=== PATIENT | female | born 1955 | race Caucasian/White ===

== ENCOUNTER 2022-07-29 20:27 | Emergency (ER) | payer MEDICARE, SELFPAY ==
[2022-07-29 20:42] VITALS: BP 226/90; PULSE 100; RESP 16; TEMP 36.7; O2SAT 100
--- NOTE | 2022-07-29 23:39 | PC.NURSE ---
Patient approached the intake desk and informed, SRINIVASA Shay that she did not want to wait any longer and was leaving. Patient was alert and ambulatory upon leaving the ED.
== END 2022-07-29 23:39 | disposition left against medical advice (07) ==
PROVIDERS: PCP Internal Medicine Geriatric Medicine
DX: Z53.21 Procedure and treatment not carried out due to patient leaving prior to being seen by health care provider (principal)
CPT/HCPCS: 99199

== ENCOUNTER 2023-01-23 12:52 | Outpatient (CLI) | payer MEDICARE, SELFPAY ==
--- NOTE | 2023-01-23 15:00 | NEURO_ITS ---
Impression: # Complains of numbness of left hand. # No Carpal Tunnel Syndrome. # Left ulnar neuropathy across the elbow. # Needle/EMG exam decreased motor unit potentials in left 1st DI. Nerve Conduction Studies Anti Sensory Summary Table Stim Site NR Peak (ms) P-T Amp (?V) Site1 Site2 Delta-P (ms) Dist (cm) Kb (m/s) Left Median Anti Sensory (2-3nd Digit) Wrist 3.6 32.9 Wrist 2-3nd Digit 3.6 14.0 39 Wrist 3.9 33.6 Wrist 2-3nd Digit 3.6 14.0 39 Left Radial Anti Sensory (Base 1st Digit) Wrist 1.9 18.3 Wrist Base 1st Digit 1.9 0.0 Left Ulnar Anti Sensory (5th Digit) Wrist 3.3 17.8 Wrist 5th Digit 3.3 14.0 42 Motor Summary Table Stim Site NR Onset (ms) O-P Amp (mV) Site1 Site2 Delta-0 (ms) Dist (cm) Kb (m/s) Left Median Motor (Abd Poll Brev) Wrist 3.4 3.2 Elbow Wrist 5.2 28.0 54 Elbow 8.6 3.0 Left Ulnar Motor (Abd Dig Minimi) Wrist 2.0 4.4 A Elbow Wrist 5.9 30.0 51 A Elbow 7.9 2.2 B Elbow Wrist 3.7 22.0 59 B Elbow 5.7 4.0 F Wave Studies NR F-Lat (ms) L-R F-Lat (ms) Left Median (Mrkrs) (Abd Poll Brev) 29.67 Left Ulnar (Mrkrs) (Abd Dig Min) 29.92 EMG Side Muscle Nerve Root Ins Act Fibs Amp Dur Recrt Comment Left 1stDorInt Ulnar C8-T1 Nml Nml Nml >12ms Reduced Left Ext Indicis Radial (Post Int) C7-8 Nml Nml Nml Nml Nml Left Ext Digitorum Radial (Post Int) C7-8 Nml Nml Nml Nml Nml Left BrachioRad Radial C5-6 Nml Nml Nml Nml Nml Left PronatorTeres Median C6-7 Nml Nml Nml Nml Nml Left Abd Poll Brev Median C8-T1 Nml Nml Nml Nml Nml Left ABD Dig Min Ulnar C8-T1 Nml Nml Nml Nml Nml MTDD
== END 2023-01-23 12:53 | disposition home or self-care (01) ==
LOC: ANHNEURO 12:52
PROVIDERS: Visit Provider Orthopaedic Surgery
DX: G56.22 Lesion of ulnar nerve, left upper limb (principal)
CPT/HCPCS: 95886; 95909

== ENCOUNTER 2023-03-22 13:10 | Outpatient (CLI) | payer MEDICARE, SELFPAY ==
[2023-03-22 16:04] LABS: Anion Gap 4 mmol/L (8-16); Blood Urea Nitrogen 30 mg/dL (7-17); Calcium 9.3 mg/dL (8.4-10.2); Carbon Dioxide 29 mmol/L (22-30); Chloride 106 mmol/L (98-107); Estimated Glomerular Filt Rate 55; Glucose 108 mg/dL (65-110); Potassium 3.9 mmol/L (3.4-5.0); Sodium 139 mmol/L (137-145)
== END 2023-03-22 13:11 | disposition home or self-care (01) ==
PROVIDERS: Anesthesiology; Visit Provider Orthopaedic Surgery
DX: Z51.81 Encounter for therapeutic drug level monitoring (principal); Z79.899 Other long term (current) drug therapy
CPT/HCPCS: 36415; 80048

== ENCOUNTER 2023-03-27 03:03 | Day surgery (SDC) | payer MEDICARE, SELFPAY ==
[2023-03-19 14:02] VITALS: BMI 30.7
--- NOTE | 2023-03-19 14:15 | PC.NURSE ---
PRE-OP INSTRUCTIONS, PLEASE READ CAREFULLY Report to the Outpatient Waiting Room, entrance under the green pavilion located off [facility], at time _1130_ on date _03/27/23_. Planned Procedure Time: __1:30__. Time changes happen often and if your time is changed the preop area will call you the afternoon before. - You and your visitor will be asked to self-screen and do not enter if you have any COVID symptoms. - A mask is optional within the hospital at this time. Patients may have clear liquids (water, carbonated beverages, clear teas, apple juice) until 3 hours prior to surgery (1030 AM) with a maximum of 20 ounces. - No food from midnight until time of surgery Take the following medications with a SIP of water the morning of surgery: _NIFEDIPINE, INHALER, NASAL SPRAY_ DO NOT STOP ANY OF YOUR OTHER PRESCRIPTION MEDICATIONS PRIOR TO SURGERY ?EXCEPT THE FOLLOWING Medications to discontinue - _LEFLUNOMIDE PER DR. LINARES'S INSTRUCTIONS_ Please no make-up, nail [place], hairspray, perfume, deodorant, or body powder the day of surgery. No jewelry (including any body piercings) or valuables the day of surgery, leave them at home. Please take a shower or bath the night before, or the morning of, surgery with an antibacterial soap. Wear comfortable, loose fitting clothing. Children are encouraged to wear pajamas. - Jewelry must be removed prior to entering the operating room. Rings and piercings that are not removed may be cut off. - The hospital will not accept responsibility for valuables. - Please leave all valuables, including medications, at home the day of surgery. If you are going home after surgery, a licensed otr flatbed driver must drive you home. - NO public transportation without another adult if you receive anesthesia. - We recommend that an adult stay with you for 24 hours following discharge. - We also recommend that you do not drive, make important decision, drink alcoholic beverages, or take any drugs that were not prescribed by your health care provider for at least 24 hours after your discharge time. Follow any additional instructions given to you from your surgeon. If you or anyone in your household have experienced Covid symptoms in the past week, please notify your surgeon or the nurse liaison at the phone number below for possible testing. Telephone instructions given to _PATIENT_and asked if any additional questions and then verbalized understanding. Patient advised to call surgeon office or pre surgery nurse liaison [phone] if any additional questions.
[2023-03-27] VITALS (8 sets, daily range): BP systolic 120–168; BP diastolic 60–76; PULSE 63–87; RESP 12–20; TEMP 36.2–36.7; O2SAT 96–100
--- NOTE | 2023-03-27 07:28 | WPDHPUPDATE1 ---
History and Physical Update Update Date/Time: 03/27/23 07:28 History and Physical has been reviewed, including an updated exam of the patient. There are NO changes in the patient's condition. Risks, benefits, and alternatives have been discussed and questions answered. Patient agrees to proceed with procedure.
--- NOTE | 2023-03-27 12:32 | WPDANESEPPF ---
Anes - Initial Pre Proc Eval Procedure: Operation Date: 03/27/23 13:30 Proposed Procedures p Left Cubital Tunnel Release, - Nathaniel De Leon MD s Left Middle Trigger Finger Release - Nathaniel De Leon MD Date/Time: 03/27/23 12:32 Surgeon: Nathaniel De Leon MD Pre Op Diagnosis: Lft Cubital Tunnel synd,Lft Middle Trigger Finger Patient Data Age: 68 Gender: F Height: 1.68 m Weight: 85.8 kg Last Vital Signs Temp 36.7 C 03/27/23 12:22 Pulse 79 03/27/23 12:22 Resp 14 03/27/23 12:22 BP 149/76 H 03/27/23 12:22 Pulse Ox 100 03/27/23 12:22 O2 Del Method Room Air 03/27/23 12:22 Allergies Allergy/AdvReac Type Severity Reaction Status Date / Time Iodinated Contrast Media Allergy Severe ALTERED Verified 03/22/23 15:09 MENTAL STATUS adalimumab Allergy Unknown FACIAL Verified 03/22/23 15:09 SWELLING ibuprofen Allergy Unknown FACIAL Verified 03/22/23 15:09 SWELLING naproxen Allergy Unknown FACIAL Verified 03/22/23 15:09 SWELLING methotrexate AdvReac LUNG Verified 03/22/23 15:09 NODULES Home Medications Medication Instructions Recorded Confirmed Type fluticasone furoate 100 1 inhalation inhalation DAILY 04/07/20 03/22/23 History mcg-vilanterol 25 mcg/dose inhalation powder (Breo Ellipta) leflunomide 20 mg tablet 20 mg PO DAILY 04/07/20 03/22/23 History fluticasone propionate 50 1 spray intranasal DAILY 03/03/22 03/22/23 History mcg/actuation nasal spray,suspension lisinopril 10 mg tablet 40 mg PO DAILY 10/31/22 03/22/23 History spironolactone 25 mg tablet 25 mg PO BID 10/31/22 03/22/23 History (Aldactone) nifedipine 30 mg tablet,extended 30 mg PO DAILY 12/18/22 03/22/23 History release Xyzal 1 tab-cap DAILY PRN SEASONAL 03/19/23 03/22/23 History ALLERGIES oxycodone-acetaminophen 5 mg-325 1 - 2 tablet PO Q4-6H PRN pain #30 03/27/23 Rx mg tablet tabs Patient hx anesthesia problems: none Family hx anesthesia problems: none Results Review: All pre-operative results and documents have been reviewed as part of the pre-operative evaluation. [facility] Past Medical History Medical History Fibromyalgia History of right heart catheterization by ventricular puncture Hypertension Rheumatoid arthritis Surgical History Surgical History H/O hand surgery left hand 4th finger ra nodule removed H/O right knee surgery (~1988) clean up of floating bone fragments H/O: hysterectomy (~1997) Family History Family History Mother Acute myocardial infarction Cerebrovascular accident Father Family history of malignant melanoma Other Family history of arthritis Social History Social History Smoking status: Never smoker Second hand tobacco smoke exposure: No Alcohol intake: never Substance use: never Substance use type: does not use Lack of Transportation: No Lack of Food: Never True Current Housing: I Have Housing Concerned About Future Housing: No Difficulty Paying Gas/Electric Bills: No Difficulty Paying for Meds: No Currently Unemployed: No Education: High School Diploma/GED Difficulty w/ Childcare or Family Care: No Living arrangements: with family Spiritual care concerns: No Anes - Eval Final PreProcedure Day of Procedure 03/27/23 12:32 Patient weight: obese Heart: regular rate and rhythm Lungs: clear to auscultation Airway: Mallampati scale class II Neurological: alert and oriented Last oral intake: >/= 8 hours ASA classification: III Emergent: no Anesthetic plan: proceed Anesthesia type and monitoring: general GIVS and standard monitoring Results Review: All pre-operative results and documents have been reviewed as part of the pre-operative evaluation. Informed
[2023-03-27] MEDS: LACTATED RINGERS 1,000 ML 30 ML IV CONT ×2 (12:46→14:15)
[2023-03-27] MEDS: ceFAZolin 2 GM/D5W 50 ML 2 GM/50 ML BAG IVPB (13:06)
[2023-03-27] MEDS: BUPIVACAINE/EPINEPHRINE 0.5% 50 ML VIAL 10 ML INFILTRATE (13:38)
[2023-03-27] MEDS: oxyCODONE HCL (*CRX) 5 MG TAB IR PO (15:29)
--- NOTE | 2023-03-27 16:53 | P.OP_ITS ---
Procedure Note - Detailed Date of Procedure 03/27/23 Pre-op Diagnosis Lft Cubital Tunnel synd,Lft Middle Trigger Finger Post-op Diagnosis Same Procedure Performed Left 1. Cubital tunnel decompression 2. 3rd trigger finger release Surgeon Nahtaniel De Leon MD Chief Hospital Administrator Lisbet Lezama PA-C Anesthesia General Description of Procedure A tourniquet was placed on the arm. A general anesthetic was administered and the arm was prepped and draped in the usual sterile fashion. The proposed incision was marked using typical anatomic landmarks. 4ML 0.5% Marcaine with epinephrine was injected along the incision lines. The limb was exsanguinated and the tourniquet inflated to 250 millimeters of mercury. A transverse incision was created over the A1 jose ramon subcutaneous dissection was carried out bluntly. The A1 jose ramon was identified and visualized. It was released with the dissection scissors longitudinally. The tourniquet was released. The wound was closed with horizontal mattress Prolene suture 3-0. Attention was turned to the elbow. A longitudinal incision was created posterior to the medial epicondyle. Careful dissection was brought down to the ulnar nerve. It was identified proximally and dissected to the cubital tunnel retinaculum. Careful dissection released the cubital tunnel retinaculum. The dissection was carried out to the flexor carpi the ulnaris. The 1st motor branch was carefully identified and protected. Attention was turned proximally and the nerve was released proximal to the [place]. The arm was flexed and the nerve was assessed. The nerve was stable. The course of the nerve was very nice without evidence of compression or instability. The tourniquet was released and meticulous hemostasis was maintained. The subcutaneous tissues were closed with 3-0 Monocryl suture followed by running 4- 0 Monocryl suture and Steri-Strips. A sterile bulky dressing was applied. The patient was brought to the recovery room in stable condition. There were no complications. Physician physician's assistant, Lisbet Lezama PA-C, required for surgery; including patient positioning, draping, tissue retraction, maintaining instrument position, wound closure, and dressing placement. Estimated Blood Loss -2.0 Pathology None sent Complications No immediate complications Condition Stable Disposition PACU [facility] Billing Surgery - Charge Forward: Surgery Billing
== END 2023-03-27 16:10 | disposition home or self-care (01) ==
PROVIDERS: PCP Internal Medicine Geriatric Medicine; Visit Provider Orthopaedic Surgery
PROC: (CPT 64721; principal; 2023-03-27 13:30)
PROC: (CPT 26055; 2023-03-27 13:30)
DX: G56.22 Lesion of ulnar nerve, left upper limb (principal); M65.332 Trigger finger, left middle finger; I10 Essential (primary) hypertension; M06.9 Rheumatoid arthritis, unspecified; M79.7 Fibromyalgia; E66.9 Obesity, unspecified; Z68.30 Body mass index [BMI] 30.0-30.9, adult
CPT/HCPCS: 26055; 64718; A4565; A9270; J0690; J2250; J2371; J2405; J2704; J3010; J7120

== ENCOUNTER 2023-10-20 13:36 | Emergency (ER) | payer MEDICARE, SELFPAY ==
[2023-10-20 13:45] VITALS: BP 165/67; PULSE 77; RESP 16; TEMP 36.6; O2SAT 98
--- NOTE | 2023-10-20 14:50 | ED.GENADULT ---
HPI - General Adult General Chief complaint: Skin/Abscess/Foreign Body Stated complaint: Finger/Skin Sore Time Seen by Provider: 10/20/23 14:35 Source: patient, RN notes reviewed and old records reviewed Mode of arrival: ambulatory Limitations: no limitations History of Present Illness HPI narrative: 68-year-old female to [facility] for complaint lesion parallel to fingernail digit on left hand for One week. Patient endorses she has been attempting to treat at home with warm compresses and Salve. patient endorses increased pain, swelling and tingling to distal digit. Patient denies numbness, fever, Decreased range of motion. Related Data Home Medications Medication Instructions Recorded Confirmed fluticasone furoate 100 1 inhalation inhalation DAILY 04/07/20 05/09/23 mcg-vilanterol 25 mcg/dose inhalation powder (Breo Ellipta) leflunomide 20 mg tablet 20 mg PO DAILY 04/07/20 05/09/23 fluticasone propionate 50 1 spray intranasal DAILY 03/03/22 05/09/23 mcg/actuation nasal spray,suspension spironolactone 25 mg tablet 25 mg PO BID 10/31/22 05/09/23 (Aldactone) nifedipine 30 mg tablet,extended 30 mg PO DAILY 12/18/22 05/09/23 release Xyzal 1 tab-cap DAILY PRN SEASONAL 03/19/23 05/09/23 ALLERGIES lisinopril 40 mg tablet 40 mg PO DAILY 05/09/23 05/09/23 Allergies Allergy/AdvReac Type Severity Reaction Status Date / Time Iodinated Contrast Media Allergy Severe ALTERED Verified 05/09/23 10:42 MENTAL STATUS adalimumab Allergy Unknown FACIAL Verified 05/09/23 10:42 SWELLING ibuprofen Allergy Unknown FACIAL Verified 05/09/23 10:42 SWELLING naproxen Allergy Unknown FACIAL Verified 05/09/23 10:42 SWELLING methotrexate AdvReac LUNG Verified 05/09/23 10:42 NODULES Review of Systems Review of Systems: All systems reviewed & are unremarkable except as noted in HPI and below Constitutional: Constitutional: Reports no additional constitutional complaints Eyes: Eyes: Reports no additional eye complaints ENT: Reports system reviewed and no additional complaints, except as documented Cardiovascular: Cardiovascular: Reports no additional cardiovascular complaints, Denies chest pain and Denies dyspnea Respiratory: Respiratory: Reports no additional respiratory complaints, Denies cough and Denies dyspnea Musculoskeletal: Musculoskeletal: Reports no additional musculoskeletal complaints Integumentary/Breasts: Skin/Breast: Reports wounds ( Fifth digit left hand parallel to fingernail) Neurologic: Reports system reviewed and no additional complaints, except as documented Psychiatric: Psychiatric: Reports no additional psychiatric complaints [facility] Past Medical History Medical History Fibromyalgia History of right heart catheterization by ventricular puncture Hypertension Rheumatoid arthritis Surgical History Surgical History H/O hand surgery left hand 4th finger ra nodule removed H/O right knee surgery (~1988) clean up of floating bone fragments H/O: hysterectomy (~1997) History of surgery (~03/27/23) Lt Cubital Tunnel Decompression; Lt Middle Trigger Finger Release Family History Family History Mother Acute myocardial infarction Cerebrovascular accident Father Family history of malignant melanoma Other Family history of arthritis Social History Social History Smoking status: Never smoker Second hand tobacco smoke exposure: No Alcohol intake: never Substance use: never Substance use type: does not use Lack of Transportation: No Lack of Food: Never True Current Housing: I Have Housing Concerned About Future Housing: No Difficulty Paying Gas/Electric Bills: No Difficulty Paying for Meds: N
== END 2023-10-20 15:07 | disposition home or self-care (01) ==
PROVIDERS: Emergency Provider Nurse Practitioner Family
DX: L03.012 Cellulitis of left finger (principal); M79.7 Fibromyalgia; I10 Essential (primary) hypertension; M06.9 Rheumatoid arthritis, unspecified
CPT/HCPCS: 99213; G0463

== ENCOUNTER 2023-11-26 14:46 | Outpatient (CLI) | payer MEDICARE, SELFPAY ==
--- NOTE | ~2023-11-26 | XR_ITS ---
XR ankle RT 2V DATE: 11/26/2023 15:22 INDICATION: Rheumatoid arthritis TECHNIQUE: 2 views COMPARISON: None FINDINGS: There is calcification along the distal Achilles tendon and mild posterior and inferior joaquín caneal at the cytopathy. No associated periostitis or erosive change is noted. No fracture or dislocation of the ankle with disruption of the ankle mortise. No periosteal reaction or bone destruction. IMPRESSION: Distal Achilles tendon calcification Mild plantar and posterior calcaneal enthesopathy Reviewed, dictated and finalized at location B.
--- NOTE | ~2023-11-26 | XR_ITS ---
XR ankle LT 2V DATE: 11/26/2023 15:22 INDICATION: Rheumatoid arthritis TECHNIQUE: AP and lateral views COMPARISON: None FINDINGS: Mild plantar and posterior calcaneal enthesopathy without associated erosive change or marla ostitis. No fracture or dislocation of the ankle or disruption of the ankle mortise. No periosteal reaction or bone destruction. IMPRESSION: Mild plantar and posterior calcaneal enthesopathy Reviewed, dictated and finalized at location B.
--- NOTE | ~2023-11-26 | XR_ITS ---
XR sacroiliac joints min 3V DATE: 11/26/2023 15:22 INDICATION: Rheumatoid arthritis TECHNIQUE: AP and bilateral oblique views COMPARISON: None FINDINGS: Normal alignment at the sacroiliac joints. No erosive change or ankylosis is detected. IMPRESSION: No significant abnormality Reviewed, dictated and finalized at Location A. Reviewed, dictated and finalized at location B. IMPRESSION: No significant abnormality
--- NOTE | ~2023-11-26 | XR_ITS ---
EXAMINATION: XR foot RT 2V, XR foot LT 2V DATE: 11/26/2023 15:22 INDICATION: Rheumatoid arthritis at multiple sites TECHNIQUE: 1. Dorsoplantar and lateral views of the left foot were obtained. 2. Dorsoplantar and lateral views of the right foot were obtained. COMPARISON: None. FINDINGS: Normal alignment at the bilateral feet. No fractures. Mild osteoarthritis at the bilateral first meta tarsophalangeal and a few tarsometatarsal and interphalangeal joints. No erosions to suggest inflamma tory arthritis such as rheumatoid. Small bilateral Achilles and plantar calcaneal spurs with enthesop athic ossification bilateral distal Achilles tendons. Soft tissues are unremarkable. IMPRESSION: 1. 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 No erosions to suggest inflam matory arthritis such as rheumatoid. 2. 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 Reviewed, dictated and finalized at location A. IMPRESSION: 1. 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 No eros ions to suggest inflammatory arthritis such as rheumatoid. 2. 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
--- NOTE | ~2023-11-26 | XR_ITS ---
XR wrist LT 2V DATE: 11/26/2023 15:22 INDICATION: Rheumatoid arthritis TECHNIQUE: AP and lateral views COMPARISON: None FINDINGS: No fracture, dislocation, periosteal reaction or bone destruction, erosive change or chondr ocalcinosis. Joint spaces appear relatively well preserved. IMPRESSION: No significant abnormality Reviewed, dictated and finalized at location B. IMPRESSION: No significant abnormality
--- NOTE | ~2023-11-26 | XR_ITS ---
XR wrist RT 2V DATE: 11/26/2023 15:22 INDICATION: History of rheumatoid arthritis TECHNIQUE: AP and lateral views COMPARISON: None FINDINGS: No fracture, dislocation, periosteal reaction or bone destruction, chondrocalcinosis. Joint spaces appear well preserved. IMPRESSION: No significant abnormality Reviewed, dictated and finalized at location B. IMPRESSION: No significant abnormality
--- NOTE | ~2023-11-26 | XR_ITS ---
EXAMINATION: XR hand RT 2V, XR hand LT 2V DATE: 11/26/2023 15:22 INDICATION: Rheumatoid arthritis of multiple sites TECHNIQUE: 1. Posteroanterior and lateral views of the left hand were obtained. 2. Posteroanterior and lateral views of the right hand were obtained. COMPARISON: None. FINDINGS: 2-3 mm ulnar minus variance on the left and 4 mm ulnar minus variance on the right. Bone alignment is otherwise normal at the bilateral hands. No fractures. Polyarticular osteoarthritis characterized by nonuniform joint space narrowing and/or small marginal osteophytes, moderate severity at the right t hird-fifth and left fourth and fifth distal interphalangeal joints and minimal to mild at the remaini ng interphalangeal joints and multiple metacarpophalangeal joints of both hands. No erosions to sugge st inflammatory arthritis such as rheumatoid. Soft tissues are unremarkable. IMPRESSION: 1. Polyarticular osteoarthritis at the bilateral hands, moderate severity at a few of the distal inte rphalangeal joints. No erosions to suggest an inflammatory arthritis such as rheumatoid. Reviewed, dictated and finalized at location A. IMPRESSION: 1. Polyarticular osteoarthritis at the bilateral hands, moderate severity at a few of the distal interphalangeal joints. No erosions to suggest an inflammator y arthritis such as rheumatoid.
== END 2023-11-26 14:47 | disposition home or self-care (01) ==
PROVIDERS: Visit Provider Nurse Practitioner
DX: M06.09 Rheumatoid arthritis without rheumatoid factor, multiple sites (principal); M77.32 Calcaneal spur, left foot; M77.31 Calcaneal spur, right foot
CPT/HCPCS: 72202; 73100; 73120; 73600; 73620

== ENCOUNTER 2023-12-24 13:01 | Outpatient (CLI) | payer MEDICARE, SELFPAY ==
[2023-12-24 13:55] LABS: Anion Gap 5 mmol/L (4-12); Blood Urea Nitrogen 19 mg/dL (7-17); Calcium 9.7 mg/dL (8.4-10.2); Carbon Dioxide 29 mmol/L (22-30); Chloride 107 mmol/L (98-107); Estimated Glomerular Filt Rate > 60; Glucose 81 mg/dL (65-110); Potassium 4.3 mmol/L (3.4-5.0); Sodium 141 mmol/L (137-145)
== END 2023-12-24 13:02 | disposition home or self-care (01) ==
LOC: ANHSURGERY 13:05
PROVIDERS: Anesthesiology; PCP Internal Medicine Geriatric Medicine; Visit Provider Orthopaedic Surgery
DX: I10 Essential (primary) hypertension (principal)
CPT/HCPCS: 36415; 80048

== ENCOUNTER 2023-12-28 00:18 | Day surgery (SDC) | payer MEDICARE, SELFPAY ==
--- NOTE | 2023-12-19 14:50 | PC.NURSE ---
Report to the Outpatient Waiting Room, entrance under the green pavilion located off [facility], at time __12:30 PM on date __12/28/23 . Planned Procedure Time: _2:30 PM . Time changes happen often and if your time is changed the preop area will call you the afternoon before. - You and your visitor will be asked to self-screen and do not enter if you have any COVID symptoms. - A mask is optional within the hospital at this time. Patients may have clear liquids (water, carbonated beverages, clear teas, apple juice) until 3 hours prior to surgery( 11:30 AM) with a maximum of 20 ounces. - No food from midnight until time of surgery - Infants may have breast milk until 4 hours before surgery, formula 6 hours prior to surgery. - Children will be allowed to drink immediately following surgery. If applicable, please bring a bottle or sippy cup to assist with drinking. Juice, water, soda, and popsicles are readily available. For infants on formula, please bring formula the day of surgery. Pacifiers are allowed. Take the following medications with a SIP of water the morning of surgery: _BREO INHALER DO NOT STOP ANY OF YOUR OTHER PRESCRIPTION MEDICATIONS PRIOR TO SURGERY ?EXCEPT THE FOLLOWING Medications to discontinue per physician _HOLD ALL VITAMINS AND SUPPLEMENTS 3 DAYS PRE OP .LAST DOSE 12/24/23 Please no make-up, nail [place], hairspray, perfume, deodorant, or body powder the day of surgery. No jewelry (including any body piercings) or valuables the day of surgery, leave them at home. Please take a shower or bath the night before, or the morning of, surgery with an antibacterial soap. Wear comfortable, loose fitting clothing. Children are encouraged to wear pajamas. - Jewelry must be removed prior to entering the operating room. Rings and piercings that are not removed may be cut off. - The hospital will not accept responsibility for valuables. - Please leave all valuables, including medications, at home the day of surgery. If you are going home after surgery, a licensed power screwdriver operator must drive you home. - NO public transportation without another adult if you receive anesthesia. - We recommend that an adult stay with you for 24 hours following discharge. - We also recommend that you do not drive, make important decision, drink alcoholic beverages, or take any drugs that were not prescribed by your health care provider for at least 24 hours after your discharge time. Follow any additional instructions given to you from your surgeon. If you or anyone in your household have experienced Covid symptoms in the past week, please notify your surgeon or the nurse liaison at the phone number below for possible testing. Telephone instructions given to ____PATIENT and asked if any additional questions and then verbalized understanding. Patient advised to call surgeon office or pre surgery nurse liaison [phone] if any additional questions.
[2023-12-19 14:58] VITALS: BMI 31.1
[2023-12-28] VITALS (8 sets, daily range): BP systolic 104–156; BP diastolic 56–81; PULSE 62–84; RESP 12–16; TEMP 36.1–36.9; O2SAT 93–100
--- NOTE | 2023-12-28 12:42 | WPDANESEPPF ---
Anes - Initial Pre Proc Eval Procedure: Operation Date: 12/28/23 14:30 Proposed Procedures p Excision of Cyst Left Hand - Nathaniel De Leon MD Date/Time: 12/28/23 12:42 Surgeon: Nathaniel De Leon MD Pre Op Diagnosis: left hand cyst Patient Data Age: 68 Gender: F Height: 1.65 m Weight: 84.85 kg Allergies Allergy/AdvReac Type Severity Reaction Status Date / Time Iodinated Contrast Media Allergy Severe ALTERED Verified 12/19/23 14:37 MENTAL STATUS adalimumab Allergy Unknown FACIAL Verified 12/19/23 14:37 SWELLING ibuprofen Allergy Unknown FACIAL Verified 12/19/23 14:37 SWELLING naproxen Allergy Unknown FACIAL Verified 12/19/23 14:37 SWELLING methotrexate AdvReac LUNG Verified 12/19/23 14:37 NODULES lisinopril Allergy Unknown Swelling Uncoded 12/19/23 14:37 of Lip/Tongue/Throat Home Medications Medication Instructions Recorded Confirmed Type fluticasone furoate 100 1 inhalation inhalation DAILY 04/07/20 12/19/23 History mcg-vilanterol 25 mcg/dose inhalation powder (Breo Ellipta) fluticasone propionate 50 2 spray intranasal DAILY 03/03/22 12/19/23 History mcg/actuation nasal spray,suspension spironolactone 25 mg tablet 25 mg PO BID 10/31/22 12/19/23 History (Aldactone) nifedipine 30 mg tablet,extended 30 mg PO HS 12/18/22 12/19/23 History release Xyzal 1 tab-cap PO DAILY PRN SEASONAL 03/19/23 12/19/23 History ALLERGIES losartan 50 mg tablet 50 mg PO DAILY 12/17/23 12/19/23 History cholecalciferol (vitamin D3) 125 125 mcg PO DAILY 12/19/23 12/19/23 History mcg (5,000 unit) tablet etyoaxcnozt-sdg-cjbeaizqg-vitC 2 cap PO DAILY 12/19/23 12/19/23 History capsule (Glucosamine Complex-MSM capsule) leflunomide 20 mg tablet 20 mg PO DAILY RA 12/19/23 12/19/23 History malic acid 800 mg tablet 800 mg PO DAILY 12/19/23 12/19/23 History omega 3,6,9 combination no.7 92 mg 92 mg PO DAILY 12/19/23 12/19/23 History (43 mg-22 [id number]) chew tablet turmeric root extract 500 mg 500 mg PO DAILY 12/19/23 12/19/23 History capsule hydrocodone 5 mg-acetaminophen 325 1 - 2 tablet PO Q4-6H PRN pain #15 12/28/23 Rx mg tablet tabs Patient hx anesthesia problems: none Family hx anesthesia problems: none Results Review: All pre-operative results and documents have been reviewed as part of the pre-operative evaluation. PMFSH Past Medical History Medical History Fibromyalgia History of right heart catheterization by ventricular puncture Hypertension Rheumatoid arthritis Surgical History Surgical History H/O hand surgery left hand 4th finger ra nodule removed H/O right knee surgery (~1988) clean up of floating bone fragments H/O: hysterectomy (~1997) History of surgery (~03/27/23) Lt Cubital Tunnel Decompression; Lt Middle Trigger Finger Release Family History Family History Mother Acute myocardial infarction Cerebrovascular accident Father Family history of malignant melanoma Other Family history of arthritis Social History Social History Smoking status: Never smoker Second hand tobacco smoke exposure: No Alcohol intake: never Substance use: never Substance use type: does not use Lack of Transportation: No Lack of Food: Never True Current Housing: I Have Housing Concerned About Future Housing: No Difficulty Paying Gas/Electric Bills: No Difficulty Paying for Meds: No Currently Unemployed: No Education: High School Diploma/GED Difficulty w/ Childcare or Family Care: No Living arrangements: with family Spiritual care concerns: No Anes - Eval Final PreProcedure Day of Procedure 12/28/23 12:42 Patient weight: normal Heart: regul
[2023-12-28] MEDS: LACTATED RINGERS 1,000 ML 30 ML IV CONT (13:20)
[2023-12-28] MEDS: ACETAMINOPHEN 500 MG TABLET 1000 MG PO (13:20)
--- NOTE | 2023-12-28 13:27 | WPDHPUPDATE1 ---
History and Physical Update Update Date/Time: 12/28/23 13:27 History and Physical has been reviewed, including an updated exam of the patient. There are NO changes in the patient's condition. Risks, benefits, and alternatives have been discussed and questions answered. Patient agrees to proceed with procedure.
[2023-12-28] MEDS: ceFAZolin 2 GM/D5W 50 ML 2 GM/50 ML BAG IVPB (13:36)
[2023-12-28] MEDS: BUPIVACAINE/EPINEPHRINE 0.5% 50 ML VIAL 10 ML INFILTRATE (13:58)
--- NOTE | 2023-12-28 14:16 | W.PM.PROC2 ---
Procedure Note - Detailed Date of Procedure 12/28/23 Pre-op Diagnosis Left hand cyst Post-op Diagnosis Same Procedure Performed Cyst excision left palm Surgeon Nathaniel De Leon MD Anesthesia General Indications Tender cystic mass at the palm site of the previous trigger finger release incision. Findings Benign cyst. Approximately 4 mm in diameter. Granulomatous reaction. Encapsulated tissue excised. No foreign body or suture material identified. Description of Procedure Preoperative antibiotics given. General anesthetics were administered. Tourniquet was placed on the forearm with the Esmarch. She had a laceration on her upper arm precluding a standard tourniquet. A small ellipse of skin tissue was excised. A granulomatous reaction and the subcutaneous tissues was excised with careful blunt dissection. There did not appear to be any infection. There was granulomatous tissue in the cyst. No definite foreign body identified. Cyst was less than 4 mm in diameter. The wound was irrigated. The tourniquet released. Closure with interrupted simple Prolene suture. 6 mL of 0.5% Marcaine was injected for additional local pain control. Estimated Blood Loss 1 Drains No Packing No Pathology None sent Complications No immediate complications Condition Stable Disposition PACU [facility] Billing Surgery - Charge Forward: Surgery Billing
== END 2023-12-28 15:54 | disposition home or self-care (01) ==
PROVIDERS: PCP Internal Medicine Geriatric Medicine; Visit Provider Orthopaedic Surgery
PROC: (CPT 26055; principal; 2023-12-28 14:30)
DX: L72.8 Other follicular cysts of the skin and subcutaneous tissue (principal); I10 Essential (primary) hypertension; Z79.51 Long term (current) use of inhaled steroids; Z79.891 Long term (current) use of opiate analgesic; Z98.890 Other specified postprocedural states; Z98.61 Coronary angioplasty status; Z80.8 Family history of malignant neoplasm of other organs or systems; Z82.49 Family history of ischemic heart disease and other diseases of the circulatory system
CPT/HCPCS: 11420; A9270; J0690; J2250; J2704; J3010; J7120

== ENCOUNTER 2024-03-13 15:56 | Outpatient (CLI) | payer MEDICARE, SELFPAY ==
--- NOTE | ~2024-03-13 | XR_ITS ---
EXAMINATION: XR knee LT min 4V, XR knee RT min 4V DATE: 03/13/2024 16:59 INDICATION: Bilateral primary osteoarthritis of the knees. Rheumatoid arthritis. TECHNIQUE: 1. Weight bearing anteroposterior and Solorzano, sunrise, and flexed lateral views of the left knee w ere obtained. 2. Weight bearing anteroposterior and Solorzano, sunrise, and flexed lateral views of the right knee were obtained. COMPARISON: None. FINDINGS: Right knee: Alignment is normal. No fracture. Chondrocalcinosis at the medial lateral compartments. There is mod erate patellofemoral and mild medial and lateral compartment osteoarthritis. No erosions to suggest i nflammatory arthritis. Minimal right knee joint effusion. Mild infrapatellar soft tissue along with s mall region of increased density anterior to the patellar tendon suggesting possible infrapatellar bu rsitis. Left knee: Alignment is normal. No fracture. Minimal chondrocalcinosis at the medial and lateral compartments. M ild osteoarthritis in all 3 compartments of the knee. No knee joint effusion. Mild soft tissue swelli ng with mild subcutaneous edema anterior to the patellar tendon. IMPRESSION: 1. 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 2. Mild infrapatellar soft tissue swelling with increased density anterior to the right patellar tend on suggesting possible infrapatellar bursitis. 3. Minimal right knee joint effusion. Reviewed, dictated and finalized at location A. IMPRESSION: 1. Chronic calcinosis and tricompartmental osteoarthritis of both knees, modera te at the right patellofemoral compartment and mild in the remaining compartmen ts of both knees. 2. Mild infrapatellar soft tissue swelling with increased density anterior to t he right patellar tendon suggesting possible infrapatellar bursitis. 3. Minimal right knee joint effusion.
--- NOTE | ~2024-03-13 | XR_ITS ---
EXAMINATION: XR cervical spine 4-5V DATE: 03/13/2024 16:59 INDICATION: Primary osteoarthritis. Rheumatoid arthritis. TECHNIQUE: 6 views of cervical spine including flexion and extension views. were obtained. COMPARISON: None. FINDINGS: There is 2 mm retrolisthesis of C4 on C5 and C5 on C6. There is no abnormal motion with fle xion or extension. Vertebral body heights are normal. There is moderately decreased disc height at C4 -C5 and severely decreased disc height at C5-C6 and C6-C7. There is multilevel facet joint osteoarthr itis, severe on the left at C3-C4. There is mild central canal stenosis at C4-C5, C5-C6, and C6-C7. N o prevertebral soft tissue swelling. IMPRESSION: 1. Severe cervical spondylosis. Reviewed, dictated and finalized at location A.
== END 2024-03-13 15:57 | disposition home or self-care (01) ==
PROVIDERS: PCP Internal Medicine Geriatric Medicine
DX: M43.02 Spondylolysis, cervical region (principal); M17.0 Bilateral primary osteoarthritis of knee; M11.262 Other chondrocalcinosis, left knee; M25.462 Effusion, left knee; R91.1 Solitary pulmonary nodule; Z87.39 Personal history of other diseases of the musculoskeletal system and connective tissue
CPT/HCPCS: 72050; 73564

== ENCOUNTER 2024-08-18 11:10 | Outpatient (CLI) | payer MEDICARE, SELFPAY ==
--- NOTE | ~2024-08-18 | XR_ITS ---
EXAMINATION: XR knee LT min 4V, XR knee RT min 4V DATE: 08/18/2024 11:51 INDICATION: Bilateral primary osteoarthritis of the knees TECHNIQUE: 1. Weight bearing anteroposterior and Solorzano, sunrise, and flexed lateral views of the right knee were obtained. 2. Weight bearing anteroposterior and Solorzano, sunrise, and flexed lateral views of the left knee w ere obtained. COMPARISON: None. FINDINGS: Right knee: Alignment is normal. No fracture. Chondrocalcinosis and small marginal osteophytes without significa nt joint space narrowing at the medial lateral compartments of the right knee. There is moderate to s evere joint space narrowing at the lateral side of the patellofemoral compartment with moderate-sized marginal osteophytes. Small left knee joint effusion. Small amount of enthesopathic ossification priya ng the distal quadriceps tendon. Left knee: Alignment is normal. No fracture. More subtle minimal chondrocalcinosis and additional small margina l osteophytes with preserved joint at the medial lateral compartments of the left knee. Mild joint sp montserrat narrowing at the lateral aspect of the patellofemoral articulation with moderate size marginal os teophyte. Soft tissues are unremarkable. IMPRESSION: 1. Chondrocalcinosis and patella femoral compartment predominant tricompartmental osteoarthritis at b oth knees, moderate to severe at the right patellofemoral compartment and mild at the remaining shonda rtments of both knees. Reviewed, dictated and finalized at location A. GN SPECIALIST IMPRESSION: 1. Chondrocalcinosis and patella femoral compartment predominant tricompartment al osteoarthritis at both knees, moderate to severe at the right patellofemoral compartment and mild at the remaining compartments of both knees.
--- OUTSIDE RECORDS SUMMARY | 2024-08-18 12:07 | XMS_ITS | Encounter Summary ---
Author Organization [facility] Address [address] [place] [address] Care Team Providers Care Management Information Systems Director Name Role Phone Chad Pickering MD Primary Care Provider [phone] Encounter Details Date Type Department Care Team (Late Contact Info) Description 12/20/2023 Lab Requisition [facility] - DermPath Lab [address] [place] [id number] Miguel A Del Cid Jr., MD [address] [place] [address] Social History Tobacco Use Types Packs/Day Years Used Date Smoking Tobacco: Never Assessed Sex and Gender Information Value Date Recorded Sex Assigned at Not on file Gender Identity Not on file Sexual Orientation Not on file documented as of this encounter Plan of Treatment Upcoming Encounters Date Type Department Care Team (Late Contact Info) Description 08/19/2024 2:45 PM 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 Office Visit [facility] Medical [facility] - Rheumatology [id number] [address] [place] [address] [address] [facility] [address] [place] [address] documented as of this encounter Procedures Procedure Name Priority Date/Time Associated Diagnosis Comments DERMATOPATHOLOGY Routine 12/19/2023 12:0 0 AM CDT documented in this encounter Results * DERMATOPATHOLOGY (12/19/2023 12:00 AM CDT) Case Report Dermatopathology Report Case: [id number] Authorizing Provider: Miguel A Del Cid Jr., MD Collected: 12/19/2023 12:00 AM Ordering Location: [facility] - Received: 12/20/2023 01:35 PM DermPath Lab Pathologist: Diamante Serrato MD Specimen: Skin, left proximal posterior upper arm 3:39 PM CDT DERMATOPATHOLOGY LABORATORY Final Diagnosis Specimen A. 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 Check margins 3:39 PM CDT DERMATOPATHOLOGY LABORATORY Gross Description Specimen A: Received is one formalin filled container labeled with the patient's name and designated left proximal posterior upper arm.The specimen consists of an ellipse measuring [id number] mm and is oriented with the suture/notch at the 12 o'clock position labeled on the requisition as suture. The 12 to 6 o'clock margin is inked green. The 6 o'clock to 12 o'clock margin is inked red. The 12 o'clock tip is submitted in cassette 1. The 6 o'clock tip is submitted in cassette 2. The remainder of the ellipse is serially sectioned and submitted in cassettes 3-4. Jar 0. 3:39 PM CDT DERMATOPATHOLOGY LABORATORY Microscopic Description Specimen A. SKIN, left proximal posterior upper arm: There are fibroblasts and collagen bundles oriented parallel to the skin surface. There are elongated blood vessels, some of which are oriented perpendicular to the skin surface. No residual squamous cell carcinoma is identified. 3:39 PM CDT DERMATOPATHOLOGY LABORATORY Disclaimer An external and internal positive and negative controls are appropriate for the histochemical, immunohistochemical and immunofluorescence stain(s) in this case (if any), except where stated explicitly. The performance characteristics of the stain(s) cited in this report were developed and its performance characteristic determined by the Dermatopathology Laboratory at [facility], directed by Dr. Ahmet Harkins. These tests need not be, and therefore are not, approved by the [place] Food and Drug Administration. The tests are used for clinical purposes. Billing Codes Specimen Charges Stain Charges 93103 1 4 3:39 PM CDT DERMATOPATHOLOGY LABORATORY Embedded Images 4 3:39 PM CDT DERMATOPATHOLOGY LABORATORY Pathology/Cytolog y TISSUE SPECIMEN FROM SKIN / Unknown 12/19/2023 12/20/2023 1:35 PM CDT Miguel A Del Cid Jr., MD LAB - PATHOLOGY /CYTOLOGY ORDERABLES DERMATOPATHOLOGY LABORATORY [facility] - Department of Dermatology [facility] Medicine [address] [place] [address], [address] [phone] documented in this encounter Visit Diagnoses Not on filedocumented in this encounter Care Teams Management Information Systems Director Relationship Specialty [place] [address] [place] [address] PCP - General Internal Medicine 03/06/24 documented as of this encounter
--- OUTSIDE RECORDS SUMMARY | 2024-08-18 12:07 | XMS_ITS | Referral Summary ---
Author Organization [facility] Address [address] [place] [phone] Care Team Providers Care Fabric Awning Repairer Name Role Phone Chad Mayer MD Primary Care Provider + Monserrat Florentino MD Unavailable Encounters Date Type Department Care Team Description 07/28/2024 2:30 PM TECHNOLOGY ARCHITECT Infusion [address] [phone] Rheumatoid arthritis involving both hands with negative rheumatoid factor (CMS/HCC) (HCC) (Primary Dx) 06/30/2024 2:30 PM TECHNOLOGY ARCHITECT Infusion [address] [place] [phone] Rheumatoid arthritis involving both hands with negative rheumatoid factor (CMS/HCC) (HCC) (Primary Dx) 06/02/2024 3:00 PM TECHNOLOGY ARCHITECT Infusion [address] [place] [phone] Rheumatoid arthritis involving both hands with negative rheumatoid factor (CMS/HCC) (HCC) (Primary Dx) from Last 3 Months Allergies Active Allergy Reactions Criticality Noted Date Comments Adalimumab Anaphylaxis High 07/14/2019 Lisinopril Cough Low 07/28/2024 Nsaids (Non-Steroidal Anti-Inflammatory Drug) Angioedema Reaction: facial swelling, , Medications leflunomide (ARAVA) 20 mg tablet Take 1 tablet (20 mg total) by mouth daily. 90 tablet 8 Active fluticasone furoate-vilante rol (BREO ELLIPTA) 100-25 mcg/dose diskus inhaler Inhale 1 puff daily Rinse mouth with water after use. Do not swallow. Active spironolactone (ALDACTONE) 25 mg tablet Take 1 tablet (25 mg total) by mouth 2 (two) times a day Active NIFEdipine (NIFEdipine CC) 30 mg 24 hr tablet Take 1 tablet (30 mg total) by mouth nightly Active losartan (COZAAR) 100 mg tablet Take 1 tablet (100 mg total) by mouth daily Active fluticasone propionate (FLOVENT DISKUS) 50 mcg/actuation diskus inhaler Inhale 2 puffs daily Rinse mouth with water after use. Do not swallow. Active lisinopril (PRINIVIL,ZESTR IL) 10 mg tablet take 1 tablet by oral route every day 0 0 4 07/28/19 25 Discontinu ed(Therapy completed) valACYclovir (VALTREX) 500 mg tablet take 1 tablet by oral route every day 0 0 7 07/28/19 25 Discontinu ed(Therapy completed) valACYclovir (VALTREX) 1 gram tablet take 1 tablet by oral route every day 0 0 5 07/28/19 25 Discontinu ed(Therapy completed) cetirizine (ZyrTEC) 10 mg tablet take 1 tablet by oral route every day 0 0 5 07/28/19 25 Discontinu ed(Therapy completed) predniSONE (DELTASONE) 5 mg tabletIndicatio ns:Anti-inflamm atory,autoimmun e disease Take 10 mg (2 tablets) x 5 days, then 5 mg (1 tablet) x 5 days, then 2.5 mg (1/2 tablet) x 5 days, then stop. 30 tablet 8 07/28/19 25 Discontinu ed(Therapy completed) traMADol (ULTRAM) 50 mg tablet Take 1 tablet (50 mg total) by mouth 2 (two) times a day as needed for pain. 60 tablet 3 8 07/28/19 25 Discontinu ed(Therapy completed) diclofenac sodium 20 mg/gram /actuation(2 %) solution in metered-dose pump Apply 40 mg topically 2 (two) times a day. 112 g 3 8 07/28/19 Discontinu ed(Therapy completed) losartan (COZAAR) 100 mg tablet Take 1 tablet (100 mg total) by mouth daily 07/28/19 Discontinu ed(Therapy completed) Active Problems Problem Noted Date Diagnosed Date Screen for colon cancer 06/12/2019 Overview (06/12/2019): Added automatically from request for surgery [id number] Fibromyalgia 04/02/2017 Assessment & Plan (01/14/2018 2:14 PM CDT): Also likely source of pain. Discussed proper self-care, such as exercise and getting enough sleep to help manage symptoms. Assessment & Plan (10/18/2017 8:26 AM CDT): Also likely source of pain. Discussed proper self-care, such as exercise and getting enough sleep to help manage symptoms. Avoiding medicines d/t potential se of weight gain Assessment & Plan (04/02/2017 3:25 PM CDT): Avoiding medicines due to potential se of weight gain. Discussed doing Nitin Chi for relief. Encounter for long-term (current) use of medicat ions 04/02/2017 Assessment & Plan (01/14/2018 2:14 PM CDT): Will continue to monitor w/ routine labs Assessment & Plan (10/18/2017 3:11 PM CDT): Will continue to monitor w/ routine labs Assessment & Plan (04/02/2017 3:26 PM CDT): Will check labs and vectra test today. Chest ct with pulm. Lung nodules 04/02/2017 Assessment & Plan (01/14/2018 2:05 PM CDT): Follows w/ pulmonology at [facility] Assessment & Plan (10/18/2017 8:27 AM CDT): A stable left lower lobe nodule without change since 08/19/2015. 11 mm residual nodule or scarring in the left upper lobe. A follow-up CT chest is suggested in 12 months. MTX stopped and put on ARAVA Assessment & Plan (04/02/2017 3:24 PM CDT): Seeing pulm and getting routine chest Ct. Questioning if these could be rheumatoid nodules, but would have to get a biopsy of nodules to determine cause. Obesity with body mass index 30 or greater 04/21 Overview (10/12/2016): BMI 30+ - obesity Rheumatoid arthritis involvi ng both hands with negative rheumatoid factor ([facility]) 04/21/2015 Overview (10/12/2016): Rheumatoid arthritis Assessment & Plan (01/14/2018 4:57 PM CDT): Patient disease activity is moderate on arava 20 mg/d. She reports loose stools and gas since starting the arava. She was on MTX but this was stopped d/t lung nodules on CT scan. She reports her fibromyalgia has been flaring which is likely contributing to her overall pain. She will be vacationing at the [place] next month and states she always feels better when she is on the [facility]. Patient is to continue current regimen. Will refill voltaren gel We will give her a prednisone taper to take w/ her while she is on vacation in case she flares. Will check routine labs today. Follow up in 3 mo, sooner if needed Assessment & Plan (10/18/2017 3:10 PM CDT): Patient disease activity is moderate on ARAVA 20 mg. She states she is doing well. She states her joints feel better since her previous visit in 08/2017. Patient is to continue current regimen. Will check routine labs today. Follow up in 3 mo, sooner if needed. Pt seen w/ Taylor Joyce PA-C Assessment & Plan (04/02/2017 3:23 PM CDT): Moderate disease activity with mtx 20mg weekly. Has min synovitis but more tender joints. Will check vectra test and hand u/s to look for disease staging. Could have pain component from her fibromyalgia and osteoarthritis. Lab today. F/u 3 mos, sooner if needed. Fibrositis 04/21/2015 Overview (10/12/2016): Fibromyalgia Arthritis 04/14/2014 Overview (10/12/2016): Arthritis Hypertension 04/14/2014 Overview (01/14/2018): Hypertension Injury of finger 03/27/2012 Drug indicated 02/28/2012 Overview (10/12/2016): LONG-TERM USE MEDS NEC Osteoarthritis 11/14/2011 Overview (10/12/2016): ARTHROPATHY NOS-UNSPEC Immunizations Name Administration Dates Next Due Influenza, Trivalent, IM (MDV) 04/23/2008 Social History Tobacco Use Types Packs/Day Years Used Date Smoking Tobacco: Never Smokeless Tobacco: Never Alcohol Use Standard Drinks/Week Comments Yes 0 (1 standard drink = 0.6 oz pur e alcohol) Comments No Sex and Gender Information Value Date Recorded Sex Assigned at Not on file Legal Sex Female 10:25 AM TECHNOLOGY ARCHITECT Gender Identity Not on file Sexual Orientation Not on file Last Filed Vital Signs Vital Sign Reading Time Taken Comments Blood Pressure 151/82 07/28/2024 2:35 PM TECHNOLOGY ARCHITECT Pulse 87 07/28/2024 2:35 PM TECHNOLOGY ARCHITECT Temperature 36.3 C (97.3 F) 07/28/2024 2:35 PM TECHNOLOGY ARCHITECT Respiratory Rate 18 07/28/2024 2:35 PM TECHNOLOGY ARCHITECT Oxygen Saturation 97% 07/28/2024 2:35 PM TECHNOLOGY ARCHITECT Inhaled Oxygen Concentration - - Weight 86.5 kg (190 lb 9.6 oz) 06/30/2024 2:25 P M TECHNOLOGY ARCHITECT Height 167.6 cm (5' 6 ) 12/29/2022 2:16 PM CDT Body Mass Index 30.76 12/29/2022 2:16 PM CDT Plan of Treatment Not on file Medical Devices Implanted Type Area Credit Control Assistant Device Identifier Shelf Expiration Date Model / Serial / Lot [employer] Ifo2023 Mammomark 8ga Bowtie Identifier Biopsy Site - [id number] - [id number] Implanted:Qty: 1 on 02/05/2018 by Reilly Vega Jr., MD at [facility] Breast Right: Breast Devicor dooub 02/25/2019 [id number] / [id number] / Procedures Procedure Name Priority Date/Time Associated Diagnosis Comments SCREENING MAMMOGRAM BILATERAL W MORGAN Schedule Routine, Read Routine (OP Routine) 03/26/2024 3:36 PM CDT Screening mammogram, encounter for COLONOSCOPY 07/15/2019 10:28 AM TECHNOLOGY ARCHITECT DEXA AXIAL SKELETON BONE DENSITY 1 OR MORE SITES Routine 11/25/2013 9:58 AM CDT from Last 3 Months or Most Recently Relevant to Health Maintenance Results * Screening Mammogram Bilateral W Morgan (03/26/2024 3:36 PM CDT) Anatomical Region Laterality Modality Breast Bilateral Mammography 03/26/2024 3:47 PM CDT Impressions 03/26/2024 3:47 PM CDT There is no mammographic evidence of malignancy. A 1 year screening mammogram is recommended. BI-RADS: 2 - Benign. The patient has been or will be contacted. The patient will be entered into a reminder system with a target due date of 1 year for her next mammogram. Electronically signed by: CRISTHIAN Saucedo 03/26/2024 3:47 PM CDT EXAMINATION: SCREENING MAMMOGRAM BILATERAL W MORGAN ORDERING HEALTHCARE PROVIDER: SELF SCREENING MAMMOGRAM HISTORY: Routine screening mammography. COMPARISON: 12/29/2022, 11/11/2021, 09/11/2020, 07/10/2019. TECHNIQUE: CC and MLO views of both breasts were obtained with digital technique using digital breast tomosynthesis with C view. Computer aided detection was utilized. FINDINGS: DENSITY: The breasts are almost entirely fatty. BREASTS: A biopsy marker clip is again seen in the right breast. A few benign calcifications are redemonstrated bilaterally without suspicious interval change. There is no new suspicious finding in either breast on mammogram. us Self Screening Mammogram IMG MAMMO PROCEDURES Fi nal Result * COLONOSCOPY (07/15/2019 10:28 AM TECHNOLOGY ARCHITECT) Anatomical Region Laterality Modality Other Narrative Procedure Note Mitch Green MD - 07/15/2019 10:28 AM CST [facility] Patient Name: Ally Bethea Procedure Date: 07/15/2019 10:28 AM Date of : 1955 Admit Type: Outpatient Age: 64 Gender: Female Attending MD: Mitch Green M.D. Room: [facility] ENDOSCOPY ROOM 2 Note Status: Finalized Patient Profile: Refer to note in patient chart for documentation of history and physical. Procedure: Colonoscopy Indications: Screening for colorectal malignant neoplasm, Last colonoscopy: April 2007 Referring MD: Chad Mayer M.D. Providers: Mitch Green M.D. Impression: - Internal hemorrhoids that do not return to theanal canal, thus continuously prolapsed (Grade IV) foundon digital rectal exam. - One 4 mm polyp in the ascending colon, removedwith a hot biopsy forceps. Resected and retrieved. - Diverticulosis in the sigmoid colon. - The examination was otherwise normal. Recommendation: - Discharge patient to home. - Resume previous diet. - Continue present medications. - Await pathology results. - Repeat colonoscopy in 5 years for surveillance. - Return to primary care physician as previously scheduled. Medicines: Propofol per Anesthesia Complications: No immediate complications. Estimated Blood Loss: Estimated blood loss: none. Procedure: Pre-Anesthesia Assessment: - This assessment was completed [Time of Assessment] prior to the administration of sedation. The benefits, risks and alternatives of theprocedure and sedation were discussed and informed consent was obtained. All questions were answered. Please referto the signed informed consent document in the medical record. The scope was passed under direct vision.The Colonoscope [id number] was introducedthrough the anus and advanced to the the cecum, identifiedby appendiceal orifice and ileocecal valve. The bowel preparation used was Miralax. Bowel prep was administered using a single dose. The colonoscopywas performed without difficulty. The patient toleratedthe procedure well. The quality of the bowel preparation was good. Findings: The digital rectal exam findings include internal hemorrhoids that do not return to the anal canal, thus continuously prolapsed (GradeIV). A 4 mm polyp was found in the ascending colon. The polyp was sessile. The polyp was removed with a hot biopsy forceps. Resection andretrieval were complete. Verification of patient identification for thespecimen was done by the physician and nurse using the patient's name andbirth date. Estimated blood loss was minimal. Multiple small and large-mouthed diverticula were found in thesigmoid colon. The exam was otherwise without abnormality. Electronically signed by Mitch Green M.D. Mitch Green M.D. 07/15/2019 11:57:53 AM Number of Addenda: 0 Note Initiated On: 07/15/2019 10:28 AM Procedure Code(s): --- Professional --- 25303, Colonoscopy, flexible; with removal of tumor(s), polyp(s), or other lesion(s) by hot biopsy forceps Diagnosis Code(s): --- Professional --- K57.30, Diverticulosis of large intestine without perforation orabscess without bleeding D12.2, Benign neoplasm of ascending colon K64.3, Fourth degree hemorrhoids Z12.11, Encounter for screening for malignant neoplasm of colon CPT copyright 2017 [employer]. All rights reserved. The codes documented in this report are preliminary and upon public relations coordinator reviewmay be revised to meet current compliance requirements. Recognized by the [employer] for promoting quality in endoscopy us Mitch Green MD ENDOSCOPY PROCEDURES Final Re sult * Dexa Axial Skeleton Bone Density 1 or 2 Site (11/25/2013 9:58 AM CDT) Anatomical Region Laterality Modality Body N/A Radiographic Farhana ging 11/25/2013 9:58 AM CDT Narrative 11/25/2013 5:02 PM CDT DEXA Bone Density Axial Acc#: [id number] DATE OF EXAM: Nov 25 2013 CLINICAL HISTORY: 58 year old post menopausal female who is status post hysterectomy. Prior history of rheumatoid arthritis. RESULT: DXA LEFT HIP RESULTS SUMMARY: BMD (g/cm'b2) T-score Z-score Neck 0.766 -0.7 0.4 Total 0.973 0.3 1.0 DXA L-SPINE RESULTS SUMMARY: BMD (g/cm'b2) T-score Z-score L1 0.938 -0.5 0.6 L2 0.977 -0.5 0.7 L3 0.982 -0.9 0.3 L4 0.910 -1.4 -0.1 Total 0.948 -0.9 0.3 IMPRESSION: 1. BONE MINERAL DENSITY OF THE LUMBAR SPINE IS WITHIN NORMAL LIMITS. 2. BONE MINERAL DENSITY OF THE LEFT FEMORAL NECK IS WITHIN NORMAL LIMITS. COMMENT: W.H.O. defines the T-score of between -1 and -2.5 as osteopenia, the level at which there may be an increased risk of developing osteoporosis and fractures in the future. Osteoporosis is defined as T-score lower than -2.5 (significantly increased risk of fracture due to osteoporosis). T-score is a comparison to peak bone mineral density of young adult reference population. Z-score is a comparison to bone mineral density of sex and age group population. Interpreting Physician: DR NELLY SIMS M.D. Read on: Nov 25 2013 12:35P Transcribed by: [email or web address] On: Nov 25 2013 3:00P Approved Electronically by: BETHANY Whitley, DR VILLEGAS on: Nov 25 2013 5:02P Ordering DR: DR CHAD MAYER Attending DR: CHAD ALBA Procedure Note Provider, MD Cherelle - 11/01/2016 DEXA Bone Density Axial Acc#: [id number] DATE OF EXAM: Nov 25 2013 CLINICAL HISTORY: 58 year old post menopausal female who is status post hysterectomy. Priorhistory of rheumatoid arthritis. RESULT: DXA LEFT HIP RESULTS SUMMARY: BMD (g/cm'b2) T-score Z-score Neck 0.766 -0.7 0.4 Total 0.973 0.31.0 DXA L-SPINE RESULTS SUMMARY: BMD (g/cm'b2) T-score Z-score L1 0.938 -0.5 0.6 L2 0.977 -0.5 0.7 L30.982 -0.9 0.3 L4 0.910 -1.4 -0.1 Total 0.948 -0.9 0.3 IMPRESSION: 1. BONE MINERAL DENSITY OF THE LUMBAR SPINE IS WITHIN NORMAL LIMITS. 2. BONE MINERAL DENSITY OF THE LEFT FEMORAL NECK IS WITHIN NORMALLIMITS. COMMENT: W.H.O. defines the T-score of between -1 and -2.5 as osteopenia, thelevel at which there may be an increased risk of developing osteoporosisand fractures in the future. Osteoporosis is defined as T-score lowerthan -2.5 (significantly increased risk of fracture due to osteoporosis).T-score is a comparison to peak bone mineral density of young adultreference population. Z-score is a comparison to bone mineral density ofsex and age group population. Interpreting Physician: DR NELLY SIMS M.D. Read on: Nov 25 201312:35P Transcribed by: [email or web address] On: Nov 25 2013 3:00P Approved Electronically by: BETHANY Whitley, DR VILLEGAS on: Nov 25 20135:02P Ordering DR: DR CHAD MAYER Attending DR: CHAD ALBA us Historical Provider MD BOLIVAR DXA PROCEDURES Final Result from Last 3 Months or Most Recently Relevant to Health Maintenance Insurance [facility] COMMERCIAL GENERIC CORE [facility] HMO/PPO Address: [facility] [address] [place] [address] COMMERCIAL GENERIC [facility] CORE [facility] MEDICARE SUPP MEDICARE Advance Directives For more information, please contact: [phone] * Full Code (Latest Code Status on File) Date Activated Date Inactivated Comments 07/15/2019 10:32 AM 07/15/2019 5:36 PM * Full Code Date Activated Date Inactivated Comments 07/15/2019 10:32 AM 07/15/2019 10:32 AM Care Teams Fabric Awning Repairer Relationship Specialty [place] [id number] [place] [address] PCP - General 10/06/16 [place] [address] [place] [address] Rheumatology 03/02/17
--- OUTSIDE RECORDS SUMMARY | 2024-08-18 12:07 | XMS_ITS ---
Author Organization [facility] Address [address] [place] [address] Care Team Providers Care Grounds Foreman Name Role Phone Chad Sherman Primary Care Provider UnavailSantiago Javeir Unavailable [phone] Allergies Allergen (clinical drug ingredient) Drug/Non Drug Allergy documented on EMR Reaction Allergy Type Onset Date Status Contrast Dye (uncoded) confusion, trouble breathing Allergy Active Humira (uncoded) swelling-face lips throat -skin test Allergy Active Methotrexate (uncoded) nodules in lungs Allergy Active Non-steroidal anti-inflammatory agent (FN) NSAIDS (uncoded) swelling-face, lips, throat Allergy Active Results Component Value Reference Range Notes C1 INHIBITOR, FUNCTIONAL Reviewed date:10/29/2023 09:55:40 AM Interpretation:Normal Performing Lab:[facility], [facility], [address], [place], [address] Doug Wagner M.D.,PhD Notes/Report: FASTING: NO FASTING:NO NON-FASTING; NON-FASTING; NON-FASTING; NON-FASTING C1 ESTERASE INHIBITOR, FUNCTIONAL >100 >=68 % Reference Range: > or = 68%: Normal 41-67%: Equivocal < or = 40%: Abnormal Less than 40% of the reference functional activity indicates a likely diagnosis of hereditary angioedema or acquired C1 Inhibitor deficiency. For additional information, please refer to: http://education.[employer]/faq/FAQ54 (This link is being provided for informational/ educational purposes only.) COMPLEMENT COMPONENT C4C Reviewed date:10/29/2023 09:55:51 AM Interpretation:Normal Performing Lab:[facility], [address], [place], [address] Deidra Fu MD Notes/Report: NON-FASTING; NON-FASTING; NON-FASTING; NON-FASTING FASTING:NO FASTING: NO COMPLEMENT COMPONENT C4C 27 15-57 mg/dL ALLERGEN SPECIFIC IGE MARTINO JEROME Reviewed date:10/29/2023 09:54:48 AM Interpretation:Normal Performing Lab:[facility], [facility], [address], [address] Ryan Quiroz PhD BCLD (ABB) Notes/Report: NON-FASTING; NON-FASTING; NON-FASTING; NON-FASTING FASTING:NO FASTING: NO GUNNER CANO IGE* <0.35 <0.35 kU/L CLASS 0 CLASS INTERPRETATION: <0.35 kU/L=0, Below Detection; 0.35-0.69 kU/L= 1, Low Positive; 0.70-3.49 kU/L= 2, Moderate Positive; 3.50-17.49 kU/L= 3, Positive; 17.50-49.99 kU/L= 4, Strong Positive; >49.99 kU/L= 5, Very Strong Positive *This test was developed and its performance characteristics determined by [facility]. It has not been cleared or approved by the U.S. Food and Drug Administration. FLAG Interpretation: A = Abnormal, H = High, L = Low MACADAMIA NUT (RF345) IGE Reviewed date:10/29/2023 09:54:55 AM Interpretation:Normal Performing Lab:[facility], [address], [place], [address] Deidra Fu MD Notes/Report: NON-FASTING; NON-FASTING; NON-FASTING; NON-FASTING FASTING:NO FASTING: NO MACADAMIA NUT (RF345) IGE <0.10 CLASS 0 IMMUNOGLOBULIN E Reviewed date:10/29/2023 09:55:58 AM Interpretation:Normal Performing Lab:[facility], [address], [place], [address] Deidra Fu MD Notes/Report: NON-FASTING; NON-FASTING; NON-FASTING; NON-FASTING FASTING:NO FASTING: NO IMMUNOGLOBULIN E 44 <EC=048 kU/L COMPLEMENT, TOTAL (CH50) Reviewed date:10/29/2023 09:55:32 AM Interpretation:Normal Performing Lab:[facility], [address] [place], [address] Deidra Fu MD Notes/Report: NON-FASTING; NON-FASTING; NON-FASTING; NON-FASTING FASTING:NO FASTING: NO COMPLEMENT, TOTAL (CH50) 60 31-60 U/mL INTERPRETATION Reviewed date:10/29/2023 09:54:30 AM Interpretation:Interpretation Performing Lab:[facility], [address] [place], [address] Deidra Fu MD Notes/Report: NON-FASTING; NON-FASTING; NON-FASTING; NON-FASTING FASTING:NO FASTING: NO INTERPRETATION Specific Level of Allergen IGE Class kU/L Specific IGE Antibody ----- --------- 0 <0.10 Absent/Undetectable 0/1 0.10-0.34 Very Low Level 1 0.35-0.69 Low Level 2 0.70-3.49 Moderate Level 3 3.50-17.4 High Level 4 17.5-49.9 Very High Level 5 50-100 Very High Level 6 >100 Very High Level The clinical relevance of allergen results of 0.10-0.34 kU/L are undetermined and intended for specialist use. Allergens denoted with a include results using one or more analyte specific reagents. In those cases, the test was developed and its analytical performance characteristics have been determined by [facility]. It has not been cleared or approved by the U.S. Food and Drug Administration. This assay has been validated pursuant to the CLIA regulations and is used for clinical purposes. Spirometry Reviewed date:10/23/2023 03:02:10 PM Interpretation:Normal Performing Lab: Notes/Report: Normal SpiroPreBronchodilator_FVC 2.99 SpiroPostBronchodilator_FEF2 5_7 5 0 SpiroPreBronchodilator_FEF25_75 -0.21 SpiroPreBronchodilator_FEV1 2.54 SpiroPrecentPredictionPost_F EF2 5_75 0 SpiroPrecentPredictionPost_FEV1 0 SpiroPrecentPredictionPost_F EV1 _OVER_FVC 0 SpiroPrecentPredictionPost_FVC 0 SpiroPrecentPredictionPre_FE F25 _75 -9.6 SpiroPrecentPredictionPre_FEV1 106.3 SpiroPrecentPredictionPre_FE V1_ OVER_FVC 110.9 SpiroPrecentPredictionPre_FVC 96.8 SpiroPredicted_FEF25_75 2.19 SpiroPreBronchodilator_FEV1_ OVE R_FVC 84.97 SpiroPreBronchodilator_PEF 7.06 SpiroPostBronchodilator_FVC 0 SpiroPostBronchodilator_FEV1 0 SpiroPostBronchodilator_FEV1 _OV ER_FVC 0 SpiroPostBronchodilator_PEF 0 SpiroPredicted_FVC 3.09 SpiroPredicted_FEV1 2.39 SpiroPredicted_FEV1_OVER_FVC 76.6 SpiroPredicted_PEF 5.7 REASON FOR VISIT Recurrent episodes of swelling occurring with two different foods as well as with NSAIDS. Now otherhives or rashes. Currently on lisinopril, Chronic upper airway symptoms concerning for uncontrolledatopic disease, Chronic lower airways symptoms concerning for possible asthma; Currently on Breo for PM wheezing. Not needing [place] while using Medications Medication SIG (Take, Route, Frequency, Duration) Notes Start Date End Date Status LEVOCETIRIZINE 5 mg 1 tab(s) orally once a day (in the evening) for 30 day(s) 10/23/2023 Active EPIPEN 2-RIO 0.3 mg as directed intramuscularly once for 30 days 10/23/2023 Active NASAL WASHES N/A as directed intranas ally as needed for 30 10/23/2023 Active FLUTICASONE NASAL 50 mcg/inh 2 spray(s) in each nostril BID for 30 day(s) 10/23/2023 Active ALBUTEROL (EQV-PROVENTIL HFA) 90 mcg/inh 2 puff(s) inhaled every 6 hours 10/23/2023 Active FLUTICASONE NASAL 50 mcg/inh 1 spray(s) in each nostril once a day Active BREO ELLIPTA 100 mcg-25 mcg/inh 1 puff(s) inhaled once a day Active LISINOPRIL 40 mg 1 tab(s) orally once a day Active SPIRONOLACTONE 25 mg 1 tab(s) orally once a day Active NIFEDIPINE 30 mg 1 tab(s) orally once a day Active XYZAL 5 mg 1 tab(s) orally once a day (in the evening) Active Social History Tobacco Use: Social History Observation Description Date Details (start date - stop date) Never Smoker NA - NA Tobacco Control (Standard) Question Answer Notes Tobacco use: Nonsmoker Problems Problem Type SNOMED Code ICD Code Onset Dates Problem Status W/U Status Risk Notes Problem Swelling of head (798034498) Localized swelling, mass and lump, head (R22.0) Active confirmed Problem Allergic rhinitis caused by pollen (disorder) (53012293) Allergic rhinitis due to pollen (J30.1) Active confirmed Problem Allergic rhinitis caused by animal hair and dander (650859856518240) Allergic rhinitis due to animal (cat) (dog) hair and dander (J30.81) Active confirmed Problem Allergic rhinitis (51255445) Other allergic rhinitis (J30.89) Active confirmed Problem Chronic allergic conjunctivitis (36728313) Other chronic allergic conjunctivitis (H10.45) Active confirmed Problem Wheezing (82151182) Wheezing (R06.2) Active confirmed Problem Food allergy (403770225) Allergy to other foods (Z91.018) Active confirmed Vital Signs Blood pressure systolic 122 mm Hg 10/23/19 24 Blood pressure diastolic 83 mm Hg 024 Oximetry 99 % 10/23/2023 Weight 142.2 lbs 10/23/2023 Encounters Encounter Location Date Provider Diagnosis [facility] [address] [facility] [address] [place] [address] 10/23/2023 Santiago Toribio Localized swelling, mass and lump, head R22.0 ; Adverse effect of other nonsteroidal anti-inflammatory drugs [NSAID], initial encounter T39.395A ; Allergy to other foods Z91.018 ; Allergic rhinitis due to pollen J30.1 ; Allergic rhinitis due to animal (cat) (dog) hair and dander J30.81 ; Other allergic rhinitis J30.89 ; Other chronic allergic conjunctivitis H10.45 and Wheezing R06.2 Assessments Encounter Date Diagnosis (ICD Code) Assessment Notes Treatment Notes Treatment Clinical Notes Section Notes 10/23/2023 Localized swelling, mass and lump, head (ICD-10 - R22.0) Recurrent episodes of swelling in the setting of macadamia encrusted sea martino and Easter candy. Additional history of swelling with NSAID use though currently using Aleve without issue. Noted vomiting occurring after ingestion of the sea martino, but otherwise without history of SOB, rash, or other systemic symptoms. Current ddx include IgE-mediated reaction to tree nuts or sea martino, direct mast cell degranulation due to NSAID use though is unsure if she took in these episodes. CEM-I induced angioedema, or acquired angioedema. We underwent SPT today to hazelnut, almond, and [place] but; all of which were negative. WIll plan on obtaining ImmunoCAPs to macadamia and martino. Will also obtain angioedema work-up to rule out acquired angioedema. I suspect her lisinopril is the primary culprit of her swelling. Advised to talk to pressure vessel inspector RE switching medication class. I would also advise avoidance of NSAIDs moving forward, preferring Tylenol, Ultram, or Celebrex. Given lack of hives, an IgE-mediated process is less likely. AIE education given. Keep AIE on hand at all times. Return in one month for E&M 10/23/2023 Adverse effect of other nonsteroidal anti-inflammatory drugs [NSAID], initial encounter (ICD-10 - T39.395A) as above, prefer Tylenol, Ultram, or Celebrex 10/23/2023 Allergy to other foods (ICD-10 - Z91.018) SPT negative. As above. Await ImmunoCAPs 10/23/2023 Allergic rhinitis due to pollen (ICD-10 - J30.1) Given the history and symptoms, skin testing was performed to common aeroallergens to determine atopic status. Maged clearly suffers from atopic disease based upon our skin testing and clinical history. Accordingly, we have introduced a new, aggressive medication regimen, discussed nasal washes and allergy-specific avoidance measures. We also discussed adjunctive therapies including subcutaneous, specific allergen immunotherapy as relates to the treatment and prevention of atopic disease. She is currently considering the risks, benefits and alternatives to this care. Risks: bleeding, infection, allergic reaction, anaphylaxis; Benefits: reduced need for medications, improved symptoms, disease modification. Alternatives: watch/wait, change medication regimen, improve allergy avoidance measures. Follow-up in 1 month for interval evaluation and management 10/23/2023 Allergic rhinitis due to animal (cat) (dog) hair and dander (ICD-10 - J30.81) Follow allergen avoidance, meds and consider SCIT as an adjunctive treatment to current regimen 10/23/2023 Other allergic rhinitis (ICD-10 - J30.89) Follow allergen avoidance, meds and consider SCIT as an adjunctive treatment to current regimen 10/23/2023 Other chronic allergic conjunctivitis (ICD-10 - H10.45) Given ocular signs and symptoms I encouraged allergy avoidance measures and meds as above. If symptoms persist, consider adding additional medications including intraocular antihistamine/mas t cell stabilizer, PRN and consider SCIT as an adjunctive measure 10/23/2023 Wheezing (ICD-10 - R06.2) Noted history of lung nodules; previously managed by honing job setter. She will have recurrent wheezing when she goes to sleep. Started Breo by her PCP with clear benefit. She does not need [place] as long as she is c/w Breo use. No smoking history. No recurrent lower airway infections or hospitalizations. Given history and presentation, spiromtery was performed which was essentaily normal. Plan to continue Breo. Keep INDIANA on hand. Return for further management if INDIANA use increases to more than twice a week Plan Of Treatment Medication Medication Name Sig Start Date Stop Date Notes LEVOCETIRIZINE 5 mg 1 tab(s) orally once a day (in the evening) for 30 day(s) 10/23/2023 EPIPEN 2-RIO 0.3 mg as directed intramus cularly once for 30 days 10/23/2023 NASAL WASHES N/A as directed intranas ally as needed for 30 10/23/2023 FLUTICASONE NASAL 50 mcg/inh 2 spray(s) in each nostril BID for 30 day(s) 10/23/2023 ALBUTEROL (EQV-PROVENTIL HFA ) 90 mcg/inh 2 puff(s) inhaled every 6 hours 10/23/2023 BREO ELLIPTA 100 mcg-25 mcg/inh 1 puff(s) inhaled once a day Treatment Notes Assessment Notes Localized swelling, mass and lump, head Recurrent episodes of swelling in the setting of macadamia encrusted sea martino and Easter candy. Additional history of swelling with NSAID use though currently using Aleve without issue. Noted vomiting occurring after ingestion of the sea martino, but otherwise without history of SOB, rash, or other systemic symptoms. Current ddx include IgE-mediated reaction to tree nuts or sea martino, direct mast cell degranulation due to NSAID use though is unsure if she took in these episodes. CEM-I induced angioedema, or acquired angioedema. We underwent SPT today to hazelnut, almond, and [place] but; all of which were negative. WIll plan on obtaining ImmunoCAPs to macadamia and martino. Will also obtain angioedema work-up to rule out acquired angioedema. I suspect her lisinopril is the primary culprit of her swelling. Advised to talk to pressure vessel inspector RE switching medication class. I would also advise avoidance of NSAIDs moving forward, preferring Tylenol, Ultram, or Celebrex. Given lack of hives, an IgE-mediated process is less likely. AIE education given. Keep AIE on hand at all times. Return in one month for E&M Adverse effect of other nons teroidal anti-inflammatory drugs [NSAID], initial encounter as above, prefer Tylenol, Ultram, or Celebrex Allergy to other foods SPT negative. As above. Await ImmunoCAPs Allergic rhinitis due to pollen Given th e history and symptoms, skin testing was performed to common aeroallergens to determine atopic status. aMged clearly suffers from atopic disease based upon our skin testing and clinical history. Accordingly, we have introduced a new, aggressive medication regimen, discussed nasal washes and allergy-specific avoidance measures. We also discussed adjunctive therapies including subcutaneous, specific allergen immunotherapy as relates to the treatment and prevention of atopic disease. She is currently considering the risks, benefits and alternatives to this care. Risks: bleeding, infection, allergic reaction, anaphylaxis; Benefits: reduced need for medications, improved symptoms, disease modification. Alternatives: watch/wait, change medication regimen, improve allergy avoidance measures. Follow-up in 1 month for interval evaluation and management Allergic rhinitis due to ani mal (cat) (dog) hair and dander Follow allergen avoidance, meds and consider SCIT as an adjunctive treatment to current regimen Other allergic rhinitis Follow allergen avoidance, meds and consider SCIT as an adjunctive treatment to current regimen Other chronic allergic conjunctivitis Gi amara ocular signs and symptoms I encouraged allergy avoidance measures and meds as above. If symptoms persist, consider adding additional medications including intraocular antihistamine/mast cell stabilizer, PRN and consider SCIT as an adjunctive measure Wheezing Noted history of erik g nodules; previously managed by honing job setter. She will have recurrent wheezing when she goes to sleep. Started Breo by her PCP with clear benefit. She does not need [place] as long as she is c/w Breo use. No smoking history. No recurrent lower airway infections or hospitalizations. Given history and presentation, spiromtery was performed which was essentaily normal. Plan to continue Breo. Keep IND[place]NA on hand. Return for further management if INDIANA use increases to more than twice a week Pending Test Test Name Order Date C1 INHIBITOR, PROTEIN 10/23/2023 Next Appt Details Follow Up: 4 Weeks, Reason: Evaluation and Management Procedure Notes * Category Sub-Category Detail Notes Skin Testing Epicutaneous skin testing was performed to common aeroallergens, diana (white), box elder, cedar, cottonwood, hickory (shagbark), maple, oak (white), pine (yellow), walnut (black), hemp (western water), cat hair, dog, Sarocladium strictum, positive and negative controls responded appropriatelyPatient had testing done to [place], [place] and Hazelnut showing Neg results Intradermal skin testing was per formed to the indicated aeroallergens, revealing positive reactions to, birch, oak (mix), fescue (red/meadow), rye, cocklebur, dock (red/sheep), dock (yellow/curly), kochia,lambs quarter, pigweed, plantain, emirati thistle, dust mite f, dust mite p, Aspergillus fumigates, Aspergillus niger, Bipolaris (Helmintho), Botrytis cinera, Cladosporium, Curvularia spicifera, Epicoccum nigrum, Gibbrella (Fusarium), Mucor plumbeus, Phoma betae, Saccharomyces cerevisiae, negative control responded appropriately Number of Skin Tests Perform ed (including controls): Aeroallergen: Yes Epicutaneous: 72 Intradermal: 39 Drug: Yes Epicutaneous: 3 Flow-Volume Loop/Spirometry/ Spirometry Challenge Interpretation Normal spirometry marked by normal FEV1%, FEV1, and FVC. FVL shows scalloping near the end of exhalation c/w small airway disease. Normal lung age Progress Notes * Olegario BETHEA:1954 (68 yo F)Acc No.[id number]:10/23/2023 Progress Notes Patient: Ally TARIQ Provider: Antonette Toribio PA-C :1955 A ge:68 Y S ex:Female Date:10/23/2023 Address:[address] [place] [address] , [id number] Pcp:Chad Sherman Subjective: * Chief Complaints: * R ecurrent episodes of swelling occurring with two different foods as well as with NSAIDS. Now other hives or rashes. Currently on lisinoprilChronic upper airway symptoms concerning for uncontrolled atopic diseaseChronic lower airways symptoms concerning for possible asthma; Currently on Breo for PM wheezing. Not needing [place] while using * HPI: * Introduction: I had the pleasure of seeing Chantell Bethea, a 68 y/o female presenting for food allergy evaluation and management. She is alone for today's visit. On 11/19/2022, she ate at a [employer] restaurant consisting of Macadamia encrusted sea martino with lissette rice, mari chili sauce and passion fruit dressing at around 5-6 PM. She went to bed at PM resulting in vomiting at the time. She fell asleep awaking a couple of hours later with tongue swelling occurring. This continued to progress when she went to ED. She was given a steroids shot and sent home with some pills. This past , she hast Lind[employer] chocolate with resulting tongue swelling occurring 2 hours later. No noted rashes or hives occurring these episodes. No noted SOB or wheezing. After reviewing ingredient list, she has since not consumed hazelnut, macadamia or sea martino. That said she has eaten other fin fish since then.She does reporthistory of swelling when taking NSAIDs but has been avoidant, including episodes.Will take Aleve seldomly. She has been on Lisinopril for a long time. No current AIE on hand. Otherwise without family history of swelling.She will continue to consume cashews, pecans. Has not recently ingested [place] nut, Hazelnut, or [place]. Descriptors of her upper airways symptoms are outlined below. She will have recurrent PND, sinus congestion, and itchy, watery eyes. She will treat with Xyzal and Flonase with some benefit.She has 3 cats at home with some noted symptoms. He sisters have a history of allergies. She does have a history of nodules in her lungs; previously managed by honing job setter. She will have recurrent wheezing when she goes to sleep. Started Breo by her PCP with clear benefit. She does not need [place] as long as she is c/w Breo use. No smoking history. No recurrent lower airway infections or hospitalizations.She denies a history of physician-diagnosed allergic rhinitis, recurrent sinusitis or otitis media, recurrent pneumonia, asthma/RAD, eczema, food allergies, urticaria/angioedema, medication allergies, contact dermatitis, latex allergy, eosinophilic esophagitis or stinging insect hypersensitivity. She has never undergone allergy skin testing or received allergy immunotherapy. Today, she reports no fevers, chills, night sweats or other constitutional symptoms. * Allergic Rhinoconjunctivitis: Allergic rhinitis D o you have or suspect you have allergic rhinitis (itchy eyes, sneezing, congestion or runny nose triggered by allergies)? Y es W hich areas and what symptoms are involved? Please fill out each section below as needed. e yes,nose,sore throat,headache,sinuses W hich of the following trigger your allergic rhinitis symptoms? h ouse cleaning (dusting or vacuuming),spring (season),fall (season),cats D o you have any of the following other symptoms associated with your allergic rhinitis? r estless sleep Eyes S pecific affected area: b oth (bilateral) O ccurence? i ntermittent W hen does this mostly occur? a nytime S ymptoms: i tching,watering,sensitive to light E ffective treatments: o ral antihistamines (Zyrtec or Flakita or Claritin),other prescription medication Nose S pecific area affected: b oth (bilateral) O ccurence? i ntermittent H ow frequent? i nfrequent W hen does this mostly occur? p .m. S ymptoms? c ongestion,postnasal drainage E ffective treatments? n buffy steroid sprays (Flonase or Nasonex or Veramyst) Sinuses D o you have sinus pain? Y es H ave you lost sense of taste? N o W here? o gabbi nasal bridge between the eyes (ethmoid),deep inside the head (sphenoid) H ave any of the following treatments improved your sinus symptoms? n buffy steroid sprays (Flonase or Nasonex or Veramyst),oral antihistamines (Zyrtec or Flakita) H ave you ever had a CT scan or xray? Y es W here? O ther hospital W hen? 0 09/2022 H ave you ever undergone sinus surgery? N o Sore Throat O ccurence? c ontinuous W hen does this usually occur? a nytime Headache S pecific area(s) affected? o gabbi nose between eyes (ethmoid),base of neck,left side of head (islam),right side of head (islam) O ccurence? i ntermittent H ow frequent? w eekly W hat time of day does this mostly occur? a nytime * Asthma: Wheezing D o you have recurrent wheezing or a history of wheezing sometime in your life? Y es D id you have symptoms of asthma as a child??No D id you have frequent respiratory infections as a child? N o W ere you ever hospitalized in the first 12 months of life for a respiratory infection in childhood? N o D o you still have wheezing? Y es I s your wheezing changing? b phuong H ave you taken oral steroids (Prednisone or Medrol) in the past? Y es H ow many times in the last year? 3 Physical Performance H ow many blocks can you walk? (Enter 99 for unlimited) 8 H ow many flights of stairs can you climb without stopping? (Enter 99 for unlimited) 2 I f there are limitations, what symptoms limit further activity? s hortness of breath,fatigue Effective treatments for cough and or wheezing R escue inhaler or nebulizer treatment: A lbuterol I nhaled steroid/LABA combinations: B reo * Infections: Vaccination History H ave you ever had a flu shot? N o H ave you ever had a pneumococcal vaccine ([id number]-Empuyxlvp)? N o H ave you ever had a tetanus vaccine (USaj-Nsui-Vw)? Y es Ear Infections D o you have frequent ear infections? N o Sinusitis (Sinus infections) D o you have frequent episodes of sinusitis??Yes H ow many episodes over the past 12 months??3 H ave you been treated with antibiotics for sinusitis? N o H ave you been seen by an deicer tester or manager law to evaluate your immune system function for recurrent sinus infections? N o Sinus Symptoms and Surgery D o you have chronic or recurrent sinus symptoms? Y es D o you have a history of nasal polyps? N o D o you have sinus pain? Y es D o you have a loss of sense of taste? N o H ave you used any of the following treatments for your sinuses? n buffy steroid sprays,oral antihistamines H ave you ever had a sinus CT or X-Ray? N o H ave your ever undergone sinus surgery? N o Bronchitis History D o you get frequent bronchitis? N o Pneumonia History H ave you ever had pneumonia or recurrent pneumonia? N o Skin and Other Infections D o you get frequent skin infections (cellulitis)? N o D o you get any other frequent infections??No * Other Rash and Contact Dermatitis: Other rashes and contact dermatitis H ave you ever had any other form of rash or contact dermatitis? N o * Atopic dermatitis: Atopic dermatitis - Eczema D o you have chronic or recurrent atopic dermatitis or eczema? N o * Urticaria: Urticaria (hives) D o you have recurrent hives? N o * Medication allergy: Medication Allergy D o you feel you are allergic to any medications? Y es W hat type of medication? a nalgesic (NSAID or Ibuprofen or Codeine or Morphine or other analgesic),other (class not listed above) H ow was the medication administered? o ral,injection W hat was the medication administered for??pain,other diagnosis W hat symptom(s) did the medication cause??angioedema (swelling) I f analgesic, what type: N SAID W hat symptom(s) did the medication cause??angioedema H ave you been evaluated by an deicer tester previously for possible drug allergy? Y es D ate of evaluation: 0 11/06/2018 W as any test performed? Y es W hat type of testing? s kin testing T est results were: a bnormal * Stinging Insects: Insect Reaction(s) H ave you ever experienced a stinging insect reaction? N o * Prior Evaluations and Treatments: Prior evaluations and treatments H ave you been evaluated by another physician for allergic rhinitis, cough, wheezing, asthma, urticaria, angioedema, atopic dermatitis or eczema??Yes W hat type(s) of of provider(s)? P [facility] care physician H ave you undergone testing for any aforementioned conditions or symptoms? N o H ave you ever been on allergy immunotherapy??No H ave you ever passed out during a blood draw, shot or vaccination? Y es Last dose of antihistamine: d iphenhydramine (Benadryl) 0 10/04/2023 l evocetirizine (Xyzal) 0 10/15/2023 H as your antihistamine been effective in controlling any of your symptoms? Y es S ymptoms related to what condition(s)? a llergic rhinitis * Food allergy: Food Allergy D o you currently have or have you ever had any proven or suspected food allergies? Y es A pproximately, when did symptoms start? 0 11/19/2022 W hen was your last reaction? 0 10/04/2023 W hat food(s)? h azelnut,other tree nut(s),macadamia nut W hat symptoms do you experience when foods are ingested? t ingling mouth or tongue or lips,nausea,vomiting,angioedema H ow quickly do symptoms come on after food ingestion? 2 -3 hours H ave you ever been hospitalized or treated urgently for symptoms of a severe allergic reaction (anaphylaxis)? Y es W as epinephrine administered? N o D o you carry self-injectable epinephrine for your prior reaction(s)? N o H ave you previously seen an deicer tester for evaluation of possible food allergy? N o * Eosinophilic GI: Eosinophilic Gastrointestinal Disease D o you have difficulty swallowing foods or have you previously needed to have your esophagus dilated for food impaction or have you been diagnosed with eosinophilic gastrointestinal disease? N o * Angioedema: Angioedema (swelling) D o you have recurrent swelling (angioedema)??No * ROS: A LLERGY: scratchy throat Y es. P ositive p er the HPI and history, otherwise unremarkable. S PECIAL SENSES: Positve for n one. r inging in ears Y es. d ry eyes Y es. i tching eyes Y es. C ONSTITUTIONAL: weight gain Y es. w eakness Y es. f atigue Y es. P ositive for n one. E NT: change in voice Y es. s ore throat Y es. r inging in ears Y es. P ositive p er the HPI and history, otherwise unremarkable. ? R ESPIRATORY: Positive p er the HPI and history, otherwise unremakable.? O PHTHALMOLOGY: Positive for p er the HPI and history, otherwise unremarkable. E NDOCRINOLOGY: sleep disturbance Y es. P ositive for n one. ? C ARDIOLOGY: Positive for n one. G ASTROENTEROLOGY: hemorrhoids Y es. P ositive for n one. ? U ROLOGY: Positive for n one. D ERMATOLOGY: Positive for p er the HPI and history, otherwise unremakable. N EUROLOGY: Positive for n one. H EMATOLOGY/LYMPH: Positive for n one. M USCULOSKELETAL: joint swelling Y es. j oint pain Y es. l eg cramps Y es. j oint stiffness Y es. P ositive for n one. P SYCHOLOGY: Positive for n one. F EMALE REPRODUCTIVE: Are you ? N o. A re you planning on a future pregancy? N o. A ll other review of systems per the HPI and history, otherwise unremarkable. * Medical History: * Surgical History: r epair/reattach spleen 11/06/1988knee repair 11/20/1988hystorectomy 11/06/1997growth on finger - RA nodule 09/07/2003cubital tunnel decompression/trigger finger release 03/27/2023right cataract removal 08/30/2023left catacract removal 09/06/2023 * Hospitalization/Major Diagno stic Procedure: c hild 02/08/1982child 06/29/1987 * Family History: F ather: , Yes, diagnosed with Cancer. M other: , Yes. P aternal Grand Father: Yes. P aternal Grand Mother: Yes. M aternal Grand Father: Yes. M aternal Grand Mother: Yes. S iblings: Yes. Juan damon: Yes. * Social History: M arital Status What is your marital status? m arried A lcohol Screening Do you ever drink alcoholic beverages? N o S moking Have you ever smoked tobacco: n ever smoked Additional Findings: Tobacco Non-User N ever used moist powdered tobacco Are you a : n ever smoker R ecreational drug use Have you ever used recreational drugs? N o D etails on consumption of certain products? Do you regularly consume products with aspartame; Equal or NutraSweet? Y es Have you ever noticed worsening of your rash with these food items? N o E xercise What kind(s) of exercise do you perform regularly? a ge-appropriate participation in physical activites How often do you perform this exercise? d aily A re any of the following personal care products containing fragrance, dye or preservatives used regularly? Shampoo: Y es Conditioner: Y es Soap: Y es Laundry Detergent: Y es Fabric Softener: Y es Deodorant: Y es Perfume, cologne, after shave: Y es Air freshners or other scented products: Y es Hair coloring dyes or rinses: Y es Other: Y es O ccupation Are you currenly employed? Y es Employment status? 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 number of years?34 Do you believe that your current or previous occupation has any bearing on your illness? N o Do you have any pending or planned legal action against your current or former employer which pertains to your medical illness? N o Do you anticipate that your evaluation will be used in any legal action against your current employer or former employer? N o Have you had any job with high exposure to fumes, chemicals, dust or other noxious substances? N o Are you currently a student? N o E nvironmental History Living environment: p rivate home Where is the home located? r ural Age of home: 9 5 How long have you lived there? 5 years or more How many people live in the home? 2 H ome description Basement: N o Any water damage in basement? N o Smokers in the home? N o Smokers outside the home? N o Air Conditioning? Y es Forced air heating? Y es Gas or electric? o ther Fireplace? N o Wood burning stove? N o Do you vacuum the home? Y es Air purification systems? N o Pillow and mattress dust-proof encasings? Y es Do you use a humidifier? Y es Whole house or room? r oom humidifier Does it have a humidistat? N o Is it used year-round, seasonal, or as needed? s easonal Is the humidifier cleaned regularly? Y es Do you own any pets? Y es What kind(s)? (click all that apply) c ats Where do your pets sleep? o ther room in home Fabric softeners used? Y es Plants in the home? Y es How many? 1 2 Where are they kept? k itchen,other room in home Is there carpeting in your bedroom? Y es Age of carpet? 9 Do you have [id number]-pgje carpeting? Y es What is the age of your carpeting? 8 What is the age of your mattress (years)? 9 What material(s) are used to manufacture your bedding and pillow? s ynthetic What is the age of your pillow (years)? 9 What material are your bedding items made of? s ynthetic Do you sleep with quilts or blankets or a duvet? Y es What material? n atural fiber (e.g. cotton) How many cats? 3 T obacco Control (Standard) Tobacco use: N onsmoker * Medications: T akingXyzal 5 mg tablet 1 tab(s) orally once a day (in the evening) fluticasone nasal 50 mcg/inh spray 1 spray(s) in each nostril once a day Breo Ellipta 100 mcg-25 mcg/inh powder 1 puff(s) inhaled once a day NIFEdipine 30 mg tablet, extended release 1 tab(s) orally once a day spironolactone 25 mg tablet 1 tab(s) orally once a day lisinopril 40 mg tablet 1 tab(s) orally once a day Medication List reviewed and reconciled with the patientTaking Xyzal 5 mg tablet 1 tab(s) orally once a day (in the evening) Taking fluticasone nasal 50 mcg/inh spray 1 spray(s) in each nostril once a day Taking Breo Ellipta 100 mcg-25 mcg/inh powder 1 puff(s) inhaled once a day Taking NIFEdipine 30 mg tablet, extended release 1 tab(s) orally once a day Taking spironolactone 25 mg tablet 1 tab(s) orally once a day Taking lisinopril 40 mg tablet 1 tab(s) orally once a day Medication List reviewed and reconciled with the patient * Allergies: H umira: swelling-face lips throat -skin testMethotrexate: nodules in lungsNSAIDS: swelling-face, lips, throatContrast Dye: confusion, trouble breathingno[Allergies Verified] Objective: * Vitals: B P:122/83mm Hg, HR:85/min, Pulse Oximetry:99%, Wt: 142.2 lbs. * Examination: G eneral examination: General appearance: p leasant, well-developed, well-nourished. HEENT: p upils equal, round, and reactive to light and accommodation, conjunctiva are injected bilaterally, no tenderness to palpation of the sinuses, TM's without evidence of acute infection, turbinates 2+ swollen and pale inferiorly bilaterally, clear rhinorrhea is present, no polyps noted, no septal perforation, posterior oropharynx is erythematous and cobblestoning is present, erythema on pharyngeal wall, no exudates, no tongue swelling, and uvula is midline. Oral cavity: n ormal, no lesions. Neck, thyroid : s upple, non-tender, no anterior cervical lymphadenopathy. Breasts : n ot performed. Heart: R RR, S1-S2, no murmurs, no rubs, no gallops. Lungs: c lear to auscultation and percussion in all lung gray, no wheezes or crackles. Abdomen: s oft, NT/ND, normal active bowel sounds. Neurologic exam: u nremarkable. Skin: n ormal, no rash, dermatographism, urticaria, angioedema. Peripheral pulses: n ormal (2+) bilaterally. Back: n ormal. Extremities: n ormal ROM, no clubbing, no cyanosis, no edema. Genitalia: n ot performed. Assessment: * Assessment: 1. L ocalized swelling, mass and lump, head - R22.0 (Primary) 2 . A dverse effect of other nonsteroidal anti-inflammatory drugs [NSAID], initial encounter - T39.395A 3 . A llergy to other foods - Z91.018 4 . A llergic rhinitis due to pollen - J30.1 5 . A llergic rhinitis due to animal (cat) (dog) hair and dander - J30.81 6 . O ther allergic rhinitis - J30.89 7 . O ther chronic allergic conjunctivitis - H10.45 8 . W heezing - R06.2 Plan: * Treatment: 2. A dverse effect of other nonsteroidal anti-inflammatory drugs [NSAID], initial encounter Notes: as above, prefer Tylenol, Ultram, or Celebrex 3. A llergy to other foods L AB: ALLERGEN SPECIFIC IGE JEROME MARTINO L AB: MACADAMIA NUT ([id number]) IGE L AB: IMMUNOGLOBULIN E Notes: SPT negative. As above. Await ImmunoCAPs 4. A llergic rhinitis due to pollen Start levocetirizine tablet, 5 mg, 1 tab(s), orally, once a day (in the evening), 30 day(s), 30, Refills 0; S tart fluticasone nasal spray, 50 mcg/inh, 2 spray(s), in each nostril, BID, 30 day(s), 1, Refills 0; S tart Nasal Washes 1 quart of sterilized tap water or distilled water, 1 tsp NaCl, 1 pinch of baking soda, N/A, as directed, intranasally, as needed, 30, QS, Refills PRN. ? Notes: Given the history and symptoms, skin testing was performed to common aeroallergens to determine atopic status. Maged clearly suffers from atopic disease based upon our skin testing and clinical history. Accordingly, we have introduced a new, aggressive medication regimen, discussed nasal washes and allergy-specific avoidance measures. We also discussed adjunctive therapies including subcutaneous, specific allergen immunotherapy as relates to the treatment and prevention of atopic disease. She is currently considering the risks, benefits and alternatives to this care. Risks: bleeding, infection, allergic reaction, anaphylaxis; Benefits: reduced need for medications, improved symptoms, disease modification. Alternatives: watch/wait, change medication regimen, improve allergy avoidance measures. Follow-up in 1 month for interval evaluation and management 5. A llergic rhinitis due to animal (cat) (dog) hair and dander Notes: Follow allergen avoidance, meds and consider SCIT as an adjunctive treatment to current regimen 6. O ther allergic rhinitis Notes: Follow allergen avoidance, meds and consider SCIT as an adjunctive treatment to current regimen 7. O ther chronic allergic conjunctivitis Notes: Given ocular signs and symptoms I encouraged allergy avoidance measures and meds as above. If symptoms persist, consider adding additional medications including intraocular antihistamine/mast cell stabilizer, PRN and consider SCIT as an adjunctive measure 8. W heezing Continue Breo Ellipta powder, 100 mcg-25 mcg/inh, 1 puff(s), inhaled, once a day; C ontinue Albuterol (Eqv-Proventil HFA) aerosol, 90 mcg/inh, 2 puff(s), inhaled, every 6 hours. I maging: Spirometry (Performed Date - 10/23/2023) N ormal Value Reference Range S piroPreBronchodilator_FVC 2.99 * S piroPreBronchodilator_FEF25_75 -0.21 * S piroPreBronchodilator_FEV1 2.54 * S piroPrecentPredictionPre_FEF25_75 -9.6 * S piroPrecentPredictionPre_FEV1 106.3 * S piroPrecentPredictionPre_FEV1_OVER_FVC 110.9 * S piroPrecentPredictionPre_FVC 96.8 * S piroPredicted_FEF25_75 2.19 * S piroPreBronchodilator_FEV1_OVER_FVC 84.97 * S piroPreBronchodilator_PEF 7.06 * S piroPredicted_FVC 3.09 * S piroPredicted_FEV1 2.39 * S piroPredicted_FEV1_OVER_FVC 76.6 * S piroPredicted_PEF 5.7 * Normal spirometry marked by normal FEV1%, FEV1, and FVC. FVL shows scalloping near the end of exhalation c/w small airway disease. Normal lung age Notes: Noted history of lung nodules; previously managed by honing job setter. She will have recurrent wheezing when she goes to sleep. Started Breo by her PCP with clear benefit. She does not need [place] as long as she is c/w Breo use. No smoking history. No recurrent lower airway infections or hospitalizations. Given history and presentation, spiromtery was performed which was essentaily normal. Planto continue Breo. Keep [place] on hand. Return for further management if [place] use increases to more than twice a week?? * Procedures: S kin Testing: Epicutaneous s kin testing was performed to common aeroallergens, diana (white), box elder, cedar, cottonwood, hickory (shagbark), maple, oak (white), pine (yellow), walnut (black), hemp (western water), cat hair, dog, Sarocladium strictum, positive and negative controls responded appropriately Patient had testing done to [place], [place] and Hazelnut showing Neg results . Intradermal s kin testing was performed to the indicated aeroallergens, revealing positive reactions to, birch, oak (mix), fescue (red/meadow), rye, cocklebur, dock (red/sheep), dock (yellow/curly), kochia,lambs quarter, pigweed, plantain, emirati thistle, dust mite f, dust mite p, Aspergillus fumigates, Aspergillus niger, Bipolaris (Helmintho), Botrytis cinera, Cladosporium, Curvularia spicifera, Epicoccum nigrum, Gibbrella (Fusarium), Mucor plumbeus, Phoma betae, Saccharomyces cerevisiae, negative control responded appropriately. Number of Skin Tests Performed (including controls): A eroallergen Y es E picutaneous 7 2 I ntradermal 3 9 D rug Y es E picutaneous 3 F low-Volume Loop/Spirometry/Spirometry Challenge: Interpretation N ormal spirometry marked by normal FEV1%, FEV1, and FVC. FVL shows scalloping near the end of exhalation c/w small airway disease. Normal lung age. * Procedure Codes: 9 5004 PRICK TESTS, Units: 75.00 80556 INTRADERMAL TESTS, Units: 39.00 35209 SELF- MGMT EDUC & TRAIN, 1 [id number] DOC MEDS VERIFIED W/PT OR [id number] RESPIRATORY FLOW VOLUME LOOP * Preventive Medicine: Counseling: M edication instruction: W atch for side effects of prescribed medications, Nasal steroid/antihistamine instruction: avoid septum. E ducation: G ENERAL EDUCATION: Our staff spent an additional 30 minutes in direct contact with the patient educating them on their current diagnoses and proper treatment and prevention of symptoms and the proper use of medications. E ducation 2: A RC EDUCATION: Our staff discussed the appropriate allergen avoidance measures and medication utilization including upper airway hygiene with daily nasal washes given the patient's clinical status and diagnoses. SCIT EDUCATION: Discussed allergy immunotherapy including the relative risks, benefits and alternatives to this treatment as an adjunctive measure to current therapy, Allergy Immunotherapy: Risks: bleeding, infection, allergic reaction, anaphylaxis = severe allergic reaction that can cause ; Benefits: reduced need for medications, improved symptoms, disease modification. Alternatives: watch/wait, change medication regimen, improve allergy avoidance measures, Our staff discussed the warning signs of anaphylaxis and the indications to use self-injectable epinephrine and seek urgent or emergent care. P atient education material sent to portal? Y es * Follow Up: 4 Weeks (Reason: Evaluation and Management) * Billing Information: * Visit Code: 93420 Office Visit, New Pt., Level 5. Modifiers: 25 * Procedure Codes: 33277 PRICK TESTS. Units: 75.00. 30679 INTRADERMAL TESTS. Units: 39.00. 70171 SELF-MGMT EDUC & TRAIN, 1 PT. G8427 DOC MEDS VERIFIED W/PT OR RE. A4617 Mouthpiece. 97308 RESPIRATORY FLOW VOLUME LOOP. 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 She is alone for today's visit. On 11/19/2022, she ate at a [employer] restaurant consisting of Macadamia encrusted sea martino with lissette rice, mari chili sauce and passion fruit dressing at around 5-6 PM. She went to bed at PM resulting in vomiting at the time. She fell asleep awaking a couple of hours later with tongue swelling occurring. This continued to progress when she went to ED. She was given a steroids shot and sent home with some pills. This past , she hast Lindt Hugs and Bees chocolate with resulting tongue swelling occurring 2 hours later. No noted rashes or hives occurring these episodes. No noted SOB or wheezing. After reviewing ingredient list, she has since not consumed hazelnut, macadamia or sea martino. That said she has eaten other fin fish since then. She does reporthistory of swelling when taking NSAIDs but has been avoidant, including episodes.Will take Aleve seldomly. She has been on Lisinopril for a long time. No current AIE on hand. Otherwise without family history of swelling. She will continue to consume cashews, pecans. Has not recently ingested [place] nut, Hazelnut, or [place]. Descriptors of her upper airways symptoms are outlined below. She will have recurrent PND, sinus congestion, and itchy, watery eyes. She will treat with Xyzal and Flonase with some benefit. She has 3 cats at home with some noted symptoms. He sisters have a history of allergies. She does have a history of nodules in her lungs; previously managed by honing job setter. She will have recurrent wheezing when she goes to sleep. Started Breo by her PCP with clear benefit. She does not need [place] as long as she is c/w Breo use. No smoking history. No recurrent lower airway infections or hospitalizations. She denies a history of physician-diagnosed allergic rhinitis, recurrent sinusitis or otitis media, recurrent pneumonia, asthma/RAD, eczema, food allergies, urticaria/angioedema, medication allergies, contact dermatitis, latex allergy, eosinophilic esophagitis or stinging insect hypersensitivity. She has never undergone allergy skin testing or received allergy immunotherapy. Today, she reports no fevers, chills, night sweats or other constitutional symptoms *Allergic Rhinoconjunctivitis Eyes Specific affected area:: both (bilateral) Occurence?: intermittent When does this mostly occur?: anytime Symptoms:: itching,watering,sensitive to light Effective treatments:: oral antihistamines (Zyrtec or Flakita or Claritin),other prescription medication Nose Specific area affected:: both (b ilateral) Occurence?: intermittent How frequent?: infrequent When does this mostly occur?: p.m. Symptoms?: congestion,postnasal drainage Effective treatments?: nasal steroid spr ays (Flonase or Nasonex or Veramyst) Sore Throat Occurence?: continuous When does this usually occur?: anytime Headache Specific area(s) aff ected?: over nose between eyes (ethmoid),base of neck,left side of head (islam),right side of head (islam) Occurence?: intermittent How frequent?: weekly What time of day does this mostly occur? : anytime Sinuses Do you have sinus pain?: Yes Have you lost sense of taste?: No Where?: over nasal bridge between the eyes (ethmoid),deep inside the head (sphenoid) Have any of the following tr eatments improved your sinus symptoms?: nasal steroid sprays (Flonase or Nasonex or Veramyst),oral antihistamines (Zyrtec or Flakita) Have you ever had a CT scan or xray?: Ye s Where?: Other hospital When?: 09/2022 Have you ever undergone sinus surgery?: No Allergic rhinitis Do you have or suspe ct you have allergic rhinitis (itchy eyes, sneezing, congestion or runny nose triggered by allergies)?: Yes Which areas and what symptoms are involved? Please fill out each section below as needed.: eyes,nose,sore throat,headache,sinuses Which of the following trigger your allergic rhinitis symptoms?: house cleaning (dusting or vacuuming),spring (season),fall (season),cats Do you have any of the following other symptoms associated with your allergic rhinitis?: restless sleep *Asthma Effective treatments for cough and or wheezing Rescue inhaler or nebulizer treatment:: Albuterol Inhaled steroid/LABA combinations:: Breo Wheezing Do you have recurren t wheezing or a history of wheezing sometime in your life?: Yes Did you have symptoms of asthma as a chi ld?: No Did you have frequent respiratory infect ions as a child?: No Were you ever hospitalized i n the first 12 months of life for a respiratory infection in childhood?: No Do you still have wheezing?: Yes Is your wheezing changing?: better Have you taken oral steroids (Prednisone or Medrol) in the past?: Yes How many times in the last year?: 3 Physical Performance How many blocks can you wal k? (Enter 99 for unlimited): 8 How many flights of stairs c an you climb without stopping? (Enter 99 for unlimited): 2 If there are limitations, wh at symptoms limit further activity?: shortness of breath,fatigue *Infections Vaccination History Have you ever had a flu sh ot?: No Have you ever had a pneumococcal vaccine (DDW-Bddfexr-Xhznmvfgs)?: No Have you ever had a tetanus vaccine (DTa p-Tdap-Td)?: Yes Ear Infections Do you have frequent ear infecti ons?: No Sinusitis (Sinus infections) Do you have frequen t episodes of sinusitis?: Yes How many episodes over the past 12 months?: 3 Have you been treated with antibiotics for sinusitis?: No Have you been seen by an deicer tester or manager law to evaluate your immune system function for recurrent sinus infections?: No Sinus Symptoms and Surgery Do you have c hronic or recurrent sinus symptoms?: Yes Do you have a history of nasal polyps?: No Do you have sinus pain?: Yes Do you have a loss of sense of taste?: N o Have you used any of the fol lowing treatments for your sinuses?: nasal steroid sprays,oral antihistamines Have you ever had a sinus CT or X-Ray?: No Have your ever undergone sinus surgery?: No Bronchitis History Do you get frequent bronchiti s?: No Pneumonia History Have you ever had pneumonia or recurrent pneumonia?: No Skin and Other Infections Do you get frequent sk in infections (cellulitis)?: No Do you get any other frequent infections ?: No *Other Rash and Contact Dermatitis Other rashes and contact dermatitis Have you ever had any other form of rash or contact dermatitis?: No *Atopic dermatitis Atopic dermatitis - Eczema Do you have chronic or recurrent atopic dermatitis or eczema?: No *Urticaria Urticaria (hives) Do you have re current hives?: No *Medication allergy Medication Allergy Do you fe el you are allergic to any medications? : Yes What type of medication?: analgesic (NSAID or Ibuprofen or Codeine or Morphine or other analgesic),other (class not listed above) How was the medication administered?: oral,injection What was the medication administered for?: pain,other diagnosis What symptom(s) did the medication cause?: angioedema (swelling) If analgesic, what type:: NSAID What symptom(s) did the medication cause ?: angioedema Have you been evaluated by a n deicer tester previously for possible drug allergy?: Yes Date of evaluation:: 11/06/2018 Was any test performed?: Yes What type of testing?: skin testing Test results were:: abnormal *Stinging Insects Insect Reaction(s) Have you ev er experienced a stinging insect reaction? : No *Prior Evaluations and Treatments Prior evaluations and treatments Have you been evaluated by another physician for allergic rhinitis, cough, wheezing, asthma, urticaria, angioedema, atopic dermatitis or eczema?: Yes What type(s) of of provider(s)?: Primary care physician Have you undergone testing for any afore mentioned conditions or symptoms?: No Have you ever been on allergy immunother apy?: No Have you ever passed out during a blood draw, shot or vaccination?: Yes Last dose of antihistamine: diphenhydramine (Skyler adryl): 10/04/2023 levocetirizine (Xyzal): 10/15/2023 Has your antihistamine been effective in controlling any of your symptoms?: Yes Symptoms related to what condition(s)?: allergic rhinitis *Food allergy Food Allergy Do you currently have or have you ever had any proven or suspected food allergies?: Yes Approximately, when did symptoms start?: 11/19/2022 When was your last reaction?: 10/04/2023 What food(s)?: hazelnut,other tree nut(s),macadamia nut What symptoms do you experience when foods are ingested?: tingling mouth or tongue or lips,nausea,vomiting,angioedema How quickly do symptoms come on after food ingestion?: 2-3 hours Have you ever been hospitalized or treated urgently for symptoms of a severe allergic reaction (anaphylaxis)?: Yes Was epinephrine administered?: No Do you carry self-injectable epinephrine for your prior reaction(s)?: No Have you previously seen an deicer tester for evaluation of possible food allergy?: No *Eosinophilic GI Eosinophilic Gastroi ntestinal Disease Do you have difficulty swallowing foods or have you previously needed to have your esophagus dilated for food impaction or have you been diagnosed with eosinophilic gastrointestinal disease?: No *Angioedema Angioedema (swelling) Do you hav e recurrent swelling (angioedema)?: No Examination Category Sub-Category Detail Notes Category Not es General examination HEENT: pupils equal , round, and reactive to light and accommodation, conjunctiva are injected bilaterally, no tenderness to palpation of the sinuses, TM's without evidence of acute infection, turbinates 2+ swollen and pale inferiorly bilaterally, clear rhinorrhea is present, no polyps noted, no septal perforation, posterior oropharynx is erythematous and cobblestoning is present, erythema on pharyngeal wall, no exudates, no tongue swelling, and uvula is midline Neck, thyroid : supple, non-tender, no anterior cervical lymphadenopathy Heart: RRR, S1-S2, no murmu rs, no rubs, no gallops Lungs: clear to auscultatio n and percussion in all lung gray, no wheezes or crackles Abdomen: soft, NT/ND, normal active bowel sounds Extremities: normal ROM, no clubb ing, no cyanosis, no edema General appearance: pleasant, well-devel oped, well-nourished Skin: normal, no rash, brianna matographism, urticaria, angioedema Neurologic exam: unremarkable Oral cavity: normal, no lesions Breasts : not performed Peripheral pulses: normal (2+) bilatera lly Back: normal Genitalia: not performed
--- OUTSIDE RECORDS SUMMARY | 2024-08-18 12:07 | XMS_ITS ---
Author Organization 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 Hand Name Role Phone Chad Sherman Primary Care Provider UnavailSantiago Javier Unavailable [phone] Allergies Allergen (clinical drug ingredient) Drug/Non Drug Allergy documented on EMR Reaction Allergy Type Onset Date Status Contrast Dye (uncoded) confusion, trouble breathing Allergy Active Humira (uncoded) swelling-face lips throat -skin test Allergy Active Methotrexate (uncoded) nodules in lungs Allergy Active Non-steroidal anti-inflammatory agent (FN) NSAIDS (uncoded) swelling-face, lips, throat Allergy Active REASON FOR VISIT Recurrent episodes of swelling occurring with two different foods as well as with NSAIDS. Now otherhives or rashes. Now off lisinopril. Noted normal angioedema work-up with negative IgE to chapman and macademia, ARC follow-up; continues allergy avoidance, on meds, and considering SCIT, Chronic lower a irways symptoms concerning for possible asthma; Currently on Breo for PM wheezing. Not needing SABAwhile using Medications Medication SIG (Take, Route, Frequency, Duration) Notes Start Date End Date Status SPIRONOLACTONE 25 mg 1 tab(s) orally once a day Active LEVOCETIRIZINE 5 mg 1 tab(s) orally once a day (in the evening) for 30 day(s) 10/23/2023 Active EPIPEN 2-RIO 0.3 mg as directed intramuscularly once for 30 days 10/23/2023 Active FLUTICASONE NASAL 50 mcg/inh 2 spray(s) in each nostril BID for 30 day(s) 10/23/2023 Active NIFEDIPINE 30 mg 1 tab(s) orally once a day Active LOSARTAN 50 mg 1 tab(s) orally once a day Active FLUTICASONE NASAL 50 mcg/inh 1 spray(s) in each nostril once a day Active XYZAL 5 mg 1 tab(s) orally once a day (in the evening) Active ALBUTEROL (EQV-PROVENTIL HFA) 90 mcg/inh 2 puff(s) inhaled every 6 hours Active EPIPEN 2-RIO 0.3 mg as directed intramuscularly once for 30 days Active LEVOCETIRIZINE 5 mg 1 tab(s) orally once a day (in the evening) for 30 days Active FLUTICASONE NASAL 50 mcg/inh 2 spray(s) in each nostril twice a day for 30 days Active NASAL WASHES N/A as directed intranas ally as needed for 30 days Active BREO ELLIPTA 100 mcg-25 mcg/inh 1 puff(s) inhaled once a day Active Social History Tobacco Use: Social History Observation Description Date Details (start date - stop date) Never Smoker NA - NA Tobacco Control (Standard) Question Answer Notes Tobacco use: Nonsmoker Problems Problem Type SNOMED Code ICD Code Onset Dates Problem Status W/U Status Risk Notes Problem Non-steroidal anti-inflamma tory drug adverse reaction (649528445) Adverse effect of other nonsteroidal anti-inflammatory drugs [NSAID], subsequent encounter (T39.395D) Active confirmed Vital Signs Blood pressure systolic 157 mm Hg 11/26/19 24 Blood pressure diastolic 80 mm Hg 024 Respiratory Rate 16 /min 11/26/2023 Oximetry 96 % 11/26/2023 Height 66 in 11/26/2023 Weight 186.0 lbs 11/26/2023 BMI 30.02 kg/m2 11/26/2023 Encounters Encounter Location Date Provider Diagnosis [facility] [address] [address] 11/26/2023 Santiago Toribio Localized swelling, mass and lump, head R22.0 ; Adverse effect of other nonsteroidal anti-inflammatory drugs [NSAID], subsequent encounter T39.395D ; Allergy to other foods Z91.018 ; Allergic rhinitis due to pollen J30.1 ; Allergic rhinitis due to animal (cat) (dog) hair and dander J30.81 ; Other allergic rhinitis J30.89 ; Other chronic allergic conjunctivitis H10.45 and Wheezing R06.2 Assessments Encounter Date Diagnosis (ICD Code) Assessment Notes Treatment Notes Treatment Clinical Notes Section Notes 11/26/2023 Localized swelling, mass and lump, head (ICD-10 - R22.0) Recurrent episodes of swelling in the setting of macadamia encrusted sea chapman and Easter candy. Additional history of swelling with NSAID use though currently using Aleve without issue. Noted vomiting occurring after ingestion of the sea chapman, but otherwise without history of SOB, rash, or other systemic symptoms. We underwent SPT to hazelnut, almond, and [place] but; all of which were negative. ImmunoCAPs to macadamia and chapman returned negative along with normal angioedema work-up. Current ddx include direct mast cell degranulation due to NSAID use though is unsure if she took in these episodes or CEM-I induced angioedema. I suspect her lisinopril is the primary culprit of her swelling. She has since been switched off Lisinopril.Now avoiding NSAIDs moving forward, preferring Tylenol, Ultram, or Celebrex. Keep AIE on hand for the time being. Return in one year for E&M or sooner if swelling returns 11/26/2023 Adverse effect of other nonsteroidal anti-inflammatory drugs [NSAID], subsequent encounter (ICD-10 - T39.395D) as above, prefer Tylenol, Ultram, or Celebrex 11/26/2023 Allergy to other foods (ICD-10 - Z91.018) SPT and ImmunoCAPs negative 11/26/2023 Allergic rhinitis due to pollen (ICD-10 - J30.1) Maged clearly suffers from atopic disease based upon our skin testing and clinical history. Accordingly, we have introduced a new, aggressive medication regimen, discussed nasal washes and allergy-specific avoidance measures. Not currently interested in SCT. Will continue to monitor 11/26/2023 Allergic rhinitis due to animal (cat) (dog) hair and dander (ICD-10 - J30.81) Follow allergen avoidance, meds and consider SCIT as an adjunctive treatment to current regimen 11/26/2023 Other allergic rhinitis (ICD-10 - J30.89) Follow allergen avoidance, meds and consider SCIT as an adjunctive treatment to current regimen 11/26/2023 Other chronic allergic conjunctivitis (ICD-10 - H10.45) Given ocular signs and symptoms I encouraged allergy avoidance measures and meds as above. 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 She will have recurrent wheezing when she goes to sleep. Started Breo by her PCP with clear benefit. She does not need [place] as long as she is c/w Breo use. No smoking history. No recurrent lower airway infections or hospitalizations. Spiromtery at intial visit was essentaily normal. Plan to continue Breo. Keep [place] on hand. Return for further management if [place] use increases to more than twice a week 11/26/2023 Other Plan Of Treatment Medication Medication Name Sig Start Date Stop Date Notes ALBUTEROL (EQV-PROVENTIL HFA ) 90 mcg/inh 2 puff(s) inhaled every 6 hours EPIPEN 2-RIO 0.3 mg as directed intramus cularly once for 30 days LEVOCETIRIZINE 5 mg 1 tab(s) orally once a day (in the evening) for 30 days FLUTICASONE NASAL 50 mcg/inh 2 spray(s) in each nostril twice a day for 30 days NASAL WASHES N/A as directed intranas ally as needed for 30 days BREO ELLIPTA 100 mcg-25 mcg/inh 1 puff(s) inhaled once a day Treatment Notes Assessment Notes Localized swelling, mass and lump, head Recurrent episodes of swelling in the setting of macadamia encrusted sea chapman and Easter candy. Additional history of swelling with NSAID use though currently using Aleve without issue. Noted vomiting occurring after ingestion of the sea chapman, but otherwise without history of SOB, rash, or other systemic symptoms. We underwent SPT to hazelnut, almond, and [place] but; all of which were negative. ImmunoCAPs to macadamia and chapman returned negative along with normal angioedema work-up. Current ddx include direct mast cell degranulation due to NSAID use though is unsure if she took in these episodes or CEM-I induced angioedema. I suspect her lisinopril is the primary culprit of her swelling. She has since been switched off Lisinopril.Now avoiding NSAIDs moving forward, preferring Tylenol, Ultram, or Celebrex. Keep AIE on hand for the time being. Return in one year for E&M or sooner if swelling returns Adverse effect of other nons teroidal anti-inflammatory drugs [NSAID], subsequent encounter as above, prefer Tylenol, Ultram, or Celebrex Allergy to other foods SPT and ImmunoCAP s negative Allergic rhinitis due to pollen Mortezacha clearly suffers from atopic disease based upon our skin testing and clinical history. Accordingly, we have introduced a new, aggressive medication regimen, discussed nasal washes and allergy-specific avoidance measures. Not currently interested in SCT. Will continue to monitor Allergic rhinitis due to ani mal (cat) [...] of erik g nodules; previously managed by gas station clerk. She will have recurrent wheezing when she goes to sleep. Started Breo by her PCP with clear benefit. She does not need [place] as long as she is c/w Breo use. No smoking history. No recurrent lower airway infections or hospitalizations. Spiromtery at intial visit was essentaily normal. Plan to continue Breo. Keep [place] on hand. Return for further management if [place] use increases to more than twice a week Next Appt Details Follow Up: 1 Year, Reason: E valuation and Management Procedure Notes * Category Sub-Category Detail Notes Time (Provider Encounter) Time Attestation This follow-up encounter took more than:: more than 30 minutes (22669) Tasks performed during this encounter include:: taking a history, reviewing the patient's review of systems, performing the physical examnation, reviewing laboratory results, counseling the patient on their diagnoses and chronic management, counseling on chronic precription medication management, discussed risks, benefits and alternatives to care, discussed risks, benefits and alternatives to medications, documenting in the EHR, This time calculation excludes any time associated with the separately identifiable medical procedures performed/described within this note (e.g. spirometry/flow volume loop, injections, skin testing, etc...) Progress Notes * Olegario BETHEA:1954 (68 yo F)Acc No.[id number]:11/26/2023 Progress Notes Patient: Ally TARIQ Provider: Antonette Toribio PA-C :1955 A ge:68 Y S ex:Female Date:11/26/2023 Address:[address] [place] [address] , [id number] Pcp:Chad Sehrman Subjective: * Chief Complaints: * R ecurrent episodes of swelling occurring with two different foods as well as with NSAIDS. Now other hives or rashes. Now off lisinopril. Noted normal angioedema work-up with negative IgE to chapman and macademiaARC follow-up; continues allergy avoidance, on meds, and considering SCITChronic lower airways symptoms concerning for possible asthma; Currently on Breo for PM wheezing. Not needing [place] while using * HPI: * Introduction: I had the pleasure of seeing Chantell Bethea, a 68 y/o female with history of ARC and angioedema returning for interval evaluation and management. She is alone for today's visit. On 11/19/2022, she ate at a [place] restaurant consisting of Macadamia encrusted sea chapman with lissette rice, mari chili sauce and passion fruit dressing at around 5-6 PM. She went to bed at PM resulting in vomiting at the time. She fell asleep awaking a couple of hours later with tongue swelling occurring. This continued to progress when she went to ED. She was given a steroids shot and sent home with some pills. This past Easter, she hast Lindt Hugs and Bees chocolate with resulting tongue swelling occurring 2 hours later. No noted rashes or hives occurring these episodes. No noted SOB or wheezing. After reviewing ingredient list, she has since not consumed hazelnut, macadamia or sea chapman. That said she has eaten other fin fish since then. She does report history of swelling when taking NSAIDs but has been avoidant, including episodes.Will take Aleve seldomly. She has been on Lisinopril for a long time. No current AIE on hand. Otherwise without family history of swelling. S he will continue to consume cashews, pecans. Has not recently ingested [place] nut, Hazelnut, or [place]. SPT at inital visit was negative to TNs. ImmunoCAPs obtained since nagative to mira and chapman. Angioedema work-up also returned WNL. She has since been swtiched off CEM-i wihtout interval episodes. A eroallergen skin testing was completed at first visit, and was positive to multiple seasonal and perennial allergens S he will have recurrent PND, sinus congestion, and itchy, watery eyes. S he has 3 cats at home with some noted symptoms. He sisters have a history of allergies. 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 She will have recurrent wheezing when she goes to sleep. Started Breo by her PCP with clear benefit. She does not need [place] as long as she is c/w Breo use. No smoking history. No recurrent lower airway infections or hospitalizations. Spirometry at intial visit was normal. T aruna, she reports no fevers, chills, night sweats or other constitutional symptoms. * ROS: A LLERGY: scratchy throat Y [...] Age of carpet? 11 Do you have [id number] carpeting? Y es What is the age [...] Tobacco use: N onsmoker * Medications: T akinglosartan 50 mg tablet 1 tab(s) orally once a day Xyzal 5 mg tablet 1 tab(s) orally once a day (in the evening) fluticasone nasal 50 mcg/inh spray 1 spray(s) in each nostril once a day NIFEdipine 30 mg tablet, extended release 1 tab(s) orally once a day spironolactone 25 mg tablet 1 tab(s) orally once a day EpiPen 2-Rio 0.3 mg kit as directed intramuscularly once levocetirizine 5 mg tablet 1 tab(s) orally once a day (in the evening) fluticasone nasal 50 mcg/inh spray 2 spray(s) in each nostril BID Nasal Washes N/A 1 quart of sterilized tap water or distilled water, 1 tsp NaCl, 1 pinch of baking soda as directed intranasally as needed Breo Ellipta 100 mcg- 25 mcg/inh powder 1 puff(s) inhaled once a day Albuterol (Eqv-Proventil HFA) 90 mcg/inh aerosol 2 puff(s) inhaled every 6 hours Taking losartan 50 mg tablet 1 tab(s) orally once a day Taking Xyzal 5 mg tablet 1 tab(s) orally once a day (in the evening) Taking fluticasone nasal 50 mcg/inh spray 1 spray(s) in each nostril once a day Taking NIFEdipine 30 mg tablet, extended release 1 tab(s) orally once a day Taking spironolactone 25 mg tablet 1 tab(s) orally once a day Taking EpiPen 2-Rio 0.3 mg kit as directed intramuscularly once Taking levocetirizine 5 mg tablet 1 tab(s) orally once a day (in the evening) Taking fluticasone nasal 50 mcg/inh spray 2 spray(s) in each nostril BID Taking Nasal Washes N/A 1 quart of sterilized tap water or distilled water, 1 tsp NaCl, 1 pinch of baking soda as directed intranasally as needed Taking Breo Ellipta 100 mcg-25 mcg/inh powder 1 puff(s) inhaled once a day Taking Albuterol (Eqv-Proventil HFA) 90 mcg/inh aerosol 2 puff(s) inhaled every 6 hours Discontinuedlisinopril 40 mg tablet 1 tab(s) orally once a day Medication List reviewed and reconciled with the patientDiscontinued lisinopril 40 mg tablet 1 tab(s) orally once a day Medication List reviewed and reconciled with the patient * Allergies: H umira: swelling-face lips throat -skin testMethotrexate: nodules in lungsNSAIDS: swelling-face, lips, throatContrast Dye: confusion, trouble breathingno[Allergies Verified] Objective: * Vitals: B P:157/80mm Hg, HR:72/min, RR:16/min, Pulse Oximetry:96%, Ht: 66 in, Wt: 186.0 lbs, BMI:30.02Index. * Examination: G eneral examination: General appearance: [...] effect of other nonsteroidal anti-inflammatory drugs [NSAID], subsequent encounter - T39.395D 3 . A llergy to other foods [...] effect of other nonsteroidal anti-inflammatory drugs [NSAID], subsequent encounter Notes: as above, prefer Tylenol, Ultram, or Celebrex 3. A llergy to other foods Notes: SPT and ImmunoCAPs negative 4. A llergic rhinitis due to pollen Continue levocetirizine tablet, 5 mg, 1 tab(s), orally, once a day (in the evening), 30 days, 30, Refills 0; C ontinue fluticasone nasal spray, 50 mcg/inh, 2 spray(s), in each nostril, twice a day, 30 days, Refills 0; C ontinue Nasal Washes 1 quart of sterilized tap water or distilled water, 1 tsp NaCl, 1 pinch of baking soda, N/A, as directed, intranasally, as needed, 30 days, Refills 0.? Notes: Maged clearly suffers from atopic disease based upon our skin testing and clinical history. Accordingly, we have introduced a new, aggressive medication regimen, discussed nasal washes and allergy-specific avoidance measures. Not currently interested in SCT. Will continue to monitor 5. A llergic rhinitis due to animal [...] mcg/inh, 2 puff(s), inhaled, every 6 hours. 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 She will have recurrent wheezing when she goes to sleep. Started Breo by her PCP with clear benefit. She does not need [place] as long as she is c/w Breo use. No smoking history. No recurrent lower airway infections or hospitalizations. Spiromtery at intial visit was essentaily normal. Plan to continue Breo. Keep [place] on hand. Return for further management if [place] use increases to more than twice a week * Procedures: T terell (Provider Encounter): Time Attestation T his follow-up encounter took more than: m ore than 30 minutes ([id number]) T asks performed during this encounter include: t aking a history, reviewing the patient's review of systems, performing the physical examnation, reviewing laboratory results, counseling the patient on their diagnoses and chronic management, counseling on chronic precription medication management, discussed risks, benefits and alternatives to care, discussed risks, benefits and alternatives to medications, documenting in the EHR, This time calculation excludes any time associated with the separately identifiable medical procedures performed/described within this note (e.g. spirometry/flow volume loop, injections, skin testing, etc...) * Procedure Codes: G 8427 DOC MEDS VERIFIED W/PT OR RE * Preventive Medicine: Counseling: M edication instruction: [...] education material sent to portal? Y es C are goal follow up plan BMI management provided Y es Above Normal BMI Follow-up D ietary management education, guidance, and counseling B P Management: FIRST HYPERTENSIVE BP READING FOLLOW-UP PLAN: F ollow-up 1 month * Follow Up: 1 Year (Reason: Evaluation and Management) * Billing Information: * Visit Code: 87131 Office Visit, Est Pt., Level 4. Modifiers: 25 * Procedure Codes: G8427 DOC MEDS VERIFIED W/PT OR RE. 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 She is alone for today's visit. On 11/19/2022, she ate at a [place] restaurant consisting of Macadamia encrusted sea chapman with lissette rice, mari chili sauce and passion fruit dressing at around 5-6 PM. She went to bed at PM resulting in vomiting at the time. She fell asleep awaking a couple of hours later with tongue swelling occurring. This continued to progress when she went to ED. She was given a steroids shot and sent home with some pills. This past Easter, she hast Lindt Hugs and Bees chocolate with resulting tongue swelling occurring 2 hours later. No noted rashes or hives occurring these episodes. No noted SOB or wheezing. After reviewing ingredient list, she has since not consumed hazelnut, macadamia or sea chapman. That said she has eaten other fin fish since then. She does report history of swelling when taking NSAIDs but has been avoidant, including episodes.Will take Aleve seldomly. She has been on Lisinopril for a long time. No current AIE on hand. Otherwise without family history of swelling. She will continue to consume cashews, pecans. Has not recently ingested [place] nut, Hazelnut, or [place]. SPT at inital visit was negative to TNs. ImmunoCAPs obtained since nagative to macademia and chapman. Angioedema work-up also returned WNL. She has since been swtiched off CEM-i wihtout interval episodes. Aeroallergen skin testing was completed at first visit, and was positive to multiple seasonal and perennial allergens She will have recurrent PND, sinus congestion, and itchy, watery eyes. She has 3 cats at home with some noted symptoms. He sisters have a history of allergies. 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 She will have recurrent wheezing when she goes to sleep. Started Breo by her PCP with clear benefit. She does not need [place] as long as she is c/w Breo use. No smoking history. No recurrent lower airway infections or hospitalizations. Spirometry at intial visit was normal. Today, she reports no fevers, chills, night sweats or other constitutional symptoms Examination Category Sub-Category Detail Notes Category Not [...]
--- OUTSIDE RECORDS SUMMARY | 2024-08-18 12:07 | XMS_ITS ---
Author Organization [facility] Address [address] [place] [address] Care Team Providers Care Lean Sensei Name Role Phone Chad Sherman Primary Care Provider Unavailab Santiago Franz Unavailable [phone] ZZ-Migration, Provider Unavailable Unavailab le Allergies Allergen (clinical drug ingredient) Drug/Non Drug Allergy documented on EMR Reaction Allergy Type Onset Date Status CONTRAST DYE (uncoded) confusion, trouble breathing Allergy Active Humira swelling-face lips throat -skin test Drug Allergy Active Methotrexate nodules in lungs Drug Allergy Active Non-steroidal anti-inflammatory agent (FN) NSAIDs swelling-face, lips, throat Drug Allergy Active [facility] Encounter Medications Medication SIG (Take, Route, Frequency, Duration) Notes Start Date End Date Status ALBUTEROL (EQV-PROVENTIL HFA) 90 MCG/INH 2 PUFF(S) INHALED EVERY 6 HOURS *Please review for potential replacement for e-prescription and drug interaction check* Active Breo Ellipta 100 MCG-25 MCG/INH 1 PUFF(S) INHALED ONCE A DAY *Please review and pick correct strength-formulat ion [facility]. If intended option is not shown, discontinue and re-order from Quick Search* Active NIFEdipine ER 30 MG 1 tab(s) orally once a day Active Spironolactone 25 MG 1 tab(s) orally onc e a day Active Fluticasone Propionate 50 MCG/ACT 1 spray(s) in each nostril once a day Active Fluticasone Propionate 50 MCG/ACT 2 spray(s) in each nostril twice a day for 30 days Active Levocetirizine Dihydrochloride 5 MG 1 tab(s) orally once a day (in the evening) for 30 days Active NASAL WASHES N/A DIRECTED INTRANASALLY NEEDED for 30 DAYS *Please review for potential replacement for e-prescription and drug interaction check* Active Losartan Potassium 50 MG 1 tab(s) orally once a day Active Xyzal Allergy 24HR 5 MG 1 tab(s) orally once a day (in the evening) Active EpiPen 2-Moreno 0.3 MG/0.3ML as directed intramuscularly once for 30 days Active Encounters Encounter Location Date Provider Diagnosis [address] [address] 12/22/2023 Provider Deangelo Localized swelling, mass and lump, head R22.0 ; Allergic rhinitis due to pollen J30.1 and Wheezing R06.2 Assessments Encounter Date Diagnosis (ICD Code) Assessment Notes Treatment Notes Treatment Clinical Notes Section Notes 12/22/2023 Localized swelling, mass and lump, head (ICD-10 - R22.0) 12/22/2023 Allergic rhinitis due to pollen (ICD-10 - J30.1) 12/22/2023 Wheezing (ICD-10 - R06.2) Plan Of Treatment Medication Medication Name Sig Start Date Stop Date Notes ALBUTEROL (EQV-PROVENTIL HFA) 90 MCG/INH 2 PUFF(S) INHALED EVERY 6 HOURS *Please review for potential replacement for e-prescription and drug interaction check* Breo Ellipta 100 MCG-25 MCG/INH 1 PUFF(S) INHALED ONCE A DAY *Please review and pick correct strength-formulati on from [facility] options. If intended option is not shown, discontinue and re-order from Quick Search* Fluticasone Propionate 50 MCG/ACT 2 spray(s) in each nostril twice a day for 30 days Levocetirizine Dihydrochloride 5 MG 1 tab(s) orally once a day (in the evening) for 30 days NASAL WASHES N/A DIRECTED INTRANASALLY NEEDED for 30 DAYS *Please review for potential replacement for e-prescription and drug interaction check* EpiPen 2-Moreno 0.3 MG/0.3ML as directed intramuscularly once for 30 days Progress Notes * Olegario BETHEA:1954 (69 yo F)Acc No.[id number]:12/22/2023 Patient: Ally TARIQ Provider: Eduin Richardson :1955 A ge:68 Y S ex:Female Date:12/22/2023 Address:[address] [place] [address] [id number] Pcp:Chad Sherman Subjective: * Chief Complaints: * 1 . [facility] En[facility]. * Medical History: * Medications: T aking Losartan Potassium 50 MG Tablet 1 tab(s) orally once a day , Taking Xyzal Allergy 24HR 5 MG Tablet 1 tab(s) orally once a day (in the evening) , Taking Fluticasone Propionate 50 MCG/ACT Suspension 1 spray(s) in each nostril once a day , Taking NIFEdipine ER 30 MG Tablet Extended Release 24 Hour 1 tab(s) orally once a day , Taking Spironolactone 25 MG Tablet 1 tab(s) orally once a day , Taking EpiPen 2-Moreno 0.3 MG/0.3ML Solution Auto-injector as directed intramuscularly once , Taking Levocetirizine Dihydrochloride 5 MG Tablet 1 tab(s) orally once a day (in the evening) , Taking Fluticasone Propionate 50 MCG/ACT Suspension 2 spray(s) in each nostril BID * Allergies: H umira: swelling-face lips throat -skin test, Methotrexate: nodules in lungs, NSAIDs: swelling-face, lips, throat, CONTRAST DYE: confusion, trouble breathing. Objective: * Vitals: Assessment: * Assessment: 1. L ocalized swelling, mass and lump, head - R22.0 (Primary) 2 . A llergic rhinitis due to pollen - J30.1 3 . W heezing - R06.2 Plan: * Treatment: 2. A llergic rhinitis due to pollen Continue Levocetirizine Dihydrochloride Tablet, 5 MG, 1 tab(s), orally, once a day (in the evening), 30 days, 30, Refills 0; C ontinue Fluticasone Propionate Suspension, 50 MCG/ACT, 2 spray(s), in each nostril, twice a day, 30 days, Refills 0; C ontinue NASAL WASHES 1 QUART OF STERILIZED TAP WATER OR DISTILLED WATER, 1 TSP NACL, 1 PINCH OF BAKING SODA, N/A, DIRECTED, INTRANASALLY, NEEDED, 30 DAYS, Refills 0, Notes to Pharmacist: *Please review for potential replacement for e-prescription and drug interaction check*. 3. W heezing Continue Breo Ellipta POWDER, 100 MCG-25 MCG/INH, 1 PUFF(S), INHALED, ONCE A DAY, Notes to Pharmacist: *Please review and pick correct strength-formulation from adQ options. If intended option is not shown, discontinue and re-order from Quick Search*; C ontinue ALBUTEROL (EQV-PROVENTIL HFA) AEROSOL, 90 MCG/INH, 2 PUFF(S), INHALED, EVERY 6 HOURS, Notes to Pharmacist: *Please review for potential replacement for e-prescription and drug interaction check*. * Billing Information: * Visit Code: * Procedure Codes: * Electronic signature of David RODRIGUEZ-Migration on 08/18/2024 at 12:07 PM CATERING SALES MANAGER Sign off status: Pending * Provider: Eduin lloyd Migration Date: 0 12/22/2023 Generated for Debra tucker/Deo/Yeseniaitting on: 0 08/18/2024 12:07 PM CATERING SALES MANAGER
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
--- OUTSIDE RECORDS SUMMARY | 2024-08-18 12:08 | XMS_ITS | Encounter Summary ---
Author Organization [facility] Address [address] [place] [address] Phone Care Team Providers Care Director Work Name Role Phone Chad Sherman MD Primary Care Provider + Monserrat Florentino MD Unavailable Encounter Details Date Type Department Care Team (Late st Contact Info) Description 08/29/2017 Orders Only [facility] ProviderCherelle MD [address] [place] [id number] Social History Tobacco Use Types Packs/Day Years Used Date Smoking Tobacco: Never Alcohol Use Standard Drinks/Week Comments Yes 0 (1 standard drink = 0.6 oz pur e alcohol) Comments Unknown Sex and Gender Information Value Date Recorded Sex Assigned at Not on file Legal Sex Female 10:25 AM DRY CLEANER HAND Gender Identity Not on file Sexual Orientation Not on file documented as of this encounter Plan of Treatment Not on file documented as of this encounter Procedures Procedure Name Priority Date/Time Associated Diagnosis Comments DISCHARGE LABORATORY CUMULATIVE REPORT 08/29/2017 12:00 AM DRY CLEANER HAND documented in this encounter Results * DISCHARGE LABORATORY CUMULATIVE REPORT (08/29/2017 12:00 AM DRY CLEANER HAND) Narrative 08/29/2017 12:00 AM DRY CLEANER HAND Ordered by an unspecified provider. Historical Provider LAB BLOOD ORDERABLES Viviane l Result documented in this encounter Visit Diagnoses Not on filedocumented in this encounter Care Teams Director Work Relationship Specialty [place] [address] [facility] [address] [place] [address] PCP - General 10/06/16 [place] [address] [facility] [address] [place] [address] Rheumatology 03/02/17 documented as of this encounter
--- OUTSIDE RECORDS SUMMARY | 2024-08-18 12:08 | XMS_ITS | CONTINUITY OF CARE DOCUMENT ---
Author Name krystyna jonathanharpal Address Unknown Organization [facility] Address [address] [address] [place] [address] Phone [phone] Care Team Providers Care Quality Assurance Monitor Chassis Name Role Phone Sterling BLUNT, Luke Unavailable NIMESH LEUNG MD Unavailable NIMESH LEUNG MD Unavailable PROBLEMS Condition Status Date Provider Notes Hyperkalemia active Cassia Nickerson Cardiology examination active Luke crook MD HTN active Luke Katz MD Rheumatoid arthritis active Luke Katz MD Family History of CVA or Stroke: active Víctor Katz MD Shortness of breath active Luke Sellers Right renal artery stenosis active Luke Katz MD Fatigue active Luke Katz MD Abnormal EKG active Luke Katz MD Preoperative cardiovascular examination active Luke Katz MD ENCOUNTERS Date Type Provider Location Encounter Diag nosis - In-person encounter Office Visit Luke Katz MD [facility] Abnormal EKG - In-person encounter Office Visit Luke Katz MD [facility] Preoperative cardiovascular examination - In-person encounter Office Visit Luke Katz MD [facility] - In-person encounter Office Visit Luke Katz MD [facility] - In-person encounter Office Visit Luke Katz MD [facility] - In-person encounter Office Visit Luke Katz MD [facility] Shortness of breathRight renal artery stenosisFatigue - In-person encounter Office Visit Luke Katz MD [facility] Cardiology examinationHTNRheumatoid arthritisFamily History of CVA or Stroke: VITAL SIGNS Date Observation Value Provider Body Mass Index (Ratio) 30.82 kg/m2 Christy Katz MD blood pressure, cuff size regular Ke rri Gruenenfelder blood pressure, diastolic 80 mm[Hg] Ke rri Gruenenfelder blood pressure, systolic 136 mm[Hg] Precious ri Gruenenfelder oxygen saturation, oximetry 96 % Fawn Gruenenfruter respiratory rate E&M 12 /min Fawn G ruenenfeldmark pulse rate 86 /min Fawn Kellene er weight E&M 191 [lb_av] Fawn Gramrynenfe er height E&M 66 [in_i] Fawn Kandcienenfe er Body Mass Index (Ratio) 30.50 kg/m2 Christy Katz MD blood pressure, cuff size regular Ke rri Gruenenfelder blood pressure, diastolic 82 mm[Hg] Ke rri Gruenenfelder blood pressure, systolic 130 mm[Hg] Ker ri Gruenenfelder oxygen saturation, oximetry 88 % Fawn Gruenenfelder respiratory rate E&M 12 /min Fawn G ruenenfelder pulse rate 99 /min Fawn Gruenenfe er weight E&M 189 [lb_av] Fawn Gruenenfe er height E&M 66 [in_i] Fawn Gruenenfe [facility] Body Mass Index (Ratio) 30.66 kg/m2 Christy Katz MD blood pressure, diastolic 87 mm[Hg] Lillian ascencioLogqian blood pressure, systolic 160 mm[Hg] Elyssa Barfieldogqian oxygen saturation, oximetry 98 % Karishmadiego Henry blood pressure, diastolic 87 mm[Hg] St emeteriofazal Henry blood pressure, systolic 160 mm[Hg] [place] Henry pulse rate 75 /min Karishmadiego Henry respiratory rate E&M 18 /min Karishma nielsen weight E&M 190 [lb_av] Karishma Carl height E&M 66 [in_i] Karishma Carl Body Mass Index (Ratio) 30.50 kg/m2 Christy Katz MD blood pressure, cuff size large Ke rri Claudyuenejake blood pressure, diastolic 80 mm[Hg] Ke rri Claudyuenenfzia blood pressure, systolic 130 mm[Hg] Precious ri Gage oxygen saturation, oximetry 97 % Fawn Kandicenejake respiratory rate E&M 14 /min Fawn G ruenenfeldmark pulse rate 90 /min Fawn Gruenenfe [facility] weight E&M 189 [lb_av] Fawn Gruenenfe [facility] height E&M 66 [in_i] Fawn Gruenenfe [facility] Body Mass Index (Ratio) 30.18 kg/m2 Christy Katz MD blood pressure, diastolic 82 mm[Hg] Lillian ascencioLogqian blood pressure, systolic 146 mm[Hg] Elyssa kLogic blood pressure, cuff size large Ke rri Kandicenenfelder blood pressure, diastolic 82 mm[Hg] Darinel rri Kandicenenfelder blood pressure, systolic 146 mm[Hg] Precious Foremanelder oxygen saturation, oximetry 98 % Fawn Foremanelder respiratory rate E&M 14 /min Fawn Lizet de pazenesixtoelder pulse rate 88 /min Fawn Jaspreet [facility] weight E&M 187 [lb_av] Fawn Jaspreet [facility] height E&M 66 [in_i] Fawn Vogel [facility] Body Mass Index (Ratio) 30.66 kg/m2 Kimberly Gaitan blood pressure, cuff size regular oksana Angel blood pressure, diastolic 82 mm[Hg] oksana Angel pulse rate 67 /min Silvina Angel respiratory rate E&M 18 /min Silvina Angel oxygen saturation, oximetry 97 % Silvina Angel height E&M 66 [in_i] Silvina Angel weight E&M 190 [lb_av] Silvina Angel Body Mass Index (Ratio) 29.53 kg/m2 Christy Katz MD blood pressure, diastolic 87 mm[Hg] Lillian nkLogic blood pressure, systolic 189 mm[Hg] Elyssa kLog blood pressure, diastolic 87 mm[Hg] Carie Adame blood pressure, systolic 189 mm[Hg] Los levin Adame oxygen saturation, oximetry 95 % Brittaney Adame pulse rate 90 /min Brittaney sellers height E&M 66 [in_i] Brittaney sellers weight E&M 183 [lb_av] Brittaney Alexis sellers respiratory rate E&M 16 /min Ai dari Deep blood pressure, cuff size large Carie Adame ALLERGIES Allergy Name Onset Date Reaction Criticality Status IVP DYE High Criticality active HUMARIA High Criticality active IBUPROFEN High Criticality active RESULTS Date Observation Value Provider Reference Range Interpretation Location alanine aminotransferase (SGPT), serum 18 1/L [facility] 6-29 Normal aspartate aminotransferase (SGOT), serum 18 1/L [facility] 10-35 Normal alkaline phosphatase, serum 65 1/L [facility] 37-153 Normal bilirubin, serum, total 0.4 mg/dL [facility] 0.2-1.2 Normal albumin/globulin ratio, serum 1.6 (calc) [facility] 1.0-2.5 Normal globulins, serum, total 2.6 G/DL (CALC) [facility] 1.9-3.7 Normal albumin, serum 4.1 g/dL [facility] 3.6-5.1 Normal protein, total, serum 6.7 g/dL [facility] 6.1-8.1 Normal calcium, serum 9.6 mg/dL [facility] 8.6-10.4 Normal carbon dioxide, venous blood 28 mmol/L [facility] 20-32 Normal chloride, serum 106 mmol/L [facility] 98-110 Normal potassium, serum 4.6 mmol/L [facility] 3.5-5.3 Normal sodium, serum 139 mmol/L [facility] 135-146 Normal urea nitrogen/creatinine ratio, serum 26 (calc) [facility] 6-22 High creatinine, serum 1.01 mg/dL [facility] 0.50-1.05 Normal urea nitrogen, blood 26 mg/dL [facility] 7-25 High blood glucose, random 102 mg/dL [facility] 65-99 High alanine aminotransferase (SGPT), serum 17 1/L [facility] 6-29 Normal aspartate aminotransferase (SGOT), serum 15 1/L [facility] 10-35 Normal alkaline phosphatase, serum 80 1/L [facility] 37-153 Normal bilirubin, serum, total 0.3 mg/dL [facility] 0.2-1.2 Normal albumin/globulin ratio, serum 1.8 (calc) [facility] 1.0-2.5 Normal globulins, serum, total 2.5 G/DL (CALC) [facility] 1.9-3.7 Normal albumin, serum 4.5 g/dL [facility] 3.6-5.1 Normal protein, total, serum 7.0 g/dL [facility] 6.1-8.1 Normal calcium, serum 10.1 mg/dL [facility] 8.6-10.4 Normal carbon dioxide, venous blood 28 mmol/L [facility] 20-32 Normal chloride, serum 108 mmol/L [facility] 98-110 Normal potassium, serum 4.6 mmol/L [facility] 3.5-5.3 Normal sodium, serum 141 mmol/L [facility] 135-146 Normal urea nitrogen/creatinine ratio, serum NOT APPLICABLE (calc) [facility] 6-22 creatinine, serum 0.82 mg/dL [facility] 0.50-1.05 Normal urea nitrogen, blood 22 mg/dL [facility] 7-25 Normal blood glucose, random 97 mg/dL [facility] 65-99 Normal international normalized ratio (INR) 1.0 [facility] 0.9-1.2 Normal [place] [address] prothrombin time (patient) 11.3 s [facility] 9.2-13.5 Normal C, [place] [address] Absolute Basophils 0.1 K/CUMM [facility] 0.0-0.1 Normal C, [place] [address] Absolute Monocytes 0.9 K/CUMM [facility] 0.2-0.8 High C, [place] [address] Absolute Lymphocytes 2.6 K/CUMM [facility] 0.8-3.3 Normal C, [place] [address] Absolute Neutrophils 4.4 K/CUMM [facility] 1.7-6.5 Normal C, [place] [address] nucleated red blood cells as percent of blood leukocytes 0.00 K/CUMM [facility] 0.00-0.01 Normal red blood cell distribution width, size density 45.1 fL [facility] 35.7-48.1 Normal mean corpuscular hemoglobin concentration, RBC 30.8 G/DL [facility] 32.3-35.7 Low mean corpuscular hemoglobin, RBC 29.2 pg [facility] 27.1-33.3 Normal mean corpuscular volume, RBC 94.7 fL [facility] 81.3-96.4 Normal erythrocyte count, whole blood 5.14 M/CUMM [facility] 3.90-5.20 Normal mean platelet volume 11.3 fL [facility] 9.1-12.3 Normal platelet count 322 10*3/uL [facility] 150-400 Normal hematocrit, blood 48.7 % [facility] 35.6-45.5 High hemoglobin, blood 15.0 g/dL [facility] 11.9-15.5 Normal Estimated Glomerular Filtration Rate (calc) 74 mL/min/{1.73 _m2} [facility] C, [place] [address] cholesterol, non-HDL, total 195 mg/dL [facility] C, [place] [address] HDL CHOLESTEROL 44 mg/dL [facility] >=40 Normal C, [place] [address] triglyceride, serum, fasting 195 mg/dL [facility] <=149 High C, [place] [address] cholesterol, serum 239 mg/dL [facility] 30-199 High C, [place] [address] calcium, serum 10.1 mg/dL [facility] 8.5-10.3 Normal C, [place] [address] blood glucose, random 87 mg/dL [facility] 70-199 Normal C, [place] [address] creatine, serum 0.87 mg/dL [facility] 0.60-1.10 Normal C, [place] [address] urea nitrogen, blood 21 mg/dL [facility] 8-25 Normal C, [place] [address] anion gap, serum 11 mmol/L [facility] 2-15 Normal C, [place] [address] carbon dioxide, venous blood 26 mmol/L [facility] 22-32 Normal C, [place] [address] chloride, serum 101 mmol/L [facility] 97-110 Normal C, [place] [address] potassium, serum 5.6 MMOL/L [facility] 3.3-4.9 High C, [place] [address] sodium, serum 138 mmol/L [facility] 135-145 Normal C, [place] [address] HISTORY OF MEDICATION USE Medication Status Instructions Dates Provider Indications Com ments spironolactone 25 mg tablet active Take 1 tablet by mouth twice a day Fawn Almonte spironolactone 25 mg tablet completed TAKE 1 TABLET BY MOUTH TWICE DAILY - Fawn Almonte losartan 100 mg tablet active Take 1 tablet by mouth once a day Fawn Almonte Breo Ellipta 100-25 mcg/dose blister with device active Fawn Gage felodipine 5 mg tablet extended release 24 hr completed Take 1 tablet by mouth once a day - Luke Katz MD nifedipine 30 mg tablet extended release active TAKE 1 TABLET BY MOUTH DAILY Brandt Johnson Aldactone 25 mg tablet completed Take 1 tablet by mouth twice a [facility] 0.1 mg tablet completed - Luke Katz MD fluticasone propionate 50 mcg/actuation spray,suspension active Brittaney Adame lisinopril 40 mg tablet completed TAKE 1 TABLET BY MOUTH ONCE DAILY - Luke Katz MD leflunomide 20 mg tablet completed - Fawn Almonte amlodipine 10 mg tablet completed - Luke Katz MD SOCIAL HISTORY Date Observation Value Provider smoking status Never smoker Luke crook MD smoking status Never smoker Luke crook MD social history E&M S moking History: Eduin sheikh has never smoked. Luke Katz MD social history reviewed E&M revi ewed - no changes required Luke Katz MD Exercise counseling yes Karishma Mckinley smoking status Never smoker Karishma Henry social history E&M S moking History: Eduin sheikh has never smoked. Luke Katz MD social history reviewed E&M revi ewed - no changes required Luke Katz MD Exercise counseling yes Fawn matias smoking status Never smoker Fawn zeng social history E&M Smoking Histo ry: P aguilar has never smoked. Luke Katz MD social history reviewed E&M revi ewed - no changes required Luke Katz MD social history reviewed E&M revi ewed - no changes required Luke Katz MD Exercise counseling yes Kacey Turner sarah BERNABE number of grandchildren Luke Katz MD smoking status Never smoker Luke crook MD social history E&M S moking History: P aguilar has never smoked. Luke Katz MD social history reviewed E&M revi ewed - no changes required Luke Katz MD FAMILY HISTORY Family Member Condition Mother Family History of CV A or Stroke: INSURANCE PROVIDERS Payer name Policy type / Coverage type [place] [employer] MEDICARE SUPPLEMENT INSURANCE Commercial in [place] Self Representation Document Preparation [id number] [place] B Medicare [id number] ADVANCE DIRECTIVES Name Date DISCUSSED - NO DECISION MADE TREATMENT PLAN Date Name Performer [id number],C, P er PCP. Continue medical therapy on Leflunomide 20mg. Luke Katz MD [id number],S, R enal angio was normal, no stenosis. Luke Katz MD [id number],C,B P elevated today at 160/87. Reports BP at home is better at 145/70. Advised reduced sodium intake and routine monitoring of the blood pressure. We aim for less than 130/80. Luke Katz MD [id number],C, No recurrence of SOB or fatigue. Cath was done on 09/12/22. Luke Katz MD [id number],C,S he did undergo selective renal angio, as her previous renal arterial doppler was sugestive of stenosis, and it was normal. Blood pressure control is satisfactory. Continues on her present antihypertensive medications. She will continue to monitor her BP. Luke Katz MD [id number],C,C ardiac cath on 09/12/22 showed mild nonobstructive CAD. No recurrence of SOB or fatigue since cath. Luke Katz MD [id number],C,B lood pressure control is satisfactory. Continues on nifedipine ER. Luke Katz MD [id number],C,R enal angio was normal, no stenosis. Luke Katz MD [id number],C, P er PCP. Continue medical therapy on Leflunomide 20mg. Luke Katz MD [id number],S, P er PCP. Continue medical therapy on Leflunomide 20mg. Luke Katz MD [id number],C,W e will also do a selective renal angiography to assess the stenosis of the renal arteries. Luke Katz MD [id number],C,R emains extremely fatigued and SOB in spite of the fact that the BP has improved. The last Stress test was normal. I feel that she would benefit from a L/R heart cath to rule out significant stenosis of the coronary arteries. Luke Katz MD [id number],B,H er BP has improved since starting nifidepine ER 30mg daily. Luke Katz MD [id number],C, Her carotid u/s was normal. Her stress test showed normal myocardial perfusion imaging. However, she remains symptomatic with SOB and she is markedly hypertensive. Will stop her amlodipine today and increase aldactone. Start her on nifedipine 30 mg.If she continues to be symptomatic and her blood pressure remains high, we will plan for cardiac cath to rule out ischemia. Lluvia Gaitan [id number],C, C omplaining of fatigue with her SOB. Will plan for cardiac cath if symptoms persist or worsen and BP does not lower. Lluvia Gaitan [id number],C, Her carotid u/s was normal. Her stress test showed normal myocardial perfusion imaging. However, she remains symptomatic with SOB and markedly hypertensive. Will stop her amlodipine today and increase aldactone. Start her on nifedipine 30 mg.If she continues to be symptomatic and her blood pressure remains high, we will plan for cardiac cath to rule out ischemia. Lluvia Gaitan [id number],C, B P elevated today at 189/82. Advised reduced sodium intake and routine monitoring of the blood pressure. We aim for less than 130/80. Will stop her amlodipine, increased aldactoone to 25 mg bid, and start nifedipine 30 mg one tablet at night. Her renal artery duplex showed right renal artery stenosis. If BP remains elevated and she continues to have symptoms, we will plan for cardiac cath to rule out ischemia and renal angiography. Lluvia Gaitan [id number],C, B P elevated today at 189/82. Advised reduced sodium intake and routine monitoring of the blood pressure. We aim for less than 130/80. Will stop her amlodipine, increased aldactoone to 25 mg bid, and start nifedipine 30 mg one tablet at night. Luke Katz MD [id number],C, r ight renal artery stenosis on renal u/s.will plan for renal angio Luke Katz MD [id number],C, P t complains of increased SOB. Will stop her amlodipine today and increase aldactone. Start her on nifedipine 30 mg.If she continues to be symptomatic, we will plan for cardiac cath to rule out ischemia. Luke Katz MD [id number],S, P er PCP. Continue medical therapy on Leflunomide 20mg. Luke Katz MD [id number],C,S tart Aldactone 25mg once daily. It will take 48-72hrs to show any change in BP. Till then, continue taking clonidine as directed for an elevated BP. BP today: 189/87 & #13; H er updated medication list for this problem includes: Aldactone 25 Mg Tablet (Spironolactone) ..... Take 1 tablet by mouth once a day take 1 tablet by mouth every day Amlodipine 10 Mg Tablet (Amlodipine) Lisinopril 40 Mg Tablet (Lisinopril) Luke Katz MD [id number],C,P er PCP. Continue medical therapy on Leflunomide 20mg. Luke Katz MD [id number],C,W ill order Renal US , Carotid US and Stress Regadenson for further assessment. Luke Katz MD [id number],C,W ill hold Clonidine 0.1mg and start Aldactone 25mg once daily. B P today: 189/87 The following medications were removed from the medication list: Clonidine Hcl 0.1 Mg Tablet (Clonidine hcl) Her updated medication list for this problem includes: Aldactone 25 Mg Tablet (Spironolactone) ..... Take 1 tablet by mouth once a day take 1 tablet by mouth every day Amlodipine 10 Mg Tablet (Amlodipine) Lisinopril 40 Mg Tablet (Lisinopril) Luke Katz MD Cardiology:EKG indicative of RBB B Luke Katz MD Cardiology:Will get infusion the rapy Luke Katz MD Cardiology: B P today: 136/80 P rior BP: 130/82 (08/27/2023) Her updated medication list for this problem includes: Spironolactone 25 Mg Tablet (Spironolactone) ..... Take 1 tablet by mouth twice daily Losartan 50 Mg Tablet (Losartan) ..... Take 1 tablet by mouth once a day Nifedipine 30 Mg Tablet Extended Release (Nifedipine) ..... Take 1 tablet by mouth daily Luke Katz MD Cardiology:She is foy ving cataract surgery soon. Her EKG is unremarkable and shows normal SR and RBBB. She is cleared for surgery. Luke Katz MD Cardiology: B P today: 130/82 P rior BP: 160/87 (12/26/2022) Labs Reviewed: C reat: 1.01 (09/11/2022) C hol: 239 (09/01/2022) T (09/01/2022) Her updated medication list for this problem includes: Lisinopril 40 Mg Tablet (Lisinopril) ..... Take 1 tablet by mouth once daily Nifedipine 30 Mg Tablet Extended Release (Nifedipine) ..... Take 1 tablet by mouth daily Aldactone 25 Mg Tablet (Spironolactone) ..... Take 1 tablet by mouth twice a day Felodipine 5 Mg Tablet Extended Release 24 Hr (Felodipine) ..... Take 1 tablet by mouth once a day Luke Katz MD Cardiology: P er PCP. Continue medical therapy on Leflunomide 20mg. Luke Katz MD Cardiology: R enal angio was normal, no stenosis. Luke Katz MD Cardiology:BP elevat ed today at 160/87. Reports BP at home is better at 145/70. Advised reduced sodium intake and routine monitoring of the blood pressure. We aim for less than 130/80. Luke Katz MD Cardiology: No recurrence of SOB or fatigue. Cath was done on 09/12/22. Luke Katz MD Cardiology:She did u ndergo selective renal angio, as her previous renal arterial doppler was sugestive of stenosis, and it was normal. Blood pressure control is satisfactory. Continues on her present antihypertensive medications. She will continue to monitor her BP. Luke Katz MD Cardiology:Cardiac c ath on 09/12/22 showed mild nonobstructive CAD. No recurrence of SOB or fatigue since cath. Luke Katz MD Cardiology:Blood pre ssure control is satisfactory. Continues on nifedipine ER. Luke Katz MD Cardiology:Renal angio was celso l, no stenosis. Luke Katz MD Cardiology: P er PCP. Continue medical therapy on Leflunomide 20mg. Luke Katz MD Cardiology: P er PCP. Continue medical therapy on Leflunomide 20mg. Luke Katz MD Cardiology:We will a lso do a selective renal angiography to assess the stenosis of the renal arteries. Luke Katz MD Cardiology:Remains e xtremely fatigued and SOB in spite of the fact that the BP has improved. The last Stress test was normal. I feel that she would benefit from a L/R heart cath to rule out significant stenosis of the coronary arteries. Luke Katz MD Cardiology:Her BP foy s improved since starting nifidepine ER 30mg daily. Luke Katz MD Cardiology : Her carotid u/s was normal. Her stress test showed normal myocardial perfusion imaging. However, she remains symptomatic with SOB and she is markedly hypertensive. Will stop her amlodipine today and increase aldactone. Start her on nifedipine 30 mg.If she continues to be symptomatic and her blood pressure remains high, we will plan for cardiac cath to rule out ischemia. Lluvia Gaitan Cardiology : C omplaining of fatigue with her SOB. Will plan for cardiac cath if symptoms persist or worsen and BP does not lower. Lluvia Gaitan Cardiology : Her carotid u/s was normal. Her stress test showed normal myocardial perfusion imaging. However, she remains symptomatic with SOB and markedly hypertensive. Will stop her amlodipine today and increase aldactone. Start her on nifedipine 30 mg.If she continues to be symptomatic and her blood pressure remains high, we will plan for cardiac cath to rule out ischemia. Lluvia Gaitan Cardiology : B P elevated today at 189/82. Advised reduced sodium intake and routine monitoring of the blood pressure. We aim for less than 130/80. Will stop her amlodipine, increased aldactoone to 25 mg bid, and start nifedipine 30 mg one tablet at night. Her renal artery duplex showed right renal artery stenosis. If BP remains elevated and she continues to have symptoms, we will plan for cardiac cath to rule out ischemia and renal angiography. Lluvia Gaitan Cardiology : B P elevated today at 189/82. Advised reduced sodium intake and routine monitoring of the blood pressure. We aim for less than 130/80. Will stop her amlodipine, increased aldactoone to 25 mg bid, and start nifedipine 30 mg one tablet at night. Luke Katz MD Cardiology : r ight renal artery stenosis on renal u/s.will plan for renal angio Luke Katz MD Cardiology : P t complains of increased SOB. Will stop her amlodipine today and increase aldactone. Start her on nifedipine 30 mg.If she continues to be symptomatic, we will plan for cardiac cath to rule out ischemia. Luke Katz MD Cardiology : P er PCP. Continue medical therapy on Leflunomide 20mg. Luke Katz MD Cardiology:Start Ald actone 25mg once daily. It will take 48-72hrs to show any change in BP. Till then, continue taking clonidine as directed for an elevated BP. BP today: 189/87 Her updated medication list for this problem includes: Aldactone 25 Mg Tablet (Spironolactone) ..... Take 1 tablet by mouth once a day take 1 tablet by mouth every day Amlodipine 10 Mg Tablet (Amlodipine) Lisinopril 40 Mg Tablet (Lisinopril) Luke Katz MD Cardiology:Per PCP. Continue medical therapy on Leflunomide 20mg. Luke Katz MD Cardiology:Will orde r Renal US , Carotid US and Stress Regadenson for further assessment. Luke Katz MD Cardiology:Will hold Clonidine 0.1mg and start Aldactone 25mg once daily. B P today: 189/87 The following medications were removed from the medication list: Clonidine Hcl 0.1 Mg Tablet (Clonidine hcl) Her updated medication list for this problem includes: Aldactone 25 Mg Tablet (Spironolactone) ..... Take 1 tablet by mouth once a day take 1 tablet by mouth every day Amlodipine 10 Mg Tablet (Amlodipine) Lisinopril 40 Mg Tablet (Lisinopril) Luke Katz MD Date Name COMPREHENSIVE METABO LIC PANEL, W/EGFR COMPREHENSIVE METABO LIC PANEL, W/EGFR Renal Angio - [facility] Cardiac Cath - L/R- [facility] Carotid Duplex Bilat eral Renal Artery Duplex Stress Regadenoson HISTORY OF PROCEDURES Procedure Date Procedure Name Provider Procedure Notes S tatus Complex e/m visit add on Luke Katz MD completed EKG Luke Katz MD complet ed EKG Luke Katz MD complet ed EKG Luke Katz MD complet ed EKG Luke Katz MD complet ed EKG Luke Katz MD complet ed EKG Luke Katz MD complet ed EKG Luke Katz MD complet ed
--- OUTSIDE RECORDS SUMMARY | 2024-08-18 12:08 | XMS_ITS | Encounter Summary ---
Author Organization [facility] Address [address] [place] [address] Care Team Providers Care Stone Gluer Name Role Phone Chad Pickering MD Primary Care Provider [phone] Encounter Details Date Type Department Care Team (Late Contact Info) Description 11/15/2023 Lab Requisition [facility] - DermPath Lab [address] [facility] [place] [id number] Miguel A Del Cid Jr., MD [address] [facility] [facility] [address] [place] [address] Social History Tobacco Use Types Packs/Day Years Used Date Smoking Tobacco: Never Assessed Sex and Gender Information Value Date Recorded Sex Assigned at Not on file Gender Identity Not on file Sexual Orientation Not on file documented as of this encounter Plan of Treatment Upcoming Encounters Date Type Department Care Team (Late Contact Info) Description 08/19/2024 2:45 PM 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 Office Visit [facility] - Rheumatology [address] [address] [place] [address] [facility] [address] [place] [address] documented as of this encounter Procedures Procedure Name Priority Date/Time Associated Diagnosis Comments DERMATOPATHOLOGY Routine 11/14/2023 12:0 0 AM CDT documented in this encounter Results * DERMATOPATHOLOGY (11/14/2023 12:00 AM CDT) Case Report Dermatopathology Report Case: [id number] Authorizing Provider: Miguel A Del Cid Jr., MD Collected: 11/14/2023 12:00 AM Ordering Location: [facility] - Received: 11/15/2023 09:34 AM DermPath Lab Pathologist: Diamante Serrato MD Specimen: Skin, left anterior proximal upper arm 5:39 PM CDT DERMATOPATHOLOGY LABORATORY Final Diagnosis Specimen A. SKIN, left anterior proximal upper arm: SQUAMOUS CELL CARCINOMA, KERATOACANTHOMA TYPE; SUPERFICIAL PORTIONS OF (C44.629) (see microscopic description) 5:39 PM CDT DERMATOPATHOLOGY LABORATORY Clinical History Inflamed seborrheic keratosis vs squamous cell carcinoma vs verruca vulgaris. 5:39 PM CDT DERMATOPATHOLOGY LABORATORY Gross Description Specimen A: Received is one formalin filled container labeled with the patient's name and designated left anterior proximal upper arm. The specimen consists of a shave biopsy measuring 8x7x3 mm. Jar 0. 5:39 PM CDT DERMATOPATHOLOGY LABORATORY Microscopic Description Specimen A. SKIN, left anterior proximal upper arm: Sections show superficial portions of an endo exophytic crateriform lesion with a keratotic plug, formed by confluent follicle-like structures with relatively large keratinocytes. Additional deeper sections were obtained and reviewed. 5:39 PM CDT DERMATOPATHOLOGY LABORATORY Disclaimer An external and internal positive and negative controls are appropriate for the histochemical, immunohistochemical and immunofluorescence stain(s) in this case (if any), except where stated explicitly. The performance characteristics of the stain(s) cited in this report were developed and its performance characteristic determined by the Dermatopathology Laboratory at [facility], directed by Dr. Ahmet Harkins. These tests need not be, and therefore are not, approved by the [place] Food and Drug Administration. The tests are used for clinical purposes. Billing Codes Specimen Charges Stain Charges 44657 1 5:39 PM CDT DERMATOPATHOLOGY LABORATORY Embedded Images 5:39 PM CDT DERMATOPATHOLOGY LABORATORY Pathology/Cytolog y TISSUE SPECIMEN FROM SKIN / Unknown 11/14/2023 11/15/2023 9:34 AM CDT Miguel A Del Cid Jr., MD LAB - PATHOLOGY /CYTOLOGY ORDERABLES DERMATOPATHOLOGY LABORATORY [facility] - Department of Dermatology [facility] [address] [place] [address], [address] [phone] documented in this encounter Visit Diagnoses Not on filedocumented in this encounter Care Teams Stone Gluer Relationship Specialty [place] [address] [facility] [place] [address] PCP - General Internal Medicine 03/06/24 documented as of this encounter
--- OUTSIDE RECORDS SUMMARY | 2024-08-18 12:08 | XMS_ITS | Encounter Summary ---
Author Organization [facility] Address [address] [place] [address] Care Team Providers Care Systems Technician Name Role Phone Chad Pickering MD Primary Care Provider [phone] Encounter Details Date Type Department Care Team (Late st Contact Info) Description 06/30/2021 Lab Requisition [facility] Care DermPath Lab [address] [facility] [place] [address] Miguel A Del Cid Jr., MD [address] [facility] [address] [place] [address] Social History Tobacco Use Types Packs/Day Years Used Date Smoking Tobacco: Never Assessed Sex and Gender Information Value Date Recorded Sex Assigned at Not on file Gender Identity Not on file Sexual Orientation Not on file documented as of this encounter Plan of Treatment Upcoming Encounters Date Type Department Care Team (Late Contact Info) Description 08/19/2024 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 Office Visit [facility] - Rheumatology [id number] [place] [address] [place] [address] [facility] [address] [place] [address] documented as of this encounter Procedures Procedure Name Priority Date/Time Associated Diagnosis Comments DERMATOPATHOLOGY Routine 06/29/2021 12:0 0 AM LOG TRUCK DRIVER documented in this encounter Results * DERMATOPATHOLOGY (06/29/2021 12:00 AM LOG TRUCK DRIVER) Case Report Dermatopathology Report Case: [id number] Authorizing Provider: Miguel A Del Cid Jr., MD Collected: 06/29/2021 12:00 AM Ordering Location: [facility] DermPath Lab Received: 06/30/2021 01:15 PM Pathologist: Laurita Quinones MD Specimens: A) - Skin, right anterior proximal upper arm B) - Skin, right anterior proximal upper arm C) - Skin, right superior upper back 11:20 AM [facility] DERMATOPATHOLOGY LABORATORY Final Diagnosis Specimen A. SKIN, right anterior proximal upper arm: LICHEN PLANUS-LIKE KERATOSIS (BENIGN LICHENOID KERATOSIS) (L82.1) Specimen B. SKIN, right anterior proximal upper arm: ACTINIC KERATOSIS, LICHENOID (L57.0) Specimen C. SKIN, right superior upper back: LICHEN PLANUS-LIKE KERATOSIS (BENIGN LICHENOID KERATOSIS) (L82.1) 11:20 AM [facility] DERMATOPATHOLOGY LABORATORY Clinical History A-C: Inflamed seborrheic keratosis vs squamous cell carcinoma. . 11:20 AM [facility] DERMATOPATHOLOGY LABORATORY Gross Description Specimen A: Received is one formalin filled container labeled with the patient's name and designated right anterior proximal upper arm. The specimen consists of a shave biopsy measuring 4q8x0ac. Jar 0. Specimen B: Received is one formalin filled container labeled with the patient's name and designated right anterior proximal upper arm. The specimen consists of a shave biopsy measuring [id number]. Jar 0. Specimen C: Received is one formalin filled container labeled with the patient's name and designated right superior upper back. The specimen consists of a shave biopsy measuring [id number]. Jar 0. 11:20 AM [facility] DERMATOPATHOLOGY LABORATORY Microscopic Description Specimen A. SKIN, right anterior proximal upper arm: The epidermis is mildly acanthotic. There is a lichenoid infiltrate with vacuolar changes of basilar keratinocytes and scattered necrotic keratinocytes. Specimen B. SKIN, right anterior proximal upper arm: There is focal parakeratosis. The lower half of the epidermis shows disorderly maturation of keratinocytes with nuclear pleomorphism. The dermis shows a band-like, chronic inflammatory infiltrate with occasional apoptotic keratinocytes and some basal vacuolar alteration. Specimen C. SKIN, right superior upper back: The epidermis is mildly acanthotic. There is a lichenoid infiltrate with vacuolar changes of basilar keratinocytes and scattered necrotic keratinocytes. 11:20 AM [facility] DERMATOPATHOLOGY LABORATORY Disclaimer An external and internal positive and negative controls are appropriate for the histochemical, immunohistochemical and immunofluorescence stain(s) in this case (if any), except where stated explicitly. The performance characteristics of the stain(s) cited in this report were developed and its performance characteristic determined by the Dermatopathology Laboratory at [facility], directed by Dr. Ahmet Harkins. These tests need not be, and therefore are not, approved by the [place] Food and Drug Administration. The tests are used for clinical purposes. Billing Codes Specimen Charges Stain Charges 91137 68020 630[address] 1 1 1 11:20 AM LOG TRUCK DRIVER DERMATOPATHOLOGY LABORATORY Embedded Images 11:20 AM LOG TRUCK DRIVER DERMATOPATHOLOGY LABORATORY Pathology/Cytology TISSUE SPECIMEN FROM SKIN / Unknown 06/29/2021 06/30/2021 1:15 PM LOG TRUCK DRIVER Miscellaneous samples (specimen) TISSUE SPECIMEN FROM SKIN / Unknown 06/29/2021 06/30/2021 1:15 PM LOG TRUCK DRIVER Miscellaneous samples (specimen) TISSUE SPECIMEN FROM SKIN / Unknown 06/29/2021 06/30/2021 1:15 PM LOG TRUCK DRIVER Miguel A Del Cid Jr., MD LAB - PATHOLOGY /CYTOLOGY ORDERABLES DERMATOPATHOLOGY LABORATORY [facility] - Department of Dermatology [facility] [address] [place] [address], [address] [phone] documented in this encounter Visit Diagnoses Not on filedocumented in this encounter Care Teams Systems Technician Relationship Specialty [place] [address] [place] [address] PCP - General Internal Medicine 03/06/24 documented as of this encounter
--- OUTSIDE RECORDS SUMMARY | 2024-08-18 12:08 | XMS_ITS | Patient Health Summary ---
Author Organization [facility] Address [address] [facility] [place] [address] Care Team Providers Care Job Press Feeder Name Role Phone Chad Pickering MD Primary Care Provider [phone] Note from [facility],non-owned Affiliates and Associated Physician Practices is amultiple site organization consisting of ambulatory clinics and hospital sitesin [place], [place], [place] and [place]. This disclosure is being madepursuant to the Care Everywhere program and may not contain all information available regarding this patient. Last updated 18.[facility] Allergies * Adalimumab(Anaphylaxis) -High Criticality * Nsaids(Angioedema) -High Criticality Medications * Be aware that medications may not be up to date on this document. Alwaysverify current medications with the patient. * albuterol HFA (Proventil; Ventolin; Proair) 108 (90 Base) MCG/ACT inhaler 2 PUFF(S) INHALED EVERY 6 HOURS * cloNIDine (Catapres) 0.1 MG tablet(Started 08/03/2022) TAKE 1 TABLET BY MOUTH TWICE DAILY NEEDED FOR EPISODES OF SEVERE HYPERTENSION * EPIPEN 0.3 MG/0.3ML auto-injector pen as directed intramuscularly once for 30 days * Breo Ellipta 100-25 MCG/ACT inhaler 1 PUFF(S) INHALED ONCE A DAY * fluticasone propionate (Flonase) 50 MCG/ACT nasal spray 1 spray(s) in each nostril once a day * levocetirizine (Xyzal Allergy 24HR) 5 MG tablet 1 tab(s) orally once a day (in the evening) * losartan (Cozaar) 50 MG tablet(Started 09/07/2023) 1 tab(s) orally once a day * NIFEdipine CR 24hr (Adalat CC) 30 MG tablet(Started 08/21/2022) 1 tab(s) orally once a day * spironolactone (Aldactone) 25 MG tablet(Started 08/14/2022) 1 tab(s) orally once a day * leflunomide (Arava) 20 MG tablet(Started 08/08/2024) 1 tablet daily Ended Medications* leflunomide (Arava) 20 MG tablet(Started 04/08/2024) (Discontinued) 1 tablet daily 1 refill by 04/08/2025 Active Problems Problem Noted Date Diagnosed Date Rheumatoid arthritis involvi ng right wrist, unspecified whether rheumatoid factor present 03/06/2024 Social History Tobacco Use Types Packs/Day Years Used Date Smoking Tobacco: Never Assessed PHQ-2 Answer Date Recorded Patient Health Questionnaire-2 Score 0 03/06/2024 Sex and Gender Information Value Date Recorded Sex Assigned at Not on file Gender Identity Not on file Sexual Orientation Not on file Last Filed Vital Signs Vital Sign Reading Time Taken Comments Blood Pressure 148/84 04/08/2024 2:50 PM CDT Pulse 76 04/08/2024 2:50 PM CDT Temperature 36.9 C (98.4 F) 09/12/2022 8:47 AM MEDICAL OFFICE TECHNOLOGIST Respiratory Rate 18 03/06/2024 1:37 PM CDT Oxygen Saturation 96% 03/06/2024 1:37 PM CDT Inhaled Oxygen Concentration - - Weight 85.3 kg (188 lb) 04/08/2024 2:50 PM CDT Height 167.6 cm (5' 5.98 ) 04/08/2024 2:50 PM CD T Body Mass Index 30.36 04/08/2024 2:50 PM CDT Procedures * COMPREHENSIVE METABOLIC PANEL(Performed 04/30/2024) Performed for Seronegative rheumatoid arthritis (HCC), Immunosuppressed status (HCC), High risk medication use, Polyarthralgia * CBC W AUTO DIFFERENTIAL(Performed 04/30/2024) Performed for Seronegative rheumatoid arthritis (HCC), Immunosuppressed status (HCC), High risk medication use, Polyarthralgia * ERYTHROCYTE SEDIMENTATION RATE(Performed 04/30/2024) Performed for Seronegative rheumatoid arthritis (HCC), Immunosuppressed status (HCC), High risk medication use, Polyarthralgia * C-REACTIVE PROTEIN(Performed 04/30/2024) Performed for Seronegative rheumatoid arthritis (HCC), Immunosuppressed status (HCC), High risk medication use, Polyarthralgia * QUANTIFERON-TB GOLD PLUS 1-TUBE(Performed 03/26/2024) * IMAGING/RADIOLOGY/XRAY RESULTS ORDER(Performed 03/13/2024) * XR CERVICAL SPINE 4 OR 5VW(Performed 03/13/2024) Performed for History of rheumatoid arthritis, Polyarthralgia, Myofascial pain, Lung nodule * HEPATITIS PANEL(Performed 03/06/2024) Performed for History of rheumatoid arthritis, Polyarthralgia, Myofascial pain, Lung nodule, Encounter for screening for other viral diseases * MARKET ANALYST ANTIBODY(Performed 03/06/2024) Performed for History of rheumatoid arthritis, Polyarthralgia, Myofascial pain, Lung nodule * SS-B (SJOGREN'S) ANTIBODY(Performed 03/06/2024) Performed for History of rheumatoid arthritis, Polyarthralgia, Myofascial pain, Lung nodule * SS-A (SJOGREN'S) ANTIBODY(Performed 03/06/2024) Performed for History of rheumatoid arthritis, Polyarthralgia, Myofascial pain, Lung nodule * RHEUMATOID FACTOR BLOOD QUANTITATIVE(Performed 03/06/2024) Performed for History of rheumatoid arthritis, Polyarthralgia, Myofascial pain, Lung nodule * MARY BLOOD SCREEN W/REFLEX TITER(Performed 03/06/2024) Performed for History of rheumatoid arthritis, Polyarthralgia, Myofascial pain, Lung nodule * URIC ACID BLOOD(Performed 03/06/2024) Performed for History of rheumatoid arthritis, Polyarthralgia, Myofascial pain, Lung nodule * ERYTHROCYTE SEDIMENTATION RATE(Performed 03/06/2024) Performed for History of rheumatoid arthritis, Polyarthralgia, Myofascial pain, Lung nodule * C-REACTIVE PROTEIN(Performed 03/06/2024) Performed for History of rheumatoid arthritis, Polyarthralgia, Myofascial pain, Lung nodule * CK BLOOD(Performed 03/06/2024) Performed for History of rheumatoid arthritis, Polyarthralgia, Myofascial pain, Lung nodule * DERMATOPATHOLOGY(Performed 12/19/2023) * DERMATOPATHOLOGY(Performed 11/14/2023) * CARDIAC EKG ORDER(Performed 09/13/2022) * URINE MICROSCOPIC ONLY(Performed 09/12/2022) * URINALYSIS REFLEX TO MICROSCOPIC NO CULTURE(Performed 09/12/2022) * TROPONIN I(Performed 09/12/2022) * XR CHEST 1VW PORTABLE(Performed 09/12/2022) Performed for Confusion * CT ANGIO BRAIN NECK STROKE(Performed 09/12/2022) Performed for Confusion * B-TYPE NATRIURETIC PEPTIDE(Performed 09/12/2022) * TROPONIN I(Performed 09/12/2022) * PTT(Performed 09/12/2022) * PT-INR(Performed 09/12/2022) * COMPREHENSIVE METABOLIC PANEL(Performed 09/12/2022) * CBC W AUTO DIFFERENTIAL(Performed 09/12/2022) * EKG 12-LEAD(Performed 09/12/2022) Performed for Confusion * CREATININE - POCT INTERFACED(Performed 09/12/2022) * TYPE + SCREEN PANEL(Performed 09/12/2022) * CT BRAIN STROKE(Performed 09/12/2022) Performed for Confusion * DERMATOPATHOLOGY(Performed 06/29/2021) * XR CHEST 2VW(Performed 02/24/2016) Performed for Rheumatoid arthritis of multiple sites with negative rheumatoid factor (HCC) * XR CHEST 2VW(Performed 10/06/2014) Performed for Rheumatoid arthritis(714.0) (HCC) Results * CBC WITH DIFFERENTIAL (04/30/2024 3:27 PM CDT) Only the most recent of2 resultswithin the time period is included. White Blood Cell Count 7.5 3.8 - 10.8 Thousand/u L [facility] RBC 4.57 3.80 - 5.10 Million/uL [facility] Hemoglobin 13.7 11.7 - 15.5 g/dL [facility] Hematocrit 42.3 35.0 - 45.0 % [facility] MCV 92.6 80.0 - 100.0 fL [facility] MCH 30.0 27.0 - 33.0 pg [facility] MCHC 32.4 32.0 - 36.0 g/dL [facility] Comment: For adults, a slight decrease in the calculated MCHC value (in the range of 30 to 32 g/dL) is most likely not clinically significant; however, it should be interpreted with caution in correlation with other red cell parameters and the patient's clinical condition. RDW 12.7 11.0 - 15.0 % [facility] Platelet Count 318 140 - 400 Thousand/u L [facility] MPV 11.3 7.5 - 12.5 fL [facility] Neutrophil Absolute 3863 1500 - 7800 cells/uL [facility] Lymphocytes Absolute 2610 850 - 3900 cells/uL [facility] Absolute Monocytes 788 200 - 950 cells/uL [facility] Eosinophils Absolute 150 15 - 500 cells/uL [facility] Basophils Absolute 90 0 - 200 cells/uL [facility] Granulocytes % 51.5 % [facility] Lymphocytes % 34.8 % [facility] Monocytes % 10.5 % [facility] Eosinophils % 2.0 % [facility] Basophils % 1.2 % [facility] Comment: Test Performed at: [facility] [id number] [place] [address] CAMILLE DECKER MD Blood BLOOD SPECIMEN / Unknown 04/30/2024 3:27 PM CDT 04/30/2024 3:27 PM CDT Ramos Emery MD LAB - HEMATOLOGY ORD ERABLES [facility] [address] [place] [address] * COMPREHENSIVE METABOLIC PANEL (04/30/2024 3:27 PM CDT) Only the most recent of2 resultswithin the time period is included. Glucose 73 65 - 99 mg/dL [facility] Comment: Fasting reference interval BUN 22 7 - 25 mg/dL [facility] Creatinine 1.00 0.50 - 1.05 mg/dL [facility] eGFR by Cystatin C 62 > OR = 60 mL/min/1. 73m2 [facility] BUN/Creatinine Ratio SEE NOTE: 6 - 22 (calc) [facility] Comment: Not Reported: BUN and Creatinine are within reference range. Sodium 139 135 - 146 mmol/L [facility] Potassium 4.9 3.5 - 5.3 mmol/L [facility] Chloride 104 98 - 110 mmol/L [facility] CO2 30 20 - 32 mmol/L [facility] Calcium 10.1 8.6 - 10.4 mg/dL [facility] Protein Total 6.9 6.1 - 8.1 g/dL [facility] Albumin 4.3 3.6 - 5.1 g/dL [facility] Globulin Total 2.6 1.9 - 3.7 g/dL (calc) [facility] Albumin/Globulin Ratio 1.7 1.0 - 2.5 (calc) [facility] Bilirubin Total 0.4 0.2 - 1.2 mg/dL [facility] Alkaline Phosphatase 80 37 - 153 U/L [facility] AST 19 10 - 35 U/L [facility] ALT 28 6 - 29 U/L [facility] Comment: Test Performed at: [place] [address] CAMILLE DECKER MD Blood BLOOD SPECIMEN / Unknown 04/30/2024 3:27 PM CDT 04/30/2024 3:27 PM CDT Ramos Emery MD LAB - CHEMISTRY TY WARD Performing Organization Address [facility] de Phone Number [facility] [phone] [place] [address] * C-REACTIVE PROTEIN (04/30/2024 3:26 PM CDT) Only the most recent of2 resultswithin the time period is included. Pathologist [facility] C-Reactive Protein 4.9 <8.0 mg/L [facility] Comment: REPORT COMMENT: FASTING:NO Test Performed at: [facility] [address] CAMILLE DECKER MD Blood BLOOD SPECIMEN / Unknown 04/30/2024 3:26 PM CDT 04/30/2024 3:26 PM CDT Ramos Emery MD LAB - CHEMISTRY TY WARD Performing Organization Address City/[facility] Co de Phone Number [facility] [phone] [place] [address] * ERYTHROCYTE SEDIMENTATION RATE (04/30/2024 3:26 PM CDT) Only the most recent of2 resultswithin the time period is included. Pathologist [facility] Erythrocyte Sedimentation Rate Westergren 2 < OR = 30 mm/h [facility] Comment: Test Performed at: [facility] [place] [address] CAMILLE DECKER MD Blood BLOOD SPECIMEN / Unknown 04/30/2024 3:26 PM CDT 04/30/2024 3:26 PM CDT Ramos Emery MD LAB - HEMATOLOGY KAMLESH DORMAN Performing Organization Address [facility]/ZIP Co de Phone Number [facility] [address] [place] [address] * QUANTIFERON-TB GOLD PLUS 1-TUBE (03/26/2024 3:01 PM CDT) [facility] QuantiFERON TB Gold Plus NEGATIVE NEGATIVE [facility] Comment: Negative test result. M. tuberculosis complex infection unlikely. NIL 0.01 IU/mL [facility] MITOGEN MINUS NIL RESULT >10.00 IU/mL [facility] TB1-NIL 0.00 IU/mL [facility] TB2-NIL 0.01 IU/mL [facility] Comment: The Nil tube value reflects the background interferon gamma immune response of the patient's blood sample. This value has been subtracted from the patient's displayed TB and Mitogen results. Lower than expected results with the Mitogen tube prevent false-negative Quantiferon readings by detecting a patient with a potential immune suppressive condition and/or suboptimal pre-analytical specimen handling. The TB1 Antigen tube is coated with the M. tuberculosis-specific antigens designed to elicit responses from TB antigen primed CD4+ helper T-lymphocytes. The TB2 Antigen tube is coated with the M. tuberculosis-specific antigens designed to elicit responses from TB antigen primed CD4+ helper and CD8+ cytotoxic T-lymphocytes. For additional information, please refer to https://education.[employer].Trading Block/faq/CQP496 (This link is being provided for informational/ educational purposes only.) REPORT COMMENT: FASTING:NO Test Performed at: [facility] [address] [place] [address] CAMILLE DECKER MD 03/26/2024 3:01 PM CDT 03/26/2024 3:01 PM CDT Ramos Emery MD LAB - CHEMISTRY TY WARD Performing Organization Address [facility]/ZIP Co de Phone Number [facility] [address] [place] [phone] * IMAGING RADIOLOGY XRAY RESULTS ORDER (03/13/2024) Anatomical Region Laterality Modality Other 03/13/2024 Narrative 03/13/2024 Ordered by an unspecified provider. Scanned Document IMAGING * XR Cervical Spine 4 or 5Vw (03/13/2024) Anatomical Region Laterality Modality Spine Other 03/13/2024 Ramos Emery MD DIAGNOSTIC IMAGING O RDERABLES * URIC ACID BLOOD (03/06/2024 2:52 PM CDT) Pathologist [facility] Uric Acid 4.4 2.5 - 7.0 mg/dL [facility] Comment: Therapeutic target for gout patients: <6.0 mg/dL Test Performed at: [facility] [address] [place] [address] CAMILLE DECKER MD Blood BLOOD SPECIMEN / Unknown 03/06/2024 2:52 PM CDT 03/06/2024 2:53 PM CDT Ramos Emery MD LAB - CHEMISTRY [facility] Organization Address City/State/ZIP Co de Phone Number [facility] [address] [place] [address] * HEPATITIS PANEL (03/06/2024 2:52 PM CDT) Pathologist [facility] Hepatitis A Virus Antibody Total NON-REACTI VE NON-REACT BRADLEY [facility] Comment: For additional information, please refer to http://Acopio.HuStream/faq/MMJ401 (This link is being provided for informational/ educational purposes only.) Hepatitis B Virus Surface Antibody NON-REACTI VE NON-REACT BRADLEY [facility] Hepatitis B Virus Surface Antigen NON-REACTI VE NON-REACT BRADLEY [facility] Comment: For additional information, please refer to http://Acopio.HuStream/faq/SIU406 (This link is being provided for informational/ educational purposes only.) Hepatitis B Core Virus Antibody Total NON-REACTI VE NON-REACT BRADLEY [facility] Comment: For additional information, please refer to http://Acopio.HuStream/faq/BAM713 (This link is being provided for informational/ educational purposes only.) Hepatitis C Antibody NON-REACTI VE NON-REACT BRADLEY [facility] Comment: HCV antibody was non-reactive. There is no laboratory evidence of HCV infection. In most cases, no further action is required. However, if recent HCV exposure is suspected, a test for HCV RNA (test code 15247) is suggested. For additional information please refer to http://education.HuStream/faq/DRZ49i2 (This link is being provided for informational/ educational purposes only.) Test Performed at: [facility] [address] CAMILLE DECKER MD Blood BLOOD SPECIMEN / Unknown 03/06/2024 2:52 PM CDT 03/06/2024 2:53 PM CDT Ramos Emery MD LAB - CHEMISTRY TY WARD Performing Organization Address [facility] Co de Phone Number [facility] [phone] [place] [address] * (ABNORMAL) MARKET ANALYST ANTIBODY (03/06/2024 2:52 PM CDT) MARKET ANALYST Antibody 1.0 POS(A) <1.0 NEG AI [facility] Comment: Test Performed at: [facility] [employer] [place] [address] CAMILLE DECKER MD Blood BLOOD SPECIMEN / Unknown 03/06/2024 2:52 PM CDT 03/06/2024 2:53 PM CDT Ramos Emery MD LAB - CHEMISTRY TY WARD Performing Organization Address [facility] Co de Phone Number [facility] [phone] [place] [address] * RHEUMATOID FACTOR BLOOD QUANTITATIVE (03/06/2024 2:52 PM CDT) Rheumatoid Factor <10 <14 IU/mL [facility] Comment: Test Performed at: [place] [address] CAMILLE DECKER MD Blood BLOOD SPECIMEN / Unknown 03/06/2024 2:52 PM CDT 03/06/2024 2:53 PM CDT Ramos Emery MD LAB - CHEMISTRY TY MITTALKATIE Performing Organization Address [facility] de Phone Number [address] [address] * MARY BLOOD SCREEN W/REFLEX TITER (03/06/2024 2:52 PM CDT) MARY Screen NEGATIVE NEGATIVE [facility] Comment: MARY IFA is a first line screen for detecting the presence of up to approximately 150 autoantibodies in various autoimmune diseases. A negative MARY IFA result suggests an MARY-associated autoimmune disease is not present at this time, but is not definitive. If there is high clinical suspicion for Sjogren's syndrome, testing for anti-SS-A/Ro antibody should be considered. Anti-Ellen-1 antibody should be considered for clinically suspected inflammatory myopathies. AC-0: Negative International Consensus on MARY Patterns (https://doi.org/10.1515/ifzq-4711-7988) For additional information, please refer to http://education.[employer] (GeckoCap)/faq/HXF669 (This link is being provided for informational/ educational purposes only.) Test Performed at: [facility] [employer] [place] [address] CAMILLE DECKER MD Blood BLOOD SPECIMEN / Unknown 03/06/2024 2:52 PM CDT 03/06/2024 2:53 PM CDT Ramos Emery MD LAB - CHEMISTRY TY WARD Performing Organization Address [facility] de Phone Number [facility] [address] [place] [address] * SS-B (SJOGREN'S) ANTIBODY (03/06/2024 2:52 PM CDT) Pathologist [facility] Sjogren's Antibodies (SSB) <1.0 NEG <1.0 NEG AI [facility] Comment: REPORT COMMENT: FASTING:NO Test Performed at: [facility] [address] [place] [address] CAMILLE DECKER MD Blood BLOOD SPECIMEN / Unknown 03/06/2024 2:52 PM CDT 03/06/2024 2:53 PM CDT Ramos Emery MD LAB - CHEMISTRY TY WARD Performing Organization Address [facility] de Phone Number [facility] [phone] [place] [address] * SS-A (SJOGREN'S) ANTIBODY (03/06/2024 2:52 PM CDT) Pathologist [facility] Sjogren's Antibodies (SSA) <1.0 NEG <1.0 NEG AI [facility] Comment: Test Performed at: [facility] [address] CAMILLE DECKER MD Blood BLOOD SPECIMEN / Unknown 03/06/2024 2:52 PM CDT 03/06/2024 2:53 PM CDT Ramos Emery MD LAB - CHEMISTRY TY WARD Performing Organization Address [facility] Co de Phone Number [facility] [address] [place] [address] * CK BLOOD (03/06/2024 2:52 PM CDT) Pathologist [facility] CK 69 29 - 143 U/L [facility] Comment: Test Performed at: [facility] [address] CAMILLE DECKER MD Blood BLOOD SPECIMEN / Unknown 03/06/2024 2:52 PM CDT 03/06/2024 2:53 PM CDT Rmaos Emery MD LAB - CHEMISTRY TY WARD Performing Organization Address [facility] Co de Phone Number [facility] [address] [place] [address] * DERMATOPATHOLOGY (12/19/2023 12:00 AM CDT) Only the most recent of3 resultswithin the time period is included. Pathologist [facility] Case Report Dermatopathology Report Case: [id number] Authorizing Provider: Miguel A Del Cid Jr., MD Collected: 12/19/2023 12:00 AM Ordering Location: [facility] - Received: 12/20/2023 01:35 PM DermPath Lab Pathologist: Diamante Serrato MD Specimen: Skin, left proximal posterior upper arm 3:39 PM T DERMATOPATHOLOGY LABORATORY Final Diagnosis Specimen A. SKIN, left proximal posterior upper arm: DERMAL SCAR RESIDUAL SQUAMOUS CELL CARCINOMA NOT IDENTIFIED (L90.5) 3:39 PM T DERMATOPATHOLOGY LABORATORY Clinical History SCC. Check margins 3:39 PM T DERMATOPATHOLOGY LABORATORY Gross Description Specimen A: Received is one formalin filled container labeled with the patient's name and designated left proximal posterior upper arm.The specimen consists of an ellipse measuring 41u52n7 mm and is oriented with the suture/notch [...] in cassettes 3-4. Jar 0. 3:[address] [facility] DERMATOPATHOLOGY LABORATORY Microscopic Description Specimen A. SKIN, left proximal posterior upper arm: There are fibroblasts and collagen bundles oriented parallel to the skin surface. There are elongated blood vessels, some of which are oriented perpendicular to the skin surface. No residual squamous cell carcinoma is identified. 3:[address] [facility] DERMATOPATHOLOGY LABORATORY Disclaimer An external and internal positive and negative controls are appropriate for the histochemical, immunohistochemical and immunofluorescence stain(s) in this case (if any), except where stated explicitly. The performance characteristics of the stain(s) cited in this report were developed and its performance characteristic determined by the Dermatopathology Laboratory at [facility], directed by Dr. Ahmet Harkins. These tests need not be, and therefore are not, approved by the [place] Food and Drug Administration. The tests are used for clinical purposes. Billing Codes Specimen Charges Stain Charges 85555 1 3:39 PM CDT DERMATOPATHOLOGY LABORATORY Embedded Images 3:39 PM T DERMATOPATHOLOGY LABORATORY Pathology/Cytolog y TISSUE SPECIMEN FROM SKIN / Unknown 12/19/2023 12/20/2023 1:35 PM CDT Miguel A Del Cid Jr., MD LAB - PATHOLOGY /CYTOLOGY ORDERABLES DERMATOPATHOLOGY LABORATORY [facility] - Department of Dermatology [address] [phone] * CARDIAC EKG ORDER (09/13/2022 11:05 PM MEDICAL OFFICE TECHNOLOGIST) Narrative 09/13/2022 11:05 PM MEDICAL OFFICE TECHNOLOGIST Ordered by an unspecified provider. Scanned Document CARDIAC SERVICES ORD ERABLES * (ABNORMAL) URINALYSIS REFLEX TO MICROSCOPIC NO CULTURE (09/12/2022 11:36 AM MEDICAL OFFICE TECHNOLOGIST) Color UA Straw Straw, Yellow 09/12/2022 11:53 AM MEDICAL OFFICE TECHNOLOGIST [facility] Clarity UA Clear Clear 09/12/2022 11:53 AM MEDICAL OFFICE TECHNOLOGIST [facility] Glucose UA Negative Negative 09/12/2022 11:53 AM MEDICAL OFFICE TECHNOLOGIST [facility] Bilirubin UA Negative Negative 09/12/2022 11:53 AM MEDICAL OFFICE TECHNOLOGIST [facility] Ketone UA Negative Negative 09/12/2022 11:53 AM MEDICAL OFFICE TECHNOLOGIST [facility] Specific [place] UA 1.034(H) 1.005 - 1.030 09/12/2022 11:53 AM MEDICAL OFFICE TECHNOLOGIST [facility] Blood UA 3+(A) Negative 09/12/2022 11:53 AM MEDICAL OFFICE TECHNOLOGIST [facility] pH UA 9.0(H) 5.0 - 8.0 pH 09/12/2022 11:53 AM MEDICAL OFFICE TECHNOLOGIST [facility] Protein UA Negative Negative 09/12/2022 11:53 AM MEDICAL OFFICE TECHNOLOGIST [facility] Urobilinogen UA Negative Negative mg/dL 09/12/2022 11:53 AM MEDICAL OFFICE TECHNOLOGIST [facility] Nitrite UA Negative Negative 09/12/2022 11:53 AM MEDICAL OFFICE TECHNOLOGIST [facility] Leukocyte UA Negative Negative 09/12/2022 11:53 AM MEDICAL OFFICE TECHNOLOGIST [facility] Urine Microscopy Urine microscopy to follow 09/12/2022 11:53 AM MEDICAL OFFICE TECHNOLOGIST [facility] Urine URINE SPECIMEN OBTAINED BY CLEAN CATCH PROCEDURE / Unknown Collection / Unknown 09/12/2022 11:36 AM MEDICAL OFFICE TECHNOLOGIST 09/12/2022 11:39 AM MEDICAL OFFICE TECHNOLOGIST Narrative [facility] - 09/12/2022 11:53 AM MEDICAL OFFICE TECHNOLOGIST Ramón Dean MD LAB - URINALYSIS ORD ERABLES Performing Organization Address [facility] Co de Phone Number [facility] [address] [place] [address] * URINE MICROSCOPIC ONLY (09/12/2022 11:36 AM MEDICAL OFFICE TECHNOLOGIST) RBC UA 3-5 0 - 5 # /hpf 09/12/2022 11:46 AM MEDICAL OFFICE TECHNOLOGIST [facility] WBC UA 0-5 0 - 5 # /hpf 09/12/2022 11:46 AM MEDICAL OFFICE TECHNOLOGIST [facility] Bacteria UA None Seen None Seen 09/12/2022 11:46 AM MEDICAL OFFICE TECHNOLOGIST [facility] Squamous Epithelial Cells 0-2 0 - 5 /hpf 09/12/2022 11:46 AM MEDICAL OFFICE TECHNOLOGIST [facility] Urine URINE SPECIMEN OBTAINED BY CLEAN CATCH PROCEDURE / Unknown Collection / Unknown 09/12/2022 11:36 AM MEDICAL OFFICE TECHNOLOGIST 09/12/2022 11:39 AM MEDICAL OFFICE TECHNOLOGIST Narrative [facility] - 09/12/2022 11:46 AM MEDICAL OFFICE TECHNOLOGIST Ramón Dean MD LAB - URINALYSIS ORD ERABLES Performing Organization Address [facility] [facility] Co de Phone Number [facility] [address] [place] [id number] * TROPONIN I (09/12/2022 11:01 AM MEDICAL OFFICE TECHNOLOGIST) Only the most recent of2 resultswithin the time period is included. Troponin I 0.011 <0.038 ng/mL 09/12/2022 11:30 AM MEDICAL OFFICE TECHNOLOGIST [facility] Blood BLOOD SPECIMEN / Unknown Venipuncture / Unknown 09/12/2022 11:01 AM MEDICAL OFFICE TECHNOLOGIST 09/12/2022 11:07 AM MEDICAL OFFICE TECHNOLOGIST Ramón Dean MD LAB - CHEMISTRY ORDE SYLVIA Performing Organization Address City/[facility]/ZIP Co de Phone Number [facility] [address] [place] [address] * XR CHEST 1VW PORTABLE (09/12/2022 9:44 AM MEDICAL OFFICE TECHNOLOGIST) Anatomical Region Laterality Modality Chest Radiographic Farhana ging 09/12/2022 9:47 AM MEDICAL OFFICE TECHNOLOGIST Impressions 09/12/2022 9:49 AM MEDICAL OFFICE TECHNOLOGIST IMPRESSION: No acute cardiopulmonary abnormalities. > Interpreting Provider: Miladys Ho MD on 09/12/2022 9:49 AM Narrative 09/12/2022 9:49 AM MEDICAL OFFICE TECHNOLOGIST PROCEDURE: XR CHEST 1VW PORTABLE, DATE/TIME OF EXAM: 09/12/2022 9:45 AM, LOCATION [facility] INDICATION: R41.0: Disorientation, unspecified ADDITIONAL CLINICAL INFORMATION: Ordering Provider Reason For Exam: Technologist Note: Additional: Dizziness COMPARISON: None. FINDINGS: The heart size is normal. The pulmonary vascularity is within normal limits. The lungs are well expanded and clear. No pleural effusion is seen. Procedure Note Miladys Ho MD - 09/12/2022 PROCEDURE: XR CHEST 1VW PORTABLE, DATE/TIME OF EXAM: 09/12/2022 9:45 AM, LOCATION [facility] INDICATION: R41.0: Disorientation, unspecified ADDITIONAL CLINICAL INFORMATION: Ordering Provider Reason For Exam: Technologist Note: Additional: Dizziness COMPARISON: None. FINDINGS: The heart size is normal. The pulmonary vascularity is within normal limits. The lungs are well expanded and clear. No pleural effusion isseen. IMPRESSION: No acute cardiopulmonary abnormalities. > Interpreting Provider: Miladys Ho MD on 09/12/2022 9:49 AM Ramón Dean MD DIAGNOSTIC IMAGING O RDERABLES * CT ANGIO BRAIN NECK STROKE (09/12/2022 8:47 AM MEDICAL OFFICE TECHNOLOGIST) Anatomical Region Laterality Modality Head Computed Tomogra phy 09/12/2022 9:29 AM MEDICAL OFFICE TECHNOLOGIST Impressions 09/12/2022 9:40 AM MEDICAL OFFICE TECHNOLOGIST IMPRESSION: 1. No large vessel occlusion around the douglas of [place]. 2. No significant vascular stenosis in the neck > Interpreting Provider: Therese Cunha MD on 09/12/2022 9:40 AM Narrative 09/12/2022 9:40 AM MEDICAL OFFICE TECHNOLOGIST PROCEDURE: CT ANGIO BRAIN NECK STROKE, DATE/TIME OF EXAM: 09/12/2022 8:48 AM, LOCATION [facility] INDICATION: R41.0: Disorientation, unspecified ADDITIONAL CLINICAL INFORMATION: Ordering Provider Reason For Exam: Technologist Note: Additional: COMPARISON: None. TECHNIQUE: CT angiography of the brain and neck was performed without IV contrast followed by IV contrast, including 3D post processing CTA image reconstruction. Stenosis measurements are based on NASCET criteria. CT dose reduction technique was used, including Automated Exposure Control. CONTRAST: IOPAMIDOL 76 % IV SOLN:80 mL FINDINGS: CTA of head: The distal internal carotid arteries are normal in appearance. The anterior and middle cerebral arteries are normal in appearance without high-grade stenosis, aneurysmal dilatation, or branch occlusion about the douglas of [place]. The region of the anterior communicating artery is unremarkable. The distal vertebral arteries, vertebrobasilar junction, and basilar artery are normal in appearance. The posterior cerebral arteries are normal in appearance without high-grade stenosis, aneurysmal dilatation, or branch occlusion about the d[place]las of [place]. The posterior communicating arteries are normal in appearance. CTA of the neck: The origins of the great vessels are widely patent. The cervical portions of the internal carotid are patent without focal narrowing according to NASCET criteria. The common carotids and the cervical vertebral arteries are patent without focal narrowing. The vertebral arteries are codominant. Procedure Note Therese Cunha MD - 09/12/2022 PROCEDURE: CT ANGIO BRAIN NECK STROKE, DATE/TIME OF EXAM: 38:48 AM, LOCATION [facility] INDICATION: R41.0: Disorientation, unspecified ADDITIONAL CLINICAL INFORMATION: Ordering Provider Reason For Exam: Technologist Note: Additional: COMPARISON: None. TECHNIQUE: CT angiography of the brain and neck was performed without IV contrast followed by IV contrast, including 3D post processing CTA image reconstruction. Stenosis measurements are based on NASCET criteria. CT dose reduction technique was used, including Automated ExposureControl. CONTRAST: IOPAMIDOL 76 % IV SOLN:80 mL FINDINGS: CTA of head: The distal internal carotid arteries are normal in appearance. Theanterior and middle cerebral arteries are normal in appearance without high-grade stenosis, aneurysmal dilatation, or branch occlusion about the douglas of [place]. The region of the anterior communicating artery is unremarkable. The distal vertebral arteries, vertebrobasilar junction, and basilarartery are normal in appearance. The posterior cerebral arteries are normal in appearance without high-grade stenosis, aneurysmal dilatation, or branch occlusion about the d[place]las of [place]. The posterior communicating arteries are normal in appearance. CTA of the neck: The origins of the great vessels are widely patent. The cervicalportions of the internal carotid are patent without focal narrowing according to NASCET criteria. The common carotids and the cervical vertebralarteries are patent without focal narrowing. The vertebral arteries are codominant. IMPRESSION: 1. No large vessel occlusion around the douglas of [place]. 2. No significant vascular stenosis in the neck > Interpreting Provider: Therese Cunha MD on 09/12/2022 9:40 AM Sathish Hunter MD CT ORDERABLES * PTT (09/12/2022 8:43 AM MEDICAL OFFICE TECHNOLOGIST) PTT 31.8 23.0 - 38.4 sec 09/12/2022 9:02 AM MEDICAL OFFICE TECHNOLOGIST [facility] Blood BLOOD SPECIMEN / Unknown Venipuncture / Unknown 09/12/2022 8:43 AM MEDICAL OFFICE TECHNOLOGIST 09/12/2022 8:47 AM MEDICAL OFFICE TECHNOLOGIST Narrative [facility] - 09/12/2022 9:02 AM MEDICAL OFFICE TECHNOLOGIST Heparin Therapeutic Range for PTT: 69.0 - 110.0 seconds. Ramón Dean MD LAB - COAGULATION OR DERABLES [facility] [address] [place] [address] * PT-INR (09/12/2022 8:43 AM MEDICAL OFFICE TECHNOLOGIST) PT 13.0 12.1 - 14.8 sec 09/12/2022 9:02 AM MEDICAL OFFICE TECHNOLOGIST [facility] INR 1.0 0.9 - 1.1 09/12/2022 9:02 AM MEDICAL OFFICE TECHNOLOGIST [facility] Blood BLOOD SPECIMEN / Unknown Venipuncture / Unknown 09/12/2022 8:43 AM MEDICAL OFFICE TECHNOLOGIST 09/12/2022 8:47 AM MEDICAL OFFICE TECHNOLOGIST Narrative [facility] - 09/12/2022 9:02 AM MEDICAL OFFICE TECHNOLOGIST Conventional Warfarin Anticoagulant Therapy: INR Reference Range: 2.0-3.0 Intensive Warfarin Anticoagulant Therapy: INR Reference Range: 2.5-3.5 Ramón Dean MD LAB - COAGULATION OR DERABLES Performing Organization Address [facility] Co de Phone Number [facility] [id number] [place] [address] * B-TYPE NATRIURETIC PEPTIDE (09/12/2022 8:43 AM MEDICAL OFFICE TECHNOLOGIST) Pathologist [facility] BNP 12 <=100 pg/mL 09/12/2022 9:12 AM MEDICAL OFFICE TECHNOLOGIST [facility] Blood BLOOD SPECIMEN / Unknown Venipuncture / Unknown 09/12/2022 8:43 AM MEDICAL OFFICE TECHNOLOGIST 09/12/2022 8:48 AM MEDICAL OFFICE TECHNOLOGIST Ramón Dean MD LAB - CHEMISTRY ORDE RABLES Performing Organization Address [facility] de Phone Number [facility] [id number] [place] [address] * EKG 12-LEAD (09/12/2022 8:34 AM MEDICAL OFFICE TECHNOLOGIST) Ventricular Rate 82 BPM [facility] Atrial Rate 82 BPM [facility] P-R Interval 140 ms [facility] QRS Duration ms 126 ms [facility] Q-T Interval ms 402 ms [facility] QTC Calculation (Bezet) 469 ms [facility] Calculated P [place] 67 degrees [facility] Calculated R [place] 70 degrees [facility] Calculated T [place] 54 degrees [facility] Interpretation EKG Normal sinus rhythm Right bundle branch block Abnormal ECG No previous ECGs available Confirmed by GISSEL CARRASCO MD ([id number]) on 09/13/2022 8:50:53 AM [facility] MUSE 09/12/2022 8:34 AM MEDICAL OFFICE TECHNOLOGIST 09/13/2022 8:50 AM MEDICAL OFFICE TECHNOLOGIST Ramón Dean MD ECG ORDERABLES Performing Organization Address [facility] Co de Phone Number [facility] * CREATININE - POCT INTERFACED (09/12/2022 8:30 AM MEDICAL OFFICE TECHNOLOGIST) Creatinine POCT 0.70 0.70 - 1.20 mg/dL 09/12/2022 8:57 AM MEDICAL OFFICE TECHNOLOGIST [facility] Blood BLOOD SPECIMEN / Unknown 09/12/2022 8:30 AM MEDICAL OFFICE TECHNOLOGIST 09/12/2022 8:56 AM MEDICAL OFFICE TECHNOLOGIST Ramón Dean MD LAB - POINT OF CARE ORDERABLES Performing Organization Address [facility] Co de Phone Number [facility] [address] [place] [address] * TYPE + SCREEN PANEL (09/12/2022 8:30 AM MEDICAL OFFICE TECHNOLOGIST) ABO Rh O POS 09/12/2022 9:35 AM MEDICAL OFFICE TECHNOLOGIST [facility] Comment:No history; collect retype. Antibody Screen NEG 9:35 AM MEDICAL OFFICE TECHNOLOGIST [facility] Blood Bank BLOOD SPECIMEN / Unknown Venipuncture / Unknown 09/12/2022 8:30 AM MEDICAL OFFICE TECHNOLOGIST 09/12/2022 8:51 AM MEDICAL OFFICE TECHNOLOGIST Ramón Dean MD LAB - BLOOD BANK ORD ERABLES Performing Organization Address [facility] Co de Phone Number [facility] [address] [place], [place] [address] [phone] * CT BRAIN - Stroke (09/12/2022 8:26 AM MEDICAL OFFICE TECHNOLOGIST) Anatomical Region Laterality Modality Head Computed Tomogra phy 09/12/2022 8:30 AM MEDICAL OFFICE TECHNOLOGIST Impressions 09/12/2022 8:33 AM MEDICAL OFFICE TECHNOLOGIST IMPRESSION: No intracranial hemorrhage or other acute abnormality by CT. > Interpreting Provider: Therese Cunha MD on 09/12/2022 8:33 AM Narrative 09/12/2022 8:33 AM MEDICAL OFFICE TECHNOLOGIST PROCEDURE: CT BRAIN STROKE, DATE/TIME OF EXAM: 09/12/2022 8:27 AM, LOCATION [facility] INDICATION: R41.0: Disorientation, unspecified ADDITIONAL CLINICAL INFORMATION: Ordering Provider Reason For Exam: Technologist Note: Additional: COMPARISON: None. TECHNIQUE: Noncontrast CT brain was performed utilizing standard protocol. CT dose reduction technique was used, including Automated Exposure Control. FINDINGS: The ventricular system is within normal limits. There is no evidence of midline shift, focal area of abnormal attenuation, acute intracranial hemorrhage. The mastoid air cells and paranasal sinuses are unremarkable. The orbits are grossly unremarkable. Procedure Note Therese Cunha MD - 09/12/2022 PROCEDURE: CT BRAIN STROKE, DATE/TIME OF EXAM: 09/12/2022 8:27 AM,LOCATION [facility] INDICATION: R41.0: Disorientation, unspecified ADDITIONAL CLINICAL INFORMATION: Ordering Provider Reason For Exam: Technologist Note: Additional: COMPARISON: None. TECHNIQUE: Noncontrast CT brain was performed utilizing standard protocol. CT dose reduction technique was used, including Automated ExposureControl. FINDINGS: The ventricular system is within normal limits. There is no evidence of midline shift, focal area of abnormal attenuation, acute intracranial hemorrhage. The mastoid air cells and paranasal sinuses areunremarkable. The orbits are grossly unremarkable. IMPRESSION: No intracranial hemorrhage or other acute abnormality by CT. > Interpreting Provider: Therese Cunha MD on 09/12/2022 8:33 AM Ramón Dean MD CT ORDERABLES * XR CHEST PA AND LATERAL (02/24/2016 3:20 PM CDT) Only the most recent of2 resultswithin the time period is included. Anatomical Region Laterality Modality Chest Radiographic Farhana ging 02/24/2016 4:33 PM CDT Impressions 02/24/2016 4:33 PM CDT Clear lungs. Narrative 02/24/2016 4:33 PM CDT Chest x-ray 2 views. HISTORY: Rheumatoid arthritis. 2 views of the chest are compared to a prior exam of 10/06/2014. Heart size is normal. Lungs are clear. Procedure Note Hebert Shukla MD - 02/24/2016 Chest x-ray 2 views. HISTORY: Rheumatoid arthritis. 2 views of the chest are compared to a prior exam of 10/06/2014. Heart size is normal. Lungs are clear. IMPRESSION Clear lungs. Monserrat Florentino MD DIAGNOSTIC IMAGING [facility] Care Teams Job Press Feeder Relationship Specialty [place] [id number] [address] [facility] [address] [place] [id number] PCP - General Internal Medicine 03/06/24
--- OUTSIDE RECORDS SUMMARY | 2024-08-18 12:08 | XMS_ITS | Clinical Summary ---
Author Organization [facility] Address [address] [place] [address] Phone Care Team Providers Care Music Composition Teacher Name Role Phone Chad Pickering MD Primary Care Provider [phone] Allergies Active Allergy Reactions Criticality Noted Date Comments Adalimumab Anaphylaxis High 07/14/2019 Nsaids Anaphylaxis 07/30/2022 Medications amLODIPine (NORVASC) 5 MG Tablet Take 5 mg by mouth daily. 07/31/2022 Active lisinopril (PRINIVIL, ZESTRIL) 40 MG Tablet Take 40 mg by mouth daily. 07/31/2022 Active cloNIDine (CATAPRES) 0.1 MG Tablet Take 1 Tablet by mouth 2 times daily as needed for Other (Occasional episodes of severe hypertension) . 60 Tablet 08/03/2022 Active Social History Tobacco Use Types Packs/Day Years Used Date Smoking Tobacco: Never Smokeless Tobacco: Never Tobacco Cessation:Counseling Given: Not Answered Alcohol Use Standard Drinks/Week Comments Never 0 (1 standard drink = 0.6 oz pur e alcohol) Comments No Sex and Gender Information Value Date Recorded Sex Assigned at Not on file Legal Sex Female 8:09 PM CDT Gender Identity Not on file Sexual Orientation Not on file Last Filed Vital Signs Vital Sign Reading Time Taken Comments Blood Pressure 108/55 08/03/2022 12:00 AM STUDIO OPERATIONS ENGINEER IN CHARGE Pulse 64 08/03/2022 12:00 AM STUDIO OPERATIONS ENGINEER IN CHARGE Temperature 36.1 C (96.9 F) 08/02/2022 9:02 PM STUDIO OPERATIONS ENGINEER IN CHARGE Respiratory Rate 14 08/03/2022 12:00 AM STUDIO OPERATIONS ENGINEER IN CHARGE Oxygen Saturation 93% 08/03/2022 12:00 AM STUDIO OPERATIONS ENGINEER IN CHARGE Inhaled Oxygen Concentration - - Weight 84.8 kg (187 lb) 08/02/2022 9:02 PM STUDIO OPERATIONS ENGINEER IN CHARGE Height 167.6 cm (5' 6 ) 08/02/2022 9:02 PM STUDIO OPERATIONS ENGINEER IN CHARGE Body Mass Index 30.18 08/02/2022 9:02 PM STUDIO OPERATIONS ENGINEER IN CHARGE Plan of Treatment Health Maintenance Due Date Last Done Comments DEXA Bone Density 1955 Hepatitis C Virus (HCV) Screening 1955 TdaP Immunization 1955 Colonoscopy 2002 Colorectal Cancer Screening 2002 Cologuard 2007 Immunochemical Fecal Occult Blood 2007 Mammogram 2007 Pneumococcal Immunization (5 0+ years) (1 of 1 - PCV) 2007 Zoster Immunization (1 of 2) 2007 Influenza Immunization (#1) 2024 SARS-COV-2 Immunization ( season) 2024 02/28/2021, 02/07/2021 Respiratory Syncytial Virus (RSV) Immunization (Adult) (1 - 1-dose 75+ series) 01/22/2032 Hepatitis B Immunization Aged Out No longer eligible based on patient's age to complete this topic Meningococcal Immunization (ACWY) Aged Out No longer eligible b ased on patient's age to complete this topic Rotavirus Immunization Aged Out No lo nger eligible based on patient's age to complete this topic Insurance MEDICARE COMMERCIAL GENERIC Care Teams Music Composition Teacher Relationship Specialty [place] [id number] [place] [address] PCP - General Internal Medicine 07/30/22
--- OUTSIDE RECORDS SUMMARY | 2024-08-18 12:08 | XMS_ITS | Referral Summary ---
Author Organization [facility] Address [address] [place] [address] Care Team Providers Care Body Builder Name Role Phone Chad Pickering MD Primary Care Provider [phone] Source Comments [facility],non-owned Affiliates and Associated Physician Practices is amultiple site organization consisting of ambulatory clinics and hospital sitesin [place], [place], [place] and [place]. This disclosure is being madepursuant to the Care Everywhere program and may not contain all information available regarding this patient. Last updated 18.[facility] Allergies Active Allergy Reactions Criticality Noted Date Comments Adalimumab Anaphylaxis High 07/14/2019 Nsaids Angioedema High 09/12/2022 Reaction: facial swelling, , Medications * Be aware that medications may not be up to date on this document. Alwaysverify current medications with the patient. Medication Sig Dispensed Refills Start Date End Date Status albuterol HFA (Proventil; Ventolin; Proair) 108 (90 Base) MCG/ACT inhaler 2 PUFF(S) INHALED EVERY 6 HOURS Active cloNIDine (Catapres) 0.1 MG tablet TAKE 1 TABLET BY MOUTH TWICE DAILY NEEDED FOR EPISODES OF SEVERE HYPERTENSION 08/03/2022 Active EPIPEN 0.3 MG/0.3ML auto-injector pen as directed intramuscularly once for 30 days Active Breo Ellipta 100-25 MCG/ACT inhaler 1 PUFF(S) INHALED ONCE A DAY Active fluticasone propionate (Flonase) 50 MCG/ACT nasal spray 1 spray(s) in each nostril once a day Active levocetirizine (Xyzal Allergy 24HR) 5 MG tablet 1 tab(s) orally once a day (in the evening) Active losartan (Cozaar) 50 MG tablet 1 tab(s) orally once a day 09/07/2023 Active NIFEdipine CR 24hr (Adalat CC) 30 MG tablet 1 tab(s) orally once a day 08/21/2022 Active spironolactone (Aldactone) 25 MG tablet 1 tab(s) orally once a day 08/14/2022 Active leflunomide (Arava) 20 MG tablet 1 tablet daily 90 tablet 08/08/2024 Active leflunomide (Arava) 20 MG tablet 1 tablet daily 90 tablet 1 04/08/2024 Discontinue d(Reorder) Active Problems Problem Noted Date Diagnosed Date [...] 36.9 C (98.4 F) 09/12/2022 8:47 AM FLAGSETTER Respiratory Rate 18 03/06/2024 1:37 PM CDT Oxygen Saturation 96% 03/06/2024 1:37 PM CDT Inhaled Oxygen Concentration - - Weight 85.3 kg (188 lb) 04/08/2024 2:50 PM CDT Height 167.6 cm (5' 5.98 ) 04/08/2024 2:50 PM CD T Body Mass Index 30.36 04/08/2024 2:50 PM CDT Plan of Treatment Upcoming Encounters Date Type Department Care Team (Late st Contact Info) Description 08/19/2024 2:45 PM FLAGSETTER Office Visit [facility] Medical [facility] - Rheumatology [address] [facility] [facility] [place] [address] [place] [address] [facility] [address] [place] [address] Procedures Procedure Name Priority Date/Time Associated Diagnosis Comments COMPREHENSIVE METABOLIC PANEL Routine 04/30/2024 3:27 PM CDT Seronegative rheumatoid arthritis (HCC) Immunosuppressed status (HCC) High risk medication use Polyarthralgia HEPATITIS PANEL Routine 03/06/2024 2:52 PM CDT History of rheumatoid arthritis Polyarthralgia Myofascial pain Lung nodule Encounter for screening for other viral diseases from Last 3 Months or Most Recently Relevant to Health Maintenance Results * COMPREHENSIVE METABOLIC PANEL (04/30/2024 3:27 PM CDT) Glucose 73 65 - 99 mg/dL [facility] [...] 29 U/L [facility] Comment: Test Performed at: [facility] [address] [facility] [place] [address] CAMILLE DECKER MD Blood BLOOD SPECIMEN / Unknown 04/30/2024 3:27 PM CDT 04/30/2024 3:27 PM CDT Ramos Emery MD LAB - CHEMISTRY TY WARD Performing Organization Address [facility] Co de Phone Number [facility] [address] [place], [place] * HEPATITIS PANEL (03/06/2024 2:52 PM CDT) Hepatitis A Virus Antibody Total NON-REACTI VE NON-REACT [facility] Comment: For additional information, please refer to http://Suo Yi.GoPlaceIt/faq/UTY249 (This link is being provided for informational/ educational purposes only.) Hepatitis B Virus Surface Antibody NON-REACTI VE NON-REACT [facility] Hepatitis B Virus Surface Antigen NON-REACTI VE NON-REACT [facility] Comment: For additional information, please refer to http://Infusionsoft/faq/SPZ531 (This link is being provided for informational/ educational purposes only.) Hepatitis B Core Virus Antibody Total NON-REACTI VE NON-REACT [facility] Comment: For additional information, please refer to http://Infusionsoft/faq/VWU420 (This link is being provided for informational/ educational purposes only.) Hepatitis C Antibody NON-REACTI VE NON-REACT [facility] Comment: HCV antibody was non-reactive. There is no laboratory evidence of HCV infection. In most cases, no further action is required. However, if recent HCV exposure is suspected, a test for HCV RNA (test code 46085) is suggested. For additional information please refer to http://Infusionsoft/faq/HRD17s3 (This link is being provided for informational/ educational purposes only.) Test Performed at: [facility] [address] [place] [address] CAMILLE DECKER MD Blood BLOOD SPECIMEN / Unknown 03/06/2024 2:52 PM CDT 03/06/2024 2:53 PM CDT Ramos Emery MD LAB - CHEMISTRY TY WARD Performing Organization Address City/[facility]/ZIP Co de Phone Number [facility] [address] [place] [address] from Last 3 Months or Most Recently Relevant to Health Maintenance Care Teams Body Builder Relationship Specialty [place] [address] [address] [facility] [place] [address] PCP - General Internal Medicine 03/06/24
--- OUTSIDE RECORDS SUMMARY | 2024-08-18 12:08 | XMS_ITS | Patient Health Record ---
Author Organization [facility] Address [address] [place] [address] Care Team Providers Care Service Station Operator Name Role Phone Chad Sherman Primary Care Provider Unavailab le Santiago Toribio Unavailable [phone] [employer], Provider Unavailable Unavailab le Allergies Allergen (clinical drug ingredient) Drug/Non Drug Allergy documented on EMR Reaction Allergy Type Onset Date Status CONTRAST DYE (uncoded) confusion, trouble breathing Allergy Active Humira swelling-face lips throat -skin test Drug Allergy Active Methotrexate nodules in lungs Drug Allergy Active Non-steroidal anti-inflammatory agent (FN) NSAIDs swelling-face, lips, throat Drug Allergy Active Results Component Value Reference Range Notes C1 INHIBITOR, FUNCTIONAL Reviewed date:10/29/2023 09:55:40 AM Interpretation:Normal Performing Lab:[facility], [address], [place], [address] Doug Wagner M.D.,PhD Notes/Report: NON-FASTING; NON-FASTING; NON-FASTING; NON-FASTING FASTING:NO FASTING: NO C1 ESTERASE INHIBITOR, FUNCTIONAL >100 >=68 % Reference Range: > or = 68%: Normal 41-67%: Equivocal < or = 40%: Abnormal Less than 40% of the reference functional activity indicates a likely diagnosis of hereditary angioedema or acquired C1 Inhibitor deficiency. For additional information, please refer to: http://education.MeeWee/faq/FAQ54 (This link is being provided for informational/ educational purposes only.) COMPLEMENT COMPONENT C4C Reviewed date:10/29/2023 09:55:51 AM Interpretation:Normal Performing Lab:[facility], [facility], [address] [place], [address] Deidra Fu MD Notes/Report: NON-FASTING; NON-FASTING; NON-FASTING; NON-FASTING FASTING:NO FASTING: NO COMPLEMENT COMPONENT C4C 27 15-57 mg/dL ALLERGEN SPECIFIC IGE GUNNER JEROME Reviewed date:10/29/2023 09:54:48 AM Interpretation:Normal Performing Lab:[facility], [facility], [address], [place], [address] Ryan Quiroz PhD BCLD (ABB) Notes/Report: NON-FASTING; NON-FASTING; NON-FASTING; NON-FASTING FASTING:NO FASTING: NO GUNNER CANO IGE* <0.35 <0.35 kU/L CLASS 0 CLASS INTERPRETATION: <0.35 kU/L=0, Below Detection; 0.35-0.69 kU/L= 1, Low Positive; 0.70-3.49 kU/L= 2, Moderate Positive; 3.50-17.49 kU/L= 3, Positive; 17.50-49.99 kU/L= 4, Strong Positive; >49.99 kU/L= 5, Very Strong Positive *This test was developed and its performance characteristics determined by [employer]. It has not been cleared or approved by the U.S. Food and Drug Administration. FLAG Interpretation: A = Abnormal, H = High, L = Low MACADAMIA NUT (RF345) IGE Reviewed date:10/29/2023 09:54:55 AM Interpretation:Normal Performing Lab:[facility], [address] [place], [address] Deidra Fu MD Notes/Report: NON-FASTING; NON-FASTING; NON-FASTING; NON-FASTING FASTING:NO FASTING: NO MACADAMIA NUT (RF345) IGE <0.10 CLASS 0 IMMUNOGLOBULIN E Reviewed date:10/29/2023 09:55:58 AM Interpretation:Normal Performing Lab:[facility], [address], [place], [address] Deidra Fu MD Notes/Report: NON-FASTING; NON-FASTING; NON-FASTING; NON-FASTING FASTING:NO FASTING: NO IMMUNOGLOBULIN E 44 <QF=883 kU/L COMPLEMENT, TOTAL (CH50) Reviewed date:10/29/2023 09:55:32 AM Interpretation:Normal Performing Lab:[facility], [facility], [address] [place], [address] Deidra Fu MD Notes/Report: NON-FASTING; NON-FASTING; NON-FASTING; NON-FASTING FASTING:NO FASTING: NO COMPLEMENT, TOTAL (CH50) 60 31-60 U/mL INTERPRETATION Reviewed date:10/29/2023 09:54:30 AM Interpretation:Interpretation Performing Lab:[facility], [address] [place], [address] Deidra Fu MD Notes/Report: NON-FASTING; NON-FASTING; NON-FASTING; [...] analytical performance characteristics have been determined by [facility]. It has not been cleared or approved [...] 3.09 SpiroPredicted_FEV1 2.39 SpiroPredicted_FEV1_OVER_FVC 76.6 SpiroPredicted_PEF 5.7 Reason For Referral No Information Medications Medication SIG (Take, Route, Frequency, Duration) Notes Start Date End Date Status ALBUTEROL (EQV-PROVENTIL HFA) 90 MCG/INH 2 PUFF(S) INHALED EVERY 6 HOURS *Please review for potential replacement for e-prescription and drug interaction check* Active Breo Ellipta 100 MCG-25 MCG/INH 1 PUFF(S) INHALED ONCE A DAY *Please review and pick correct strength-formulat ion from [employer] options. If intended option is not shown, [...] for e-prescription and drug interaction check* Active BREO ELLIPTA 100 mcg-25 mcg/inh 1 puff(s) inhaled once a day Active Losartan Potassium 50 MG 1 tab(s) orally once a day Active EpiPen 2-Rio 0.3 MG/0.3ML as directed intramuscularly once for 30 days Active Fluticasone Propionate 50 MCG/ACT 1 spray(s) in each nostril once a day Active Xyzal Allergy 24HR 5 MG 1 tab(s) orally once a day (in the evening) Active EPIPEN 2-RIO 0.3 mg as directed intramuscularly once for 30 days Active SPIRONOLACTONE 25 mg 1 tab(s) orally onc e a day Active LEVOCETIRIZINE 5 mg 1 tab(s) orally once a day (in the evening) for 30 days Active NIFEDIPINE 30 mg 1 tab(s) orally once a day Active FLUTICASONE NASAL 50 mcg/inh 2 spray(s) in each nostril twice a day for 30 days Active LOSARTAN 50 mg 1 tab(s) orally once a day Active FLUTICASONE NASAL 50 mcg/inh 1 spray(s) in each nostril once a day Active XYZAL 5 mg 1 tab(s) orally once a day (in the evening) Active LEVOCETIRIZINE 5 mg 1 tab(s) orally once a day (in the evening) for 30 day(s) 10/23/2023 Active EPIPEN 2-RIO 0.3 mg as directed intramuscularly once for 30 days 10/23/2023 Active FLUTICASONE NASAL 50 mcg/inh 2 spray(s) in each nostril BID for 30 day(s) 10/23/2023 Active Social History Tobacco Use: Social History Observation Description Date Details (start date - stop date) Never Smoker NA - NA Tobacco Control (Standard) Question Answer Notes Tobacco use: Nonsmoker Problems Problem Type SNOMED Code ICD Code Onset Dates Problem Status W/U Status Risk Notes Problem Wheezing (21777746) Wheezing (R06.2) Active confirmed Problem Chronic allergic conjunctivitis (99121360) Other chronic allergic conjunctivitis (H10.45) Active confirmed Problem Allergic rhinitis caused by pollen (disorder) (14857584) Allergic rhinitis due to pollen (J30.1) Active confirmed Problem Allergic rhinitis (15183149) Other allergic rhinitis (J30.89) Active confirmed Problem Non-steroidal anti-inflammatory drug adverse reaction (759332146) Adverse effect of other nonsteroidal anti-inflammatory drugs [NSAID], subsequent encounter (T39.395D) Active confirmed Problem Food allergy (110417766) Allergy to other foods (Z91.018) Active confirmed Problem Allergic rhinitis caused by animal hair and dander (378922827451266) Allergic rhinitis due to animal (cat) (dog) hair and dander (J30.81) Active confirmed Problem Swelling of head (412202162) Localized swelling, mass and lump, head (R22.0) Active confirmed Vital Signs Respiratory Rate 16 /min 11/26/2023 Oximetry 96 % 11/26/2023 Blood pressure diastolic 80 mm Hg 11/26/2023 Height 66 in 11/26/2023 Blood pressure systolic 157 mm Hg 11/26/2023 Weight 186.0 lbs 11/26/2023 BMI 30.02 kg/m2 11/26/2023 Encounters Encounter Location Date Provider Diagnosis [address] [address] 12/22/2023 Provider Deangelo Localized swelling, mass and lump, head R22.0 ; Allergic rhinitis due to pollen J30.1 and Wheezing R06.2 [facility] [address] [address] 10/23/2023 Santiago Toribio Localized swelling, mass and lump, head R22.0 ; Adverse effect of other nonsteroidal anti-inflammatory drugs [NSAID], initial encounter T39.395A ; Allergy to other foods Z91.018 ; Allergic rhinitis due to pollen J30.1 ; Allergic rhinitis due to animal (cat) (dog) hair and dander J30.81 ; Other allergic rhinitis J30.89 ; Other chronic allergic conjunctivitis H10.45 and Wheezing R06.2 [facility] [address] [place] [address] 11/26/2023 Santiago Toribio Localized swelling, mass and lump, head R22.0 ; Adverse effect of other nonsteroidal anti-inflammatory drugs [NSAID], subsequent encounter T39.395D ; Allergy to other foods Z91.018 ; Allergic rhinitis due to pollen J30.1 ; Allergic rhinitis due to animal (cat) (dog) hair and dander J30.81 ; Other allergic rhinitis J30.89 ; Other chronic allergic conjunctivitis H10.45 and Wheezing R06.2 [facility] [address] [facility] [address] [place] [address] 10/10/2023 Santiago Toribio Assessments Encounter Date Diagnosis (ICD Code) Assessment Notes Treatment Notes Treatment Clinical Notes Section Notes 10/23/2023 Adverse effect of other nonsteroidal anti-inflammatory drugs [NSAID], initial encounter (ICD-10 - T39.395A) as above, prefer Tylenol, Ultram, or Celebrex 10/23/2023 Localized swelling, mass and lump, head [...] IgE-mediated reaction to tree nuts or sea chapman, direct mast cell degranulation due to NSAID use though is unsure if she took in these episodes. CEM-I induced angioedema, or acquired angioedema. We underwent SPT today to hazelnut, almond, and [place] but; all of which were negative. WIll plan on obtaining ImmunoCAPs to macadamia and chapman. Will also obtain angioedema work-up to rule out acquired angioedema. I suspect her lisinopril is the primary culprit of her swelling. Advised to talk to commercial kitchen service technician RE switching medication class. I would also advise avoidance of NSAIDs moving forward, preferring Tylenol, Ultram, or Celebrex. Given lack of hives, an IgE-mediated process is less likely. AIE education given. Keep AIE on hand at all times. Return in one month for E&M 11/26/2023 Adverse effect of other nonsteroidal anti-inflammatory drugs [NSAID], subsequent encounter (ICD-10 - T39.395D) as above, prefer Tylenol, Ultram, or Celebrex 11/26/2023 Localized swelling, mass and lump, head [...] We underwent SPT to hazelnut, almond, and [place] but; all of which were negative. ImmunoCAPs [...] for E&M or sooner if swelling returns 12/22/2023 Localized swelling, mass and lump, head (ICD-10 - R22.0) 10/23/2023 Allergy to other foods (ICD-10 - [...] 1 month for interval evaluation and management 11/26/2023 Allergy to other foods (ICD-10 - Z91.018) SPT and ImmunoCAPs negative 11/26/2023 Allergic rhinitis due to pollen (ICD-10 - J30.1) Maged clearly suffers from atopic disease based upon our skin testing and clinical history. Accordingly, we have introduced a new, aggressive medication regimen, discussed nasal washes and allergy-specific avoidance measures. Not currently interested in SCT. Will continue to monitor 12/22/2023 Allergic rhinitis due to pollen (ICD-10 - J30.1) 10/23/2023 Allergic rhinitis due to animal (cat) (dog) hair and dander (ICD-10 - J30.81) Follow allergen avoidance, meds and consider SCIT as an adjunctive treatment to current regimen 10/23/2023 Other allergic rhinitis (ICD-10 - J30.89) Follow allergen avoidance, meds and consider SCIT as an adjunctive treatment to current regimen 11/26/2023 Allergic rhinitis due to animal (cat) [...] history of lung nodules; previously managed by senior cyber security analyst. She will have recurrent wheezing when she [...] more than twice a week 11/26/2023 Other chronic allergic conjunctivitis (ICD-10 - H10.45) Given ocular signs and symptoms I encouraged allergy avoidance measures and meds as above. If symptoms persist, consider adding additional medications including intraocular antihistamine/mas t cell stabilizer, PRN and consider SCIT as an adjunctive measure 12/22/2023 Wheezing (ICD-10 - R06.2) 11/26/2023 Wheezing (ICD-10 - R06.2) Noted history of lung nodules; previously managed by senior cyber security analyst. She will have recurrent wheezing when she [...] a week 11/26/2023 Other Plan Of Treatment Pending Test Test Name Order Date C1 INHIBITOR, PROTEIN 10/23/2023 Insurance Providers Payer Name Payer Address Payer Phone Subscriber Number Group Number Insured Name Patient Relationship to Insured Coverage Start Date Coverage End Date [employer] (Medicare) Attention Claims [address] [place] [address] [id number] Coreen floresAlly Self - patient is the insured [employer] [address] [address] [place] [address] [id number] [facility] markAlly Self - patient is the insured Medical (General) History Medical History History ICD Code Localized swelling, mass and lump, head R22.0 Allergic rhinitis due to animal (cat) (d og) hair and dander J30.81 Adverse effect of other nons teroidal anti-inflammatory drugs [NSAID], initial encounter T39.395A Other allergic rhinitis J30.89 Allergic rhinitis due to pollen J30.1 Other chronic allergic conjunctivitis H1 0.45 Wheezing R06.2 Surgical History Surgery Date(Month/Year) repair/reattach spleen 11/06/1988 knee repair 11/20/1988 hystorectomy 11/06/1997 growth on finger - RA nodule 09/07/2003 cubital tunnel decompression/trigger fin eben release 03/27/2023 right cataract removal 08/30/2023 left catacract removal 09/06/2023 Hospitalization History Reason Date(Month/Year) child 06/29/1987 child 02/08/1982
--- OUTSIDE RECORDS SUMMARY | 2024-08-18 12:08 | XMS_ITS | Clinical Summary ---
Author Organization [facility] [facility] Address [address] [place] [place] [address] Care Team Providers Care Sales Strategy Manager Name Role Phone Chad Pickering MD Primary Care Provider [phone] Source Comments [facility],non-owned Affiliates and Associated Physician Practices is amultiple site organization consisting of ambulatory clinics and hospital sitesin [place], [place], [place] and [place]. This disclosure is being madepursuant to the Care Everywhere program and may not contain all information available regarding this patient. Last updated 18.[facility] Allergies Active Allergy Reactions Criticality Noted Date [...] 36.9 C (98.4 F) 09/12/2022 8:47 AM ASBESTOS ABATEMENT WORKER Respiratory Rate 18 03/06/2024 1:37 PM CDT [...] st Contact Info) Description 08/19/2024 2:45 PM ASBESTOS ABATEMENT WORKER Office Visit [facility] - Rheumatology [address] [place] [address] [place] [address] [address] [place] [address] Health Maintenance Due Date Last Done Comments COLOGUARD (AGES 45-75) - COLON CA SCREENING [address] COLONOGRAPHY - COLON CA SCREENING 1955 FIT - COLON CA SCREENING 1957 FLEX SIG - COLON CA SCREENING 1957 LIPID TESTING 1957 MEDICARE AWV 12 MONTHS 1957 DTAP/TDAP/TD VACCINES (1 - Tdap) 01/22/1976 PNEUMOCOCCAL VACCINE 50+ (1 of 2 - PCV) 01/22/1976 ZOSTER VACCINE (1 of 2) 01/22/1976 Respiratory Syncytial Virus (RSV) Vaccine Pt: or over 60 yrs (1 - Risk 60-74 years 1-dose series) 2017 COVID-19 VACCINE (3 - Pfizer risk series) 03/28/2021 02/28/2021, 02/07/2021 INFLUENZA VACCINE (#1) 2024 04/23/2008 DEPRESSION SCREENING 07/09/2024 03/06/2024 MAMMOGRAM 03/26/2026 03/26/2024, 03/09, 12/29/2022, Additional history exists SCREENING FOR DIABETES 04/30/2027 04/30/2024, 2022 COLONOSCOPY - COLON CA SCREENING 07/15/2029 07/15/2019 Colorectal Cancer Screening 07/15/2029 BONE DENSITY TESTING Completed 11/25/2013 HEPATITIS C SCREENING Completed 03/06/2024 HEPATITIS B VACCINE Aged Out No longe r eligible based on patient's age to complete this topic HIB VACCINE Aged Out No longer eligi ble based on patient's age to complete this topic HPV VACCINE Aged Out No longer eligi ble based on patient's age to complete this topic MENINGOCOCCAL (Group B) VACCINE Aged Out No longer eligible based on patient's age to complete this topic MENINGOCOCCAL VACCINE Aged Out No abby eben eligible based on patient's age to complete this topic Procedures Procedure Name Priority Date/Time Associated Diagnosis [...] 29 U/L [facility] Comment: Test Performed at: [facility] [address] CAMILLE DECKER MD Blood BLOOD SPECIMEN / Unknown 04/30/2024 3:27 PM CDT 04/30/2024 3:27 PM CDT Ramos Emery MD LAB - CHEMISTRY [facility] [address] [place] [address] * HEPATITIS PANEL (03/06/2024 2:52 PM CDT) Hepatitis A Virus Antibody Total NON-REACTI VE NON-REACT [facility] Comment: For additional information, please refer to http://[employer].CommScope/faq/JLS368 (This link is being provided for informational/ educational purposes only.) Hepatitis B Virus Surface Antibody NON-REACTI VE NON-REACT [facility] Hepatitis B Virus Surface Antigen NON-REACTI VE NON-REACT [facility] Comment: For additional information, please refer to http://[employer]CommScope/faq/KZQ944 (This link is being provided for informational/ educational purposes only.) Hepatitis B Core Virus Antibody Total NON-REACTI VE NON-REACT [facility] Comment: For additional information, please refer to http://[employer].CommScope/faq/WRV949 (This link is being provided for informational/ educational purposes only.) Hepatitis C Antibody NON-REACTI VE NON-REACT [facility] Comment: HCV antibody was non-reactive. There is no laboratory evidence of HCV infection. In most cases, no further action is required. However, if recent HCV exposure is suspected, a test for HCV RNA (test code 11497) is suggested. For additional information please refer to http://[employer]/faq/PEJ41e2 (This link is being provided for informational/ educational purposes only.) Test Performed at: [facility] [employer] [address] [place] [address] CAMILLE DECKER MD Blood BLOOD SPECIMEN / Unknown 03/06/2024 2:52 PM CDT 03/06/2024 2:53 PM CDT Ramos Emery MD LAB - CHEMISTRY [facility] [address] [place] [address] from Last 3 Months or Most Recently Relevant to Health Maintenance Care Teams Sales Strategy Manager Relationship Specialty [place] [address] [facility] [place] [address] PCP - General Internal Medicine 03/06/24
== END 2024-08-18 11:11 | disposition home or self-care (01) ==
PROVIDERS: PCP Internal Medicine Geriatric Medicine; Visit Provider Orthopaedic Surgery
DX: M11.261 Other chondrocalcinosis, right knee (principal); M11.262 Other chondrocalcinosis, left knee; M17.0 Bilateral primary osteoarthritis of knee
CPT/HCPCS: 73564

== ENCOUNTER 2024-09-10 14:00 | Outpatient (CLI) | payer MEDICARE, SELFPAY ==
--- NOTE | 2024-09-10 14:21 | ECG_ITS ---
Test Date: 2024-09-10 14:27:58 Measurements Intervals [place] Rate: 65 P: 48 PA: 141 QRS: 44 QRSD: 144 T: 26 QT: 385 QTc: 401 Interpretive Statements SINUS RHYTHM POSSIBLE LEFT ATRIAL ENLARGEMENT [-0.1mV P-WAVE IN V1/V2] RIGHT BUNDLE BRANCH BLOCK [120+ ms QRS DURATION, UPRIGHT V1, 40+ ms S IN I/aVL/V4/V5/V6] No previous ECG available for comparison Electronically Signed On 09-10-2024 15:51:45 ROLL TENDER by Gómez Kulkarni M.D.
[2024-09-10 14:34] LABS: Hematocrit 45.6 % (37.0-47.0); Hemoglobin 14.8 g/dL (12.0-15.0)
[2024-09-10 14:49] LABS: Albumin Level 4.5 g/dL (3.5-5.1); Estimated Glomerular Filt Rate 51
--- OUTSIDE RECORDS SUMMARY | 2024-09-10 15:38 | XMS_ITS | Referral Summary ---
Author Organization [facility] Address [id number] [place] [phone] Care Team Providers Care Gyn Name Role Phone Chad Mayer MD Primary Care Provider + Monserrat Florentino MD Unavailable Encounters Date Type Department Care Team Description 09/09/2024 Plan of Care Documentation [facility] Physical Therapy [address] [place] [phone] 09/09/2024 1:45 PM RN TRIAGE Therapy [facility] Physical Therapy [address] [place] [phone] Salima Bergeron, PT Unilateral primary osteoarthritis, right knee (Primary Dx) 08/25/2024 2:30 PM RN TRIAGE Infusion [address] [place] [phone] Rheumatoid arthritis involving both hands with negative rheumatoid factor (HCC) (Primary Dx) 07/28/2024 2:30 PM RN TRIAGE Infusion [address] [place] [phone] Rheumatoid arthritis involving both hands with negative rheumatoid factor (HCC) (Primary Dx) 06/30/2024 2:30 PM RN TRIAGE Infusion [address] [place] [phone] Rheumatoid arthritis involving both hands with negative rheumatoid factor (HCC) (Primary Dx) from Last 3 Months Allergies Active Allergy Reactions Criticality Noted Date Comments Adalimumab Anaphylaxis High 07/14/2019 Lisinopril Cough Low 07/28/2024 Nsaids (Non-Steroidal Anti-Inflammatory Drug) Angioedema Reaction: facial swelling, , Medications leflunomide (ARAVA) 20 mg tablet Take 1 tablet (20 mg total) by mouth daily. 90 tablet 01/10/2018 Active fluticasone furoate-vilante rol (BREO ELLIPTA) 100-25 [...] water after use. Do not swallow. Active Active Problems Problem Noted Date Diagnosed Date Screen for colon cancer 06/12/2019 Overview (06/12/2019): Added automatically from request for surgery [id number] Fibromyalgia 04/02/2017 Assessment & Plan (01/14/2018 2:14 [...] 2:05 PM CDT): Follows w/ pulmonology at [facility] Assessment & Plan (10/18/2017 8:27 AM [...] ng both hands with negative rheumatoid factor 04/21/2015 Overview (10/12/2016): Rheumatoid arthritis Assessment & [...] [place] Patient is to continue current regimen. Will [...] Osteoarthritis 11/14/2011 Overview (10/12/2016): ARTHROPATHY NOS-UNSPEC Immunizations Immunization Administration Dates Next Due Influenza, Trivalent, IM (MDV) 04/23/2008 Social History Tobacco Use Types Packs/Day Years Used Date Smoking Tobacco: Never Smokeless Tobacco: Never Alcohol Use Standard Drinks/Week Comments Yes 0 (1 standard drink = 0.6 oz pur e alcohol) Comments No Sex and Gender Information Value Date Recorded Sex Assigned at Not on file Legal Sex Female 10:25 AM RN TRIAGE Gender Identity Not on file Sexual Orientation Not on file Last Filed Vital Signs Vital Sign Reading Time Taken Comments Blood Pressure 169/91 08/25/2024 2:29 PM RN TRIAGE Pulse 87 08/25/2024 2:29 PM RN TRIAGE Temperature 36.3 C (97.3 F) 08/25/2024 2:29 PM RN TRIAGE Respiratory Rate 18 08/25/2024 2:29 PM RN TRIAGE Oxygen Saturation 97% 07/28/2024 2:35 PM RN TRIAGE Inhaled Oxygen Concentration - - Weight 83.7 kg (184 lb 9.6 oz) 08/25/2024 2:29 P M RN TRIAGE Height 167.6 cm (5' 6 ) 12/29/2022 2:16 PM CDT Body Mass Index 29.8 12/29/2022 2:16 PM CDT Plan of Treatment Not on file Medical Devices Implanted Type Area Senior Biostatistician/Group Leader Device Identifier Shelf Expiration Date Model / Serial / Lot [employer] [id number] Mammomark 8ga Bowtie Identifier Biopsy Site - [id number] - [id number] Implanted:Qty: 1 on 02/05/2018 by Reilly Vega Jr., MD at [facility] Breast Right: Breast [employer] 02/25/2019 [id number] / [id number] / Procedures Procedure Name Priority Date/Time Associated Diagnosis Comments SCREENING MAMMOGRAM BILATERAL W MORGAN Schedule Routine, Read Routine (OP Routine) 03/26/2024 3:36 PM CDT Screening mammogram, encounter for COLONOSCOPY 07/15/2019 10:28 AM RN TRIAGE DEXA AXIAL SKELETON BONE DENSITY 1 OR [...] her next mammogram. Electronically signed by: CRISTHIAN WYATT BROOKE MITTAL Narrative 03/26/2024 3:47 PM CDT EXAMINATION: [...] nal Result * COLONOSCOPY (07/15/2019 10:28 AM RN TRIAGE) Anatomical Region Laterality Modality Other Narrative Procedure Note Mitch Green MD - 07/15/2019 10:28 AM CST [facility] Patient Name: Ally Bethea Procedure Date: 07/15/2019 10:28 AM Date of : 1955 Admit Type: Outpatient Age: 64 Gender: Female Attending MD: Mitch Green M.D. Room: [facility] ROOM 2 Note Status: Finalized Patient Profile: [...] scope was passed under direct vision.The Colonoscope [id number] was introducedthrough the anus and advanced to [...] 10:28 AM Procedure Code(s): --- Professional --- 46107, Colonoscopy, flexible; with removal of tumor(s), polyp(s), or other lesion(s) by hot biopsy forceps Diagnosis Code(s): --- Professional --- K57.30, Diverticulosis of large intestine without perforation orabscess without bleeding D12.2, Benign neoplasm of ascending colon K64.3, Fourth degree hemorrhoids Z12.11, Encounter for screening for malignant neoplasm of colon CPT copyright 2017 [employer]. All rights reserved. The codes documented in this report are preliminary and upon stretcher operator reviewmay be revised to meet current compliance requirements. Recognized by the [employer] for promoting quality in endoscopy Mitch Green MD ENDOSCOPY PROCEDURES Final Re sult * Dexa Axial Skeleton Bone Density 1 or 2 Site (11/25/2013 9:58 AM CDT) Anatomical Region Laterality Modality Body N/A Radiographic Farhana ging 11/25/2013 9:58 AM CDT Narrative 11/25/2013 5:02 PM CDT DEXA Bone Density Axial Acc#: [id number] DATE OF EXAM: Nov 25 2013 CLINICAL [...] - 11/01/2016 DEXA Bone Density Axial Acc#: [id number] DATE OF EXAM: Nov 25 2013 CLINICAL [...] Insurance [facility] COMMERCIAL [facility]IC [facility] CORE [facility] COMM[facility]CIAL GENERIC [facility] CORE IBEW MEDICARE SUPP MEDICARE Advance Directives For more information, please contact: [phone] * Full Code (Latest Code Status on File) Date Activated Date Inactivated Comments 07/15/2019 10:32 AM 07/15/2019 5:36 PM * Full Code Date Activated Date Inactivated Comments 07/15/2019 10:32 AM 07/15/2019 10:32 AM Care Teams Gyn Relationship Specialty [place] [address] [facility] [address] [place] [address] PCP - General 10/06/16 [place] [address] [facility] [address] [place] [address] Rheumatology 03/02/17
--- OUTSIDE RECORDS SUMMARY | 2024-09-10 15:38 | XMS_ITS | Clinical Summary ---
Author Organization [facility] Address [address] [place] [address] Care Team Providers Care Restaurant Assistant Manager Name Role Phone Chad Mayer MD Primary [...] (06/12/2019): Added automatically from request for surgery [id number] Fibromyalgia 04/02/2017 Assessment & Plan (01/14/2018 2:14 [...] 2:05 PM CDT): Follows w/ pulmonology at [facility] Assessment & Plan (10/18/2017 8:27 AM CDT): [...] better [place] [facility]. Patient is to continue current regimen. Will [...] Date Type Department Care Team Description 09/09/2024 1:45 PM DIRECTOR AGRICULTURAL SERVICES Therapy [facility] Physical Therapy [address] [place] [phone] Salima Bergeron, PT Unilateral primary osteoarthritis, right knee (Primary Dx) 09/09/2024 Plan of Care Documentation [facility] Physical Therapy [address] [place] [phone] 08/25/2024 2:30 PM DIRECTOR AGRICULTURAL SERVICES Infusion [facility] Infusion [address] [place] [phone] Rheumatoid arthritis involving both hands with negative rheumatoid factor (HCC) (Primary Dx) 07/28/2024 2:30 PM DIRECTOR AGRICULTURAL SERVICES Infusion [facility] Infusion [place] [address] [facility] [address] [place] [phone] Rheumatoid arthritis involving both hands with negative rheumatoid factor (HCC) (Primary Dx) 06/30/2024 2:30 PM DIRECTOR AGRICULTURAL SERVICES Infusion [address] [place] [phone] Rheumatoid arthritis involving both hands with negative rheumatoid factor (HCC) (Primary Dx) from Last 3 Months Immunizations Immunization Administration Dates Next Due Influenza, Trivalent, IM (MDV) 04/23/2008 Surgical History Surgery Date Site/Laterality Comments [...] - Secondary to clot with treatment for ID Rheum arthritis Sister 2 RA; Heart attack [...] on file Legal Sex Female 10:25 AM DIRECTOR AGRICULTURAL SERVICES Gender Identity Not on file Sexual Orientation Not on file Obstetrics History Para Term AB IAB SAB Ectopic Multiple Livin g Live Births 2 2 2 Date Outcome GA Total Labor Labor/2nd/3rd Weight Sex Type Anes PTL Neha A1 A5 Name Clin Term Term Last Filed Vital Signs Vital Sign Reading Time Taken Comments Blood Pressure 169/91 08/25/2024 2:29 PM DIRECTOR AGRICULTURAL SERVICES Pulse 87 08/25/2024 2:29 PM DIRECTOR AGRICULTURAL SERVICES Temperature 36.3 C (97.3 F) 08/25/2024 2:29 PM DIRECTOR AGRICULTURAL SERVICES Respiratory Rate 18 08/25/2024 2:29 PM DIRECTOR AGRICULTURAL SERVICES Oxygen Saturation 97% 07/28/2024 2:35 PM DIRECTOR AGRICULTURAL SERVICES Inhaled Oxygen Concentration - - Weight 83.7 kg (184 lb 9.6 oz) 08/25/2024 2:29 P M DIRECTOR AGRICULTURAL SERVICES Height 167.6 cm (5' 6 ) 12/29/2022 2:16 PM CDT Body Mass Index 29.8 12/29/2022 2:16 PM CDT Plan of Treatment Health Maintenance Due Date Last Done Comments Depression Screening 1955 Fall Risk Assessment 1955 Hepatitis C Screening 1955 DTaP/Tdap/Td Vaccine (1 - Tdap) 01/22/1968 Hepatitis B Screening 1975 Pneumococcal vaccine 65+ (1 of 2 - PCV) 01/22/1976 Zoster Vaccine (1 of 2) 01/22/1976 Osteoporosis [...] Discontinued 07/15/2019 Medical Devices Implanted Type Area Managing Manager Device Identifier Shelf Expiration Date Model / Serial / Lot [employer] [id number] Mammomark 8ga Bowtie Identifier Biopsy Site - [id number] - [id number] Implanted:Qty: 1 on 02/05/2018 by Reilly Vega Jr., MD at [facility] Breast Right: Breast [employer] 02/25/2019 [id number] / [id number] / Procedures Procedure Name Priority Date/Time Associated Diagnosis Comments SCREENING MAMMOGRAM BILATERAL W MORGAN Schedule Routine, Read Routine (OP Routine) 03/26/2024 3:36 PM CDT Screening mammogram, encounter for COLONOSCOPY 07/15/2019 10:28 AM DIRECTOR AGRICULTURAL SERVICES DEXA AXIAL SKELETON BONE DENSITY 1 OR [...] nal Result * COLONOSCOPY (07/15/2019 10:28 AM DIRECTOR AGRICULTURAL SERVICES) Anatomical Region Laterality Modality Other Narrative Procedure Note Mitch Green MD - 07/15/2019 10:28 AM CST [facility] Patient Name: Ally Bethea Procedure Date: 07/15/2019 10:28 AM Date of : 1955 Admit Type: Outpatient Age: 64 Gender: Female Attending MD: Mitch Green M.D. Room: [facility] ENDOSCOPY ROOM 2 Note Status: Finalized Patient [...] scope was passed under direct vision.The Colonoscope [id number] was introducedthrough the anus and advanced to [...] 10:28 AM Procedure Code(s): --- Professional --- 12686, Colonoscopy, flexible; with removal of tumor(s), polyp(s), or other lesion(s) by hot biopsy forceps Diagnosis Code(s): --- Professional --- K57.30, Diverticulosis of large intestine without perforation orabscess without bleeding D12.2, Benign neoplasm of ascending colon K64.3, Fourth degree hemorrhoids Z12.11, Encounter for screening for malignant neoplasm of colon CPT copyright 2017 [employer]. All rights reserved. The codes documented in this report are preliminary and upon road cutter reviewmay be revised to meet current compliance requirements. Recognized by the [place] [employer] for promoting quality in endoscopy us Mitch Green MD ENDOSCOPY PROCEDURES Final Re sult * Dexa Axial Skeleton Bone Density 1 or 2 Site (11/25/2013 9:58 AM CDT) Anatomical Region Laterality Modality Body N/A Radiographic Farhana ging 11/25/2013 9:58 AM CDT Narrative 11/25/2013 5:02 PM CDT DEXA Bone Density Axial Acc#: [id number] DATE OF EXAM: Nov 25 2013 CLINICAL [...] - 11/01/2016 DEXA Bone Density Axial Acc#: [id number] DATE OF EXAM: Nov 25 2013 CLINICAL [...] DR CHAD MAYER Attending DR: CHAD ALBA Historical Provider MD [place] DXA PROCEDURES Final Result from Last 3 Months or Most Recently Relevant to Health Maintenance Insurance [facility] COMMERCIAL [facility] [place] [address] [facility] COMMERCIAL [facility] IBEW MEDICARE SUPP MEDICARE Advance Directives For more information, please contact: [phone] * Full Code (Latest Code Status on File) Date Activated Date Inactivated Comments 07/15/2019 10:32 AM 07/15/2019 5:36 PM * Full Code Date Activated Date Inactivated Comments 07/15/2019 10:32 AM 07/15/2019 10:32 AM Care Teams Restaurant Assistant Manager Relationship Specialty [place] [address] [facility] [address] [place] [address] PCP - General 10/06/16 [place] [address] [facility] [address] [place] [address] Rheumatology 03/02/17
--- OUTSIDE RECORDS SUMMARY | 2024-09-10 15:39 | XMS_ITS | Patient Health Summary ---
Author Organization [facility] Address [address] [place] [address] Care Team Providers Care Contact Center Rep Name Role Phone Chad Pickering MD Primary Care Provider [phone] Note from [facility],non-owned Affiliates and Associated Physician Practices is amultiple site organization consisting of ambulatory clinics and hospital sitesin [place], [place], [place] and [place]. This disclosure is being madepursuant to the Care Everywhere program and may not contain all information available regarding this patient. Last updated 18.[facility] Allergies * Adalimumab(Anaphylaxis) -High Criticality * Contrast-Iodinated Agents For Ct/Other(Headache,Vision Changes) * Methotrexate(Other) * Methotrexate (Anti-Rheumatic)(Other) * Nsaids(Angioedema,Unknown,Anaphylaxis) -High Criticality Medications * Be aware that [...] 20 MG tablet(Started 08/08/2024) 1 tablet daily * fluorouracil (Efudex) 5 % cream(Started 05/28/2024) * fluticasone diskus (Flovent Diskus) 50 MCG/ACT inhaler Inhale 2 (two) puffs by mouth once daily * lisinopril (Prinivil; Zestril) 40 MG tablet 1 tab(s) orally once a day Active Problems Problem Noted Date Diagnosed Date Rheumatoid arthritis involvi ng right wrist, unspecified whether rheumatoid factor present 03/06/2024 Immunizations * INFLUENZA VACCINE, TRIV. (AFLURIA, FLUZONE TRIVALENT; 6MO+) (IIV3)(Given 04/23/2008) Social History Tobacco Use Types Packs/Day Years Used Date Smoking Tobacco: Never Assessed PHQ-2 Answer Date Recorded Patient Health Questionnaire-2 Score 0 03/06/2024 Sex and Gender Information Value Date Recorded Sex Assigned at Not on file Gender Identity Not on file Sexual Orientation Not on file Last Filed Vital Signs Vital Sign Reading Time Taken Comments Blood Pressure 160/77 08/19/2024 3:02 PM LENS BLOCK GAUGER Pulse 67 08/19/2024 3:02 PM LENS BLOCK GAUGER Temperature 36.9 C (98.4 F) 09/12/2022 8:47 AM LENS BLOCK GAUGER Respiratory Rate 18 03/06/2024 1:37 PM CDT Oxygen Saturation 96% 03/06/2024 1:37 PM CDT Inhaled Oxygen Concentration - - Weight 84.3 kg (185 lb 12.8 oz) 08/19/2024 3:02 PM LENS BLOCK GAUGER Height 167.6 cm (5' 5.98 ) 08/19/2024 3:02 PM CS T Body Mass Index 30.01 08/19/2024 3:02 PM LENS BLOCK GAUGER Procedures * URIC ACID BLOOD(Performed 08/22/2024) Performed for Seronegative rheumatoid arthritis (HCC), Immunosuppressed status (HCC), High risk medication use, Polyarthralgia * ERYTHROCYTE SEDIMENTATION RATE(Performed 08/22/2024) Performed for Seronegative rheumatoid arthritis (HCC), Immunosuppressed status (HCC), High risk medication use, Polyarthralgia * C-REACTIVE PROTEIN(Performed 08/22/2024) Performed for Seronegative rheumatoid arthritis (HCC), Immunosuppressed status (HCC), High risk medication use, Polyarthralgia * COMPREHENSIVE METABOLIC PANEL(Performed 08/22/2024) Performed for Seronegative rheumatoid arthritis (HCC), Immunosuppressed status (HCC), High risk medication use, Polyarthralgia * CBC W AUTO DIFFERENTIAL(Performed 08/22/2024) Performed for Seronegative rheumatoid arthritis (HCC), Immunosuppressed status (HCC), High risk medication use, Polyarthralgia * COMPREHENSIVE METABOLIC PANEL(Performed 04/30/2024) Performed for [...] for screening for other viral diseases * PRINTING GRAY CLOTH TENDER ANTIBODY(Performed 03/06/2024) Performed for History of rheumatoid [...] Performed for Rheumatoid arthritis(714.0) (HCC) Results * URIC ACID BLOOD (08/22/2024 1:10 PM LENS BLOCK GAUGER) Only the most recent of2 resultswithin the time period is included. [facility] Uric Acid 4.4 2.5 - 7.0 mg/dL [facility] Comment: Therapeutic target for gout patients: <6.0 mg/dL Test Performed at: [facility] [address] [employer] [address] CAMILLE DECKER MD Blood BLOOD SPECIMEN / Unknown 08/22/2024 1:10 PM LENS BLOCK GAUGER 08/22/2024 1:10 PM LENS BLOCK GAUGER Ramos Emery MD LAB - CHEMISTRY TY WARD Performing Organization Address [facility] Co de Phone Number [facility] [address] [place] [address] * C-REACTIVE PROTEIN (08/22/2024 1:10 PM LENS BLOCK GAUGER) Only the most recent of3 resultswithin the time period is included. [facility] C-Reactive Protein 3.9 <8.0 mg/L [facility] Comment: REPORT COMMENT: FASTING:YES Test Performed at: [facility] [address] [employer] [address] CAMILLE DECKER MD Blood BLOOD SPECIMEN / Unknown 08/22/2024 1:10 PM LENS BLOCK GAUGER 08/22/2024 1:10 PM LENS BLOCK GAUGER Ramos Emrey MD LAB - CHEMISTRY TY WARD Performing Organization Address [facility] Co de Phone Number [facility] [address] [place] [address] * ERYTHROCYTE SEDIMENTATION RATE (08/22/2024 1:10 PM LENS BLOCK GAUGER) Only the most recent of3 resultswithin the time period is included. Pathologist [facility] Erythrocyte Sedimentation Rate Westergren 2 < OR = 30 mm/h [facility] Comment: Test Performed at: [facility] [address] [address] CAMILLE DECKER MD Blood BLOOD SPECIMEN / Unknown 08/22/2024 1:10 PM LENS BLOCK GAUGER 08/22/2024 1:10 PM LENS BLOCK GAUGER Ramos Emery MD LAB - HEMATOLOGY ORD ERABLES [facility] [address] [place] [address] * (ABNORMAL) CBC WITH DIFFERENTIAL (08/22/2024 1:10 PM LENS BLOCK GAUGER) Only the most recent of3 resultswithin the time period is included. [facility] White Blood Cell Count 6.9 3.8 - 10.8 Thousand/u L [facility] RBC 5.06 3.80 - 5.10 Million/uL [facility] Hemoglobin 15.0 11.7 - 15.5 g/dL [facility] Hematocrit 45.5(H) 35.0 - 45.0 % [facility] MCV 89.9 80.0 - 100.0 fL [facility] MCH 29.6 27.0 - 33.0 pg [facility] MCHC 33.0 32.0 - 36.0 g/dL [facility] Comment: For adults, a slight decrease in the calculated MCHC value (in the range of 30 to 32 g/dL) is most likely not clinically significant; however, it should be interpreted with caution in correlation with other red cell parameters and the patient's clinical condition. RDW 12.7 11.0 - 15.0 % [facility] Platelet Count 324 140 - 400 Thousand/u L [facility] MPV 11.4 7.5 - 12.5 fL [facility] Neutrophil Absolute 3995 1500 - 7800 cells/uL [facility] Lymphocytes Absolute 1973 850 - 3900 cells/uL [facility] Absolute Monocytes 711 200 - 950 cells/uL [facility] Eosinophils Absolute 152 15 - 500 cells/uL [facility] Basophils Absolute 69 0 - 200 cells/uL [facility] Granulocytes % 57.9 % [facility] Lymphocytes % 28.6 % [facility] Monocytes % 10.3 % [facility] Eosinophils % 2.2 % [facility] Basophils % 1.0 % [facility] Comment: Test Performed at: [facility] [address] [place] [address] CAMILLE DECKER MD Blood BLOOD SPECIMEN / Unknown 08/22/2024 1:10 PM LENS BLOCK GAUGER 08/22/2024 1:10 PM LENS BLOCK GAUGER Ramos Emery MD LAB - HEMATOLOGY ORD ERABLES [facility] [address] [place] [address] * (ABNORMAL) COMPREHENSIVE METABOLIC PANEL (08/22/2024 1:10 PM LENS BLOCK GAUGER) Only the most recent of3 resultswithin the time period is included. Glucose 111(H) 65 - 99 mg/dL [facility] Comment: Fasting reference interval For someone without known diabetes, a glucose value between 100 and 125 mg/dL is consistent with prediabetes and should be confirmed with a follow-up test. BUN 23 7 - 25 mg/dL [facility] Creatinine 0.89 0.50 - 1.05 mg/dL [facility] eGFR by Cystatin C 71 > OR = 60 mL/min/1. 73m2 [facility] BUN/Creatinine Ratio SEE NOTE: 6 - 22 (calc) [facility] Comment: Not Reported: BUN and Creatinine are within reference range. Sodium 140 135 - 146 mmol/L [facility] Potassium 5.0 3.5 - 5.3 mmol/L [facility] Chloride 105 98 - 110 mmol/L [facility] CO2 27 20 - 32 mmol/L [facility] Calcium 10.3 8.6 - 10.4 mg/dL [facility] Protein Total 7.4 6.1 - 8.1 g/dL [facility] Albumin 4.8 3.6 - 5.1 g/dL [facility] Globulin Total 2.6 1.9 - 3.7 g/dL (calc) [facility] Albumin/Globulin Ratio 1.8 1.0 - 2.5 (calc) [facility] Bilirubin Total 0.4 0.2 - 1.2 mg/dL [facility] Alkaline Phosphatase 84 37 - 153 U/L [facility] AST 28 10 - 35 U/L [facility] ALT 39(H) 6 - 29 U/L [facility] Comment: Test Performed at: [facility] [address] [place] [address] CAMILLE DECKER MD Blood BLOOD SPECIMEN / Unknown 08/22/2024 1:10 PM LENS BLOCK GAUGER 08/22/2024 1:10 PM LENS BLOCK GAUGER Ramos Emery MD LAB - CHEMISTRY TY WARD Performing Organization Address [facility] Co de Phone Number [facility] [address] [place] [address] * QUANTIFERON-TB GOLD PLUS 1-TUBE (03/26/2024 3:01 PM CDT) [facility] QuantiFERON TB Gold Plus NEGATIVE NEGATIVE [...] T-lymphocytes. For additional information, please refer to https://education.Super[employer].Neo[employer] Networks/faq/XAR538 (This link is being provided for informational/ educational purposes only.) REPORT COMMENT: FASTING:NO Test Performed at: [facility] [address] [place] [address] CAMILLE DECKER MD 03/26/2024 3:01 PM CDT 03/26/2024 3:01 PM CDT Ramos Emery MD LAB - CHEMISTRY TY WARD Performing Organization Address [facility]/ZIP Co de Phone Number [facility] [address] [place] [address] * IMAGING RADIOLOGY XRAY RESULTS ORDER (03/13/2024) Anatomical Region Laterality Modality Other 03/13/2024 Narrative 03/13/2024 Ordered by an unspecified provider. Scanned Document IMAGING * XR Cervical Spine 4 or 5Vw (03/13/2024) Anatomical Region Laterality Modality Spine Other 03/13/2024 Ramos Emery MD DIAGNOSTIC IMAGING O RDERABLES * HEPATITIS PANEL (03/06/2024 2:52 PM CDT) Hepatitis A Virus Antibody Total NON-REACTI VE NON-REACT [place] [facility] Comment: For additional information, please refer to http://Trendr.[employer]/faq/NJH154 (This link is being provided for informational/ educational purposes only.) Hepatitis B Virus Surface Antibody NON-REACTI VE NON-REACT [place] [facility] Hepatitis B Virus Surface Antigen NON-REACTI VE NON-REACT [place] [facility] Comment: For additional information, please refer to http://TOPSEC/faq/VMW852 (This link is being provided for informational/ educational purposes only.) Hepatitis B Core Virus Antibody Total NON-REACTI VE NON-REACT [place] [facility] Comment: For additional information, please refer to http://TOPSEC/faq/ZUU232 (This link is being provided for informational/ educational purposes only.) Hepatitis C Antibody NON-REACTI VE NON-REACT [place] [facility] Comment: HCV antibody was non-reactive. There is no laboratory evidence of HCV infection. In most cases, no further action is required. However, if recent HCV exposure is suspected, a test for HCV RNA (test code 29828) is suggested. For additional information please refer to http://Trendr.[employer]/faq/RGM23c6 (This link is being provided for informational/ educational purposes only.) Test Performed at: [facility] [address] [place] [address] CAMILLE DECKER MD Blood BLOOD SPECIMEN / Unknown 03/06/2024 2:52 PM CDT 03/06/2024 2:53 PM CDT Ramos Emery MD LAB - CHEMISTRY TY WARD Performing Organization Address [facility] Co de Phone Number [facility] [phone] [place] [address] * (ABNORMAL) PRINTING GRAY CLOTH TENDER ANTIBODY (03/06/2024 2:52 PM CDT) Pathologist [facility] PRINTING GRAY CLOTH TENDER Antibody 1.0 POS(A) <1.0 NEG AI [facility] Comment: Test Performed at: [facility] [address] CAMILLE DECKER MD Blood BLOOD SPECIMEN / Unknown 03/06/2024 2:52 PM CDT 03/06/2024 2:53 PM CDT Ramos Emery MD LAB - CHEMISTRY TY WARD Performing Organization Address [facility] de Phone Number [facility] [phone] [place] [address] * RHEUMATOID FACTOR BLOOD QUANTITATIVE (03/06/2024 2:52 PM CDT) [facility] Rheumatoid Factor <10 <14 IU/mL [facility] Comment: Test Performed at: [employer] [facility] [place] [address] CAMILLE DECKER MD Blood BLOOD SPECIMEN / Unknown 03/06/2024 2:52 PM CDT 03/06/2024 2:53 PM CDT Ramos Emery MD LAB - CHEMISTRY TY WARD Performing Organization Address [facility] Co de Phone Number [facility] [address] [place] [address] * MARY BLOOD SCREEN W/REFLEX TITER (03/06/2024 2:52 PM CDT) [facility] MARY Screen NEGATIVE NEGATIVE [facility] Comment: MARY [...] AC-0: Negative International Consensus on MARY Patterns (https://doi.org/10.1515/aula-4846-6611) For additional information, please refer to http://education.Software Artistry/faq/QQI019 (This link is being provided for informational/ educational purposes only.) Test Performed at: [facility] [facility] [place] [address] CAMILLE DECKER MD Blood BLOOD SPECIMEN / Unknown 03/06/2024 2:52 PM CDT 03/06/2024 2:53 PM CDT Ramos Emery MD LAB - CHEMISTRY TY WARD Performing Organization Address [facility] [place] [place] [address] * SS-B (SJOGREN'S) ANTIBODY (03/06/2024 2:52 PM CDT) Sjogren's Antibodies (SSB) <1.0 NEG <1.0 NEG AI [facility] Comment: REPORT COMMENT: FASTING:NO Test Performed at: [place] [address] CAMILLE DECKER MD Blood BLOOD SPECIMEN / Unknown 03/06/2024 2:52 PM CDT 03/06/2024 2:53 PM CDT Ramos Emery MD LAB - CHEMISTRY TY WARD Performing Organization Address [facility] Co de Phone Number [facility] [phone] [place] [address] * SS-A (SJOGREN'S) ANTIBODY (03/06/2024 2:52 PM CDT) Sjogren's Antibodies (SSA) <1.0 NEG <1.0 NEG AI [facility] Comment: Test Performed at: [facility] [place] [address] CAMILLE DECKER MD Blood BLOOD SPECIMEN / Unknown 03/06/2024 2:52 PM CDT 03/06/2024 2:53 PM CDT Ramos Emery MD LAB - CHEMISTRY TY WARD Performing Organization Address [facility] Co de Phone Number [facility] [address] [place] [address] * CK BLOOD (03/06/2024 2:52 PM CDT) Pathologist [facility] CK 69 29 - 143 U/L [facility] Comment: Test Performed at: [facility] [address] [place] [address] CAMILLE DECKER MD Blood BLOOD SPECIMEN / Unknown 03/06/2024 2:52 PM CDT 03/06/2024 2:53 PM CDT Ramos Emery MD LAB - CHEMISTRY TY WARD Performing Organization Address [facility] de Phone Number [place] [phone] [place] [address] * DERMATOPATHOLOGY (12/19/2023 12:00 AM CDT) Only the most recent of3 resultswithin the time period is included. Pathologist [facility] Case Report Dermatopathology Report Case: [id number] Authorizing Provider: Miguel A Del Cid Jr., MD Collected: 12/19/2023 12:00 AM Ordering Location: [facility] - Received: 12/20/2023 01:35 PM [facility] Lab Pathologist: Diamante Serrato MD Specimen: Skin, left proximal posterior upper arm 3:39 PM CDT DERMATOPATHOLOGY LABORATORY Final Diagnosis Specimen A. 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 Check margins 4 3:39 PM CDT DERMATOPATHOLOGY LABORATORY Gross Description Specimen A: Received is one formalin filled container labeled with the patient's name and designated left proximal posterior upper arm.The specimen consists of an ellipse measuring [id number] mm and is oriented with the suture/notch [...] purposes. Billing Codes Specimen Charges Stain Charges 03290 1 3:39 PM CDT DERMATOPATHOLOGY LABORATORY Embedded Images 3:39 PM CDT DERMATOPATHOLOGY LABORATORY Pathology/Cytolog y TISSUE SPECIMEN FROM SKIN / Unknown 12/19/2023 12/20/2023 1:35 PM CDT Miguel A Del Cid Jr., MD LAB - PATHOLOGY /CYTOLOGY ORDERABLES DERMATOPATHOLOGY LABORATORY [facility] - Department of Dermatology [address], [address] [phone] * CARDIAC EKG ORDER (09/13/2022 11:05 PM LENS BLOCK GAUGER) Narrative 09/13/2022 11:05 PM LENS BLOCK GAUGER Ordered by an unspecified provider. Scanned Document CARDIAC SERVICES ORD ERABLES * (ABNORMAL) URINALYSIS REFLEX TO MICROSCOPIC NO CULTURE (09/12/2022 11:36 AM LENS BLOCK GAUGER) Color UA Straw Straw, Yellow 09/12/2022 11:53 AM LENS BLOCK GAUGER [facility] Clarity UA Clear Clear 09/12/2022 11:53 AM LENS BLOCK GAUGER [facility] Glucose UA Negative Negative 09/12/2022 11:53 AM LENS BLOCK GAUGER [facility] Bilirubin UA Negative Negative 09/12/2022 11:53 AM LENS BLOCK GAUGER [facility] Ketone UA Negative Negative 09/12/2022 11:53 AM LENS BLOCK GAUGER [facility] Specific [place] UA 1.034(H) 1.005 - 1.030 09/12/2022 11:53 AM [facility] Blood UA 3+(A) Negative 09/12/2022 11:53 AM [facility] pH UA 9.0(H) 5.0 - 8.0 pH 09/12/2022 11:53 AM [facility] Protein UA Negative Negative 09/12/2022 11:53 AM LENS BLOCK GAUGER [facility] Urobilinogen UA Negative Negative mg/dL 09/12/2022 11:53 AM LENS BLOCK GAUGER [facility] Nitrite UA Negative Negative 09/12/2022 11:53 AM LENS BLOCK GAUGER [facility] Leukocyte UA Negative Negative 09/12/2022 11:53 AM LENS BLOCK GAUGER [facility] Urine Microscopy Urine microscopy to follow 09/12/2022 11:53 AM [facility] Urine URINE SPECIMEN OBTAINED BY CLEAN CATCH PROCEDURE / Unknown Collection / Unknown 09/12/2022 11:36 AM LENS BLOCK GAUGER 09/12/2022 11:39 AM LENS BLOCK GAUGER Narrative [facility] - 09/12/2022 11:53 AM LENS BLOCK GAUGER Ramón Dean MD LAB - URINALYSIS ORD ERABLES [facility] [address] [place] [address] * URINE MICROSCOPIC ONLY (09/12/2022 11:36 AM LENS BLOCK GAUGER) RBC UA 3-5 0 - 5 # /hpf 09/12/2022 11:46 AM LENS BLOCK GAUGER [facility] WBC UA 0-5 0 - 5 # /hpf 09/12/2022 11:46 AM LENS BLOCK GAUGER [facility] Bacteria UA None Seen None Seen 09/12/2022 11:46 AM LENS BLOCK GAUGER [facility] Squamous Epithelial Cells 0-2 0 - 5 /hpf 09/12/2022 11:46 AM LENS BLOCK GAUGER [facility] Urine URINE SPECIMEN OBTAINED BY CLEAN CATCH PROCEDURE / Unknown Collection / Unknown 09/12/2022 11:36 AM LENS BLOCK GAUGER 09/12/2022 11:39 AM LENS BLOCK GAUGER Narrative [facility] - 09/12/2022 11:46 AM LENS BLOCK GAUGER Ramón Dean MD LAB - URINALYSIS ORD ERABLES Performing Organization Address City/[facility]/ZIP Co de Phone Number [facility] [phone] [place] [address] * TROPONIN I (09/12/2022 11:01 AM LENS BLOCK GAUGER) Only the most recent of2 resultswithin the time period is included. Troponin I 0.011 <0.038 ng/mL 09/12/2022 11:30 AM LENS BLOCK GAUGER [facility] Blood BLOOD SPECIMEN / Unknown Venipuncture / Unknown 09/12/2022 11:01 AM LENS BLOCK GAUGER 09/12/2022 11:07 AM LENS BLOCK GAUGER Ramón Dean MD LAB - CHEMISTRY ORDE RABLES Performing Organization Address [facility]/ZIP Co de Phone Number [facility] [address] [place] [address] * XR CHEST 1VW PORTABLE (09/12/2022 9:44 AM LENS BLOCK GAUGER) Anatomical Region Laterality Modality Chest Radiographic Farhana ging 09/12/2022 9:47 AM LENS BLOCK GAUGER Impressions 09/12/2022 9:49 AM LENS BLOCK GAUGER IMPRESSION: No acute cardiopulmonary abnormalities. > Interpreting Provider: Miladys Ho MD on 09/12/2022 9:49 AM Narrative 09/12/2022 9:49 AM LENS BLOCK GAUGER PROCEDURE: XR CHEST 1VW PORTABLE, DATE/TIME OF EXAM: 09/12/2022 9:45 AM, LOCATION [facility] INDICATION: R41.0: Disorientation, unspecified ADDITIONAL CLINICAL INFORMATION: Ordering Provider Reason For Exam: Technologist Note: Additional: Dizziness COMPARISON: None. FINDINGS: The heart size is normal. The pulmonary vascularity is within normal limits. The lungs are well expanded and clear. No pleural effusion is seen. Procedure Note Miladys Ho MD - 09/12/2022 PROCEDURE: XR CHEST 1VW PORTABLE, DATE/TIME OF EXAM: 09/12/2022 9:45 AM, LOCATION [facility] INDICATION: R41.0: Disorientation, unspecified ADDITIONAL CLINICAL INFORMATION: Ordering Provider Reason For Exam: Technologist Note: Additional: Dizziness COMPARISON: None. FINDINGS: The heart size is normal. The pulmonary vascularity is within normal limits. The lungs are well expanded and clear. No pleural effusion isseen. IMPRESSION: No acute cardiopulmonary abnormalities. > Interpreting Provider: Miladys oH MD on 09/12/2022 9:49 AM Ramón Dean MD DIAGNOSTIC IMAGING O RDERABLES * CT ANGIO BRAIN NECK STROKE (09/12/2022 8:47 AM LENS BLOCK GAUGER) Anatomical Region Laterality Modality Head Computed Tomogra phy 09/12/2022 9:29 AM LENS BLOCK GAUGER Impressions 09/12/2022 9:40 AM LENS BLOCK GAUGER IMPRESSION: 1. No large vessel occlusion around the [place]. 2. No significant vascular stenosis in the neck > Interpreting Provider: Therese Cunha MD on 09/12/2022 9:40 AM Narrative 09/12/2022 9:40 AM LENS BLOCK GAUGER PROCEDURE: CT ANGIO BRAIN NECK STROKE, DATE/TIME OF EXAM: 09/12/2022 8:48 AM, LOCATION [facility] INDICATION: R41.0: Disorientation, unspecified ADDITIONAL CLINICAL INFORMATION: [...] aneurysmal dilatation, or branch occlusion about the [place]. The region of the anterior communicating artery is unremarkable. The distal vertebral arteries, vertebrobasilar junction, and basilar artery are normal in appearance. The posterior cerebral arteries are normal in appearance without high-grade stenosis, aneurysmal dilatation, or branch occlusion about the [place]. The posterior communicating arteries are [...] ANGIO BRAIN NECK STROKE, DATE/TIME OF EXAM: :48 AM, LOCATION [facility] INDICATION: R41.0: Disorientation, unspecified ADDITIONAL CLINICAL INFORMATION: [...] aneurysmal dilatation, or branch occlusion about the [place]. The region of the anterior communicating artery is unremarkable. The distal vertebral arteries, vertebrobasilar junction, and basilarartery are normal in appearance. The posterior cerebral arteries are normal in appearance without high-grade stenosis, aneurysmal dilatation, or branch occlusion about the [place]. The posterior communicating arteries are normal in appearance. CTA of the neck: The origins of the great vessels are widely patent. The cervicalportions of the internal carotid are patent without focal narrowing according to NASCET criteria. The common carotids and the cervical vertebralarteries are patent without focal narrowing. The vertebral arteries are codominant. IMPRESSION: 1. No large vessel occlusion around the [place]. 2. No significant vascular stenosis in the neck > Interpreting Provider: Therese Cunha MD on 09/12/2022 9:40 AM Sathish Hunter MD CT ORDERABLES * PTT (09/12/2022 8:43 AM LENS BLOCK GAUGER) PTT 31.8 23.0 - 38.4 sec 09/12/2022 9:02 AM LENS BLOCK GAUGER [facility] Blood BLOOD SPECIMEN / Unknown Venipuncture / Unknown 09/12/2022 8:43 AM LENS BLOCK GAUGER 09/12/2022 8:47 AM LENS BLOCK GAUGER Narrative [facility] - 09/12/2022 9:02 AM LENS BLOCK GAUGER Heparin Therapeutic Range for PTT: 69.0 - 110.0 seconds. Ramón Dean MD LAB - COAGULATION OR DERABLES Performing Organization Address [facility] de Phone Number [facility] [address] [place] [address] * PT-INR (09/12/2022 8:43 AM LENS BLOCK GAUGER) Pathologist [facility] PT 13.0 12.1 - 14.8 sec 09/12/2022 9:02 AM LENS BLOCK GAUGER [facility] INR 1.0 0.9 - 1.1 09/12/2022 9:02 AM LENS BLOCK GAUGER [facility] Blood BLOOD SPECIMEN / Unknown Venipuncture / Unknown 09/12/2022 8:43 AM LENS BLOCK GAUGER 09/12/2022 8:47 AM LENS BLOCK GAUGER Narrative [facility] - 09/12/2022 9:02 AM LENS BLOCK GAUGER Conventional Warfarin Anticoagulant Therapy: INR Reference Range: 2.0-3.0 Intensive Warfarin Anticoagulant Therapy: INR Reference Range: 2.5-3.5 Ramón Dean MD LAB - COAGULATION OR DERABLES Performing Organization Address [facility] Co de Phone Number [facility] [address] [place] [id number] * B-TYPE NATRIURETIC PEPTIDE (09/12/2022 8:43 AM LENS BLOCK GAUGER) Pathologist [facility] BNP 12 <=100 pg/mL 09/12/2022 9:12 AM LENS BLOCK GAUGER [facility] Blood BLOOD SPECIMEN / Unknown Venipuncture / Unknown 09/12/2022 8:43 AM LENS BLOCK GAUGER 09/12/2022 8:48 AM LENS BLOCK GAUGER Ramón Dean MD LAB - CHEMISTRY ORDE RABLES Performing Organization Address City/[facility]/ZIP Co de Phone Number [facility] [address] [place] [address] * EKG 12-LEAD (09/12/2022 8:34 AM LENS BLOCK GAUGER) Ventricular Rate 82 BPM [facility] Atrial Rate 82 BPM [facility] P-R Interval 140 ms [facility] QRS Duration ms 126 ms [facility] Q-T Interval ms 402 ms [facility] QTC Calculation (Bezet) 469 ms [facility] Calculated P [place] 67 degrees [facility] Calculated R [place] 70 degrees [facility] Calculated T [place] 54 degrees [facility] Interpretation EKG Normal sinus rhythm Right bundle branch block Abnormal ECG No previous ECGs available Confirmed by GISSEL CARRASCO MD ([id number]) on 09/13/2022 8:50:53 AM [facility] MUSE 09/12/2022 8:34 AM LENS BLOCK GAUGER 09/13/2022 8:50 AM LENS BLOCK GAUGER Ramón Dean MD ECG ORDERABLES Performing Organization Address [facility] Co de Phone Number [facility] * CREATININE - POCT INTERFACED (09/12/2022 8:30 AM LENS BLOCK GAUGER) Creatinine POCT 0.70 0.70 - 1.20 mg/dL 09/12/2022 8:57 AM LENS BLOCK GAUGER [facility] Blood BLOOD SPECIMEN / Unknown 09/12/2022 8:30 AM LENS BLOCK GAUGER 09/12/2022 8:56 AM LENS BLOCK GAUGER Ramón Dean MD LAB - POINT OF CARE ORDERABLES Performing Organization Address City/[facility]/ZIP Co de Phone Number [facility] [address] [place] [address] * TYPE + SCREEN PANEL (09/12/2022 8:30 AM LENS BLOCK GAUGER) ABO Rh O POS 09/12/2022 9:35 AM LENS BLOCK GAUGER [facility] Comment:No history; collect retype. Antibody Screen NEG 9:35 AM LENS BLOCK GAUGER [facility] Blood Bank BLOOD SPECIMEN / Unknown Venipuncture / Unknown 09/12/2022 8:30 AM LENS BLOCK GAUGER 09/12/2022 8:51 AM LENS BLOCK GAUGER Ramón Dean MD LAB - BLOOD BANK ORD ERABLES [facility] [address] [place], [place] [address] [phone] * CT BRAIN - Stroke (09/12/2022 8:26 AM LENS BLOCK GAUGER) Anatomical Region Laterality Modality Head Computed Tomogra phy 09/12/2022 8:30 AM LENS BLOCK GAUGER Impressions 09/12/2022 8:33 AM LENS BLOCK GAUGER IMPRESSION: No intracranial hemorrhage or other acute abnormality by CT. > Interpreting Provider: Therese Cunha MD on 09/12/2022 8:33 AM Narrative 09/12/2022 8:33 AM LENS BLOCK GAUGER PROCEDURE: CT BRAIN STROKE, DATE/TIME OF EXAM: 09/12/2022 8:27 AM, LOCATION [facility] INDICATION: R41.0: Disorientation, unspecified ADDITIONAL CLINICAL INFORMATION: [...] STROKE, DATE/TIME OF EXAM: 09/12/2022 8:27 AM,LOCATION [facility] INDICATION: R41.0: Disorientation, unspecified ADDITIONAL CLINICAL INFORMATION: [...] normal. Lungs are clear. IMPRESSION Clear lungs. Mnoserrat Florentino MD DIAGNOSTIC IMAGING O RDERABLES Care Teams Contact Center Rep Relationship Specialty [place] [address] [facility] [place] [address] PCP - General Internal Medicine 03/06/24
--- OUTSIDE RECORDS SUMMARY | 2024-09-10 15:39 | XMS_ITS ---
Author Organization [facility] Address [address] [place] [address] Care Team Providers Care Shook Splicer Name Role Phone Chad Sherman Primary Care Provider UnavailSantiago Javier Unavailable [phone] Allergies Allergen (clinical drug ingredient) Drug/Non Drug [...] Problem Non-steroidal anti-inflamma tory drug adverse reaction ([id number]) Adverse effect of other nonsteroidal anti-inflammatory drugs [NSAID], subsequent encounter (T39.395D) Active confirmed Vital Signs Blood pressure systolic 157 mm Hg 11/26/19 24 Blood pressure diastolic 80 mm Hg 024 Respiratory Rate 16 /min 11/26/2023 Height 66 in 11/26/2023 Weight 186.0 lbs 11/26/2023 BMI 30.02 kg/m2 11/26/2023 Oximetry 96 % 11/26/2023 Encounters Encounter Location Date Provider Diagnosis [facility] [address] [facility] [address] [place] [id number] 11/26/2023 Santiago Malu Localized swelling, mass and lump, head R22.0 [...] We underwent SPT to hazelnut, almond, and [place] but; all of which were negative. ImmunoCAPs [...] history of lung nodules; previously managed by active directory engineer. She will have recurrent wheezing when she [...] We underwent SPT to hazelnut, almond, and [place] but; all of which were negative. ImmunoCAPs [...] of erik g nodules; previously managed by active directory engineer. She will have recurrent wheezing when she [...] took more than:: more than 30 minutes (79300) Tasks performed during this encounter include:: taking [...] Notes * Olegario BETHEA:1954 (68 yo F)Acc No.[id number]:11/26/2023 Progress Notes Patient: Ally TARIQ Provider: Antonette Toribio PA-C :1955 A ge:68 Y S ex:Female Date:11/26/2023 Address:[address] [place] [address] , [id number] Pcp:Chad Sherman Subjective: * Chief Complaints: * [...] visit. On 11/19/2022, she ate at a [place] restaurant consisting of Macadamia encrusted sea [place] [...] consume cashews, pecans. Has not recently ingested [place] nut, Hazelnut, or Belcher. SPT at inital visit was negative to [...] nodules in her lungs; previously managed by active directory engineer. She will have recurrent wheezing when she [...] Age of carpet? 11 Do you have [id number] carpeting? Y es What is the age [...] history of lung nodules; previously managed by active directory engineer. She will have recurrent wheezing when she [...] more than: m ore than 30 minutes (21074) T asks performed during this encounter include: [...] Management) * Billing Information: * Visit Code: 33227 Office Visit, Est Pt., Level 4. Modifiers: 25 * Procedure Codes: G8427 DOC MEDS VERIFIED W/PT OR RE. 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 She is alone for today's visit. On 11/19/2022, she ate at a [place] restaurant consisting of Macadamia encrusted sea [place] [...] consume cashews, pecans. Has not recently ingested [place] nut, Hazelnut, or Belcher. SPT at inital visit was negative to [...] nodules in her lungs; previously managed by active directory engineer. She will have recurrent wheezing when she [...]
--- OUTSIDE RECORDS SUMMARY | 2024-09-10 15:39 | XMS_ITS | CONTINUITY OF CARE DOCUMENT ---
Author Name krystyna jonathanharpal Address Unknown Organization [facility] Address [address] [place] [address] Phone [phone] Care Team Providers Care Automotive Lot Attendant Name Role Phone Sterling BLUNT, Luke Unavailable [phone] NIMESH LEUNG MD Unavailable NIMESH LEUNG MD [...] Katz MD Fatigue active Luke Katz MD Muscle cramps active Luke Katz MD Abnormal EKG active Luke Katz MD Preoperative cardiovascular examination active Luke Ktaz MD ENCOUNTERS Date Type Provider Location Encounter Diag nosis - In-person encounter Office Visit Luke Katz MD [facility] Muscle cramps - In-person encounter Office Visit Luke Katz MD [facility] Abnormal EKG - In-person encounter Office Visit Luke Katz MD [facility] Preoperative cardiovascular examination - In-person encounter Office Visit Luke Katz MD [facility] - In-person encounter Office Visit Luke Katz MD [facility] - In-person encounter Office Visit Luke Katz MD [facility] - In-person encounter Office Visit Luke Katz MD [facility] Shortness of breathRight renal artery stenosisFatigue - In-person encounter Office Visit Luke Katz MD [facility] Cardiology examinationHTNRheumatoid arthritisFamily History of CVA or Stroke: VITAL SIGNS Date Observation Value Provider Body Mass Index (Ratio) 30.18 kg/m2 Christy Katz MD blood pressure, diastolic 81 mm[Hg] Shlomo Lang blood pressure, systolic 142 mm[Hg] Misha Lang oxygen saturation, oximetry 94 % Christa Lang pulse rate 94 /min Christa Lang weight E&M 187.0 [lb_av] Christa Lang Body Mass Index (Ratio) 30.82 kg/m2 Christy Katz MD blood pressure, cuff size regular Ke rri Gage blood pressure, diastolic 80 mm[Hg] Ke rri Gage blood pressure, systolic 136 mm[Hg] Precious Almonte oxygen saturation, oximetry 96 % Fawn Almonte respiratory rate E&M 12 /min Fawn rowan pulse rate 86 /min Fawn rose weight E&M 191 [lb_av] Fawn rose height E&M 66 [in_i] Fawn Vogel er Body Mass Index (Ratio) 30.50 kg/m2 Christy Katz MD blood pressure, cuff size regular Ke rri Gruenenfelder blood pressure, diastolic 82 mm[Hg] Ke rri Gruenenfelder blood pressure, systolic 130 mm[Hg] Precious ri Kellenelder oxygen saturation, oximetry 88 % Fawn Kellenruter respiratory rate E&M 12 /min Fawn de [facility] pulse rate 99 /min Fawn Vogel [facility] weight E&M 189 [lb_av] Fawn Kellene [facility] height E&M 66 [in_i] Fawn Vogel [facility] Body Mass Index (Ratio) 30.66 kg/m2 Christy Katz MD blood pressure, diastolic 87 mm[Hg] Li nkLogqian blood pressure, systolic 160 mm[Hg] Elyssa kLogqian oxygen saturation, oximetry 98 % Karishma Henry blood pressure, diastolic 87 mm[Hg] St jax Henry blood pressure, systolic 160 mm[Hg] Iam Henry pulse rate 75 /min Karishma Henry respiratory rate E&M 18 /min Karishma nielsen weight E&M 190 [lb_av] Karishma Henry height E&M 66 [in_i] Karishma Henry Body Mass Index (Ratio) 30.50 kg/m2 Christy Katz MD blood pressure, cuff size large Ke rri Gruenenfeldmark blood pressure, diastolic 80 mm[Hg] Ke rri Gruenenfeldmark blood pressure, systolic 130 mm[Hg] Precious ri Gruenenfelder oxygen saturation, oximetry 97 % Fawn Kandicenesixtoelder respiratory rate E&M 14 /min Fawn Hinds zandraenenfelder pulse rate 90 /min Fawn Grnickolasnfe er weight E&M 189 [lb_av] Fawn Kandicenenfe [facility] height E&M 66 [in_i] Fawn Grmarynenfe [facility] Body Mass Index (Ratio) 30.18 kg/m2 Christy Katz MD blood pressure, diastolic 82 mm[Hg] Lillian nkLog blood pressure, systolic 146 mm[Hg] Elyssa kLog blood pressure, cuff size large Ke rri Gruenenfelder blood pressure, diastolic 82 mm[Hg] Ke rri Gruenenfelder blood pressure, systolic 146 mm[Hg] Precious Woodsonnesixtoelder oxygen saturation, oximetry 98 % Fawn [place] respiratory rate E&M 14 /min Fawn Hinds harpal pulse rate 88 /min Fawn Foremane [facility] weight E&M 187 [lb_av] Fawn Kandicebrette [facility] height E&M 66 [in_i] Fawn Kandicenenfe [facility] Body Mass Index (Ratio) 30.66 kg/m2 Kimberly Gaitan blood pressure, cuff size regular oksana Angel blood pressure, diastolic 82 mm[Hg] Regan Angel pulse rate 67 /min Silvina Angel respiratory rate E&M 18 /min Silvina Angel oxygen saturation, oximetry 97 % Silvina Angel height E&M 66 [in_i] Silvina Angel weight E&M 190 [lb_av] Silvina Angel Body Mass Index (Ratio) 29.53 kg/m2 Christy Katz MD blood pressure, diastolic 87 mm[Hg] Li nkLogic blood pressure, systolic 189 mm[Hg] Elyssa kLogic blood pressure, diastolic 87 mm[Hg] Carie rey Deep blood pressure, systolic 189 mm[Hg] Los poonam Deep oxygen saturation, oximetry 95 % Brittaney Adame pulse rate 90 /min Brittaney sellers height E&M 66 [in_i] Brittaney sellers weight E&M 183 [lb_av] Brittaney sellers respiratory rate E&M 16 /min Ai Adame blood pressure, cuff size large Carie rey Deep ALLERGIES Allergy Name Onset Date Reaction Criticality [...] normalized ratio (INR) 1.0 [facility] 0.9-1.2 Normal C, [place] [address] prothrombin time (patient) 11.3 s [facility] 9.2-13.5 Normal C, [place] [address] Absolute Basophils 0.1 K/CUMM [facility] 0.0-0.1 Normal , [place] [address] Absolute Monocytes 0.9 K/CUMM [facility] 0.2-0.8 High , [place] [address] Absolute Lymphocytes 2.6 K/CUMM [facility] 0.8-3.3 Normal , [place] [address] Absolute Neutrophils 4.4 K/CUMM [facility] 1.7-6.5 Normal , [place] [address] nucleated red blood cells as percent of [...] Rate (calc) 74 mL/min/{1.73 _m2} [facility] C, [place] [address] cholesterol, non-HDL, total 195 mg/dL [facility] C, [place] [address] HDL CHOLESTEROL 44 mg/dL [facility] >=40 Normal C, [place] [address] triglyceride, serum, fasting 195 mg/dL [facility] <=149 High C, [place] [address] cholesterol, serum 239 mg/dL [facility] 30-199 High C, [place] [address] calcium, serum 10.1 mg/dL [facility] 8.5-10.3 Normal C, [place] [address] blood glucose, random 87 mg/dL [facility] 70-199 Normal C, [place] [address] creatine, serum 0.87 mg/dL [facility] 0.60-1.10 Normal C, [place] [address] urea nitrogen, blood 21 mg/dL [facility] 8-25 Normal C, [place] [address] anion gap, serum 11 mmol/L [facility] 2-15 Normal C, [place] [address] carbon dioxide, venous blood 26 mmol/L [facility] 22-32 Normal C, [place] [address] chloride, serum 101 mmol/L [facility] 97-110 Normal C, [place] [address] potassium, serum 5.6 MMOL/L [facility] 3.3-4.9 High C, [place] [address] sodium, serum 138 mmol/L [facility] 135-145 Normal C, [place] [address] HISTORY OF MEDICATION USE Medication Status Instructions Dates Provider Indications Com ments spironolactone 25 mg tablet active Take 1 tablet by mouth twice a day Fawn Almonte spironolactone 25 mg tablet completed TAKE 1 TABLET BY MOUTH TWICE DAILY - Fawn Almonte losartan 100 mg tablet completed Take 1 tablet by mouth once a day - Luke Katz MD Breo Ellipta 100-25 mcg/dose blister with device active Fawn Almonte felodipine 5 mg tablet extended release 24 hr completed Take 1 tablet by mouth once a day - Luke Katz MD nifedipine 30 mg tablet extended release active TAKE 2 TABLETS BY MOUTH DAILY Luke Katz MD Aldactone 25 mg tablet completed Take 1 tablet by mouth twice a day - Brandt Johnson clonidine HCl 0.1 mg tablet completed - [...] Luke Katz MD Exercise counseling yes Karishma Satish mathew smoking status Never smoker Karishma Henry social history E&M S moking History: P [...] Luke Katz MD Exercise counseling yes Kacey smith RN number of grandchildren Luke Katz MD smoking status Never smoker Luke crook MD social history E&M S moking History: P aguilar has never smoked. Luke Katz MD social history reviewed E&M revi ewed - no changes required Luke Katz MD FAMILY HISTORY Family Member Condition Mother Family History of CV A or Stroke: INSURANCE PROVIDERS Payer name Policy type / Coverage type [employer] party ID TORY MEDICARE SUPPLEMENT INSURANCE Commercial in [id number] [place] MEDICARE PART B Medicare [id number] ADVANCE DIRECTIVES Name Date DISCUSSED - NO DECISION MADE TREATMENT PLAN Date Name Performer [id number],C, P er PCP. Continue medical therapy on Leflunomide 20mg. Luke Katz MD [id number],S, R enal angio was normal, no stenosis. Luke Katz MD [id number],C,B P elevated today at 160/87. Reports BP at home is better at 145/70. Advised reduced sodium intake and routine monitoring of the blood pressure. We aim for less than 130/80. Luke Katz MD [id number],C, No recurrence of SOB or fatigue. Cath was done on 09/12/22. Luke Katz MD [id number],C,S he did undergo selective renal angio, as her previous renal arterial doppler was sugestive of stenosis, and it was normal. Blood pressure control is satisfactory. Continues on her present antihypertensive medications. She will continue to monitor her BP. Luke Katz MD [id number],C,C ardiac cath on 09/12/22 showed mild nonobstructive CAD. No recurrence of SOB or fatigue since cath. Luke Katz MD [id number],C,B lood pressure control is satisfactory. Continues on nifedipine ER. Luke Katz MD [id number],C,R enal angio was normal, no stenosis. Luke Katz MD [id number],C, P er PCP. Continue medical therapy on Leflunomide 20mg. Luke Katz MD [id number],S, P er PCP. Continue medical therapy on Leflunomide 20mg. Luke Katz MD [id number],C,W e will also do a selective renal angiography to assess the stenosis of the renal arteries. Luke Katz MD [id number],C,R emains extremely fatigued and SOB in spite of the fact that the BP has improved. The last Stress test was normal. I feel that she would benefit from a L/R heart cath to rule out significant stenosis of the coronary arteries. Luke Katz MD [id number],B,H er BP has improved since starting nifidepine ER 30mg daily. Luke Katz MD [id number],C, Her carotid u/s was normal. Her stress test showed normal myocardial perfusion imaging. However, she remains symptomatic with SOB and she is markedly hypertensive. Will stop her amlodipine today and increase aldactone. Start her on nifedipine 30 mg.If she continues to be symptomatic and her blood pressure remains high, we will plan for cardiac cath to rule out ischemia. Lluvia Kandy [id number],C, C omplaining of fatigue with her SOB. Will plan for cardiac cath if symptoms persist or worsen and BP does not lower. Lluvia Kandy [id number],C, Her carotid u/s was normal. Her stress test showed normal myocardial perfusion imaging. However, she remains symptomatic with SOB and markedly hypertensive. Will stop her amlodipine today and increase aldactone. Start her on nifedipine 30 mg.If she continues to be symptomatic and her blood pressure remains high, we will plan for cardiac cath to rule out ischemia. Lluvia Kandy [id number],C, B P elevated today at 189/82. Advised [...] rule out ischemia and renal angiography. Lluvia Kandy [id number],C, B P elevated today at 189/82. Advised reduced sodium intake and routine monitoring of the blood pressure. We aim for less than 130/80. Will stop her amlodipine, increased aldactoone to 25 mg bid, and start nifedipine 30 mg one tablet at night. Luke Katz MD [id number],C, r ight renal artery stenosis on renal u/s.will plan for renal angio Luke Katz MD [id number],C, P t complains of increased SOB. Will stop her amlodipine today and increase aldactone. Start her on nifedipine 30 mg.If she continues to be symptomatic, we will plan for cardiac cath to rule out ischemia. Luke Katz MD [id number],S, P er PCP. Continue medical therapy on Leflunomide 20mg. Luke Katz MD [id number],C,S tart Aldactone 25mg once daily. It will [...] 40 Mg Tablet (Lisinopril) Luke Katz MD [id number],C,P er PCP. Continue medical therapy on Leflunomide 20mg. Luke Katz MD [id number],C,W ill order Renal US , Carotid US and Stress Regadenson for further assessment. Luke Katz MD [id number],C,W ill hold Clonidine 0.1mg and start Aldactone [...] 40 Mg Tablet (Lisinopril) Luke Katz MD Cardiology:noting so me muscle cramps/heaviness will discontinue losartan at present and increase nifedipine 30 to twice daily. Luke Katz MD Cardiology:Getting o rencia infusions from lock expert Dr. Ramos Katz MD Cardiology:having ba ck pain and muscle fatigue on losartan; will discontinue and inrease dose of nifedipine to twice daily. Recommend to continue taking blood pressure daily. BP today: 142/81 P rior BP: 136/80 (02/25/2024) Labs Reviewed: C reat: 1.01 (09/11/2022) C hol: 239 (09/01/2022) T (09/01/2022) T he following medications were removed from the medication list: Losartan 100 Mg Tablet (Losartan) ..... Take 1 tablet by mouth once a day Her updated medication list for this problem includes: Nifedipine 30 Mg Tablet Extended Release (Nifedipine) ..... Take 2 tablets by mouth daily Spironolactone 25 Mg Tablet (Spironolactone) ..... Take 1 tablet by mouth twice a day Luke Katz MD Cardiology:EKG indicative of RBB [...] visit add on Luke Katz MD completed Complex e/m visit add on Luke Katz MD completed EKG Luke Katz MD complet ed EKG Luke Katz MD complet ed EKG Luke Katz MD complet ed EKG Luke Katz MD complet ed EKG Luke Katz MD complet ed EKG Luke Katz MD complet ed EKG Luke Katz MD complet ed
--- OUTSIDE RECORDS SUMMARY | 2024-09-10 15:39 | XMS_ITS | Patient Health Record ---
Author Organization [facility] Address [address] [place] [address] Care Team Providers Care Lpn Private Duty Name Role Phone Chad Sherman Primary Care Provider Unavailab le Santiago Toribio Unavailable [phone] [employer], Provider Unavailable Unavailab le Allergies Allergen [...] Reviewed date:10/29/2023 09:55:40 AM Interpretation:Normal Performing Lab:[facility], [facility], [address], [place], [address] Doug Wagner M.D.,PhD Notes/Report: NON-FASTING; NON-FASTING; NON-FASTING; NON-FASTING FASTING:NO FASTING: NO C1 ESTERASE INHIBITOR, FUNCTIONAL >100 >=68 % Reference Range: > or = 68%: Normal 41-67%: Equivocal < or = 40%: Abnormal Less than 40% of the reference functional activity indicates a likely diagnosis of hereditary angioedema or acquired C1 Inhibitor deficiency. For additional information, please refer to: http://education.Tomo Clases/faq/FAQ54 (This link is being provided for informational/ educational purposes only.) COMPLEMENT COMPONENT C4C Reviewed date:10/29/2023 09:55:51 AM Interpretation:Normal Performing Lab:MARILE[facility], [facility], [address] [place], [address] Deidra Fu MD Notes/Report: NON-FASTING; NON-FASTING; NON-FASTING; NON-FASTING FASTING:NO FASTING: NO COMPLEMENT COMPONENT C4C 27 15-57 mg/dL ALLERGEN SPECIFIC IGE GUNNER JEROME Reviewed date:10/29/2023 09:54:48 AM Interpretation:Normal Performing Lab:ACER, [facility], [address], [place], [address] Ryan Quiroz PhD BCLD (ABB) Notes/Report: NON-FASTING; NON-FASTING; NON-FASTING; NON-FASTING FASTING:NO FASTING: NO GUNNER CANO IGE* <0.35 <0.35 kU/L CLASS 0 CLASS INTERPRETATION: <0.35 kU/L=0, Below Detection; 0.35-0.69 kU/L= 1, Low Positive; 0.70-3.49 kU/L= 2, Moderate Positive; 3.50-17.49 kU/L= 3, Positive; 17.50-49.99 kU/L= 4, Strong Positive; >49.99 kU/L= 5, Very Strong Positive *This test was developed and its performance characteristics determined by [employer]. It has not been cleared or approved by the U.S. Food and Drug Administration. FLAG Interpretation: A = Abnormal, H = High, L = Low MACADAMIA NUT (RF345) IGE Reviewed date:10/29/2023 09:54:55 AM Interpretation:Normal Performing Lab:Vee[facility], [address] [place], [address] Deidra Fu MD Notes/Report: NON-FASTING; NON-FASTING; NON-FASTING; NON-FASTING FASTING:NO FASTING: NO MACADAMIA NUT (RF345) IGE <0.10 CLASS 0 IMMUNOGLOBULIN E Reviewed date:10/29/2023 09:55:58 AM Interpretation:Normal Performing Lab:MARIELLA [facility], [address], [place], [address] Deidra Fu MD Notes/Report: NON-FASTING; NON-FASTING; NON-FASTING; NON-FASTING FASTING:NO FASTING: NO IMMUNOGLOBULIN E 44 <HT=432 kU/L COMPLEMENT, TOTAL (CH50) Reviewed date:10/29/2023 09:55:32 AM Interpretation:Normal Performing Lab:MARIELLA, [facility], [address] [place], [address] Deidra Fu MD Notes/Report: NON-FASTING; NON-FASTING; NON-FASTING; NON-FASTING FASTING:NO FASTING: NO COMPLEMENT, TOTAL (CH50) 60 31-60 U/mL INTERPRETATION Reviewed date:10/29/2023 09:54:30 AM Interpretation:Interpretation Performing Lab:MARIELLA [facility], [address] [place], [address] Deidra Fu MD Notes/Report: NON-FASTING; NON-FASTING; NON-FASTING; [...] analytical performance characteristics have been determined by [facility]. It has not been cleared or approved [...] review and pick correct strength-formulat ion from [employer] options. If intended option is not shown, [...] Status W/U Status Risk Notes Problem Wheezing (04243571) Wheezing (R06.2) Active confirmed Problem Chronic allergic conjunctivitis (31537354) Other chronic allergic conjunctivitis (H10.45) Active confirmed Problem Allergic rhinitis caused by pollen (disorder) (14753090) Allergic rhinitis due to pollen (J30.1) Active confirmed Problem Allergic rhinitis (25604954) Other allergic rhinitis (J30.89) Active confirmed Problem Non-steroidal anti-inflammatory drug adverse reaction (630141886) Adverse effect of other nonsteroidal anti-inflammatory drugs [NSAID], subsequent encounter (T39.395D) Active confirmed Problem Food allergy (450649992) Allergy to other foods (Z91.018) Active confirmed Problem Allergic rhinitis caused by animal hair and dander (174075853210234) Allergic rhinitis due to animal (cat) (dog) hair and dander (J30.81) Active confirmed Problem Swelling of head (570794159) Localized swelling, mass and lump, head (R22.0) Active confirmed Vital Signs Respiratory Rate 16 /min 11/26/2023 Oximetry 96 % 11/26/2023 Blood pressure diastolic 80 mm Hg 11/26/2023 Height 66 in 11/26/2023 Blood pressure systolic 157 mm Hg 11/26/2023 Weight 186.0 lbs 11/26/2023 BMI 30.02 kg/m2 11/26/2023 Encounters Encounter Location Date Provider Diagnosis [address] [address] 12/22/2023 Provider Deangelo Localized swelling, mass and lump, head R22.0 ; Allergic rhinitis due to pollen J30.1 and Wheezing R06.2 [facility] [employer] [address] [address] 10/23/2023 Santiago Toribio Localized swelling, mass and lump, head R22.0 ; Adverse effect of other nonsteroidal anti-inflammatory drugs [NSAID], initial encounter T39.395A ; Allergy to other foods Z91.018 ; Allergic rhinitis due to pollen J30.1 ; Allergic rhinitis due to animal (cat) (dog) hair and dander J30.81 ; Other allergic rhinitis J30.89 ; Other chronic allergic conjunctivitis H10.45 and Wheezing R06.2 [facility] [address] [facility] [employer] [address] [address] [place] [address] 11/26/2023 Santiago Toribio Localized swelling, mass and lump, head R22.0 ; Adverse effect of other nonsteroidal anti-inflammatory drugs [NSAID], subsequent encounter T39.395D ; Allergy to other foods Z91.018 ; Allergic rhinitis due to pollen J30.1 ; Allergic rhinitis due to animal (cat) (dog) hair and dander J30.81 ; Other allergic rhinitis J30.89 ; Other chronic allergic conjunctivitis H10.45 and Wheezing R06.2 [facility] [address] [facility] [address] [place] [phone] 10/10/2023 Santiago Toribio Assessments Encounter Date Diagnosis [...] underwent SPT today to hazelnut, almond, and [place] but; all of which were negative. WIll plan on obtaining ImmunoCAPs to macadamia and chapman. Will also obtain angioedema work-up to rule out acquired angioedema. I suspect her lisinopril is the primary culprit of her swelling. Advised to talk to quarry supervisor open pit RE switching medication class. I would also [...] We underwent SPT to hazelnut, almond, and Dallas but; all of which were negative. ImmunoCAPs [...] history of lung nodules; previously managed by flat optical element maker. She will have recurrent wheezing when she [...] history of lung nodules; previously managed by flat optical element maker. She will have recurrent wheezing when she [...] Insured Coverage Start Date Coverage End Date SourceTour (Medicare) Attention Claims [address] [place] [address] [id number] Coreen floresAlly Self - patient is the insured [employer] [address] [address] [place] [address] [id number] [facility] markAlly Self - patient is the [...]
--- OUTSIDE RECORDS SUMMARY | 2024-09-10 15:39 | XMS_ITS | Encounter Summary ---
Author Organization [facility] Address [address] [place] [address] Care Team Providers Care Water Quality Manager Name Role Phone Chad Pickering MD Primary Care Provider [phone] Encounter Details Date Type Department Care Team (Late st Contact Info) Description 11/15/2023 Lab Requisition [facility] - DermPath Lab [address] [place] [phone] Miguel A Del Cid Jr., MD [address] [place] [address] Social History Tobacco Use Types Packs/Day Years [...] AM CDT) Case Report Dermatopathology Report Case: [id number] Authorizing Provider: Miguel A Del Cid Jr., MD Collected: 11/14/2023 12:00 AM Ordering Location: [facility] - Received: 11/15/2023 09:34 AM DermPath Lab [...] sections were obtained and reviewed. 5:39 PM T DERMATOPATHOLOGY LABORATORY Disclaimer An external and internal positive and negative controls are appropriate for the histochemical, immunohistochemical and immunofluorescence stain(s) in this case (if any), except where stated explicitly. The performance characteristics of the stain(s) cited in this report were developed and its performance characteristic determined by the Dermatopathology Laboratory at [facility], directed by Dr. Ahmet Harkins. These tests need not be, and therefore are not, approved by the [place] Food and Drug Administration. The tests are used for clinical purposes. Billing Codes Specimen Charges Stain Charges 80078 1 5:39 PM CDT DERMATOPATHOLOGY LABORATORY Embedded Images 5:39 PM CDT DERMATOPATHOLOGY LABORATORY Pathology/Cytolog y TISSUE SPECIMEN FROM SKIN / Unknown 11/14/2023 11/15/2023 9:34 AM CDT Miguel A Del Cid Jr., MD LAB - PATHOLOGY /CYTOLOGY ORDERABLES DERMATOPATHOLOGY LABORATORY [facility] - Department of Dermatology [address] [phone] documented in this encounter Visit Diagnoses Not on filedocumented in this encounter Care Teams Water Quality Manager Relationship Specialty [place] [address] [address] [facility] [address] [place] [address] PCP - General Internal Medicine 03/06/24 documented as of this encounter
--- OUTSIDE RECORDS SUMMARY | 2024-09-10 15:39 | XMS_ITS | Encounter Summary ---
Author Organization [facility] Address [address] [place] [address] Care Team Providers Care Chart Computer Name Role Phone Chad Sherman MD Primary Care Provider + Monserrat Florentino MD Unavailable Reason for Visit * Reason Comments PT Initial Eval * Consultation (Routine) - Authorized Specialty Diagnoses / Procedures Referred By Paola herman Referred To Contact Physical Therapy Diagnoses Unilateral primary osteoarthritis, right knee Nathaniel De Leon MD [address] [facility] [address] [place] [address] Phone: tel: fax: [facility] [address] [place] [address] Phone: tel: fax: Referral ID Status Reason Start Date Expiration Date Visits Requested Visits Authorized [id number] Authorized Evaluate and Treat 08/25/2024 09/24/2025 6 6 Encounter Details Date Type Department Care Team (Late st Contact Info) Description 09/09/2024 1:45 PM VISION CARE ASSOCIATE Therapy [facility] [address] [place] [address] Salima Bergeron, PT Unilateral primary osteoarthritis, right knee (Primary Dx) Social History Tobacco Use Types Packs/Day Years Used Date Smoking Tobacco: Never Smokeless Tobacco: Never Alcohol Use Standard Drinks/Week Comments Yes 0 (1 standard drink = 0.6 oz pur e alcohol) Comments No Sex and Gender Information Value Date Recorded Sex Assigned at Not on file Legal Sex Female 10:25 AM VISION CARE ASSOCIATE Gender Identity Not on file Sexual Orientation Not on file documented as of this encounter Progress Notes * BethJonSalimaPatito, PT - 09/09/2024 1:45 PM CST Physical Therapy Evaluation Hip/knee Ally Juarez 1955 69 y.o. female Nathaniel De Leon MD [address] [place] [id number] ICD-10-CM 1. Unilateral primary osteoarthritis, right knee M17.11 Ambulatory referral order to Physical Therapy - PT Initial Eval Subjective History of Present Illness: Pt presents with right knee pain. She states she has pain in both kneesbut she is planning on getting the right knee replaced first. She states she did just get some recent injections in each knee on 08/22/24 and has to wait 3 months to have surgery. She states it will be in the second half of November of 2024. She states she is here to do some pre-hab for her right knee. Sh e states she puts frankincense and lotion on both knees. She states she uses Voltaren at night. Shestates the pain waker her up at night. She states they burn at times. She state her knees buckle sometimes. She states she does not do any type of regular physical activity. Pt states she has RA. LEFS: 64/80. Current Symptoms: Pain in both knees, some instability Pain: Location: bilat knees Current: 5/10 At Best: 4-5/10 At Worst: 7-8/10 Aggravating factors: walking, steps, Alleviating factors: as above Imaging: non available Function: Prior level of Function: Indep Current Functional Level: indep Social Hx: Lives with spouse, 3 steps up from family room. Mobile home that has been added on to. 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 Hobbies: sewing, reading, jigsaw puzzels, going to taoism Patient goals: strengthen her knees to get ready for surgery. Objective Observation/Edema: In standing the pt demonstrates mild genu valgus bilaterally. No obvious edema is noted visually. mid patella circumference: Right 42 cm Left: 43 cm. Palpation: The pt demonstrates significant crepitace in bilateral knees with AROM and SAQ. Patellofemoral mobility: WNL Joint Accessory motion: N/A AROM: Hip/Knee: Right knee lacks 12 deg of ext to 137 def of flexion. Left knee -8 deg to 135 deg flexion. Strength: Bilat LE strength is WNL except the following: Bilat hip ext: 4/5 Bilat gluteal isolation: 4/5 Bilat hip ER: 4+/5 Right hip abd: 4/5 Special Tests: deferred, pt is scheduled for TKA. Balance: SLS on each LE is unstable. Needs bilat hand hold assist to maintain balance. Gait: Pt ambulates with no significant gait deviations. She does tend to IR a bit at the hips with a mild toeing in gait pattern. Treatment Provided: Pt instructed in initial HEP Access Code: [email or web address] URL: [email or web address] Exercises - Supine Ankle Pumps - 2 x daily - 7 x weekly - 1 sets - 20 reps - 3seconds hold - Supine Gluteal Sets - 2 x daily - 7 x weekly - 1 sets - 15-20 reps - 3seconds hold - Long Sitting Quad Set - 2 x daily - 7 x weekly - 1 sets - 15-20 reps - 3seconds hold - Supine Knee Extension Strengthening - 2 x daily - 7 x weekly - 1 sets - 20 reps - 3seconds hold - Supine Active Straight Leg Raise - 2 x daily - 7 x weekly - 1-3 sets - 10 reps - 3seconds hold Treatment Ideas: Pre-hab for TKA NuStep or recumbent bike for warm up Mat ex for strengthening, needs hip strengthening Try some closed chain standing ex Give pt additional HEP Modalities as indicated Assessment/Plan Assessment Impairments: abnormal or restricted ROM, flexibility, impaired physical strength, weight-bearing intolerance, pain with function, lacks appropriate home exercise program, impaired balance, activity tolerance Prognosis: good Goals STG 1:: Pt able to demonstrate indep with HEP in 4 weeks. STG 2:: Pt able to tolerate progressive ex program in 4-6 weeks. Plan Start time: 1350 End time: 1430 Therapy options: will be seen for skilled therapy services Other planned modality interventions: modalities as indicated PRN Planned therapy interventions: strengthening, muscle pump exercises, functional ROM exercises, stretching, therapeutic activities, manual therapy, home exercise program, balance/weight-bearing training, flexibility Other planned therapy interventions: Others as indicated PRN Discussed with: patient Plan details: Plan to see pt 1x a week for TKA pre-hab program. Sofia Bergeron, PT , DPT, [facility] ON CARE ASSOCIATE documented in this encounter Plan of Treatment Not on file documented as of this encounter Visit Diagnoses Diagnosis Unilateral primary osteoarthritis, right knee- Primary documented in this encounter Orders Outpatient Referral Count Last Ordered Date Fir st Ordered Date AMB REFERRAL ORDER TO PHYSICAL THERAPY 1 documented in this encounter Care Teams Chart Computer Relationship Specialty [place] [address] [facility] [address] [place] [address] PCP - General 10/06/16 [place] [address] [facility] [address] [place] [address] Rheumatology 03/02/17 documented as of this encounter
--- OUTSIDE RECORDS SUMMARY | 2024-09-10 15:39 | XMS_ITS | Referral Summary ---
Author Organization [facility] Address [address] [place] [address] Care Team Providers Care Process Supervisor Name Role Phone Chad Pickering MD Primary Care Provider [phone] Source Comments [facility] Affiliates and Associated Physician Practices is amultiple site organization consisting of ambulatory clinics and hospital sitesin [place], [place], [place] and [place]. This disclosure is being madepursuant to the Care Everywhere program and may not contain all information available regarding this patient. Last updated 18.[facility] Encounters Date Type Department Care Team Description 08/19/2024 2:45 PM SHINGLE GRADER Office Visit [facility] Medical [facility] - Rheumatology [address] [place], [place] [id number] Ramos Emery MD Seronegative rheumatoid arthritis (HCC) (Primary Dx); Immunosuppressed status (HCC); High risk medication use; Polyarthralgia from Last 3 Months Allergies Active Allergy Reactions Criticality Noted Date Comments Adalimumab Anaphylaxis High 07/14/2019 Contrast-Iodinated Agents For Ct/Other Headache,Vision Changes 09/12/2022 Methotrexate Other 08/19/2024 Methotrexate (Anti-Rheumatic) Other 01/06/2018 Nsaids Angioedema,Unknown,A n aphylaxis High 09/12/2022 Reaction: facial swelling, , Medications [...] 1 tablet daily 90 tablet 08/08/2024 Active fluorouracil (Efudex) 5 % cream 05/28/2024 Active fluticasone diskus (Flovent Diskus) 50 MCG/ACT inhaler Inhale 2 (two) puffs by mouth once daily Active lisinopril (Prinivil; Zestril) 40 MG tablet 1 tab(s) orally once a day Active Active Problems Problem Noted Date Diagnosed Date Rheumatoid arthritis involvi ng right wrist, unspecified whether rheumatoid factor present 03/06/2024 Immunizations Name Administration Dates Next Due INFLUENZA VACCINE, TRIV. (AF LURIA, FLUZONE TRIVALENT; 6MO+) (IIV3) 04/23/2008 Social History Tobacco Use Types Packs/Day Years Used Date Smoking Tobacco: Never Assessed PHQ-2 Answer Date Recorded Patient Health Questionnaire-2 Score 0 03/06/2024 Sex and Gender Information Value Date Recorded Sex Assigned at Not on file Gender Identity Not on file Sexual Orientation Not on file Last Filed Vital Signs Vital Sign Reading Time Taken Comments Blood Pressure 160/77 08/19/2024 3:02 PM SHINGLE GRADER Pulse 67 08/19/2024 3:02 PM SHINGLE GRADER Temperature 36.9 C (98.4 F) 09/12/2022 8:47 AM SHINGLE GRADER Respiratory Rate 18 03/06/2024 1:37 PM CDT Oxygen Saturation 96% 03/06/2024 1:37 PM CDT Inhaled Oxygen Concentration - - Weight 84.3 kg (185 lb 12.8 oz) 08/19/2024 3:02 PM SHINGLE GRADER Height 167.6 cm (5' 5.98 ) 08/19/2024 3:02 PM CS T Body Mass Index 30.01 08/19/2024 3:02 PM SHINGLE GRADER Plan of Treatment Not on file Procedures Procedure Name Priority Date/Time Associated Diagnosis Comments URIC ACID BLOOD Routine 08/22/2024 1:10 PM SHINGLE GRADER Seronegative rheumatoid arthritis (HCC) Immunosuppressed status (HCC) High risk medication use Polyarthralgia ERYTHROCYTE SEDIMENTATION RATE Routine 08/22/2024 1:10 PM SHINGLE GRADER Seronegative rheumatoid arthritis (HCC) Immunosuppressed status (HCC) High risk medication use Polyarthralgia C-REACTIVE PROTEIN Routine 08/22/2024 1: 10 PM SHINGLE GRADER Seronegative rheumatoid arthritis (HCC) Immunosuppressed status (HCC) High risk medication use Polyarthralgia COMPREHENSIVE METABOLIC PANEL Routine 08/22/2024 1:10 PM SHINGLE GRADER Seronegative rheumatoid arthritis (HCC) Immunosuppressed status (HCC) High risk medication use Polyarthralgia CBC W AUTO DIFFERENTIAL Routine 08/22/2024 1:10 PM SHINGLE GRADER Seronegative rheumatoid arthritis (HCC) Immunosuppressed status (HCC) High risk medication use Polyarthralgia HEPATITIS PANEL Routine 03/06/2024 2:52 PM CDT History of rheumatoid arthritis Polyarthralgia Myofascial pain Lung nodule Encounter for screening for other viral diseases from Last 3 Months or Most Recently Relevant to Health Maintenance Results * URIC ACID BLOOD (08/22/2024 1:10 PM SHINGLE GRADER) Pathologist [facility] Uric Acid 4.4 2.5 - 7.0 mg/dL [facility] Comment: Therapeutic target for gout patients: <6.0 mg/dL Test Performed at: [employer] [id number] [place] [address] CAMILLE DECKER MD Blood BLOOD SPECIMEN / Unknown 08/22/2024 1:10 PM SHINGLE GRADER 08/22/2024 1:10 PM SHINGLE GRADER Ramos Emery MD LAB - CHEMISTRY TY WARD Performing Organization Address [facility] Co de Phone Number [address] [address] * C-REACTIVE PROTEIN (08/22/2024 1:10 PM SHINGLE GRADER) Pathologist [facility] C-Reactive Protein 3.9 <8.0 mg/L [facility] Comment: REPORT COMMENT: FASTING:YES Test Performed at: [employer] [id number] [place] [address] CAMILLE DECKER MD Blood BLOOD SPECIMEN / Unknown 08/22/2024 1:10 PM SHINGLE GRADER 08/22/2024 1:10 PM SHINGLE GRADER Ramos Emery MD LAB - CHEMISTRY TY WARD Performing Organization Address [facility] de Phone Number [facility] [address] [place] [address] * ERYTHROCYTE SEDIMENTATION RATE (08/22/2024 1:10 PM SHINGLE GRADER) [facility] Erythrocyte Sedimentation Rate Westergren 2 < OR = 30 mm/h [facility] Comment: Test Performed at: [email or web address] [address] CAMILLE DECKER MD Blood BLOOD SPECIMEN / Unknown 08/22/2024 1:10 PM SHINGLE GRADER 08/22/2024 1:10 PM SHINGLE GRADER Ramos Emery MD LAB - HEMATOLOGY ORD ERABLES Performing Organization Address [facility] Co de Phone Number [facility] [address] [place] [address] * (ABNORMAL) CBC WITH DIFFERENTIAL (08/22/2024 1:10 PM SHINGLE GRADER) [facility] White Blood Cell Count 6.9 3.8 [...] 1.0 % [facility] Comment: Test Performed at: [employer] [address] [place] [address] CAMILLE DECKER MD Blood BLOOD SPECIMEN / Unknown 08/22/2024 1:10 PM SHINGLE GRADER 08/22/2024 1:10 PM SHINGLE GRADER Ramos Emery MD LAB - HEMATOLOGY ORD ERABLES [facility] [address] [place] [address] * (ABNORMAL) COMPREHENSIVE METABOLIC PANEL (08/22/2024 1:10 PM SHINGLE GRADER) Pathologist [facility] Glucose 111(H) 65 - 99 mg/dL [facility] [...] 29 U/L [facility] Comment: Test Performed at: [employer] [address] [place] [address] CAMILLE DECKER MD Blood BLOOD SPECIMEN / Unknown 08/22/2024 1:10 PM SHINGLE GRADER 08/22/2024 1:10 PM SHINGLE GRADER Ramos Emery MD LAB - CHEMISTRY [place] Organization Address City/State/[facility] Co de Phone Number [facility] [address] [place] [address] * HEPATITIS PANEL (03/06/2024 2:52 PM CDT) Hepatitis A Virus Antibody Total NON-REACTI VE NON-REACT [facility] Comment: For additional information, please refer to http://[employer]/faq/OIQ904 (This link is being provided for informational/ educational purposes only.) Hepatitis B Virus Surface Antibody NON-REACTI VE NON-REACT [facility] Hepatitis B Virus Surface Antigen NON-REACTI VE NON-REACT [facility] Comment: For additional information, please refer to http://[employer]/faq/FSS613 (This link is being provided for informational/ educational purposes only.) Hepatitis B Core Virus Antibody Total NON-REACTI VE NON-REACT [facility] Comment: For additional information, please refer to http://[employer]/faq/SRC216 (This link is being provided for informational/ educational purposes only.) Hepatitis C Antibody NON-REACTI VE NON-REACT [facility] Comment: HCV antibody was non-reactive. There is no laboratory evidence of HCV infection. In most cases, no further action is required. However, if recent HCV exposure is suspected, a test for HCV RNA (test code 33756) is suggested. For additional information please refer to http://[employer]/faq/HKQ71g8 (This link is being provided for informational/ educational purposes only.) Test Performed at: [employer] [address] [place] [address] CAMILLE DECKER MD Blood BLOOD SPECIMEN / Unknown 03/06/2024 2:52 PM CDT 03/06/2024 2:53 PM CDT Ramos Emery MD LAB - CHEMISTRY TY W[facility] Organization Address City/State/ZIP Co de Phone Number [facility] [address] [place] [address] from Last 3 Months or Most Recently Relevant to Health Maintenance Care Teams Process Supervisor Relationship Specialty [place] [address] [address] PCP - General Internal Medicine 03/06/24
--- OUTSIDE RECORDS SUMMARY | 2024-09-10 15:39 | XMS_ITS | Encounter Summary ---
Author Organization [facility] Address [address] [place] [address] Care Team Providers Care Pantry Attendant Name Role Phone Chad Pickering MD Primary Care Provider [phone] Encounter Details Date Type Department Care Team (Late st Contact Info) Description 12/20/2023 Lab Requisition [facility] - DermPath Lab [address] [place] [id number] Miguel A Del Cid Jr., MD [address] [facility] [address] [place] [address] Social History Tobacco Use Types Packs/Day Years [...] AM CDT) Case Report Dermatopathology Report Case: [id number] Authorizing Provider: Miguel A Del Cid Jr., MD Collected: 12/19/2023 12:00 AM Ordering Location: [facility] - Received: 12/20/2023 01:35 PM DermPath Lab Pathologist: Diamante Serrato MD Specimen: Skin, left proximal posterior upper arm 3:39 PM [facility] DERMATOPATHOLOGY [facility]ORATORY Final Diagnosis Specimen A. SKIN, left proximal posterior upper arm: DERMAL SCAR RESIDUAL SQUAMOUS CELL CARCINOMA NOT IDENTIFIED (L90.5) 3:39 PM [facility] DERMATOPATHOLOGY LABORATORY Clinical History SCC. Check margins 3:39 PM [facility] DERMATOPATHOLOGY [facility]ORATORY Gross Description Specimen A: Received is one formalin filled container labeled with the patient's name and designated left proximal posterior upper arm.The specimen consists of an ellipse measuring 56g87c2 mm and is oriented with the suture/notch [...] in cassettes 3-4. Jar 0. 3:39 PM [facility] DERMATOPATHOLOGY LABORATORY Microscopic Description Specimen A. SKIN, left proximal posterior upper arm: There are fibroblasts and collagen bundles oriented parallel to the skin surface. There are elongated blood vessels, some of which are oriented perpendicular to the skin surface. No residual squamous cell carcinoma is identified. 3:39 PM [facility] DERMATOPATHOLOGY LABORATORY Disclaimer An external and internal positive and negative controls are appropriate for the histochemical, immunohistochemical and immunofluorescence stain(s) in this case (if any), except where stated explicitly. The performance characteristics of the stain(s) cited in this report were developed and its performance characteristic determined by the Dermatopathology Laboratory at [facility], directed by Dr. Ahmet Harkins. These tests need not be, and therefore are not, approved by the [place] Food and Drug Administration. The tests are used for clinical purposes. Billing Codes Specimen Charges Stain Charges 66724 1 3:39 PM CDT DERMATOPATHOLOGY LABORATORY Embedded Images 3:39 PM T DERMATOPATHOLOGY LABORATORY Pathology/Cytolog y TISSUE SPECIMEN FROM SKIN / Unknown 12/19/2023 12/20/2023 1:35 PM CDT Miguel A Del Cid Jr., MD LAB - PATHOLOGY /CYTOLOGY ORDERABLES DERMATOPATHOLOGY LABORATORY [facility] - Department of Dermatology [facility] [address] [place] [address], [address] [phone] documented in this encounter Visit Diagnoses Not on filedocumented in this encounter Care Teams Pantry Attendant Relationship Specialty [place] [address] [facility] [phone] PCP - General Internal Medicine 03/06/24 documented as of this encounter
--- OUTSIDE RECORDS SUMMARY | 2024-09-10 15:39 | XMS_ITS | Data Portability ---
Author Organization [place] [facility],, Ashley carolina Address [address] [place] [address] Assessment No assessment recorded. Plan of Treatment Reminders Order Date Submit Date Provider Last Modified By Organization Details Last Modified Time Details Appointments None recorded. Lab allergy test, skin 019 019 [facility], [address], [address], [place], [address], 9 18:46:06 Referral None recorded. Procedures None recorded. Surgeries None recorded. Imaging None recorded. Medication Orders None recorded. Patient TargetsNo targets recorded. Patient Instructions Encounter Date Encounter Id Patient Instructions Last Modified By Organization Details Last Modified Time 12/20/2018 [id number] drug allergy: care instructions shyann Not available 12/21/2018 09:08:14 Reason for Referral None Reported. Results Created Date Observation Date Name Description Value Unit Range Abnormal Flag Note LastModifiedBy Organization Detail LastModifiedTime Result Notes None recorded. Problems No Known Problems Medical Equipment None Reported. Allergies Allergen ID Allergen Name Allergen Category Reaction Reaction Severity Criticality Documentation Date Start Date Code Code System Note Provider Name and Address Organization Details Recorded Time 91696 Non-stero idal anti-infl ammatory agent (product) medicatio n Not available Not available Not available 12/20/2018 22328 005 SNOMED sandra jaclyndenASTON sue - [facility], 9 14:26:50 Medications Not known to be on any medication Vitals Date Recorded Body weight Body temperature Body mass index (BMI) Body height Systolic blood pressure Diastolic blood pressure Provider Name and Address Organization Details Last Updated DateTime 9 30174.5 9 g 98.3 [degF] 29 kg/m2 170.18 cm 142 mm[Hg] 88 mm[Hg] sandra sanders [place] [facility], 9 14:25:58 Social History Question Answer Notes LastModified by Organizat ion Details LastModified Time Tobacco Smoking Status Never Smoker sandra pearson null, [place] [facility], 12/20/2018 14:27:02 What Was The Date Of Your Most Recent Tobacco Screening? 12/20/2018 Information n ot available 01/30/2019 Sex: Unknown Functional Status None recorded. Mental Status None recorded. Family History Nothing Reported. Medical History Condition Response Diabetes N Anxiety Disorder N Coronary Artery Disease N Gout N Arthritis N Kidney Stones N Hyperthyroidism N Tuberculosis N Cancer N Diverticulitis N Stroke N Asthma N Allergies N Stress N COPD N Depression N Hypothyroidism N GERD/Reflux N High Cholesterol N Liver Disease N Heart Disease N Pulmonary Embolism N Fibromyalgia N Hypertension N Osteoporosis N Kidney Disease N Gynecological HistoryNo gynecological history recorded. Obstetrics History GPAL:G 0 P 0 0 0 0 Past Encounters Encounter ID Performer Location Encounter Start Date Encounter Closed Date Diagnosis/Indication Diagnosis SNOMED-CT Code Diagnosis ICD10 Code Diagnosis Note [id number] Ramirez herman MD OFFICE [address] [place] [phone] 12/20/2018 13:48:27 12/20/2018 16:12:29 Allergy to drug 255405503 T50.905A Skin testing to Humira revealed IgE mediated reactivity . She should avoid this medication . Health Concerns Section Related Observation LastModified by Organization Detai ls LastModified Time None Recorded Concern Status LastModified by Organization Details LastModified Time None Recorded Advance Directives Directive None Recorded Payers Encounter Date Sequence Insurance Name Policy Number Policy Keenan Covered Member ID Keenan Member ID Guarantor Name 12/20/2018 1 [email or web address] [id number] Ally Juarez [id number] Ally Juarez Notes Date Note Type Note Provider Name and Address Organization Details Recorded Time 12/20/2018 text/html Kelle comes in for evaluation of a possible drug allergy. She is a 63-year-old woman with a history of rheumatoid arthritis. She has been on Humira and after a number of doses began having some feeling like she had tightness in her throat. This started a day or so after she would get the infusion and would last for a number of days. She then had some associated a itching burning and watering which also began after the infusion. She comes in today for skin testing to the [facility]. This is her first biologic. Ramirez Chamberlain MD [address], [place], [address], [facility] - [facility], 12/21/2018 09:09:44 OBGyn Episode No OBEpisode recorded.
--- OUTSIDE RECORDS SUMMARY | 2024-09-10 15:39 | XMS_ITS | Clinical Summary ---
Author Organization [facility] Address [address] [place] [address] Care Team Providers Care Horticultural Worker Name Role Phone Chad Pickering MD Primary Care Provider [phone] Source Comments [facility],non-owned Affiliates and Associated Physician Practices is amultiple site organization consisting of ambulatory clinics and hospital sitesin [place], [place], [place] and [place]. This disclosure is being madepursuant to the Care Everywhere program and may not contain all information available regarding this patient. Last updated 18.[facility] Allergies Active Allergy Reactions Criticality Noted Date [...] wrist, unspecified whether rheumatoid factor present 03/06/2024 Encounters Date Type Department Care Team Description 08/19/2024 2:45 PM STEVEDORE DOCK Office Visit [facility] Medical [facility] - Rheumatology [address] [place], [place] [id number] Ramos Emery MD Seronegative rheumatoid arthritis (HCC) (Primary Dx); Immunosuppressed status (HCC); High risk medication use; Polyarthralgia from Last 3 Months Immunizations Name Administration Dates Next Due INFLUENZA [...] Comments Blood Pressure 160/77 08/19/2024 3:02 PM STEVEDORE DOCK Pulse 67 08/19/2024 3:02 PM STEVEDORE DOCK Temperature 36.9 C (98.4 F) 09/12/2022 8:47 AM STEVEDORE DOCK Respiratory Rate 18 03/06/2024 1:37 PM CDT Oxygen Saturation 96% 03/06/2024 1:37 PM CDT Inhaled Oxygen Concentration - - Weight 84.3 kg (185 lb 12.8 oz) 08/19/2024 3:02 PM STEVEDORE DOCK Height 167.6 cm (5' 5.98 ) 08/19/2024 3:02 PM CS T Body Mass Index 30.01 08/19/2024 3:02 PM STEVEDORE DOCK Plan of Treatment Health Maintenance Due Date [...] 12/29/2022, Additional history exists SCREENING FOR DIABETES 08/22/2027 , 04/30/2024, 09/12/2022 COLONOSCOPY - COLON CA SCREENING 07/15/2029 07/15/2019 [...] URIC ACID BLOOD Routine 08/22/2024 1:10 PM STEVEDORE DOCK Seronegative rheumatoid arthritis (HCC) Immunosuppressed status (HCC) High risk medication use Polyarthralgia ERYTHROCYTE SEDIMENTATION RATE Routine 08/22/2024 1:10 PM STEVEDORE DOCK Seronegative rheumatoid arthritis (HCC) Immunosuppressed status (HCC) High risk medication use Polyarthralgia C-REACTIVE PROTEIN Routine 08/22/2024 1: 10 PM STEVEDORE DOCK Seronegative rheumatoid arthritis (HCC) Immunosuppressed status (HCC) High risk medication use Polyarthralgia COMPREHENSIVE METABOLIC PANEL Routine 08/22/2024 1:10 PM STEVEDORE DOCK Seronegative rheumatoid arthritis (HCC) Immunosuppressed status (HCC) High risk medication use Polyarthralgia CBC W AUTO DIFFERENTIAL Routine 08/22/2024 1:10 PM STEVEDORE DOCK Seronegative rheumatoid arthritis (HCC) Immunosuppressed status (HCC) High risk medication use Polyarthralgia HEPATITIS PANEL Routine 03/06/2024 2:52 PM CDT History of rheumatoid arthritis Polyarthralgia Myofascial pain Lung nodule Encounter for screening for other viral diseases from Last 3 Months or Most Recently Relevant to Health Maintenance Results * URIC ACID BLOOD (08/22/2024 1:10 PM STEVEDORE DOCK) Uric Acid 4.4 2.5 - 7.0 mg/dL [facility] Comment: Therapeutic target for gout patients: <6.0 mg/dL Test Performed at: [facility] [address] [place] [address] CAMILLE DECKER MD Blood BLOOD SPECIMEN / Unknown 08/22/2024 1:10 PM STEVEDORE DOCK 08/22/2024 1:10 PM STEVEDORE DOCK Ramos Emery MD LAB - CHEMISTRY TY WARD Performing Organization Address [facility] Co de Phone Number [facility] [address] [place] [address] * C-REACTIVE PROTEIN (08/22/2024 1:10 PM STEVEDORE DOCK) Pathologist [facility] C-Reactive Protein 3.9 <8.0 mg/L [facility] Comment: REPORT COMMENT: FASTING:YES Test Performed at: [facility] [address] [employer] [address] CAMILLE DECKER MD Blood BLOOD SPECIMEN / Unknown 08/22/2024 1:10 PM STEVEDORE DOCK 08/22/2024 1:10 PM STEVEDORE DOCK Ramos Emery MD LAB - CHEMISTRY TY WARD Performing Organization Address [facility] de Phone Number [facility] [id number] [place] [address] * ERYTHROCYTE SEDIMENTATION RATE (08/22/2024 1:10 PM STEVEDORE DOCK) Pathologist [facility] Erythrocyte Sedimentation Rate Westergren 2 < OR = 30 mm/h [facility] Comment: Test Performed at: [employer] [address] CAMILLE DECKER MD Blood BLOOD SPECIMEN / Unknown 08/22/2024 1:10 PM STEVEDORE DOCK 08/22/2024 1:10 PM STEVEDORE DOCK Ramos Emery MD LAB - HEMATOLOGY ORD ERAPRASHANT Performing Organization Address [facility] Co de Phone Number [facility] [address] [place] [address] * (ABNORMAL) CBC WITH DIFFERENTIAL (08/22/2024 1:10 PM STEVEDORE DOCK) Pathologist [facility] White Blood Cell Count 6.9 3.8 [...] 1.0 % [facility] Comment: Test Performed at: [facility] [address] [place] [address] CAMILLE DECKER MD Blood BLOOD SPECIMEN / Unknown 08/22/2024 1:10 PM STEVEDORE DOCK 08/22/2024 1:10 PM STEVEDORE DOCK Ramos Emery MD LAB - HEMATOLOGY ORD ERABLES [facility] [address] [place] [address] * (ABNORMAL) COMPREHENSIVE METABOLIC PANEL (08/22/2024 1:10 PM STEVEDORE DOCK) Pathologist [facility] Glucose 111(H) 65 - 99 mg/dL [facility] [...] 29 U/L [facility] Comment: Test Performed at: [facility] [address] [place] [address] CAMILLE DECKER MD Blood BLOOD SPECIMEN / Unknown 08/22/2024 1:10 PM STEVEDORE DOCK 08/22/2024 1:10 PM STEVEDORE DOCK Ramos Emery MD LAB - CHEMISTRY TY WARD [facility] Organization Address City/State/[facility] Co de Phone Number [facility] [address] [place] [address] * HEPATITIS PANEL (03/06/2024 2:52 PM CDT) Hepatitis A Virus Antibody Total NON-REACTI VE NON-REACT BR[facility]LEY [facility] Comment: For additional information, please refer to http://[employer].KeepGo/faq/OOH463 (This link is being provided for informational/ educational purposes only.) Hepatitis B Virus Surface Antibody NON-REACTI VE NON-REACT BR[facility] Hepatitis B Virus Surface Antigen NON-REACTI VE NON-REACT BR[facility]LEY [facility] Comment: For additional information, please refer to http://[employer].KeepGo/faq/RNN230 (This link is being provided for informational/ educational purposes only.) Hepatitis B Core Virus Antibody Total NON-REACTI VE NON-REACT BR[facility]LEY [facility] Comment: For additional information, please refer to http://Touchstorm/faq/XUG589 (This link is being provided for informational/ educational purposes only.) Hepatitis C Antibody NON-REACTI VE NON-REACT BR[facility]LEY [facility] Comment: HCV antibody was non-reactive. There is no laboratory evidence of HCV infection. In most cases, no further action is required. However, if recent HCV exposure is suspected, a test for HCV RNA (test code 55651) is suggested. For additional information please refer to http://education.KeepGo/faq/FDT82b8 (This link is being provided for informational/ educational purposes only.) Test Performed at: [facility] [address] [facility] [place] [address] CAMILLE DECKER MD Blood BLOOD SPECIMEN / Unknown 03/06/2024 2:52 PM CDT 03/06/2024 2:53 PM CDT Ramos Emery MD LAB - CHEMISTRY TY WARD [facility] Organization Address City/State/ZIP Co de Phone Number [facility] [address] [place] [address] from Last 3 Months or Most Recently Relevant to Health Maintenance Care Teams Horticultural Worker Relationship Specialty [place] [address] [address] [facility] [address] [place] [address] PCP - General Internal Medicine 03/06/24
--- OUTSIDE RECORDS SUMMARY | 2024-09-10 15:39 | XMS_ITS ---
Author Organization [facility] Address [address] [place] [address] Care Team Providers Care Hot Strip Mill Inspector Name Role Phone Chad Sherman Primary Care Provider Unavailab Santiago Franz Unavailable [phone] ZZ-Migration, Provider Unavailable Unavailab le Allergies Allergen (clinical drug ingredient) Drug/Non Drug Allergy documented on EMR Reaction Allergy Type Onset Date Status CONTRAST DYE (uncoded) confusion, trouble breathing Allergy Active Humira swelling-face lips throat -skin test Drug Allergy Active Methotrexate nodules in lungs Drug Allergy Active Non-steroidal anti-inflammatory agent (FN) NSAIDs swelling-face, lips, throat Drug Allergy Active [facility] Encounter Medications Medication SIG (Take, Route, Frequency, Duration) Notes Start Date End Date Status ALBUTEROL (EQV-PROVENTIL HFA) 90 MCG/INH 2 PUFF(S) INHALED EVERY 6 HOURS *Please review for potential replacement for e-prescription and drug interaction check* Active Breo Ellipta 100 MCG-25 MCG/INH 1 PUFF(S) INHALED ONCE A DAY *Please review and pick correct strength-formulat ion from [facility] options. If intended option is not [...] Active Encounters Encounter Location Date Provider Diagnosis [address] [address] 12/22/2023 Provider Deangelo Localized swelling, mass and [...] review and pick correct strength-formulati on from Offers.coman options. If intended option is not shown, [...] Notes * Olegario BETHEA:1954 (69 yo F)Acc No.[id number]:12/22/2023 Patient: Ally TARIQ Provider: Eduin Richardson :1955 A ge:68 Y S ex:Female Date:12/22/2023 Address:[address] [place] [address] [address] [facility] Pcp:Chad Sherman Subjective: * Chief Complaints: * 1 . [facility] En[facility]. * Medical History: * [...] *Please review and pick correct strength-formulation from YOUnite options. If intended option is not shown, discontinue and re-order from Quick Search*; C ontinue ALBUTEROL (EQV-PROVENTIL HFA) AEROSOL, 90 MCG/INH, 2 PUFF(S), INHALED, EVERY 6 HOURS, Notes to Pharmacist: *Please review for potential replacement for e-prescription and drug interaction check*. * Billing Information: * Visit Code: * Procedure Codes: * Electronic signature of David RODRIGUEZ-Migration on 09/10/2024 at 03:38 PM CARBURETOR MECHANIC Sign off status: Pending * Provider: Eduin lloyd Migration Date: 0 12/22/2023 Generated for Debra tucker/Deo/Yeseniaitting on: 0 09/10/2024 03:38 PM CARBURETOR MECHANIC
--- OUTSIDE RECORDS SUMMARY | 2024-09-10 15:39 | XMS_ITS | Encounter Summary ---
Author Organization [facility] Address [address] [facility] [place] [address] Care Team Providers Care Ophthalmology Technician Name Role Phone Chad Pickering MD Primary Care Provider [phone] Encounter Details Date Type Department Care Team (Late st Contact Info) Description 06/30/2021 Lab Requisition [facility] DermPath Lab [address] [place] [address] Miguel A Del Cid Jr., MD [address] [facility] [address] [place] [address] Social History Tobacco Use Types Packs/Day Years [...] Comments DERMATOPATHOLOGY Routine 06/29/2021 12:0 0 AM CLAMP REMOVER documented in this encounter Results * DERMATOPATHOLOGY (06/29/2021 12:00 AM CLAMP REMOVER) Case Report Dermatopathology Report Case: [id number] Authorizing Provider: Miguel A Del Cid Jr., MD Collected: 06/29/2021 12:00 AM Ordering Location: [facility] DermPath Lab Received: 06/30/2021 01:15 PM Pathologist: Laurita Quinones MD Specimens: A) - Skin, right anterior proximal upper arm B) - Skin, right anterior proximal upper arm C) - Skin, right superior upper back 11:20 AM [facility] DERMATOPATHOLOGY LABORATORY Final Diagnosis Specimen A. SKIN, right anterior proximal upper arm: LICHEN PLANUS-LIKE KERATOSIS (BENIGN LICHENOID KERATOSIS) (L82.1) Specimen B. SKIN, right anterior proximal upper arm: ACTINIC KERATOSIS, LICHENOID (L57.0) Specimen C. SKIN, right superior upper back: LICHEN PLANUS-LIKE KERATOSIS (BENIGN LICHENOID KERATOSIS) (L82.1) 11:20 AM [facility] DERMATOPATHOLOGY LABORATORY Clinical History A-C: Inflamed seborrheic keratosis vs squamous cell carcinoma. . 11:20 AM [facility] DERMATOPATHOLOGY LABORATORY Gross Description Specimen A: Received is one formalin filled container labeled with the patient's name and designated right anterior proximal upper arm. The specimen consists of a shave biopsy measuring [id number]. Jar 0. Specimen B: Received is one formalin filled container labeled with the patient's name and designated right anterior proximal upper arm. The specimen consists of a shave biopsy measuring [id number]. Jar 0. Specimen C: Received is one formalin filled container labeled with the patient's name and designated right superior upper back. The specimen consists of a shave biopsy measuring [id number]. Jar 0. 11:20 AM [facility] DERMATOPATHOLOGY LABORATORY Microscopic Description Specimen A. SKIN, [...] keratinocytes and scattered necrotic keratinocytes. 11:20 AM [facility] DERMATOPATHOLOGY LABORATORY Disclaimer An external and internal positive and negative controls are appropriate for the histochemical, immunohistochemical and immunofluorescence stain(s) in this case (if any), except where stated explicitly. The performance characteristics of the stain(s) cited in this report were developed and its performance characteristic determined by the Dermatopathology Laboratory at [facility], directed by Dr. Ahmet Harkins. These tests need not be, and therefore are not, approved by the [place] Food and Drug Administration. The tests are used for clinical purposes. Billing Codes Specimen Charges Stain Charges 35036 36362 [id number] 1 1 1 1 11:20 AM [facility] DERMATOPATHOLOGY LABORATORY Embedded Images 11:20 AM [facility] DERMATOPATHOLOGY LABORATORY Pathology/Cytology TISSUE SPECIMEN FROM SKIN / Unknown 06/29/2021 06/30/2021 1:15 PM CLAMP REMOVER Miscellaneous samples (specimen) TISSUE SPECIMEN FROM SKIN / Unknown 06/29/2021 06/30/2021 1:15 PM CLAMP REMOVER Miscellaneous samples (specimen) TISSUE SPECIMEN FROM SKIN / Unknown 06/29/2021 06/30/2021 1:15 PM CLAMP REMOVER Miguel A Del Cid Jr., MD LAB - PATHOLOGY /CYTOLOGY ORDERABLES DERMATOPATHOLOGY LABORATORY [facility] - Department of Dermatology [facility] Specialized Medicine [address] [place] [address], [address] [phone] documented in this encounter Visit Diagnoses Not on filedocumented in this encounter Care Teams Ophthalmology Technician Relationship Specialty [place] [address] [facility] [place] [address] PCP - General Internal Medicine 03/06/24 documented as of this encounter
--- OUTSIDE RECORDS SUMMARY | 2024-09-10 15:39 | XMS_ITS | Clinical Summary ---
Author Organization [facility] Address [address] [place] [address] Phone Care Team Providers Care Camera Repairman Name Role Phone Chad Pickering MD Primary Care Provider [phone] Allergies Active Allergy Reactions Criticality Noted Date [...] Comments Blood Pressure 108/55 08/03/2022 12:00 AM SERVER SOFTWARE ENGINEER Pulse 64 08/03/2022 12:00 AM SERVER SOFTWARE ENGINEER Temperature 36.1 C (96.9 F) 08/02/2022 9:02 PM SERVER SOFTWARE ENGINEER Respiratory Rate 14 08/03/2022 12:00 AM SERVER SOFTWARE ENGINEER Oxygen Saturation 93% 08/03/2022 12:00 AM SERVER SOFTWARE ENGINEER Inhaled Oxygen Concentration - - Weight 84.8 kg (187 lb) 08/02/2022 9:02 PM SERVER SOFTWARE ENGINEER Height 167.6 cm (5' 6 ) 08/02/2022 9:02 PM SERVER SOFTWARE ENGINEER Body Mass Index 30.18 08/02/2022 9:02 PM SERVER SOFTWARE ENGINEER Plan of Treatment Health Maintenance Due Date [...] topic Insurance MEDICARE COMMERCIAL GENERIC Care Teams Camera Repairman Relationship Specialty [place] [id number] [place] [address] PCP - General Internal Medicine 07/30/22
--- OUTSIDE RECORDS SUMMARY | 2024-09-10 15:39 | XMS_ITS | Encounter Summary ---
Author Organization [facility] Healthcare Address [address] [place] [address] Care Team Providers Care Finisher Accordion Name Role Phone Chad Sherman MD Primary Care Provider + Monserrat Florentino MD Unavailable Encounter Details Date Type Department Care Team (Late st Contact Info) Description 09/09/2024 Plan of Care Documentation [facility] Physical Therapy [address] [place] [id number] Social History Tobacco Use Types Packs/Day Years Used Date Smoking Tobacco: Never Smokeless Tobacco: Never Alcohol Use Standard Drinks/Week Comments Yes 0 (1 standard drink = 0.6 oz pur e alcohol) Comments No Sex and Gender Information Value Date Recorded Sex Assigned at Not on file Legal Sex Female 10:25 AM TOBACCO CURER Gender Identity Not on file Sexual Orientation Not on file documented as of this encounter Plan of Treatment Not on file documented as of this encounter Visit Diagnoses Not on filedocumented in this encounter Care Teams Finisher Accordion Relationship Specialty [place] [address] [facility] [address] [place] [address] PCP - General 10/06/16 [place] [address] [place] [address] Rheumatology 03/02/17 documented as of this encounter
--- OUTSIDE RECORDS SUMMARY | 2024-09-10 15:39 | XMS_ITS | Encounter Summary ---
Author Organization [facility] Address [address] [place] [address] Phone Care Team Providers Care Medical Csr Name Role Phone Chad Sheramn MD Primary Care Provider + Monserrat Florentino MD Unavailable Encounter Details Date Type Department Care Team (Late st Contact Info) Description 08/29/2017 Orders Only [facility] ProviderCherelle MD [phone] Social History Tobacco Use Types Packs/Day Years Used Date Smoking Tobacco: Never Alcohol Use Standard Drinks/Week Comments Yes 0 (1 standard drink = 0.6 oz pur e alcohol) Comments Unknown Sex and Gender Information Value Date Recorded Sex Assigned at Not on file Legal Sex Female 10:25 AM TRAILER MECHANIC Gender Identity Not on file Sexual Orientation Not on file documented as of this encounter Plan of Treatment Not on file documented as of this encounter Procedures Procedure Name Priority Date/Time Associated Diagnosis Comments DISCHARGE LABORATORY CUMULATIVE REPORT 08/29/2017 12:00 AM TRAILER MECHANIC documented in this encounter Results * DISCHARGE LABORATORY CUMULATIVE REPORT (08/29/2017 12:00 AM TRAILER MECHANIC) Narrative 08/29/2017 12:00 AM TRAILER MECHANIC Ordered by an unspecified provider. Historical Provider LAB BLOOD ORDERABLES Viviane l Result documented in this encounter Visit Diagnoses Not on filedocumented in this encounter Care Teams Medical Csr Relationship Specialty Start Date End Date [place], [place] [address] [facility] [address] [place] [address] PCP - General 10/06/16 [place] [address] [facility] [address] [place] [address] Rheumatology 03/02/17 documented as of this encounter
== END 2024-09-10 14:01 | disposition home or self-care (01) ==
PROVIDERS: PCP Internal Medicine Geriatric Medicine; Visit Provider Orthopaedic Surgery
DX: I10 Essential (primary) hypertension (principal); M17.11 Unilateral primary osteoarthritis, right knee; I45.10 Unspecified right bundle-branch block
CPT/HCPCS: 36415; 82040; 82565; 85014; 85018; 93005

== ENCOUNTER 2025-04-03 09:47 | Outpatient (CLI) | payer MEDICARE, SELFPAY ==
--- OUTSIDE RECORDS SUMMARY | 2025-04-03 09:53 | XMS_ITS | Clinical Summary ---
Author Organization [facility] Address [address] [place] [address] Care Team Providers Care Manager Of Program Name Role Phone Chad Pickering MD Primary Care Provider [phone] Source Comments [facility],non-owned Affiliates and Associated Physician Practices is amultiple site organization consisting of ambulatory clinics and hospital sitesin [place], [place], [place] and [place]. This disclosure is being madepursuant to the Care Everywhere program and may not contain all information available regarding this patient. Last updated 18.[facility] Allergies Active Allergy Reactions Criticality Noted Date Comments Adalimumab Anaphylaxis High 07/14/2019 Contrast-Iodinated Agents For Ct/Other Headache,Vision Changes 09/12/2022 Methotrexate Other 08/19/2024 Methotrexate (Anti-Rheumatic) Other 01/06/2018 Nsaids Angioedema,Unknown,A n aphylaxis High 09/12/2022 Reaction: facial swelling, , Medications * Be aware that medications may not be up to date on this document. Alwaysverify current medications with the patient. albuterol HFA (Proventil; Ventolin; Proair) 108 (90 Base) MCG/ACT inhaler 2 PUFF(S) INHALED EVERY 6 HOURS Active cloNIDine (Catapres) 0.1 MG tablet TAKE 1 TABLET BY MOUTH TWICE DAILY NEEDED FOR EPISODES OF SEVERE HYPERTENSION 023 Active EPIPEN 0.3 MG/0.3ML auto-injector pen as [...] tablet 1 tab(s) orally once a day 024 Active NIFEdipine CR 24hr (Adalat CC) 30 MG tablet 1 tab(s) orally once a day 023 Active spironolactone (Aldactone) 25 MG tablet 1 tab(s) orally once a day 023 Active fluorouracil (Efudex) 5 % cream 024 Active fluticasone diskus (Flovent Diskus) 50 MCG/ACT inhaler Inhale 2 (two) puffs by mouth once daily Active lisinopril (Prinivil; Zestril) 40 MG tablet 1 tab(s) orally once a day Active leflunomide (Arava) 20 MG tabletIndicati ons:Seronegati ve rheumatoid arthritis (HCC),Polyarth ralgia,Rheumat oid arthritis involving right wrist, unspecified whether rheumatoid factor present (HCC) TAKE 1 TABLET EVERY DAY 90 tablet 3 025 Active leflunomide (Arava) 20 MG tablet TAKE 1 TABLET EVERY DAY 90 tablet 025 2024 Discontinued Active Problems Problem Noted Date Diagnosed Date Rheumatoid arthritis involvi ng right wrist, unspecified whether rheumatoid factor present 03/06/2024 Encounters Date Type Department Care Team Description 03/19/2025 Refill [facility] - Rheumatology [address] [place] [address] Ramos Emery MD Refill Request 01/12/2025 Results Follow-Up [facility] - Rheumatology [address] [place] [address] Ramos Emery MD 01/12/2025 Results Follow-Up [facility] - Rheumatology [address] [place] [address] [address] [place] [address] Ramos Emery MD 01/03/2025 Refill [facility] - Rheumatology [address] [place] [address] [address] [place] [address] Ramos Emery MD Refill Request from Last 3 Months Immunizations Immunization Administration Dates Next Due INFLUENZA VACCINE, TRIV. (AF LURIA, FLUZONE TRIVALENT; 6MO+) (IIV3) 04/23/2008 Social History Tobacco Use Types Packs/Day Years Used Date Smoking Tobacco: Never Assessed PHQ-2 Answer Date Recorded Patient Health Questionnaire-2 Score 0 03/06/2024 Comments Unknown Sex and Gender Information Value Date Recorded Sex Assigned at Not on file Legal Sex Female 4:33 PM CDT Gender Identity Not on file Sexual Orientation Not on file Last Filed Vital Signs Vital Sign Reading Time Taken Comments Blood Pressure 138/70 12/17/2024 10:51 AM CDT Pulse 84 12/17/2024 10:51 AM CDT Temperature 36.9 C (98.4 F) 09/12/2022 8:47 AM PLANISHER Respiratory Rate 18 12/17/2024 10:51 AM CDT Oxygen Saturation 96% 12/17/2024 10:51 AM CDT Inhaled Oxygen Concentration - - Weight 79.8 kg (176 lb) 12/17/2024 10:51 AM CDT Height 167.6 cm (5' 5.98) 08/19/2024 3:02 PM CS T Body Mass Index 28.42 08/19/2024 3:02 PM PLANISHER Plan of Treatment Upcoming Encounters Date Type Department Care Team (Late st Contact Info) Description 04/27/2025 2:00 PM CDT Office Visit [facility] - Rheumatology [address] [place] [address] [address] [place] [address] [place] [address] [facility] [address] [place] [id number] Health Maintenance Due Date Last Done Comments COLOGUARD (AGES 45-75) - COLON CA SCREENING 1955 CT COLONOGRAPHY - COLON CA SCREENING [...] - Pfizer risk series) 03/28/2021 02/28/2021, 02/07/2021 DEPRESSION SCREENING 07/09/2024 03/06/2024 INFLUENZA VACCINE (#1) 2025 04/23/2008 MAMMOGRAM 03/26/2026 03/26/2024, 03/09, 12/29/2022, Additional history exists SCREENING FOR DIABETES 12/25/2027 , 08/22/2024, 04/30/2024, Additional history exists COLON MONITORING 07/15/2029 07/15/2019 COLONOSCOPY - COLON CA SCREENING 07/15/2029 07/15/2019 Colorectal Cancer Screening 07/15/2029 BONE DENSITY TESTING Completed 11/25/2013 HEPATITIS C SCREENING Completed 12/24/2024, 024 HEPATITIS B VACCINE Aged Out No longe r eligible based on patient's age to complete this topic HIB VACCINE Aged Out No longer eligi ble based on patient's age to complete this topic HPV VACCINE Aged Out No longer eligi ble based on patient's age to complete this topic MENINGOCOCCAL (Group B) VACCINE SHARED DECISION-MAKING Aged Out No longer eligible based on patient's age to complete this topic MENINGOCOCCAL GROUPS A/C/Y/W VACCINE Aged Out No longer eligible based on patient's age to complete this topic Procedures Procedure Name Priority Date/Time Associated Diagnosis Comments HEPATITIS A ANTIBODY REFLEX IGM Routine 01/08/2025 10:54 AM CDT Hepatitis A test positive COMPREHENSIVE METABOLIC PANEL Routine 12/24/2024 12:52 PM CDT Seronegative rheumatoid arthritis (HCC) Immunosuppressed status (HCC) High risk medication use Polyarthralgia HEPATITIS PANEL Routine 12/24/2024 12:48 PM CDT Seronegative rheumatoid arthritis (HCC) Immunosuppressed status (HCC) High risk medication use Polyarthralgia Encounter for screening for other viral diseases from Last 3 Months or Most Recently Relevant to Health Maintenance Results * HEPATITIS A ANTIBODY REFLEX IGM (01/08/2025 10:54 AM CDT) Hepatitis A Virus Antibody Total NON-REACTI VE NON-REACT [facility] Comment: For additional information, please refer to http://education.eTimesheets.com/faq/MGP581 (This link is being provided for informational/ educational purposes only.) REPORT COMMENT: FASTING:NO Test Performed at: [facility] [address] [facility] [place] [address] CAMILLE DECKER MD Blood BLOOD SPECIMEN / Unknown 01/08/2025 10:54 AM CDT 01/08/2025 10:54 AM CDT Ramos Emery MD LAB - SEROLOGY ORDERABLES Final Result Performing Organization Address City/State/[facility] Co de Phone Number [facility] [address] [place] [address] * (ABNORMAL) COMPREHENSIVE METABOLIC PANEL (12/24/2024 12:52 PM CDT) Glucose 87 65 - 99 mg/dL [facility] Comment: Fasting reference interval BUN 23 7 - 25 mg/dL [facility] Creatinine 0.88 0.50 - 1.05 mg/dL [facility] eGFR by Cystatin C 72 > OR = 60 mL/min/1. 73m2 [facility] BUN/Creatinine Ratio SEE NOTE: 6 - 22 (calc) [facility] Comment: Not Reported: BUN and Creatinine are within reference range. Sodium 140 135 - 146 mmol/L [facility] Potassium 4.6 3.5 - 5.3 mmol/L [facility] Chloride 105 98 - 110 mmol/L [facility] CO2 27 20 - 32 mmol/L [facility] Calcium 10.1 8.6 - 10.4 mg/dL [facility] Protein Total 7.0 6.1 - 8.1 g/dL [facility] Albumin 4.5 3.6 - 5.1 g/dL [facility] Globulin Total 2.5 1.9 - 3.7 g/dL (calc) [facility] Albumin/Globulin Ratio 1.8 1.0 - 2.5 (calc) [facility] Bilirubin Total 0.4 0.2 - 1.2 mg/dL [facility] Alkaline Phosphatase 96 37 - 153 U/L [facility] AST 31 10 - 35 U/L [facility] ALT 34(H) 6 - 29 U/L [facility] Comment: Test Performed at: [facility] [place] [id number] CAMILLE DECKER MD Blood BLOOD SPECIMEN / Unknown 12/24/2024 12:52 PM CDT 12/24/2024 12:52 PM CDT Ramos Emery MD LAB - CHEMISTRY ORDERABLES Final Result [facility] [address] [place] [address] * (ABNORMAL) HEPATITIS PANEL (12/24/2024 12:48 PM CDT) Hepatitis A Virus Antibody Total REACTIVE(A ) NON-REACT [facility] Comment: For additional information, please refer to http://Neohapsis/faq/XEB447 (This link is being provided for informational/ educational purposes only.) Hepatitis B Virus Surface Antibody NON-REACTI VE NON-REACT [facility] Hepatitis B Virus Surface Antigen NON-REACTI VE NON-REACT [facility] Comment: For additional information, please refer to http://Neohapsis/faq/XCB036 (This link is being provided for informational/ educational purposes only.) Hepatitis B Core Virus Antibody Total NON-REACTI VE NON-REACT [facility] Comment: For additional information, please refer to http://Neohapsis/faq/LKZ542 (This link is being provided for informational/ educational purposes only.) Hepatitis C Antibody NON-REACTI VE NON-REACT [facility] Comment: HCV antibody was non-reactive. There is no laboratory evidence of HCV infection. In most cases, no further action is required. However, if recent HCV exposure is suspected, a test for HCV RNA (test code 20559) is suggested. For additional information please refer to http://Neohapsis/faq/FNS87b3 (This link is being provided for informational/ educational purposes only.) REPORT COMMENT: FASTING:NO Test Performed at: [facility] [address] [address] [place] [address] CAMILLE DECKER MD Blood BLOOD SPECIMEN / Unknown 12/24/2024 12:48 PM CDT 12/24/2024 12:49 PM CDT Ramos Emery MD LAB - CHEMISTRY ORDERABLES Final Result [facility] [address] [place] [address] from Last 3 Months or Most Recently Relevant to Health Maintenance Insurance MEDICARE [employer] [facility] MEDICARE Care Teams Manager Of Program Relationship Specialty [place] [address] [address] [facility] [address] [place] [address] PCP - General Internal Medicine 03/06/24
--- OUTSIDE RECORDS SUMMARY | 2025-04-03 09:53 | XMS_ITS | Encounter Summary ---
Author Organization [facility] Address [address] [place] [address] Phone Care Team Providers Care Accountant Clerk Name Role Phone Chad Sherman MD Primary Care Provider + Monserrat Florentino MD Unavailable Encounter Details Date Type Department Care Team (Late st Contact Info) Description 08/29/2017 Orders Only [facility] ProviderCherelle MD [address] [place], [place] [id number] Social History Tobacco Use Types Packs/Day Years Used Date Smoking Tobacco: Never Alcohol Use Standard Drinks/Week Comments Yes 0 (1 standard drink = 0.6 oz pur e alcohol) Comments Unknown Sex and Gender Information Value Date Recorded Sex Assigned at Not on file Legal Sex Female 10:25 AM AUTOS DISASSEMBLER Gender Identity Not on file Sexual Orientation Not on file documented as of this encounter Plan of Treatment Upcoming Encounters Date Type Department Care Team (Late st Contact Info) Description 10/21/2025 8:30 AM CDT Hospital Encounter [address] [address] Dat Montez DO [address] [place] [address] [place] [address] 10/21/2025 8:30 AM CDT - 10/21/2025 9:00 AM CDT Surgery [address] [address] Dat Montez DO [address] [facility] [place] [address] COLONOSCOPY Scheduled Procedures Name Priority Associated Diagnoses Date/Ti me COLONOSCOPY History of colonic polyps 10/21/2025 8:30 AM CDT documented as of this encounter Procedures Procedure Name Priority Date/Time Associated Diagnosis Comments DISCHARGE LABORATORY CUMULATIVE REPORT 08/29/2017 12:00 AM AUTOS DISASSEMBLER documented in this encounter Results * DISCHARGE LABORATORY CUMULATIVE REPORT (08/29/2017 12:00 AM AUTOS DISASSEMBLER) Narrative 08/29/2017 12:00 AM AUTOS DISASSEMBLER Ordered by an unspecified provider. us Historical Provider LAB BLOOD ORDERABLES Viviane l Result documented in this encounter Visit Diagnoses Not on filedocumented in this encounter Care Teams Accountant Clerk Relationship Specialty [place] [address] [address] [facility] [address] [place] [address] PCP - General 10/06/16 [place] [address] [place] [facility] [address] [place] [address] Rheumatology 03/02/17 documented as of this encounter
--- OUTSIDE RECORDS SUMMARY | 2025-04-03 09:53 | XMS_ITS | Clinical Summary ---
Author Organization [facility] Address [address] [place] [address] Phone Care Team Providers Care Rental Management Trainee Name Role Phone Chad Pickering MD Primary Care Provider [phone] Allergies Active Allergy Reactions Criticality Noted Date [...] Comments Blood Pressure 108/55 08/03/2022 12:00 AM BILINGUAL MEDICAL ASSISTANT Pulse 64 08/03/2022 12:00 AM BILINGUAL MEDICAL ASSISTANT Temperature 36.1 C (96.9 F) 08/02/2022 9:02 PM BILINGUAL MEDICAL ASSISTANT Respiratory Rate 14 08/03/2022 12:00 AM BILINGUAL MEDICAL ASSISTANT Oxygen Saturation 93% 08/03/2022 12:00 AM BILINGUAL MEDICAL ASSISTANT Inhaled Oxygen Concentration - - Weight 84.8 kg (187 lb) 08/02/2022 9:02 PM BILINGUAL MEDICAL ASSISTANT Height 167.6 cm (5' 6) 08/02/2022 9:02 PM BILINGUAL MEDICAL ASSISTANT Body Mass Index 30.18 08/02/2022 9:02 PM BILINGUAL MEDICAL ASSISTANT Plan of Treatment Health Maintenance Due Date Last Done Comments Hepatitis C Virus (HCV) Screening 1955 TdaP Immunization 1955 Cologuard 2002 Colonoscopy 2002 Colorectal Cancer Screening 2002 Immunochemical Fecal Occult Blood 2002 Pneumococcal Immunization (5 0+ years) (1 of 1 - PCV) 2007 Zoster Immunization (1 of 2) 2007 Influenza Immunization (#1) 2025 04/23/2008 SARS-COV-2 Immunization (3 - season) 2025 02/28/2021, 02/07/2021 Respiratory Syncytial Virus (RSV) Immunization (Adult) (1 - 1-dose 75+ series) 01/22/2032 Hepatitis B Immunization Aged Out No longer eligible based on patient's age to complete this topic Human Papillomavirus (HPV) Immunization Aged Out No longer eligible b ased on patient's age to complete this topic Meningococcal Immunization (ACWY) Aged Out No longer eligible b ased on patient's age to complete this topic Rotavirus Immunization Aged Out No lo nger eligible based on patient's age to complete this topic Insurance MEDICARE COMMERCIAL GENERIC Care Teams Rental Management Trainee Relationship Specialty [place] [address] [address] [facility] [address] [place] [address] PCP - General Internal Medicine 07/30/22
--- OUTSIDE RECORDS SUMMARY | 2025-04-03 09:53 | XMS_ITS | Clinical Summary ---
Author Organization [facility] Address [address] [place] [address] Care Team Providers Care Production Or Plant Engineer Name Role Phone Chad Mayer MD Primary [...] Active Problems Problem Noted Date Diagnosed Date History of colonic polyps 03/02/2025 Screen for colon cancer 06/12/2019 Overview (06/12/2019): Added automatically from request for surgery [id number] Fibromyalgia 04/02/2017 Assessment & Plan (01/14/2018 2:14 [...] 2:05 PM CDT): Follows w/ pulmonology at [facility] Assessment & Plan (10/18/2017 8:27 AM [...] pain. [place] and states she always feels better [facility]. Patient is to continue current regimen. 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) (Primary Dx) 01/19/2025 2:30 PM CDT Infusion [address] [place] [address] Rheumatoid arthritis involving both hands with negative [...] - Secondary to clot with treatment for DE Rheum arthritis Sister 2 RA; Heart attack [...] on file Legal Sex Female 10:25 AM FEATHER SAWYER Gender Identity Not on file Sexual Orientation Not on file Obstetrics History Para Term AB IAB SAB Ectopic Multiple Livin g Live Births 2 2 2 Date Outcome GA Total Labor Labor/2nd/3rd Weight Sex Type Anes PTL Neha A1 A5 Name Clin Term Term Last Filed Vital Signs Vital Sign Reading Time Taken Comments Blood Pressure 147/61 03/16/2025 2:39 PM CDT Pulse 74 03/16/2025 2:39 PM CDT Temperature 36.7 C (98.1 F) 03/16/2025 2:39 PM CDT Respiratory Rate 18 03/16/2025 2:39 PM CDT Oxygen Saturation 94% 03/16/2025 2:39 PM CDT Inhaled Oxygen Concentration - - Weight 81.6 kg (180 lb) 03/16/2025 2:40 PM CDT Height 167.6 cm (5' 6) 12/29/2022 2:16 PM CDT Body Mass Index 29.05 12/29/2022 2:16 PM CDT Plan of Treatment Upcoming Encounters Date Type Department Care Team (Late st Contact Info) Description 10/21/2025 8:30 AM CDT Hospital Encounter [address] [address] Dat Montez, DO [address] [facility] [address] [place] [address] 10/21/2025 8:30 AM CDT - 10/21/2025 9:00 AM CDT Surgery [address] [address] Dat Montez, [address] [facility] [facility] [address] [place] [address] COLONOSCOPY Scheduled Procedures Name Priority Associated Diagnoses Date/Ti me COLONOSCOPY History of colonic polyps 10/21/2025 8:30 AM CDT Health Maintenance Due Date Last Done Comments [...] Well Visit 65+ 2022 Influenza Vaccine (#1) 2025 04/23/2008 Breast Cancer Screening-Mammogram 03/26/2025 03/26/2024, 12/29/2022, 11/11/2021, Additional history exists Colon Cancer Screening-Colonoscopy 07/15/2029 07/15/2019 Colon Cancer Screening-CT Colonography Discontinued 07/15/2019 Colon Cancer Screening-DNA Stool Discontinued 07/15/19 Colon Cancer Screening-FIT Discontinued 07/15/2019 Colon Cancer Screening-Sigmoidoscopy Discontinued 07/15/2019 Medical Devices Implanted Type Area Internal Grinder Device Identifier Shelf Expiration Date Model / Serial / Lot [employer] [id number] Mammomark 8ga Bowtie Identifier Biopsy Site - [id number] - [id number] Implanted:Qty: 1 on 02/05/2018 by Reilly Vega Jr., MD at [facility] Breast Right: Breast [employer] 02/25/2019 [id number] / [id number] / Procedures Procedure Name Priority Date/Time Associated Diagnosis Comments SCREENING MAMMOGRAM BILATERAL W MORGAN Schedule Routine, Read Routine (OP Routine) 03/26/2024 3:36 PM CDT Screening mammogram, encounter for COLONOSCOPY 07/15/2019 10:28 AM FEATHER SAWYER DEXA AXIAL SKELETON BONE DENSITY 1 OR [...] nal Result * COLONOSCOPY (07/15/2019 10:28 AM FEATHER SAWYER) Anatomical Region Laterality Modality Other Narrative Procedure Note Mitch Green MD - 07/15/2019 10:28 AM CST [place] Patient Name: Ally Bethea Procedure Date: 07/15/2019 10:28 AM Date of : 1955 Admit Type: Outpatient Age: 64 Gender: Female Attending MD: Mitch Green M.D. Room: [facility] ENDOSCOPY ROOM 2 Note Status: Finalized [...] scope was passed under direct vision.The Colonoscope [id number] was introducedthrough the anus and advanced to [...] 10:28 AM Procedure Code(s): --- Professional --- 47549, Colonoscopy, flexible; with removal of tumor(s), polyp(s), or other lesion(s) by hot biopsy forceps Diagnosis Code(s): --- Professional --- K57.30, Diverticulosis of large intestine without perforation orabscess without bleeding D12.2, Benign neoplasm of ascending colon K64.3, Fourth degree hemorrhoids Z12.11, Encounter for screening for malignant neoplasm of colon CPT copyright 2017 [employer]. All rights reserved. The codes documented in this report are preliminary and upon special education resource room teacher reviewmay be revised to meet current compliance requirements. Recognized by the [employer] for promoting quality in endoscopy Mitch Green MD ENDOSCOPY PROCEDURES Final Re sult * Dexa Axial Skeleton Bone Density 1 or 2 Site (11/25/2013 9:58 AM CDT) Anatomical Region Laterality Modality Body N/A Radiographic Farhana ging 11/25/2013 9:58 AM CDT Narrative 11/25/2013 5:02 PM CDT DEXA Bone Density Axial Acc#: [id number] DATE OF EXAM: Nov 25 2013 CLINICAL [...] - 11/01/2016 DEXA Bone Density Axial Acc#: [id number] DATE OF EXAM: Nov 25 2013 CLINICAL [...] Most Recently Relevant to Health Maintenance Insurance [facility] [place] [address] [facility] COMMERCIAL GENERIC [facility] CORE [place] [address] Advance Directives For more information, please contact: [phone] * Full Code (Latest Code Status on File) Date Activated Date Inactivated Comments 07/15/2019 10:32 AM 07/15/2019 5:36 PM * Full Code Date Activated Date Inactivated Comments 07/15/2019 10:32 AM 07/15/2019 10:32 AM Care Teams Production Or Plant Engineer Relationship Specialty [place] [address] [facility][1] [address] [place] [address] PCP - General 10/06/16 [place] [address] [facility] [address] [place] [address] [phone] (work) Rheumatology 03/02/17
--- OUTSIDE RECORDS SUMMARY | 2025-04-03 09:53 | XMS_ITS | Encounter Summary ---
Author Organization [facility] Address [address] [facility] [place] [address] Care Team Providers Care Interactive Media Project Manager Name Role Phone Chad Pickering MD Primary Care Provider [phone] Encounter Details Date Type Department Care Team (Late Contact Info) Description 11/15/[address] [facility] - DermPath Lab [address] [facility], [place] [id number] Miguel A Del Cid Jr., MD [address] [facility] [address] [place] [address] Social History Tobacco Use Types Packs/Day Years Used Date Smoking Tobacco: Never Assessed Comments Unknown Sex and Gender Information Value Date Recorded Sex Assigned at Not on file Legal Sex Female 4:33 PM CDT Gender Identity Not on file Sexual Orientation Not on file documented as of this encounter Plan of Treatment Upcoming Encounters Date Type Department Care Team (Late Contact Info) Description 04/27/2025 2:00 PM CDT Office Visit [facility] - Rheumatology [address] [facility] [address] [place] [address] [place] [address] [facility] [address] [place] [address] documented as of this encounter Procedures Procedure Name Priority Date/Time Associated Diagnosis Comments DERMATOPATHOLOGY Routine 11/14/2023 12:0 0 AM CDT documented in this encounter Results * DERMATOPATHOLOGY (11/14/2023 12:00 AM CDT) Case Report Dermatopathology Report Case: [id number] Authorizing Provider: Miguel A Del Cid Jr., MD Collected: 11/14/2023 12:00 AM Ordering Location: [facility] - Received: 11/15/2023 09:34 AM DermPath Lab Pathologist: Diamante Serrato MD Specimen: Skin, left anterior proximal upper arm 5:39 PM CDT DERMATOPATHOLOGY LABORATORY Final Diagnosis Specimen A. SKIN, left anterior proximal upper arm: SQUAMOUS CELL CARCINOMA, KERATOACANTHOMA TYPE; SUPERFICIAL PORTIONS OF (C44.629) (see microscopic description) 5:39 PM CDT DERMATOPATHOLOGY LABORATORY at 1739 CDT Clinical History Inflamed seborrheic keratosis vs squamous [...] characteristic determined by the Dermatopathology Laboratory at [facility], directed by Dr. Ahmet Harkins. These tests need not be, and therefore are not, approved by the [place] Food and Drug Administration. The tests are used for clinical purposes. Billing Codes Specimen Charges Stain Charges 18530 1 5:39 PM CDT DERMATOPATHOLOGY LABORATORY Embedded Images 5:39 PM CDT DERMATOPATHOLOGY LABORATORY Pathology/Cytolog y TISSUE SPECIMEN FROM SKIN / Unknown 11/14/2023 11/15/2023 9:34 AM CDT Miguel A Del Cid Jr., MD LAB - PATHOLOGY/CYTOLOG Y ORDERABLES Final Result DERMATOPATHOLOGY LABORATORY [facility] - Department of Dermatology [facility] Specialized Medicine [address] [place] [address], [address] [phone] documented in this encounter Visit Diagnoses Not on filedocumented in this encounter Care Teams Interactive Media Project Manager Relationship Specialty [place] [address] [facility] [place] [address] PCP - General Internal Medicine 03/06/24 documented as of this encounter
--- OUTSIDE RECORDS SUMMARY | 2025-04-03 09:53 | XMS_ITS | Encounter Summary ---
Author Organization [facility] Address [address] [facility] [place] [address] Care Team Providers Care Advertising Internship Name Role Phone Chad Pickering MD Primary Care Provider [phone] Encounter Details Date Type Department Care Team (Late st Contact Info) Description 06/30/2021 Lab Requisition [facility] Care DermPath Lab [address] [facility], [place] [address] Miguel A Del Cid Jr., MD [address] [facility] [address] [place] [address] Social History Tobacco Use Types Packs/Day Years [...] Description 04/27/2025 2:00 PM CDT Office Visit [facility] Medical [facility] - Rheumatology [address] [address] [place] [address] [address] documented as of this encounter Procedures Procedure Name Priority Date/Time Associated Diagnosis Comments DERMATOPATHOLOGY Routine 06/29/2021 12:0 0 AM S[facility] T[facility] documented in this encounter Results * DERMATOPATHOLOGY (06/29/2021 12:00 AM [facility]) Case Report Dermatopathology Report Case: [id number] Authorizing Provider: Miguel A Del Cid Jr., MD Collected: 06/29/2021 12:00 AM Ordering Location: [facility] DermPath Lab Received: 06/30/2021 01:15 PM Pathologist: Laurita Quinones MD Specimens: A) - Skin, right anterior proximal upper arm B) - Skin, right anterior proximal upper arm C) - Skin, right superior upper back 11:20 AM [facility] DERMATOPATHOLOGY LABORATORY Final Diagnosis Specimen A. SKIN, right anterior proximal upper arm: LICHEN PLANUS-LIKE KERATOSIS (BENIGN LICHENOID KERATOSIS) (L82.1) Specimen B. SKIN, right anterior proximal upper arm: ACTINIC KERATOSIS, LICHENOID (L57.0) Specimen C. SKIN, right superior upper back: LICHEN PLANUS-LIKE KERATOSIS (BENIGN LICHENOID KERATOSIS) (L82.1) 11:20 AM [facility] DERMATOPATHOLOGY LABORATORY at 1120 S[facility] Clinical History A-C: Inflamed seborrheic keratosis vs squamous cell carcinoma. . 11:20 AM [facility] DERMATOPATHOLOGY LABORATORY Gross Description Specimen A: Received is one formalin filled container labeled with the patient's name and designated right anterior proximal upper arm. The specimen consists of a shave biopsy measuring [id number]. Jar 0. Specimen B: Received is one formalin filled container labeled with the patient's name and designated right anterior proximal upper arm. The specimen consists of a shave biopsy measuring [id number]. Jar 0. Specimen C: Received is one formalin filled container labeled with the patient's name and designated right superior upper back. The specimen consists of a shave biopsy measuring [id number]. Jar 0. 11:20 AM [facility] DERMATOPATHOLOGY LABORATORY Microscopic Description Specimen A. SKIN, [...] keratinocytes and scattered necrotic keratinocytes. 11:20 AM [facility] DERMATOPATHOLOGY LABORATORY Disclaimer An external and internal positive and negative controls are appropriate for the histochemical, immunohistochemical and immunofluorescence stain(s) in this case (if any), except where stated explicitly. The performance characteristics of the stain(s) cited in this report were developed and its performance characteristic determined by the Dermatopathology Laboratory at [facility], directed by Dr. Ahmet Harkins. These tests need not be, and therefore are not, approved by the [place] Food and Drug Administration. The tests are used for clinical purposes. Billing Codes Specimen Charges Stain Charges 36258 88957 94521 1 1 1 11:20 AM [facility] DERMATOPATHOLOGY LABORATORY Embedded Images 11:20 AM [facility] DERMATOPATHOLOGY LABORATORY Pathology/Cytology TISSUE SPECIMEN FROM SKIN / Unknown 06/29/2021 06/30/2021 1:15 PM S[facility] Miscellaneous samples (specimen) TISSUE SPECIMEN FROM SKIN / Unknown 06/29/2021 06/30/2021 1:15 PM S[facility] Miscellaneous samples (specimen) TISSUE SPECIMEN FROM SKIN / Unknown 06/29/2021 06/30/2021 1:15 PM S[facility] TACK Miguel A Del Cid Jr., MD LAB - PATHOLOGY/CYTOLOG Y ORDERABLES Final Result DERMATOPATHOLOGY LABORATORY [facility] - Department of Dermatology [facility] [address] [place] [address], 3rd [place] [address], [facility] [phone] documented in this encounter Visit Diagnoses Not on filedocumented in this encounter Care Teams Advertising Internship Relationship Specialty [place] [address] [facility] [place] [address] PCP - General Internal Medicine 03/06/24 documented as of this encounter
--- OUTSIDE RECORDS SUMMARY | 2025-04-03 09:53 | XMS_ITS | Encounter Summary ---
Author Organization [facility] Address [address] [facility] [place] [address] Care Team Providers Care Promotions Assistant Name Role Phone Chad Pickering MD Primary Care Provider [phone] Encounter Details Date Type Department Care Team (Late Contact Info) Description 12/20/2023 Lab Requisition [facility] Physician [facility] - DermPath Lab [address] [facility], [place] [address] Miguel A Del Cid Jr., MD [address] [facility] [address] [place] [address] Social History Tobacco Use Types Packs/Day Years [...] Description 04/27/2025 2:00 PM CDT Office Visit [facility] - Rheumatology [address] [facility] [address] [place] [address] [place] [address] [facility] [address] [place] [address] documented as of this encounter Procedures Procedure Name Priority Date/Time Associated Diagnosis Comments DERMATOPATHOLOGY Routine 12/19/2023 12:0 0 AM CDT documented in this encounter Results * DERMATOPATHOLOGY (12/19/2023 12:00 AM CDT) Case Report Dermatopathology Report Case: [id number] Authorizing Provider: Miguel A Del Cid Jr., MD Collected: 12/19/2023 12:00 AM Ordering Location: [facility] - Received: 12/20/2023 01:35 PM DermPath Lab Pathologist: Diamante Serrato MD Specimen: Skin, left proximal posterior upper arm 3:39 PM CDT DERMATOPATHOLOGY LABORATORY Final Diagnosis Specimen A. SKIN, left proximal posterior upper arm: DERMAL SCAR RESIDUAL SQUAMOUS CELL CARCINOMA NOT IDENTIFIED (L90.5) 3:39 PM CDT DERMATOPATHOLOGY LABORATORY at 1539 CDT Clinical History SCC. Check margins 3:39 PM CDT DERMATOPATHOLOGY LABORATORY Gross Description Specimen A: Received is one formalin filled container labeled with the patient's name and designated left proximal posterior upper arm.The specimen consists of an ellipse measuring 36y26x4 mm and is oriented with the suture/notch [...] characteristic determined by the Dermatopathology Laboratory at [facility], directed by Dr. Ahmet Harkins. These tests need not be, and therefore are not, approved by the [place] Food and Drug Administration. The tests are used for clinical purposes. Billing Codes Specimen Charges Stain Charges 11037 1 4 3:39 PM CDT DERMATOPATHOLOGY LABORATORY Embedded Images 4 3:39 PM CDT DERMATOPATHOLOGY LABORATORY Pathology/Cytolog y TISSUE SPECIMEN FROM SKIN / Unknown 12/19/2023 12/20/2023 1:35 PM CDT Miguel A Del Cid Jr., MD LAB - PATHOLOGY/CYTOLOG Y ORDERABLES Final Result DERMATOPATHOLOGY LABORATORY [facility] - Department of Dermatology [address], [address] [phone] documented in this encounter Visit Diagnoses Not on filedocumented in this encounter Care Teams Promotions Assistant Relationship Specialty [place] [address] [facility] [place] [address] PCP - General Internal Medicine 03/06/24 documented as of this encounter
[2025-04-03 11:01] LABS: Albumin Level 4.6 g/dL (3.5-5.1); Estimated Glomerular Filt Rate 56
== END 2025-04-03 09:48 | disposition home or self-care (01) ==
PROVIDERS: PCP Internal Medicine Geriatric Medicine; Visit Provider Orthopaedic Surgery
DX: M17.11 Unilateral primary osteoarthritis, right knee (principal)
CPT/HCPCS: 36415; 82040; 82565

== ENCOUNTER 2025-04-08 14:00 | Outpatient (CLI) | payer MEDICARE, SELFPAY ==
--- OUTSIDE RECORDS SUMMARY | 2025-04-08 14:09 | XMS_ITS | Clinical Summary ---
Author Organization [facility] Address [address] [place] [address] Care Team Providers Care Tack Cutter Name Role Phone Chad Pickering MD Primary Care Provider [phone] Source Comments [facility],non-owned Affiliates and Associated Physician Practices is amultiple site organization consisting of ambulatory clinics and hospital sitesin [place], [place], [place] and [place]. This disclosure is being madepursuant to the Care Everywhere program and may not contain all information available regarding this patient. Last updated 18.[facility] Allergies Active Allergy Reactions Criticality Noted Date [...] Type Department Care Team Description 03/19/2025 Refill [facility] - Rheumatology [address] [place] [id number] Ramos Emery MD Refill Request 01/12/2025 Results Follow-Up [facility] - Rheumatology [address] [place] [id number] Ramos Emery MD 01/12/2025 Results Follow-Up [facility] - Rheumatology [address] [place] [address] [phone] Ramos Emery MD from Last 3 Months Immunizations Immunization Administration [...] 36.9 C (98.4 F) 09/12/2022 8:47 AM TOP FRAME MAKER Respiratory Rate 18 12/17/2024 10:51 AM CDT Oxygen Saturation 96% 12/17/2024 10:51 AM CDT Inhaled Oxygen Concentration - - Weight 79.8 kg (176 lb) 12/17/2024 10:51 AM CDT Height 167.6 cm (5' 5.98) 08/19/2024 3:02 PM CS T Body Mass Index 28.42 08/19/2024 3:02 PM TOP FRAME MAKER Plan of Treatment Upcoming Encounters Date Type Department Care Team (Late st Contact Info) Description 04/27/2025 2:00 PM CDT Office Visit [facility] - Rheumatology [address] [facility] [address] [place] [address] [place] [address] [facility] [address] [place] [address] Health Maintenance Due Date Last [...] ANTIBODY REFLEX IGM (01/08/2025 10:54 AM CDT) Pathologist [facility] Hepatitis A Virus Antibody Total NON-REACTI VE NON-REACT [facility] Comment: For additional information, please refer to http://education.eTherapeutics/faq/TVR839 (This link is being provided for informational/ educational purposes only.) REPORT COMMENT: FASTING:NO Test Performed at: [facility] [address] [facility] [place] [address] CAMILLE DECKER MD Blood BLOOD SPECIMEN / Unknown 01/08/2025 10:54 AM CDT 01/08/2025 10:54 AM CDT Ramos Emery MD LAB - SEROLOGY ORDERABLES Final Result [facility] [address] [place] [address] * (ABNORMAL) COMPREHENSIVE METABOLIC PANEL (12/24/2024 12:52 PM CDT) Pathologist [facility] Glucose 87 65 - 99 mg/dL [facility] [...] 29 U/L [facility] Comment: Test Performed at: [facility] [address] [facility] [place] [address] CAMILLE DECKER MD Blood BLOOD SPECIMEN / Unknown 12/24/2024 12:52 PM CDT 12/24/2024 12:52 PM CDT Ramos Emery MD LAB - CHEMISTRY ORDERABLES Final Result [facility] [address] [place] [address] * (ABNORMAL) HEPATITIS PANEL (12/24/2024 12:48 PM CDT) Hepatitis A Virus Antibody Total REACTIVE(A ) NON-REACT [facility] Comment: For additional information, please refer to http://[employer] [place].eTherapeutics/faq/SSR756 (This link is being provided for informational/ educational purposes only.) Hepatitis B Virus Surface Antibody NON-REACTI VE NON-REACT [facility] Hepatitis B Virus Surface Antigen NON-REACTI VE NON-REACT [facility] Comment: For additional information, please refer to http://Bikmo/faq/NJA222 (This link is being provided for informational/ educational purposes only.) Hepatitis B Core Virus Antibody Total NON-REACTI VE NON-REACT [facility] Comment: For additional information, please refer to http://Bikmo/faq/UAD887 (This link is being provided for informational/ educational purposes only.) Hepatitis C Antibody NON-REACTI VE NON-REACT [facility] Comment: HCV antibody was non-reactive. There is no laboratory evidence of HCV infection. In most cases, no further action is required. However, if recent HCV exposure is suspected, a test for HCV RNA (test code 56044) is suggested. For additional information please refer to http://[employer] [place].eTherapeutics/faq/RSD87r6 (This link is being provided for informational/ educational purposes only.) REPORT COMMENT: FASTING:NO Test Performed at: [facility] [address] [facility] [place] [address] CAMILLE DECKER MD Blood BLOOD SPECIMEN / Unknown 12/24/2024 12:48 PM CDT 12/24/2024 12:49 PM CDT Ramos Emery MD LAB - CHEMISTRY ORDERABLES Final Result [facility] [address] [place] [address] from Last 3 Months or Most Recently Relevant to Health Maintenance Insurance MEDICARE [facility] MED[facility]ARE Care Teams Tack Cutter Relationship Specialty [place] [address] [address] [address] [place] [address] PCP - General Internal Medicine 03/06/24
--- OUTSIDE RECORDS SUMMARY | 2025-04-08 14:09 | XMS_ITS | Data Portability ---
Author Organization [place] [facility],, Ashley carolina Address [address] [place] [address] Assessment No assessment recorded. Plan of Treatment Reminders Order Date Submit Date Provider Last Modified By Organization Details Last Modified Time Details Appointments None recorded. Lab allergy test, skin 019 019 [facility], [address], [place], [address], 9 18:46:06 Referral None recorded. Procedures None recorded. Surgeries None recorded. Imaging None recorded. Medication Orders None recorded. Patient TargetsNo targets recorded. Patient Instructions Encounter Date Encounter Id Patient Instructions Last Modified By Organization Details Last Modified Time 12/20/2018 [id number] drug allergy: care instructions shyann Not available [...] Name and Address Organization Details Recorded Time 88912 Non-stero idal anti-infl ammatory agent (substanc e) medicatio n Not available Not available Not available 12/20/2018 25833 5008 SNOMED sandra middendoarmaan sharma [place] [facility], 9 14:26:50 Medications Not known to be on any medication Vitals Date Recorded Body weight Body temperature Body mass index (BMI) Body height Systolic And Diastolic Provider Name and Address Organization Details Last Updated DateTime 12/20/2018 16288.5 9 g 98.3 [degF] 29 kg/m2 170.18 cm 142/88 mm[Hg] [facility] [place] [facility], 9 14:25:58 Social History Question Answer Notes LastModified by Organizat ion Details LastModified Time Tobacco Smoking Status Never Smoker [facility] null, [place] [facility], 12/20/2018 14:27:02 What Was The Date Of Your Most Recent Tobacco Screening? 12/20/2018 Information n ot available 01/30/2019 Sex: Unknown Functional Status None recorded. Mental Status None recorded. Family History Nothing Reported. Medical History Condition Response Coronary Artery Disease N Gout N Kidney Stones N Hyperthyroidism N Depression N COPD N Anxiety Disorder N Arthritis N Cancer N Stroke N Fibromyalgia N Kidney Disease N Tuberculosis N Asthma N Allergies N GERD/Reflux N Pulmonary Embolism N Hypothyroidism N Stress N High Cholesterol N Liver Disease N Diabetes N Diverticulitis N Heart Disease N Hypertension N Osteoporosis N Gynecological HistoryNo gynecological history recorded. 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 She should avoid this medication . Health Concerns Section Related Observation LastModified by Organization Detai ls LastModified Time None Recorded Concern Status LastModified by Organization Details LastModified Time None Recorded Advance Directives Directive None Recorded Payers Insurance Date Sequence Insurance Name Policy Number Policy Keenan Covered Member ID Keenan Member ID Guarantor Name 12/13/2018 1 [id number] Ally Juarez [id number] Ally Juarez Notes Date Note Type Note [...] in today for skin testing to the [facility]. This is her first biologic. Ramirez Chamberlain MD [address], [place], [address], [facility], 12/21/2018 09:09:44 OBGyn Episode No OBEpisode recorded.
--- OUTSIDE RECORDS SUMMARY | 2025-04-08 14:09 | XMS_ITS | Encounter Summary ---
Author Organization [facility] Address [address] [facility] [place] [address] Care Team Providers Care Elementary School Music Teacher Name Role Phone Chad Pickering MD Primary Care Provider [phone] Encounter Details Date Type Department Care Team (Late Contact Info) Description 11/15/2023 Lab Requisition [facility] Physician [facility] - DermPath Lab [address] [facility], [place] [phone] Miguel A Del Cid Jr., MD [address] [facility] [address] [place] [address] Social History Tobacco Use Types Packs/Day Years [...] Description 04/27/2025 2:00 PM CDT Office Visit [facility] - Rheumatology [address] [facility] [address] [place] [address] [place] [address] [facility] [address] [place] [address] documented as of this encounter Procedures Procedure Name Priority Date/Time Associated Diagnosis Comments DERMATOPATHOLOGY Routine 11/14/2023 12:0 0 AM CDT documented in this encounter Results * DERMATOPATHOLOGY (11/14/2023 12:00 AM CDT) Case Report Dermatopathology Report Case: [id number] Authorizing Provider: Miguel A Del Cid Jr., MD Collected: 11/14/2023 12:00 AM Ordering Location: [facility] - Received: 11/15/2023 09:34 AM [...] characteristic determined by the Dermatopathology Laboratory at [facility], directed by Dr. Ahmet Harkins. These tests need not be, and therefore are not, approved by the [place] Food and Drug Administration. The tests are used for clinical purposes. Billing Codes Specimen Charges Stain Charges 86854 1 5:39 PM CDT DERMATOPATHOLOGY LABORATORY Embedded Images 5:39 PM CDT DERMATOPATHOLOGY LABORATORY Pathology/Cytolog y TISSUE SPECIMEN FROM SKIN / Unknown 11/14/2023 11/15/2023 9:34 AM CDT Miguel A Del Cid Jr., MD LAB - PATHOLOGY/CYTOLOG Y ORDERABLES Final Result DERMATOPATHOLOGY LABORATORY [facility] - Department of Dermatology [facility] Specialized Medicine [address] [place] [address], [address] [phone] documented in this encounter Visit Diagnoses Not on filedocumented in this encounter Care Teams Elementary [employer] Music Teacher Relationship Specialty [place] [address] [place] [address] PCP - General Internal Medicine 03/06/24 documented as of this encounter
--- OUTSIDE RECORDS SUMMARY | 2025-04-08 14:09 | XMS_ITS | Clinical Summary ---
Author Organization [facility] Address [address] [place] [address] Care Team Providers Care Painting Department Supervisor Name Role Phone Chad Mayer MD Primary [...] (06/12/2019): Added automatically from request for surgery [id number] Fibromyalgia 04/02/2017 Assessment & Plan (01/14/2018 2:14 [...] 2:05 PM CDT): Follows w/ pulmonology at [facility] Assessment & Plan (10/18/2017 8:27 AM [...] pain. [place] and states she always feels better when she is on the [facility]. Patient is to continue current regimen. Will [...] Team Description 03/16/2025 2:30 PM CDT Infusion [address] [place] [address] Rheumatoid arthritis involving both hands with negative rheumatoid factor (HCC) (Primary Dx) 03/02/2025 Telephone [facility] Gastroenterology at [address] [place] [address] Autumn Henry 02/16/2025 2:30 PM CDT Infusion [address] [place] [address] Denice Noble RN Rheumatoid arthritis involving both hands with negative rheumatoid factor (HCC) (Primary Dx) 01/19/2025 2:30 PM CDT Infusion [address] [place] [address] Rheumatoid arthritis involving both hands with negative [...] - Secondary to clot with treatment for [place] Rheum arthritis Sister 2 RA; Heart attack [...] on file Legal Sex Female 10:25 AM VAULT MANAGER Gender Identity Not on file Sexual Orientation [...] Description 10/21/2025 8:30 AM CDT Hospital Encounter [address] [address] Dat Montez, DO [address] [facility] [address] [place] [address] 10/21/2025 8:30 AM CDT - 10/21/2025 9:00 AM CDT Surgery [address] [address] Dat Montez, [address] [facility] [address] [place] [address] COLONOSCOPY Scheduled Procedures Name Priority Associated Diagnoses [...] Discontinued 07/15/2019 Medical Devices Implanted Type Area Mortgage Closer Device Identifier Shelf Expiration Date Model / Serial / Lot [employer] [id number] Mammomark 8ga Bowtie Identifier Biopsy Site - [id number] - [id number] Implanted:Qty: 1 on 02/05/2018 by Reilly Vega Jr., MD at [facility] Breast Right: Breast [employer] 02/25/2019 [id number] / [id number] / Procedures Procedure Name Priority Date/Time Associated Diagnosis Comments SCREENING MAMMOGRAM BILATERAL W MORGAN Schedule Routine, Read Routine (OP Routine) 03/26/2024 3:36 PM CDT Screening mammogram, encounter for COLONOSCOPY 07/15/2019 10:28 AM VAULT MANAGER DEXA AXIAL SKELETON BONE DENSITY 1 OR [...] nal Result * COLONOSCOPY (07/15/2019 10:28 AM VAULT MANAGER) Anatomical Region Laterality Modality Other Narrative Procedure Note Mitch Green MD - 07/15/2019 10:28 AM CST [facility] Patient Name: Ally Bethea Procedure Date: 07/15/2019 10:28 AM Date of : 1955 Admit Type: Outpatient Age: 64 Gender: Female Attending MD: Mitch Green M.D. Room: [facility] ENDOSCOPY ROOM 2 Note Status: [...] scope was passed under direct vision.The Colonoscope [id number] was introducedthrough the anus and advanced to [...] 10:28 AM Procedure Code(s): --- Professional --- 13246, Colonoscopy, flexible; with removal of tumor(s), polyp(s), or other lesion(s) by hot biopsy forceps Diagnosis Code(s): --- Professional --- K57.30, Diverticulosis of large intestine without perforation orabscess without bleeding D12.2, Benign neoplasm of ascending colon K64.3, Fourth degree hemorrhoids Z12.11, Encounter for screening for malignant neoplasm of colon CPT copyright 2017 [employer]. All rights reserved. The codes documented in this report are preliminary and upon inspector exhaust emissions reviewmay be revised to meet current compliance requirements. Recognized by the [employer] [place] for promoting quality in endoscopy Mitch Green MD ENDOSCOPY PROCEDURES Final Re sult * Dexa Axial Skeleton Bone Density 1 or 2 Site (11/25/2013 9:58 AM CDT) Anatomical Region Laterality Modality Body N/A Radiographic Farhana ging 11/25/2013 9:58 AM CDT Narrative 11/25/2013 5:02 PM CDT DEXA Bone Density Axial Acc#: [id number] DATE OF EXAM: Nov 25 2013 CLINICAL [...] - 11/01/2016 DEXA Bone Density Axial Acc#: [id number] DATE OF EXAM: Nov 25 2013 CLINICAL [...] Most Recently Relevant to Health Maintenance Insurance [facility] COMMERCIAL GENERIC CORE [facility] HMO/PPO Address: [address] [address] [place] [address] COMMERCIAL GENERIC [facility] CORE MEDICARE COMMERCIAL GENERIC Advance Directives For more information, please contact: [phone] * Full Code (Latest Code Status on File) Date Activated Date Inactivated Comments 07/15/2019 10:32 AM 07/15/2019 5:36 PM * Full Code Date Activated Date Inactivated Comments 07/15/2019 10:32 AM 07/15/2019 10:32 AM Care Teams Painting Department Supervisor Relationship Specialty [place] [address] [facility] [address] [place] [address] PCP - General 10/06/16 [place] [address] [facility] [address] [place] [address] [phone] (work) Rheumatology 03/02/17
--- OUTSIDE RECORDS SUMMARY | 2025-04-08 14:09 | XMS_ITS | Encounter Summary ---
Author Organization [facility] Address [address] [facility] [place] [address] Care Team Providers Care Customer Insight Analyst Name Role Phone Chad Pickering MD Primary Care Provider [phone] Encounter Details Date Type Department Care Team (Late st Contact Info) Description 06/30/2021 Lab Requisition [facility] Care DermPath Lab [address] [facility], [place] [address] Miguel A Del Cid Jr., MD [address] [facility] [address] [place] [address] Social History Tobacco Use Types Packs/Day Years [...] Description 04/27/2025 2:00 PM CDT Office Visit [facility] Medical [facility] - Rheumatology [address] [address] [place] [address] [address] documented as of this encounter Procedures Procedure Name Priority Date/Time Associated Diagnosis Comments DERMATOPATHOLOGY Routine 06/29/2021 12:0 0 AM NET SOLUTIONS ARCHITECT documented in this encounter Results * DERMATOPATHOLOGY (06/29/2021 12:00 AM [facility]) Case Report Dermatopathology Report Case: [id number] Authorizing Provider: Miguel A Del Cid Jr., MD Collected: 06/29/2021 12:00 AM Ordering Location: [facility] DermPath Lab Received: 06/30/2021 01:15 PM Pathologist: Laurita Quinones MD Specimens: A) - Skin, right anterior proximal upper arm B) - Skin, right anterior proximal upper arm C) - Skin, right superior upper back 11:20 AM [facility] DERMATOPATHOLOGY LABORATORY Final Diagnosis Specimen A. SKIN, right anterior proximal upper arm: LICHEN PLANUS-LIKE KERATOSIS (BENIGN LICHENOID KERATOSIS) (L82.1) Specimen B. SKIN, right anterior proximal upper arm: ACTINIC KERATOSIS, LICHENOID (L57.0) Specimen C. SKIN, right superior upper back: LICHEN PLANUS-LIKE KERATOSIS (BENIGN LICHENOID KERATOSIS) (L82.1) 11:20 AM [facility] DERMATOPATHOLOGY LABORATORY at [address] [employer] ARCHITECT Clinical History A-C: Inflamed seborrheic keratosis vs squamous cell carcinoma. . 11:20 AM [facility] DERMATOPATHOLOGY LABORATORY Gross Description Specimen A: Received is one formalin filled container labeled with the patient's name and designated right anterior proximal upper arm. The specimen consists of a shave biopsy measuring [id number]. Jar 0. Specimen B: Received is one formalin filled container labeled with the patient's name and designated right anterior proximal upper arm. The specimen consists of a shave biopsy measuring [id number]. Jar 0. Specimen C: Received is one formalin filled container labeled with the patient's name and designated right superior upper back. The specimen consists of a shave biopsy measuring [id number]. Jar 0. 11:20 AM [facility] DERMATOPATHOLOGY LABORATORY Microscopic Description Specimen A. SKIN, [...] keratinocytes and scattered necrotic keratinocytes. 11:20 AM [facility] DERMATOPATHOLOGY LABORATORY Disclaimer An external and internal positive and negative controls are appropriate for the histochemical, immunohistochemical and immunofluorescence stain(s) in this case (if any), except where stated explicitly. The performance characteristics of the stain(s) cited in this report were developed and its performance characteristic determined by the Dermatopathology Laboratory at [facility], directed by Dr. Ahmet Harkins. These tests need not be, and therefore are not, approved by the [place] Food and Drug Administration. The tests are used for clinical purposes. Billing Codes Specimen Charges Stain Charges 47230 59983 65598 1 1 1 11:20 AM NET SOLUTIONS ARCHITECT DERMATOPATHOLOGY LABORATORY Embedded Images 11:20 AM [employer] ARCHITECT DERMATOPATHOLOGY LABORATORY Pathology/Cytology TISSUE SPECIMEN FROM SKIN / Unknown 06/29/2021 06/30/2021 1:15 PM NET SOLUTIONS ARCHITECT Miscellaneous samples (specimen) TISSUE SPECIMEN FROM SKIN / Unknown 06/29/2021 06/30/2021 1:15 PM NET SOLUTIONS ARCHITECT Miscellaneous samples (specimen) TISSUE SPECIMEN FROM SKIN / Unknown 06/29/2021 06/30/2021 1:15 PM NET SOLUTIONS ARCHITECT Miguel A Del Cid Jr., MD LAB - PATHOLOGY/CYTOLOG Y ORDERABLES Final Result DERMATOPATHOLOGY LABORATORY [facility] - Department of Dermatology [facility] [address] [place] [address], [address] [place] [address], [facility] [phone] documented in this encounter Visit Diagnoses Not on filedocumented in this encounter Care Teams Customer Insight Analyst Relationship Specialty [place] [address] [place] [address] PCP - General Internal Medicine 03/06/24 documented as of this encounter
--- OUTSIDE RECORDS SUMMARY | 2025-04-08 14:09 | XMS_ITS | Encounter Summary ---
Author Organization [facility] Address [address] [place] [address] Phone Care Team Providers Care Clothes Drier Assembler Name Role Phone Chad Sherman MD Primary Care Provider + Monserrat Florentino MD Unavailable Encounter Details Date Type Department Care Team (Late st Contact Info) Description 08/29/2017 Orders Only [facility] ProviderCherelle MD [address] [place], [place] [id number] Social History Tobacco Use Types Packs/Day Years Used Date Smoking Tobacco: Never Alcohol Use Standard Drinks/Week Comments Yes 0 (1 standard drink = 0.6 oz pur e alcohol) Comments Unknown Sex and Gender Information Value Date Recorded Sex Assigned at Not on file Legal Sex Female 10:25 AM MANAGED CARE MANAGER Gender Identity Not on file Sexual Orientation Not on file documented as of this encounter Plan of Treatment Upcoming Encounters Date Type Department Care Team (Late st Contact Info) Description 10/21/2025 8:30 AM CDT Hospital Encounter [address] [address] Dat Montez DO [address] [place] [address] [place] [address] 10/21/2025 8:30 AM CDT - 10/21/2025 9:00 AM CDT Surgery [address] [address] Dat Montez DO [address] [facility] [address] [place] [address] COLONOSCOPY Scheduled Procedures Name Priority Associated Diagnoses Date/Ti me COLONOSCOPY History of colonic polyps 10/21/2025 8:30 AM CDT documented as of this encounter Procedures Procedure Name Priority Date/Time Associated Diagnosis Comments DISCHARGE LABORATORY CUMULATIVE REPORT 08/29/2017 12:00 AM MANAGED CARE MANAGER documented in this encounter Results * DISCHARGE LABORATORY CUMULATIVE REPORT (08/29/2017 12:00 AM MANAGED CARE MANAGER) Narrative 08/29/2017 12:00 AM MANAGED CARE MANAGER Ordered by an unspecified provider. us Historical Provider LAB BLOOD ORDERABLES Viviane l Result documented in this encounter Visit Diagnoses Not on filedocumented in this encounter Care Teams Clothes Drier Assembler Relationship Specialty [place] [address] [facility] [address] [place] [address] PCP - General 10/06/16 [place] [address] [facility] [address] [place] [address] Rheumatology 03/02/17 documented as of this encounter
--- OUTSIDE RECORDS SUMMARY | 2025-04-08 14:09 | XMS_ITS | Clinical Summary ---
Author Organization [facility] Address [address] [place] [address] Phone Care Team Providers Care Casting Repairer Name Role Phone Chad Pickering MD Primary Care Provider [phone] Allergies Active Allergy Reactions Criticality Noted Date [...] Comments Blood Pressure 108/55 08/03/2022 12:00 AM SALES WAREHOUSE DRIVER Pulse 64 08/03/2022 12:00 AM SALES WAREHOUSE DRIVER Temperature 36.1 C (96.9 F) 08/02/2022 9:02 PM SALES WAREHOUSE DRIVER Respiratory Rate 14 08/03/2022 12:00 AM SALES WAREHOUSE DRIVER Oxygen Saturation 93% 08/03/2022 12:00 AM SALES WAREHOUSE DRIVER Inhaled Oxygen Concentration - - Weight 84.8 kg (187 lb) 08/02/2022 9:02 PM SALES WAREHOUSE DRIVER Height 167.6 cm (5' 6) 08/02/2022 9:02 PM SALES WAREHOUSE DRIVER Body Mass Index 30.18 08/02/2022 9:02 PM SALES WAREHOUSE DRIVER Plan of Treatment Health Maintenance Due Date [...] topic Insurance MEDICARE COMMERCIAL GENERIC Care Teams Casting Repairer Relationship Specialty [place] [address] [address] [facility] [address] [place] [address] PCP - General Internal Medicine 07/30/22
--- OUTSIDE RECORDS SUMMARY | 2025-04-08 14:09 | XMS_ITS | Encounter Summary ---
Author Organization [facility] Address [address] [facility] [place] [address] Care Team Providers Care Developmental Training Counselor Name Role Phone Chad Pickering MD Primary Care Provider [phone] Encounter Details Date Type Department Care Team (Late Contact Info) Description 12/20/2023 Lab Requisition [facility] Physician [facility] - DermPath Lab [address] [facility], [place] [address] Miguel A Del Cid Jr., MD [address] [facility] [address] [place] [address] Social History Tobacco Use Types Packs/Day Years [...] Description 04/27/2025 2:00 PM CDT Office Visit [facility] - Rheumatology [address] [facility] [address] [place] [address] [place] [address] [facility] [address] [place] [address] documented as of this encounter Procedures Procedure Name Priority Date/Time Associated Diagnosis Comments DERMATOPATHOLOGY Routine 12/19/2023 12:0 0 AM CDT documented in this encounter Results * DERMATOPATHOLOGY (12/19/2023 12:00 AM CDT) Case Report Dermatopathology Report Case: [id number] Authorizing Provider: Miguel A Del Cid Jr., MD Collected: 12/19/2023 12:00 AM Ordering Location: [facility] - Received: 12/20/2023 01:35 PM [...] arm.The specimen consists of an ellipse measuring [id number] mm and is oriented with the suture/notch [...] characteristic determined by the Dermatopathology Laboratory at [facility], directed by Dr. Ahmet Harkins. These tests need not be, and therefore are not, approved by the [place] Food and Drug Administration. The tests are used for clinical purposes. Billing Codes Specimen Charges Stain Charges 82628 1 4 3:39 PM CDT DERMATOPATHOLOGY LABORATORY Embedded Images 4 3:39 PM CDT DERMATOPATHOLOGY LABORATORY Pathology/Cytolog y TISSUE SPECIMEN FROM SKIN / Unknown 12/19/2023 12/20/2023 1:35 PM CDT Miguel A Del Cid Jr., MD LAB - PATHOLOGY/CYTOLOG Y ORDERABLES Final Result DERMATOPATHOLOGY LABORATORY [facility] - Department of Dermatology [address], [address] [phone] documented in this encounter Visit Diagnoses Not on filedocumented in this encounter Care Teams Developmental Training Counselor Relationship Specialty Start [place] [address] [facility] [place] [address] PCP - General Internal Medicine 03/06/24 documented as of this encounter
[2025-04-08 19:31] LABS: Hematocrit 43.5 % (37.0-47.0); Hemoglobin 13.6 g/dL (12.0-15.0)
== END 2025-04-08 14:01 | disposition home or self-care (01) ==
LOC: ANHBWCLAB 14:00
PROVIDERS: PCP Internal Medicine Geriatric Medicine; Visit Provider Orthopaedic Surgery
DX: M17.11 Unilateral primary osteoarthritis, right knee (principal); Z01.818 Encounter for other preprocedural examination
CPT/HCPCS: 36415; 85014; 85018

== ENCOUNTER 2025-06-15 11:37 | Outpatient (CLI) | payer MEDICARE, SELFPAY ==
[2025-06-15 13:29] LABS: Hematocrit 41.2 % (37.0-47.0); Hemoglobin 13.3 g/dL (12.0-15.0); Immature Granulocyte Percent A 0.3 % (0-0.5); Lymphocytes Absolute Auto 2.19 K/mm3 (0.9-3.2); Mean Corpuscular HGB Conc 32.3 g/dl (32-36); Mean Corpuscular Hemoglobin 29.7 pg (26-34); Mean Corpuscular Volume 92.0 fl (80-100); Nucleated Red Blood Cells Absolute Auto 0.000 K/mm3 (0.0-0.012); Nucleated Red Blood Cells Perc 0.0 % (0.0-0.2); Platelet Count Result 271 k/mm3 (150-375); Red Blood Count 4.48 M/mm3 (4.2-5.4); White Blood Count 6.6 K/mm3 (4.5-10.0)
[2025-06-15 13:44] LABS: Hemoglobin A1C 5.3 % (<5.7)
[2025-06-15 13:46] LABS: Albumin Level 4.3 g/dL (3.5-5.1)
[2025-06-15 13:48] LABS: Anion Gap 3 mmol/L (4-12); Blood Urea Nitrogen 16 mg/dL (7-17); Calcium 9.6 mg/dL (8.4-10.2); Carbon Dioxide 28 mmol/L (22-30); Chloride 107 mmol/L (98-107); Estimated Glomerular Filt Rate > 60; Glucose 81 mg/dL (65-110); Potassium 4.3 mmol/L (3.4-5.0); Sodium 138 mmol/L (137-145)
[2025-06-15 14:38] LABS: MRSA (PCR) NOT DETECTED (NOT DETECTE)
== END 2025-06-15 11:38 | disposition home or self-care (01) ==
PROVIDERS: Anesthesiology; PCP Internal Medicine Geriatric Medicine; Visit Provider Orthopaedic Surgery
DX: Z01.818 Encounter for other preprocedural examination (principal); M17.11 Unilateral primary osteoarthritis, right knee; I10 Essential (primary) hypertension
CPT/HCPCS: 36415; 80048; 80307; 82040; 83036; 85025; 87641